=== PATIENT | male | born 1945 | race Caucasian/White ===

== ENCOUNTER → 2023-04-07 08:09 | Outpatient (REF) | payer MEDICARE, SELFPAY ==
[2023-04-07 10:27] LABS: ALT (SGPT) 17 U/L (0-50); AST (SGOT) 22 U/L (17-59); Albumin 3.8 g/dl (3.5-5.0); Alkaline Phosphatase 94 U/L (38-126); Blood Urea Nitrogen 21 mg/dl (9-20); Calcium 9.8 mg/dl (8.4-10.2); Carbon Dioxide 29 mmol/L (22-30); Chloride 100 mmol/L (98-107); Glucose 142 mg/dl (70-99); HDL Cholesterol 42 mg/dl; LDL Cholesterol, Calculated 61 mg/dl; Potassium 4.2 mmol/L (3.5-5.1); Sodium 138 mmol/L (135-145); Total Cholesterol 120 mg/dl (50-199); Total Protein 6.3 g/dl (6.3-8.2); Triglyceride 88 mg/dl (10-149); Very Low Density Lipoprotein 17 mg/dl (0-30); eGFR > 60.00
[2023-04-07 10:43] LABS: PSA, Total - Screen 0.58 ng/ml (0.0-4.0)
[2023-04-07 13:02] LABS: Glycohemoglobin (HgbA1c) 7.9 % (4.0-5.6)
[2023-04-07 13:16] LABS: Microalbumin, Random Urine 24.3 mg/dl (0.6-1.7); Microalbumin/creatinine Ratio 174.7 mg/g
== END ==
LOC: REG 08:09
PROVIDERS: ATTENDING PHYSICIAN Internal Medicine Endocrinology, Diabetes & Metabolism; FAMILY PHYSICIAN Internal Medicine; REFERRING PHYSICIAN Internal Medicine Interventional Cardiology
DX: I10 Essential (primary) hypertension (principal); E11.621 Type 2 diabetes mellitus with foot ulcer; E11.40 Type 2 diabetes mellitus with diabetic neuropathy, unspecified; Z12.5 Encounter for screening for malignant neoplasm of prostate
CPT/HCPCS: 36415; 80053; 80061; 82043; 82570; 83036; G0103

== ENCOUNTER 2023-05-03 07:45 | Emergency (ER) | payer MEDICARE, SELFPAY ==
[2023-05-03 07:47] VITALS: BP 145/78
--- NOTE | 2023-05-03 08:03 | ED.GENMED ---
History of Present Illness
<Blanca Decker, HEAVY RAIL TRAIN OPERATOR - Last Filed: 05/03/23 15:44>
General
Chief Complaint: Abdominal Pain
Source: patient
Exam Limitations: none
Time Seen by Provider: 05/03/23 08:02
Nursing documentation reviewed up to this point in time: agreed with
Travel History
Have you had any contact with someone who has COVID-19?: No
Do you have any symptoms of coronavirus? Fever > 100 degrees, chills, cough, shortness of breath, sore throat, loss of taste or smell, muscle aches, or headache?: No
History of Present Illness
History of Present Illness:
77-year-old male with history of A-fib, aspirin and Plavix, CHF, HTN, HLD, pacemaker, IDDM cardiac stent 1993, stents x 4 201, AVR presents stating he was awakened 1 a.m. with mid abdominal pain, constant, pressure, gassy, feels distended, 'like I
have an obstruction.' Pain 6/10 now. Had a normal BM yesterday. Denies fever or chills. Denies chest pain or trouble breathing. Denies any problem with urinating.
Past History
<Blanca Decker HEAVY RAIL TRAIN OPERATOR - Last Filed: 05/03/23 15:44>
Past History
ED Past Medical History: CAD, HTN, Hypercholesterolemia, IDDM and Other (Diabetic neuropathy, morbid obesity, cholelithiasis)
ED Past Surgical History: Other (Patient has a history of having a cardiac stent, open reduction of a right elbow injury, right eye surgery, and left fifth metatarsal surgery. )
Social History
Tobacco: Non-smoker
Alcohol: None
Drug: None
Personal:
Living: with family
Employment: Retired
Family History
Family History: Diabetes and CAD
Review of Systems
<Blanca Decker, HEAVY RAIL TRAIN OPERATOR - Last Filed: 05/03/23 15:44>
Review of Systems
Allergies reviewed?: Yes
All Other Systems: ROS reviewed and negative except as documented in HPI and ROS
Constitutional: Denies fever or chills
Respiratory: Denies trouble breathing
Cardiac: Denies chest pain
ABD/GI: Reports abdominal pain and nausea; Denies vomiting, diarrhea, constipated, bloody stools or black stools
: Denies dysuria, frequency, flank pain or difficulty voiding
Musculoskeletal: Reports no symptoms
Skin: Reports no symptoms
Neurological: Reports no symptoms
Phy Exam
<Blanca Decker, HEAVY RAIL TRAIN OPERATOR - Last Filed: 05/03/23 15:44>
Physical Exam
Physical Exam:
GENERAL: No acute distress. A&Ox3.
CONSTITUTIONAL: Afebrile.
EYES: clear, conjunctivae normal
Neck: Supple
ENMT: moist mucus membranes, Pharynx nl
RESPIRATORY: Regular respirations, nonlabored, lungs clear.
CARDIOVASCULAR: Regular rate and rhythm, no murmurs, no rubs.
GI: obese, distended, generally tender, hypoactive BS,
MUSCULOSKELETAL: Moves with ease. Well perfused. No edema
SKIN: Warm, dry, pink
PSYCH: Normal mood and affect. Well kept, interactive and appropriate
NEUROLOGIC: Awake, alert and oriented. No focal neurological deficits
Course
<Blanca Decker, HEAVY RAIL TRAIN OPERATOR - Last Filed: 05/03/23 15:44>
Orders/Labs/Results
Orders:
Orders
05/03/23 08:08
IV Insert/Care/Rem.- Treatment PRN
HYDROmorphone [Dilaudid] 1 mg IV NOW STA
Ondansetron Orally Disint [Zofran Odt (Orally Disintegrating)] 4 mg PO NOW STA
05/03/23 08:09
CT Abd/Pel (IV only)-DH only Urgent
Comment:
Reason For Exam: mid abdominal pain
05/03/23 08:10
0.9% Sodium Chloride 1000 ml [Nss] 1,000 ml IV BOLUS
05/03/23 08:27
Complete Blood Count/With Diff Urgent
Comprehensive Metabolic Panel Urgent
Lactate Level [Lactic Acid] Urgent
Lipase Urgent
05/03/23 10:24
Ketorolac [Toradol] 15 mg IV NOW STA
05/03/23 11:46
Urinalysis Reflex To Culture Urgent
Date Specimen was Collected: 05/03/23
Time Specimen was Collected: 08:11
Urine Microscopic Reflex Cult Urgent
Urine Culture Urgent
TRENA Source: U
Specimen Description:
Date Specimen was Collected: 05/03/23
Time Specimen was Collected: 08:11
05/03/23 13:02
Dicyclomine [Bentyl] 20 mg PO NOW STA
Abnormal Lab Results
05/03/23 05/03/23
08:27 11:46
WBC 12.4 H 10^3/uL
(4.8-10.8)
Abs Immat Gran (auto) 0.1 H 10^3/uL
(0-0.05)
Absolute Neuts (auto) 10.2 H 10^3/uL
(1.4-6.5)
Absolute Monos (auto) 0.7 H 10^3/uL
(0.1-0.6)
Immature Gran % 0.6 H %
(0-0.5)
Neutrophils % 81.7 H %
(42.2-75.2)
Lymphocytes % 11.7 L %
(20.5-51.1)
Sodium 134 L mmol/L
(135-145)
Glucose 161 H mg/dl
(70-99)
Calcium 10.7 H mg/dl
(8.4-10.2)
Urine Ketones 2+ A
(Negative)
Ur Occult Blood Reflex 1+ A
(Negative)
Urine Bacteria (Reflex) Many A
(Negative)
Urine Glucose Trace A
(Negative)
Urine Albumin (Reflex) 2+ A
(Neg - Trace)
05/03/23 08:27
05/03/23 08:27
Vital Signs
Initial and Last Documented VS:
Initial Vital Signs
Temp Pulse Resp BP Pulse Ox
97.6 F 68 18 145/78 98
05/03/23 07:47 05/03/23 07:47 05/03/23 07:47 05/03/23 07:47 05/03/23 07:47
Last Documented Vital Signs
Temp Pulse Resp BP Pulse Ox
97.6 F 65 18 163/61 95
05/03/23 07:47 05/03/23 11:00 05/03/23 11:00 05/03/23 12:00 05/03/23 13:00
Pot Lining Supervisor consulted with Physician
Pot Lining Supervisor consulted with physician?: Yes
Name of Physician Consulted: Brad
<Air Salinas, DO - Last Filed: 05/03/23 09:02>
Orders/Labs/Results
Orders:
Orders
05/03/23 08:08
IV Insert/Care/Rem.- Treatment PRN
HYDROmorphone [Dilaudid] 1 mg IV NOW STA
Ondansetron Orally Disint [Zofran Odt (Orally Disintegrating)] 4 mg PO NOW STA
05/03/23 08:09
CT Abd/Pel (IV only)-DH only Urgent
Comment:
Reason For Exam: mid abdominal pain
05/03/23 08:10
0.9% Sodium Chloride 1000 ml [Nss] 1,000 ml IV BOLUS
05/03/23 08:27
Complete Blood Count/With Diff Urgent
Comprehensive Metabolic Panel Urgent
Lactate Level [Lactic Acid] Urgent
Lipase Urgent
05/03/23 10:24
Ketorolac [Toradol] 15 mg IV NOW STA
05/03/23 11:46
Urinalysis Reflex To Culture Urgent
Date Specimen was Collected: 05/03/23
Time Specimen was Collected: 08:11
Urine Microscopic Reflex Cult Urgent
Urine Culture Urgent
TRNEA Source: U
Specimen Description:
Date Specimen was Collected: 05/03/23
Time Specimen was Collected: 08:11
05/03/23 13:02
Dicyclomine [Bentyl] 20 mg PO NOW STA
Abnormal Lab Results
05/03/23 05/03/23
08:27 11:46
WBC 12.4 H 10^3/uL
(4.8-10.8)
Abs Immat Gran (auto) 0.1 H 10^3/uL
(0-0.05)
Absolute Neuts (auto) 10.2 H 10^3/uL
(1.4-6.5)
Absolute Monos (auto) 0.7 H 10^3/uL
(0.1-0.6)
Immature Gran % 0.6 H %
(0-0.5)
Neutrophils % 81.7 H %
(42.2-75.2)
Lymphocytes % 11.7 L %
(20.5-51.1)
Sodium 134 L mmol/L
(135-145)
Glucose 161 H mg/dl
(70-99)
Calcium 10.7 H mg/dl
(8.4-10.2)
Urine Ketones 2+ A
(Negative)
Ur Occult Blood Reflex 1+ A
(Negative)
Urine Bacteria (Reflex) Many A
(Negative)
Urine Glucose Trace A
(Negative)
Urine Albumin (Reflex) 2+ A
(Neg - Trace)
05/03/23 08:27
05/03/23 08:27
Vital Signs
Initial and Last Documented VS:
Initial Vital Signs
Temp Pulse Resp BP Pulse Ox
97.6 F 68 18 145/78 98
05/03/23 07:47 05/03/23 07:47 05/03/23 07:47 05/03/23 07:47 05/03/23 07:47
Last Documented Vital Signs
Temp Pulse Resp BP Pulse Ox
97.6 F 65 18 163/61 95
05/03/23 07:47 05/03/23 11:00 05/03/23 11:00 05/03/23 12:00 05/03/23 13:00
<Blanca Decker HEAVY RAIL TRAIN OPERATOR - Last Filed: 05/03/23 15:44>
MDM/Problems Addressed
Differential Diagnosis Includes:
Bowel obstruction, ileus, mesenteric ischemia, colitis
MDM/Problems Addressed:
77-year-old male with history of A-fib, aspirin and Plavix, CHF, HTN, HLD, pacemaker, IDDM cardiac stent 1993, stents x 4 201, AVR presents stating he was awakened 1 a.m. with mid abdominal pain, constant, pressure, gassy, feels distended, 'like I
have an obstruction.' Pain 6/10 now. Had a normal BM yesterday. Denies fever or chills. Denies chest pain or trouble breathing. Denies any problem with urinating.
Afebrile, NAD
05/03/2023 0916 AM
CBC: WBC 12.4
CMP: No clinically significant abnormality
Lipase WNL
Lactic WNL
Pt states not much relief after pain med, Laying calmly in bed
05/03/2023 1024 AM
Patient back from CAT scan
Requesting more pain medication
On Plavix and ASA, one time order for Toradol 15 mg for questionable ureteral stone.
05/03/2023 1259 PM
Some relief after IV Toradol.
CT scan abdomen pelvis with IV contrast radiology report read: IMPRESSION:
1). Cholelithiasis including cholesterol calculi
2). 1.7 cm right adrenal adenoma
Nothing in report to explain patient's pain
U/A neg
There is nothing in workup today to explain his pain. In further conversation, Yesterday was [employer] [place] day and he does admit to having a lot of corn beef and cabbage. This certainly could cause gassy pains and bloating.
Instructed to take Miralax, he may continue Gas-ex, added Bentyl (rx sent to his pharmacy)
Dr. Salinas has examined the patient and agrees with assessment and plan
<Blanca Decker, HEAVY RAIL TRAIN OPERATOR - Last Filed: 05/03/23 15:44>
*Critical Care Note
Total Time (30-74mins, 75-104mins- exclusive of procedures): Not Applicable
ED Attending Note
<Blanca Decker, HEAVY RAIL TRAIN OPERATOR - Last Filed: 05/03/23 15:44>
-
Portions of this chart may have been created with voice recognition software.� Occasional wrong word or��sound alike� substitutions may have occurred due to the inherent limitations of voice recognition software.
<Ari Salinas, DO - Last Filed: 05/03/23 09:02>
ED Attending Note
Patient seen and examined by attending physician: Yes
I performed the substantive portion of visit, reviewed & personally made and approve the management plan that is documented in note by myself or LIZETH.: Yes
ED Attending Note:
I have seen and evaluated the patient with a [id number] encounter. I have spoken to the advance practicer provider and involved in the medical history, the physical exam, medical decision making.
Evaluation and management service: agree unless noted differently below.
Results interpretation: agree unless noted differently below.
Focused HPI: 77-year-old male presenting for evaluation of generalized abdominal pain. Patient states that his abdomen feels more distended
Physical exam: On my evaluation, patient has already received pain medicine. He states he is feeling better. He does have a distended abdomen with generalized tenderness throughout. No rebound
Medical Decision Making: Will obtain CT looking for evidence of obstruction versus perforation.
Discharge Plan
Departure
Patient Disposition: Home (Routine Discharge)
Date of Disposition: 05/03/23
Time of Disposition: 13:09
Patient with high blood pressure during this ER visit?: No
Condition: Fair
Discharge Problem:
Abdominal pain
Instructions: Constipation, Adult (DC), Abdominal Pain
Prescriptions:
New
dicyclomine 20 mg tablet
20 mg PO TID PRN (Reason: abdominal pain) Qty: 20 0RF
No Action
coenzyme Q10 [Co Q-10] 200 MG capsule
200 mg PO QPM
latanoprost 1 DROP drops
1 drp LEFT EYE HS
clopidogrel 75 MG tablet
75 mg PO QPM
multivitamin with folic acid [Tab-A-Lamberto] 1 TABLET tablet
1 tab PO QPM
amlodipine 10 MG tablet
10 mg PO QPM
dorzolamide (PF) 10 ML drops
1 drp LEFT EYE BID
cholecalciferol (vitamin D3) 2,000 UNITS tablet
2,000 units PO DAILY
lisinopril 40 mg Tablet
40 mg PO QPM
insulin glargine U-300 conc [Toujeo Max U-300 SoloStar] 300 unit/mL (3 mL) Insulin Pen
100 unit SC DAILY
carvedilol 6.25 MG tablet
12.5 mg PO BID
Rx Instructions:
stop taking metoprolol succinate (toprol XL), switched to carvedilol (coreg)
hydralazine 25 MG tablet
25 mg PO BID
prednisolone acetate 0.12 % Drops,Suspension
1 drp RIGHT EYE DAILY
furosemide 40 mg Tablet
40 mg PO BID AT 0800,1600 Qty: 60 0RF
aspirin 81 mg Tablet,Chewable
81 mg PO DAILY Qty: 30 0RF
metformin 500 mg Tablet Extended Release 24 Hr
500 mg PO DAILYPRN PRN (Reason: elevated sugars)
pitavastatin calcium [Livalo] 4 mg Tablet
4 mg PO QPM
acetaminophen [Tylenol] 325 mg Tablet
650 mg PO Q4HPRN PRN (Reason: mild pain)
simethicone [Gas-X] 80 mg Tablet,Chewable
80 mg PO TIDPRN PRN (Reason: gerd)
Referrals:
Celestino Tapia I., DO [Family Provider] - Follow up in 2-3 days
Activity Restrictions/Additional Instructions:
As we discussed, nothing worrisome in your workup here today.
I sent a prescription to your pharmacy for Bentyl to use as needed for abdominal pains.
Since you celebrated [place]'s day yesterday with corn beef and cabbage, you certainly may have more gas than usual that may be contributing to your pain.
Miralax, stool softeners for the next few days may help
See your doctor in 3-4 days if not much improved by then
Return here immediately for abdominal pain associated with vomiting, bloody stools, fever or feeling sicker in any way.
Interventions
Interventions:
*Risk Screen - Suicide Last Done: 05/03/23 07:47
*General Assessment Last Done: 05/03/23 07:47
*Neglect/Abuse Screening Last Done: 05/03/23 07:47
*Nursing Disposition Last Done: 05/03/23 13:38
HQ-Lycoxi-Chbtnjpxqs Assessment Last Done: 05/03/23 08:30
Discharge Date and Time
Discharge Date/Time: 05/03/23 13:38
[2023-05-03] MEDS: ZOFRAN ODT (ORALLY DISINTEGRATING) 4 MG PO (08:17)
[2023-05-03] MEDS: NSS 1000 IV (08:28)
[2023-05-03] MEDS: DILAUDID 1 MG IV (08:28)
[2023-05-03 08:58] LABS: % Basophils 0.2 % (0-2); % Eosinophils 0.3 % (0-6); % Immature Granulocytes 0.6 % (0-0.5); % Lymphocytes 11.7 % (20.5-51.1); % Monocytes 5.5 % (1.7-9.3); % Neutrophils 81.7 % (42.2-75.2); Absolute Immature Granulocytes 0.1 10^3/uL (0-0.05); Absolute Lymphocytes 1.5 10^3/uL (1.2-3.4); Absolute Monocytes 0.7 10^3/uL (0.1-0.6); Absolute Neutrophils 10.2 10^3/uL (1.4-6.5); Hematocrit 48.3 % (39.0-52.0); Hemoglobin 16.3 g/dL (13.0-18.0); Mean Corp Hgb Conc. 33.7 g/dL (33.0-37.0); Mean Corpuscular Hgb 28.7 pg (27.0-31.0); Mean Corpuscular Volume 85.2 fL (80.0-94.0); Nucleated Red Blood Cells % 0 % (-); Platelet Count 231 10^3/uL (130-400); Red Blood Cell Count 5.67 10^6/uL (4.70-6.10); Red Cell Dist. Width 13.2 % (11.5-14.5); White Blood Cell Count 12.4 10^3/uL (4.8-10.8)
[2023-05-03 09:08] LABS: Lactic Acid 0.9 mmol/L (0.7-2.0)
[2023-05-03 09:09] LABS: ALT (SGPT) 24 U/L (0-50); AST (SGOT) 30 U/L (17-59); Albumin 4.4 g/dl (3.5-5.0); Alkaline Phosphatase 98 U/L (38-126); Blood Urea Nitrogen 18 mg/dl (9-20); Calcium 10.7 mg/dl (8.4-10.2); Carbon Dioxide 27 mmol/L (22-30); Chloride 102 mmol/L (98-107); Glucose 161 mg/dl (70-99); Lipase 96 U/L (23-300); Potassium 4.1 mmol/L (3.5-5.1); Sodium 134 mmol/L (135-145); Total Bilirubin 1.1 mg/dl (0.2-1.3); Total Protein 7.3 g/dl (6.3-8.2); eGFR > 60.00
[2023-05-03 10:22] VITALS: BP 176/48
[2023-05-03] MEDS: TORADOL 15 MG IV (10:29)
[2023-05-03 11:00] VITALS: BP 159/56
[2023-05-03 12:00] VITALS: BP 163/61
[2023-05-03 12:11] LABS: Urine Albumin 2+ (Neg - Trace); Urine Bilirubin Negative (Negative); Urine Character Clear (Clear); Urine Color Yellow; Urine Glucose Trace (Negative); Urine Ketone 2+ (Negative); Urine Leukocyte Negative (Negative); Urine Nitrite Negative (Negative); Urine Occult Blood 1+ (Negative); Urine Urobilinogen Negative (Neg - 1+)
[2023-05-03 12:53] LABS: Urine Bacteria Many (Negative); Urine Squamous Cell 0-2 /LPF (Few); Urine White Cell 0-2 /HPF (0-5)
[2023-05-03 12:54] LABS: Urine Red Blood Cell 0-2 /HPF (0-2)
[2023-05-03] MEDS: BENTYL 20 MG PO (13:27)
== END 2023-05-03 13:38 | disposition home or self-care (01) ==
LOC: EMR 07:45
PROVIDERS: Registered Nurse; EMERGENCY PHYSICIAN Student in an Organized Health Care Education/Training Program; FAMILY PHYSICIAN Internal Medicine
DX: R10.84 Generalized abdominal pain (principal); R10.9 Unspecified abdominal pain; K80.20 Calculus of gallbladder without cholecystitis without obstruction; D35.01 Benign neoplasm of right adrenal gland; Z79.02 Long term (current) use of antithrombotics/antiplatelets; Z79.82 Long term (current) use of aspirin
CPT/HCPCS: 99285; 96374; 96375; 96361; 74177; 80053; 81003; 81015; 83605; 83690; 85025; 87086; Q9967

== ENCOUNTER → 2023-10-05 06:59 | Outpatient (REF) | payer MEDICARE, SELFPAY ==
[2023-10-05 07:58] LABS: ALT (SGPT) 20 U/L (0-50); AST (SGOT) 24 U/L (17-59); Albumin 4.4 g/dl (3.5-5.0); Alkaline Phosphatase 93 U/L (38-126); Blood Urea Nitrogen 15 mg/dl (9-20); Calcium 9.9 mg/dl (8.4-10.2); Carbon Dioxide 30 mmol/L (22-30); Chloride 100 mmol/L (98-107); Glucose 100 mg/dl (70-99); HDL Cholesterol 42 mg/dl; LDL Cholesterol, Calculated 48 mg/dl; Potassium 3.8 mmol/L (3.5-5.1); Sodium 139 mmol/L (135-145); Total Bilirubin 1.1 mg/dl (0.2-1.3); Total Cholesterol 126 mg/dl (50-199); Triglyceride 182 mg/dl (10-149); Very Low Density Lipoprotein 36 mg/dl (0-30); eGFR > 60.00
[2023-10-05 12:30] LABS: Glycohemoglobin (HgbA1c) 7.7 % (4.0-5.6)
== END ==
LOC: REG 06:59
PROVIDERS: ATTENDING PHYSICIAN Internal Medicine Endocrinology, Diabetes & Metabolism; FAMILY PHYSICIAN Internal Medicine; REFERRING PHYSICIAN Internal Medicine Interventional Cardiology
DX: E11.40 Type 2 diabetes mellitus with diabetic neuropathy, unspecified (principal); I10 Essential (primary) hypertension; E11.621 Type 2 diabetes mellitus with foot ulcer
CPT/HCPCS: 36415; 80053; 80061; 83036

== ENCOUNTER → 2023-10-06 12:59 | Outpatient (REF) | payer MEDICARE, SELFPAY | LOC: RCS 12:59 | PROVIDERS: ATTENDING PHYSICIAN Internal Medicine Interventional Cardiology; FAMILY PHYSICIAN Internal Medicine | DX: Z95.2 Presence of prosthetic heart valve (principal); I25.10 Atherosclerotic heart disease of native coronary artery without angina pectoris; I50.21 Acute systolic (congestive) heart failure | CPT/HCPCS: 93306; Q9950 ==

== ENCOUNTER 2024-04-01 14:02 | Inpatient (IN) | payer MEDICARE, SELFPAY ==
[2024-04-01] VITALS (33 sets, daily range): BP systolic 117–172; BP diastolic 49–106; PULSE 2; BMI 43.3
[2024-04-01] MEDS: NITROSTAT (SUBLINGUAL) 0.4 MG SL (11:58)
--- NOTE | 2024-04-01 12:02 | ED.GENMED ---
History of Present Illness
General
Chief Complaint: Breathing Problem
Time Seen by Provider: 04/01/24 11:45
History of Present Illness
History of Present Illness:
Patient is a 78-year-old male with history of CHF, diabetes, pacemaker placement present presenting to the emergency department with respiratory distress. Per medics patient was in his usual state of health. This morning woke up with sudden onset
difficulty breathing. He does feel as if he is more swollen especially in his abdomen. Upon medics arrival patient was 78% on room air. They placed him on oxygen which brought him up to 95%. However patient with belly breathing and respiratory
distress today did place him on CPAP which patient did not tolerate. Then switched him back to nasal cannula and brought him in for further evaluation. He denies any fevers or chills. No URI symptoms. No chest pain. He does take Lasix. Denies
any unilateral leg swelling or hemoptysis. He does state that he felt fine yesterday. Per chart review it appears that patient has been admitted for CHF exacerbation in the past. He does state that this does feel similar. His last echo was on
September 2023 which showed mildly reduced EF.
Past History
Past History
ED Past Medical History: CAD, HTN, Hypercholesterolemia, IDDM and Other (Diabetic neuropathy, morbid obesity, cholelithiasis)
ED Past Surgical History: Other (Patient has a history of having a cardiac stent, open reduction of a right elbow injury, right eye surgery, and left fifth metatarsal surgery. )
Social History
Tobacco: Non-smoker
Alcohol: None
Drug: None
Personal:
Living: with family
Employment: Retired
Family History
Family History: Diabetes and CAD
Phy Exam
Physical Exam
Physical Exam:
GENERAL: Severe respiratory distress
HEENT: normocephalic, extraocular movements intact, dry oral mucosa
NECK: normal inspection
RESPIRATORY: Severe respiratory distress, tachycardia, accessory muscle use, crackles in all lung lowery worse on the right
CARDIOVASCULAR: regular rate and rhythm
ABDOMEN/: soft, non-distended, non-tender to palpation, no rebound or guarding
EXTREMITIES: non-tender, bilateral lower extremity swelling
NEUROLOGIC: awake and alert, moves all extremities
SKIN: warm
Scores
Heart Failure Risk
Heart Failure Risk Score: Yes
History of Stroke or TIA: No
History of intubation for respiratory distress: No
Heart rate on ED arrival >/= 110: No
SaO2 <90% on arrival on room air: Yes
HR >/=110 during 3min walk test (or too ill to perform test): Yes
ECG has acute ischemic changes: No
Urea >/=12mmol/L (BUN 33.6mg/dL): Yes
Serum CO2>/=35mmol/L: No
Troponin I or T elevated to NE Level (0.4mg/dL): No
NT-proBNP >/=5,000ng/L (5,000pg/ml): No
HF Risk Score: 4
Admission Status: HIGH RISK 26.1% Consider SNF treatment or admission to hospital
Course
Orders/Labs/Results
Orders:
Orders
04/01/24 11:51
CR Chest Portable - 1 View Urgent
Comment:
Reason For Exam: sob
Reason Study Needs to be Portable: Patient Unstable
04/01/24 11:54
Ipratropium/Albuterol Sulfate [Duoneb] 3 ml INH R NOW STA
Nitroglycerin Sublingual [Nitrostat (Sublingual)] 0.4 mg SL NOW STA
04/01/24 11:55
CBC/With Diff [Complete Blood Count/With Diff] Urgent
CMP [Comprehensive Metabolic Panel] Urgent
NT-proBNP Urgent
Troponin I Urgent
Venous Blood Gas Urgent
%Oxygen/Room Air: 54
04/01/24 11:57
Electrocardiogram (*1) Urgent
Reason for Study: Palpitations
EKG- Treatment ONCE
04/01/24 12:33
COVID-19 Antigen Urgent
Source: Nasal Swab
Influenza A+B Rapid Molecular Urgent
TRENA Source: Nasal Swab
Specimen Description:
04/01/24 13:07
Furosemide [Lasix] 40 mg IV NOW STA
Nitroglycerin 100 mg/250 ml [Nitroglycerin Premix] 100 mg in 250 ml IV NOW
Initial dose in mcg/min, then titrate:: 5
Titrate to keep:: SBP < 160 mmHg
Titrate by mcg/min:: 5 mcg/min, may increase by 10 mcg/min if dose > 20 mcg/min
Frequency of titrations (minutes):: every 3-5 minutes
Maximum dose in mcg/min:: 200
Begin to taper infusion when:: Remained at goal for 2hrs
Taper by mcg/min:: 5 mcg/min
Frequency of taper (minutes) if patient maintains goal:: 30
Taper to off?: Yes
If infusion off & no longer maintaining goal:: Contact Provider
04/01/24 15:00
Troponin I Urgent
Abnormal Lab Results
04/01/24
11:55
WBC 12.8 H 10^3/uL
(4.8-10.8)
Abs Immat Gran (auto) 0.1 H 10^3/uL
(0-0.05)
Absolute Neuts (auto) 7.5 H 10^3/uL
(1.4-6.5)
Absolute Lymphs (auto) 4.0 H 10^3/uL
(1.2-3.4)
Absolute Monos (auto) 0.9 H 10^3/uL
(0.1-0.6)
VBG pH 7.27 L
(7.32-7.43)
VBG pCO2 65 H mmHg
(35-48)
VBG pO2 136 H mmHg
(30-50)
VBG HCO3 29.8 H mmol/L
(22-27)
Glucose 226 H mg/dl
(70-99)
Troponin I 0.084 H* ng/ml
04/01/24 11:55
04/01/24 11:55
Vital Signs
Initial and Last Documented VS:
Initial Vital Signs
Pulse Resp BP Pulse Ox
81 26 170/86 54
04/01/24 11:44 04/01/24 11:44 04/01/24 11:44 04/01/24 11:44
Last Documented Vital Signs
Pulse Resp BP Pulse Ox
60 22 150/64 100
04/01/24 12:47 04/01/24 12:47 04/01/24 12:45 04/01/24 12:47
MDM/Problems Addressed
Differential Diagnosis Includes:
Patient is a 78-year-old man with history of CHF, hypertension, hyperlipidemia, diabetes presenting to the emergency department for respiratory distress for the past day. On arrival patient's pulse ox was in the 50s on nasal cannula. He was in
severe respiratory distress. He was also hypertensive in the 170s. Likely CHF exacerbation/pulmonary edema. Could be atypical ACS though less likely. Given the 1 day of symptoms less likely to be pneumonia. Considered PE though less likely as
patient is not tachycardic or hypotensive. I did complete a bedside echo which does show significant B-lines. He did have a reduced ejection fraction. No obvious right ventricular dilation or Hernandez sign. We did place patient on BiPAP and
gave him a dose of sublingual nitroglycerin. They just rapidly improved patient's symptoms. He was saturating in the 90s. His tachypnea has improved to the high 20s. His blood pressure did decrease to the 120s. Will hold off on nitro drip for
now and continue to monitor to see if the nitro drip is needed. Will check blood work as well as portable x-ray. I did discuss CODE STATUS with patient. He is a DNR/DNI.
*Critical Care Note
Total Time (30-74mins, 75-104mins- exclusive of procedures): Not Applicable (45)
comment:
Critical care statement: A total of 45 minutes of critical care time was provided for this patient. This includes management of unstable vital signs, evaluation of the patient at bedside, reviewing the patient's pertinent medical records, ordering
and reviewing studies, arranging urgent treatment with development of a management plan, evaluating patient's response to treatment, frequent reassessment, and discussion with consultants. This time was separate from time utilized to perform the
aforementioned documented procedures.
Update Note
Update Note:
Portable x-ray per my interpretation pulmonary edema and possible right lower lobe infiltrate. However patient without any infectious signs or symptoms and he had abrupt onset of symptoms so we will hold off on antibiotics.
On reevaluation patient appears much better. His respiratory distress has drastically improved. His blood pressure is slowly increasing to the 140s. Will start nitro drip if it continues to rise. I did receive a critical call for patient's
troponin. He denies any chest pain. His EKG per my interpretation does show paced rhythm with no obvious ischemic changes. Likely type II demand. Will obtain delta troponin.
On reevaluation patient is 100% with respiratory rate in the low 20s. His blood pressure is in the 160s so will start nitro drip. Discussed with hospitalist who excepted patient to their service.
ED Attending Note
-
Portions of this chart may have been created with voice recognition software.� Occasional wrong word or��sound alike� substitutions may have occurred due to the inherent limitations of voice recognition software.
Discharge Plan
Departure
Patient Disposition: Admit
Date of Disposition: 04/01/24
Time of Disposition: 13:10
Presentation/result/management discussed w/ accepting MD/DO: Hospitalist
Discharge Problem:
CHF exacerbation
Prescriptions:
No Action
coenzyme Q10 [Co Q-10] 200 MG capsule
200 mg PO QPM
latanoprost 1 DROP drops
1 drp LEFT EYE HS
clopidogrel 75 MG tablet
75 mg PO QPM
multivitamin with folic acid [Tab-A-Lamberto] 1 TABLET tablet
1 tab PO QPM
amlodipine 10 MG tablet
10 mg PO QPM
dorzolamide (PF) 10 ML drops
1 drp LEFT EYE BID
cholecalciferol (vitamin D3) 2,000 UNITS tablet
2,000 units PO DAILY
lisinopril 40 mg Tablet
40 mg PO QPM
insulin glargine U-300 conc [Toujeo Max U-300 SoloStar] 300 unit/mL (3 mL) Insulin Pen
100 unit SC DAILY
carvedilol 6.25 MG tablet
12.5 mg PO BID
Rx Instructions:
stop taking metoprolol succinate (toprol XL), switched to carvedilol (coreg)
hydralazine 25 MG tablet
25 mg PO BID
prednisolone acetate 0.12 % Drops,Suspension
1 drp RIGHT EYE DAILY
furosemide 40 mg Tablet
40 mg PO BID AT 0800,1600 Qty: 60 0RF
aspirin 81 mg Tablet,Chewable
81 mg PO DAILY Qty: 30 0RF
metformin 500 mg Tablet Extended Release 24 Hr
500 mg PO DAILYPRN PRN (Reason: elevated sugars)
pitavastatin calcium [Livalo] 4 mg Tablet
4 mg PO QPM
acetaminophen [Tylenol] 325 mg Tablet
650 mg PO Q4HPRN PRN (Reason: mild pain)
simethicone [Gas-X] 80 mg Tablet,Chewable
80 mg PO TIDPRN PRN (Reason: gerd)
dicyclomine 20 mg tablet
20 mg PO TID PRN (Reason: abdominal pain) Qty: 20 0RF
Referrals:
Celestino Tapia I., DO [Family Provider] -
Interventions
Interventions:
*General Assessment Last Done: 04/01/24 11:48
*Neglect/Abuse Screening Last Done: 04/01/24 12:03
ED- Fall Risk Assessment Last Done: 04/01/24 12:00
*ED COVID-19 Vaccine History Last Done: 04/01/24 11:48
ED- Cardiac Assessment Last Done: 04/01/24 12:00
ED- Pulmonary Assessment Last Done: 04/01/24 12:00
Discharge Date and Time
Print Language: POLISH
[2024-04-01 12:07] LABS: Venous Blood Gas B.E. 0.8 mmol/L (-4 to +4); Venous Blood Gas HCO3 29.8 mmol/L (22-27); Venous Blood Gas O2 Sat % 99.2 %; Venous Blood Gas pCO2 65 mmHg (35-48); Venous Blood Gas pH 7.27 (7.32-7.43); Venous Blood Gas pO2 136 mmHg (30-50)
[2024-04-01 12:10] LABS: Venous Blood Gas O2 Therapy 54
[2024-04-01 12:19] LABS: ALT (SGPT) 20 U/L (0-50); AST (SGOT) 25 U/L (17-59); Albumin 4.6 g/dl (3.5-5.0); Alkaline Phosphatase 122 U/L (38-126); Blood Urea Nitrogen 19 mg/dl (9-20); Calcium 9.1 mg/dl (8.4-10.2); Carbon Dioxide 27 mmol/L (22-30); Chloride 102 mmol/L (98-107); Estimated Creatinine Clearance 18 ml/min; Glucose 226 mg/dl (70-99); Potassium 4.3 mmol/L (3.5-5.1); Sodium 139 mmol/L (135-145); Total Bilirubin 1.3 mg/dl (0.2-1.3); Total Protein 7.1 g/dl (6.3-8.2); eGFR > 60.00
[2024-04-01] MEDS: DUONEB 3 ML INH (12:28)
[2024-04-01 12:33] LABS: % Basophils 0.2 % (0-2); % Eosinophils 2.7 % (0-6); % Immature Granulocytes 0.5 % (0-0.5); % Lymphocytes 30.9 % (20.5-51.1); % Neutrophils 58.7 % (42.2-75.2); Absolute Eosinophils 0.3 10^3/uL (0-0.7); Absolute Immature Granulocytes 0.1 10^3/uL (0-0.05); Absolute Monocytes 0.9 10^3/uL (0.1-0.6); Absolute Neutrophils 7.5 10^3/uL (1.4-6.5); Hematocrit 46.3 % (39.0-52.0); Hemoglobin 15.5 g/dL (13.0-18.0); Mean Corp Hgb Conc. 33.5 g/dL (33.0-37.0); Mean Corpuscular Hgb 29.3 pg (27.0-31.0); Mean Corpuscular Volume 87.5 fL (80.0-94.0); Mean Platelet Volume 9.7 fL (7.4-10.4); Nucleated Red Blood Cells % 0 % (-); Platelet Count 244 10^3/uL (130-400); Red Blood Cell Count 5.29 10^6/uL (4.70-6.10); Red Cell Dist. Width 14.1 % (11.5-14.5); White Blood Cell Count 12.8 10^3/uL (4.8-10.8)
[2024-04-01 12:34] LABS: Troponin I 0.084 ng/ml
[2024-04-01 12:59] LABS: NT-proBNP 946 pg/ml
[2024-04-01 13:05] LABS: COVID-19 Antigen Negative (Negative)
[2024-04-01] MEDS: NITROGLYCERIN PREMIX 250 IV (13:13)
[2024-04-01] MEDS: LASIX 40 MG IV (13:13)
--- NOTE | 2024-04-01 13:58 | HPS.HSE ---
Addendum entered and electronically signed by Venkata Perez MD 04/01/24 14:07:
Correction: P Card : DCA Dr Nghia Sotelo . Not CBC card
- CXL CBC card consult
- consult DCA Card Dr Nghia Fairchild
Original Note:
Family Physician
-
Family Physician: Celestino Tapia
Chief Complaint
-
acute Resp distress
History of Present Illness
78M [facility] with HX TAVR, HX CHF CAD, HTN, Hypercholesterolemia, DMT2 , Diabetic neuropathy, morbid obesity, seen at ER ;
- USOH as of last night per EMS
- this morning woke up with sudden onset difficulty breathing and pw acute respiratory distress.
- he feel as if he is more swollen especially in his abdomen.
- Upon medics POx 78% on RA - Tx with NC O2 POX lyles up to 95%.
- However due to continuing respiratory distress, initiated CPAP which patient did not tolerate. T
- then switched him back to nasal cannula and brought him in for further evaluation.
- reports compliance with Lasix.
- Denies any unilateral leg swelling or hemoptysis.
- last echo was on September 2023 which showed mildly reduced EF.
ROS:
He denies any fevers or chills.
No URI symptoms.
No chest pain
At ER:
On arrival patient's pulse ox was in the 50s on nasal cannula.
He was in severe respiratory distress.
He was also hypertensive in the 170s.
ER Tx
IV Lasix 40
NTG gtt
Improved POx to 100% with respiratory rate in the low 20s.
Blood pressure is in the 160s so will start nitro drip
Medical History
Past Medical History
Past Medical History: Reports CAD, CHF, HTN, Hypercholesterolemia and IDDM
Past Surgical History: Reports Other (History anorectal fistula repair Left groin/scrotal abscess I&D Partial amputation left toe)
Social History
Tobacco: Non-smoker
Alcohol: None
Drug: None
Personal:
Living: With Family
Family History
Family History: Not pertinent
Allergies / Home Medications
Allergies reflects when Allergies were last updated in [facility].
Home Medications with original date entered in [facility]
Allergy/Medication List:
Allergies
Allergy/AdvReac Type Severity Reaction Status Date / Time
clindamycin [Clindamycin] Allergy Shortness Verified 08/20/22 14:49
of Breath
Penicillins Allergy Rash; Verified 08/20/22 14:49
TOLERATES
CEPHALOSPORINS
Tvpmdxe-KON-VqB Reductase Allergy Patient Verified 08/20/22 14:49
Inhibitor reports
[Gdbpyzw-Iad-Hdr Reductase pains in
Inhibitor] shoulder
with
statin use.
Home Medications
coenzyme Q10 200 mg capsule (Co Q-10) 200 mg PO QPM Supplement 02/19/13
latanoprost 0.005 % eye drops 1 drp LEFT EYE HS Eye condition 02/15/14
clopidogrel 75 mg tablet 75 mg PO QPM Blood clot prevention/tx 10/22/16
multivitamin with folic acid 400 mcg tablet (Tab-A-Lamberto) 1 tab PO QPM Supplement 10/22/16
amlodipine 10 mg tablet 10 mg PO QPM Blood pressure 11/26/20
dorzolamide (PF) 2 % (PF) eye drops 1 drp LEFT EYE BID Eye condition 11/26/20
pitavastatin calcium 2 mg tablet (Livalo) 4 mg PO QPM High cholesterol 11/26/20
cholecalciferol (vitamin D3) 50 mcg (2,000 unit) tablet 2,000 units PO DAILY Supplement 03/15/21
furosemide 40 mg tablet 40 mg PO DAILY swelling 03/15/21
carvedilol 6.25 mg tablet 12.5 mg PO BID Blood Pressure 08/19/22
hydralazine 25 mg tablet 25 mg PO BID Blood Pressure 08/19/22
insulin glargine U-300 conc 300 unit/mL (3 mL) subcutaneous pen (Toujeo Max U-300 SoloStar) 110 unit SC DAILY Diabetes 08/19/22
lisinopril 40 mg tablet 40 mg PO QPM Blood Pressure 08/19/22
prednisolone acetate 0.12 % eye drops,suspension 1 drp RIGHT EYE DAILY 08/20/22
Review of Systems
-
A 12 point ROS was completed and negative except as noted: Yes
Physical Exam
Vital Signs
Vital Signs
Pulse Resp BP Pulse Ox
61 16 155/72 99
04/01/24 13:45 04/01/24 13:45 04/01/24 13:45 04/01/24 13:45
Physical Exam
General: Well Developed, Well Nourished and No Apparent Distress
HEENT: NormoCephalic, Moist mucous membranes and Atraumatic
Respiratory: Clear
Cardiac: S1/S2 and Regular Rhythm; No Murmur or Rub
GI: Soft, Non Tender, Non Distended and Normal Bowel Sounds; No Organomegaly
Rectal: Deferred by Provider
Musculoskeletal: No Clubbing and No Cyanosis
Skin: No Rash
Neuro: Nonfocal/grossly intact
Laboratory Results
-
04/01/24 11:55
04/01/24 11:55
Laboratory Results
pH Cancelled 04/01/24 11:51
pCO2 Cancelled 04/01/24 11:51
pO2 Cancelled 04/01/24 11:51
HCO3 Cancelled 04/01/24 11:51
Total Bilirubin 1.3 mg/dl (0.2-1.3) 04/01/24 11:55
AST 25 U/L (17-59) 04/01/24 11:55
ALT 20 U/L (0-50) 04/01/24 11:55
Alkaline Phosphatase 122 U/L (38-126) 04/01/24 11:55
Troponin I 0.084 ng/ml H* 04/01/24 11:55
Data Reviewed
-
Diagnostic Radiology: Image Personally Visualized and interpreted
Medical Tests (Nuc Med, Echo, EKG etc): Report Reviewed by me
Lab Data: Labs Reviewed by me
Old Records: Reviewed
Impression/Plan
-
Data
WCC 12.8
Nl Cr , nl eGFR
BG 226
TPNI 0.084
pBNP 946
Pending PCT
NEG Covid
VBG
7.27/pCO2 65/ [id number]
CXR final report pending: my read pul edema +/_ Rt LLL infiltrate ?
10/06/23 ECHO
TAVR. Guardado Alix 29. Peak/mean gradient are 20/11mmHg. Trace aortic regurgitation.
Left ventricular ejection fraction is 45-50%
Possible distal anterior and anteroseptal hypokinesis.
Stage I diastolic dysfunction
Normal right ventricular size. Normal right ventricular systolic function.
Compared to the previous echo 08/20/22, there is no significant change.
Last hospitalist admission:
DATE OF ADMISSION: 08/20/2022 - DATE OF DISCHARGE: 08/24/2022
DISCHARGE DIAGNOSES:
1. Acute hypoxic respiratory failure.
2. Acute congestive heart failure, mildly reduced ejection fraction.
3. Hypertensive emergency.
4. Non-ST elevated myocardial infarction with demand ischemia with troponin peak at 9.2.
5. COVID-19 positive.
ASSESSMENT & PLAN
Acute hypoxic RF secondary to acute CHF exacerbation/ acute on chr HFrEF and suspected PNA at Rt LLL
Drastic response to IV diuresis and NTG gtt with improved respiratory distress and decreased oxygen requirements
- Uncontrol HTN
- Gained 6 kg over 1 yr
- check PCT
- f/u final CXR report
- 40 Ox fluid restrict
- BiPAP 11/19
- IV Lasix 40 BID - f/i Wt, IOS and daily BMP
- c/w NTG gtt
- Empiric IV CFTX and PO Doxycycline till PCT is available
- c/w Lisinopril , Hydralazine, Carvedilol and amlodipine
- Held Metformin due to acute HF
- CBC card consult
Elevated TPN DDX: NIMI vs NSTEMI
ECG AV paced rhythm
Remains chest pain-free since admission
HX HLD
HX CAD
- Trend TPNI
- c/w ASA abd Plavix
- c/w Pitavastatin
- await Card evaluation
Essential HTN
HTN urgency/emergency possibly precipitating compensated CHF
- c/w VENDING MACHINE COIN COLLECTOR g Coreg, amlodipine, hydralazine, lisinopril
- c/w NTG gtt
Obstructive sleep apnea strongly suspected.
- outpatient sleep study
Morbid obesity with BMI 43
- affect all aspects of life
IrDMT2
- held metformin
-c/w Toujeo 100U daily
- add ISS low
- Advance to 1800 kcal diet
PAD.
Partial amputation of the left toe.
DVT Px: LMWH
Code: DNR confirmed in the presence of and son at bed side
IMU
[2024-04-01] MEDS: STERILE WATER FOR INJECTION 10 ML IV (17:24)
[2024-04-01] MEDS: ROCEPHIN 1000 MG IV (17:25)
[2024-04-01] MEDS: NORVASC 10 MG PO (17:25)
[2024-04-01] MEDS: VITAMIN D3 (cholecalciferol) 50 MCG PO (17:26)
[2024-04-01] MEDS: LIPITOR 20 MG PO (17:26)
[2024-04-01] MEDS: ASPIR LOW (ENTERIC COATED) 81 MG PO (17:26)
[2024-04-01] MEDS: THERAGRAN 1 TABLET PO (17:26)
[2024-04-01] MEDS: ZESTRIL 40 MG PO (17:26)
[2024-04-01] MEDS: LOVENOX 40 MG SC (17:27)
--- NOTE | 2024-04-01 17:54 | CON.CAR ---
Consultation
Consultation Request
Date/Time Consultation Requested: 04/01/2024 at 1600
Date/Time Consultation Performed: 04/01/2024 1800
Requesting Provider: LUIS Raymond
Performing Provider: Nghia Fairchild MD
Reason for Consultation: CHF, pneumonia
Medical History
-
Chief Complaint: Shortness of breath
History of Present Illness:
78-year-old man, brought in with abrupt onset shortness of breath. Pulse ox was in the 50s on arrival. Severe respiratory distress, given IV Lasix and placed on nitroglycerin drip. Seen hours later later he was dramatically better, on nasal
cannula, and back to baseline state. He states that related to functions he has skipped doses of Lasix in the last week. Furosemide is supposed to be 40 mg twice daily. Until this morning he states that he was feeling very well. He has had no
intercurrent illnesses since his last visit in the office which was in September 2023, and at that point was felt to be stable. Most recent pacemaker interrogation showed nominal performance of pacemaker, battery longevity 10 years, atrial pacing 8%,
ventricular pacing 97%. No atrial fibrillation
Past Medical History
Past Medical History: Arrhythmias (Complete heart block with TAVR, Medtronic dual-chamber pacemaker 2020), CAD ( PCI with multiple stents to LAD, 1993, 2015, 2016, and known GAME OPERATOR RCA), CHF (History of heart failure with mildly reduced EF 45-50%
2023), HTN, Hypercholesterolemia, IDDM, Valvular Disease (#29 Guardado transcatheter aortic valve 2020) and Other (Morbid obesity, PAD, noncompliance, COVID with non-STEMI 2022)
Past Surgical History: Other (Toe amputation, rectal fistula, incision and drainage of scrotal abscess)
Social History
Tobacco: Non-Smoker
Alcohol: None
Drug: None
Personal:
Living: With Family
Employment: Retired
Family History
Family History: Reviewed & Not Pertinent
Allergies / Home Medications
Allergy/AdvReac Type Severity Reaction Status Date / Time
clindamycin [Clindamycin] Allergy Shortness Verified 05/03/23 07:46
of Breath
Penicillins Allergy Rash; Verified 05/03/23 07:46
TOLERATES
CEPHALOSPORINS
Apawhfi-TET-HuC Reductase Allergy Patient Verified 05/03/23 07:46
Inhibitor reports
[Gryhrsz-Pso-Won Reductase pains in
Inhibitor] shoulder
with
statin use.
�Medication �Instructions �Recorded �Confirmed �Type
coenzyme Q10 200 mg capsule (Co 200 mg PO QPM Supplement 02/19/13 04/01/24 History
Q-10)
latanoprost 0.005 % eye drops 1 drp LEFT EYE HS Eye condition 02/15/14 04/01/24 History
clopidogrel 75 mg tablet 75 mg PO DAILY Blood clot 10/22/16 04/01/24 History
prevention/tx
amlodipine 10 mg tablet 10 mg PO QPM Blood pressure 11/26/20 04/01/24 History
dorzolamide (PF) 2 % (PF) eye drops 1 drp LEFT EYE BID Eye condition 11/26/20 04/01/24 History
cholecalciferol (vitamin D3) 50 2,000 units PO QPM Supplement 03/15/21 04/01/24 History
mcg (2,000 unit) tablet
hydralazine 25 mg tablet 25 mg PO BID Blood Pressure 08/19/22 04/01/24 History
insulin glargine U-300 conc 300 100 unit SC DAILY Diabetes 08/19/22 04/01/24 History
unit/mL (3 mL) subcutaneous pen
(Toujeo Max U-300 SoloStar)
lisinopril 40 mg tablet 40 mg PO QPM Blood Pressure 08/19/22 04/01/24 History
furosemide 40 mg tablet 40 mg PO BID AT 0800,1600 #60 tabs 08/24/22 04/01/24 Rx
metformin 500 mg tablet,extended 500 mg PO DAILYPRN PRN elevated 11/11/22 04/01/24 History
release 24 hr sugars
pitavastatin calcium 4 mg tablet 4 mg PO QPM 05/03/23 04/01/24 History
(Livalo)
aspirin 81 mg tablet,delayed 81 mg PO QPM 04/01/24 04/01/24 History
release
carvedilol 12.5 mg tablet 12.5 mg PO BID 04/01/24 04/01/24 History
therapeutic multivitamin 1 tab PO QPM 04/01/24 04/01/24 History
Review of Systems
-
All other systems: Negative unless noted
Constitutional: No Symptoms
EENT: No Symptoms
Respiratory: Trouble Breathing
Cardiac: No Symptoms
Abdomen/GI: No Symptoms
: No Symptoms
Musculoskeletal: No Symptoms
Skin: No Symptoms
Neurological: No Symptoms
Endocrine: No Symptoms
Hematologic/Lymphatic: No Symptoms
Physical Exam
Vital Signs
Temp Pulse Resp BP Pulse Ox
36.6 C 64 15 163/68 94
04/01/24 15:24 04/01/24 17:25 04/01/24 14:45 04/01/24 17:25 04/01/24 14:45
Lab Results
04/01/24 11:55
04/01/24 11:55
Troponin I 0.084 ng/ml H* 04/01/24 11:55
Qfu-R-Wlsehzrdmba Pept 946 pg/ml 04/01/24 11:55
Physical Exam
General: No Apparent Distress and Comfortable
HEENT: Normocephalic
Respiratory: Clear
Cardiac: Regular Rhythm, Peripheral Edema (3+, Farrow wraps in place) and Other (No murmur)
GI: Non Tender (Obese)
Skin: Warm and Dry
Neuro: AO x 3
Psych: Calm
Impression / Plan
-
Impression:
Acute heart failure with mildly reduced EF
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
s/p Medtronic DC PPM 12/2020
CAD
LAD Palmaz-Sascha stent LAD 1993
in-stent restenosis of LAD stents from 1993 restented with 2.75 mm Synergy ANDRAE 01/22/16
patient refused CABG and had LAD stents x4 02/19/16
GAME OPERATOR prox RCA, patent prox and mid LAD stents by cath 11/26/20Diabetes mellitus type 2Hypertension
Hyperlipidemia
Morbid obesity
History anorectal fistula repair
Hypertension
History of COVID
Type 2 diabetes
Lexiscan sestamibi study September 2022: Moderate size, moderate to severe intensity predominantly fixed basal inferior, predominantly reversible mid to distal inferior, inferoseptal consistent with scar with residual ischemia. Inferior soft tissue
attenuation artifact present but defect persists with prone imaging, small severe distal apical anterolateral and apical reversible defect, EF 42%, inferior and inferolateral hypokinesis
Echocardiogram September 2023: EF 45 to 50%, distal anterior and anteroseptal hypokinesis, mild LVH, normal RV, 29 Guardado VANDANA 3 transcatheter aortic valve with peak and mean gradients 2011 mmHg, trace aortic regurgitation, normal, normal RV, no
mitral regurgitation, could not determine pulm artery pressure
Plan:
He presents with abrupt onset pulmonary edema with rapid resolution, possibly related to a hypertensive urgency. This may have been triggered by missed doses of furosemide in the last week or so.
He feels better on IV nitro and having received Lasix. He still somewhat hypertensive.
Continue IV Lasix.
Will add spironolactone 12.5 mg daily and and Farxiga 10 mg a day
If he has mineralocorticoid dependent hypertension and responds well to spironolactone, might consider reduction in amlodipine which is probably contributing to lower extremity edema
Importance of weight loss stressed, would consider referral to [facility] and possibly consider a GLP-1 agonist despite his age.
We will check echo on Wednesday. Detectable troponin in the setting with known GAME OPERATOR of RCA is not surprising.
Data Reviewed
-
EKG: Tracing Personally Visualized and interpreted (Sinus rhythm with ventricular pacing and PVCs)
Radiology: Image Personally Visualized and interpreted (CHF with pacemaker cardiomegaly)
Medical Tests (Nuc Med, Echo etc): Report Reviewed by me
Labs: Labs Reviewed by me (White count 12.8, hemoglobin 15.5, platelets 244, venous blood gas 7.2 7/65/136/30, potassium 4.3, BUN and creatinine are 19 and 0.8, proBNP is 946, had been 1390 in 2022, troponin is 0.084, during COVID in 2022 had been
9.3, known GAME OPERATOR of RCA)
Old Records: Reviewed
[2024-04-01 18:04] LABS: Glucose - Point of Care 185 mg/dl (70-99)
[2024-04-01 18:35] LABS: Lactic Acid 1.2 mmol/L (0.7-2.0)
[2024-04-01 18:49] LABS: Troponin I 0.379 ng/ml
[2024-04-01 18:51] LABS: Procalcitonin < 0.05 ng/ml (0.0-0.25)
[2024-04-01] MEDS: NOVOLOG FLEXPEN-LOW RESISTANCE SC (19:39)
[2024-04-01] MEDS: COREG 12.5 MG PO (20:45)
[2024-04-01] MEDS: VIBRAMYCIN 100 MG PO (20:45)
[2024-04-01] MEDS: APRESOLINE 25 MG PO (20:45)
[2024-04-01 21:19] LABS: Glucose - Point of Care 238 mg/dl (70-99)
[2024-04-01] MEDS: XALATAN OPHTHALMIC SOLUTION 1 DROP LEFT EYE (22:38)
[2024-04-01] MEDS: TRUSOPT 2% OPHTHALMIC SOLUTION 1 DROP LEFT EYE (22:38)
[2024-04-02] VITALS (39 sets, daily range): BP systolic 104–176; BP diastolic 51–150; BMI 41.7
--- NOTE | 2024-04-02 00:16 | PTCARENOTE ---
Received pt at change of shift. Nitro gtt running at 15 mcg/min. BP at goal starting at 1900. Tapered gtt to off with SBP maintain <160. RESIDENT SURGEON notified. Pt offers no complaints at this time. Resting with call morton in reach.
[2024-04-02 01:01] LABS: Troponin I 0.421 ng/ml
[2024-04-02 07:08] LABS: % Basophils 0.2 % (0-2); % Eosinophils 1.4 % (0-6); % Immature Granulocytes 0.3 % (0-0.5); % Lymphocytes 10.7 % (20.5-51.1); % Monocytes 7.9 % (1.7-9.3); % Neutrophils 79.5 % (42.2-75.2); Absolute Eosinophils 0.2 10^3/uL (0-0.7); Absolute Lymphocytes 1.3 10^3/uL (1.2-3.4); Absolute Neutrophils 9.8 10^3/uL (1.4-6.5); Hematocrit 39.6 % (39.0-52.0); Mean Corp Hgb Conc. 32.8 g/dL (33.0-37.0); Mean Corpuscular Hgb 29.4 pg (27.0-31.0); Mean Corpuscular Volume 89.6 fL (80.0-94.0); Mean Platelet Volume 9.9 fL (7.4-10.4); Nucleated Red Blood Cells % 0 % (-); Platelet Count 196 10^3/uL (130-400); Red Blood Cell Count 4.42 10^6/uL (4.70-6.10); White Blood Cell Count 12.3 10^3/uL (4.8-10.8)
[2024-04-02 07:32] LABS: Troponin I 0.373 ng/ml
[2024-04-02 07:37] LABS: ALT (SGPT) 17 U/L (0-50); AST (SGOT) 24 U/L (17-59); Albumin 3.6 g/dl (3.5-5.0); Alkaline Phosphatase 86 U/L (38-126); Blood Urea Nitrogen 17 mg/dl (9-20); Calcium 8.8 mg/dl (8.4-10.2); Carbon Dioxide 29 mmol/L (22-30); Chloride 103 mmol/L (98-107); Estimated Creatinine Clearance 104 ml/min; Glucose 125 mg/dl (70-99); HDL Cholesterol 35 mg/dl; LDL Cholesterol, Calculated 38 mg/dl; Magnesium 2.1 mg/dl (1.6-2.3); Potassium 4.1 mmol/L (3.5-5.1); Sodium 140 mmol/L (135-145); Total Bilirubin 1.5 mg/dl (0.2-1.3); Total Cholesterol 98 mg/dl (50-199); Total Protein 5.8 g/dl (6.3-8.2); Triglyceride 127 mg/dl (10-149); Very Low Density Lipoprotein 25 mg/dl (0-30); eGFR > 60.00
[2024-04-02] MEDS: NOVOLOG FLEXPEN-LOW RESISTANCE SC ×3 (09:09→16:49)
[2024-04-02] MEDS: PLAVIX 75 MG PO (09:10)
[2024-04-02] MEDS: FARXIGA 10 MG PO (09:10)
[2024-04-02] MEDS: ALDACTONE 12.5 MG PO (09:10)
[2024-04-02] MEDS: LANTUS 0.8 UNITS SC (09:10)
[2024-04-02] MEDS: VIBRAMYCIN 100 MG PO (09:10)
[2024-04-02] MEDS: LASIX 40 MG IV ×2 (09:12→15:53)
[2024-04-02] MEDS: COREG 12.5 MG PO (09:12)
[2024-04-02] MEDS: APRESOLINE 25 MG PO ×2 (09:12→21:57)
[2024-04-02] MEDS: TRUSOPT 2% OPHTHALMIC SOLUTION 1 DROP LEFT EYE ×2 (09:13→21:57)
[2024-04-02 09:16] LABS: Glucose - Point of Care 119 mg/dl (70-99)
--- NOTE | 2024-04-02 10:11 | CM ---
Met with patient a bedside; initial assessment completed
Pharmacy veriified: [facility] @ [id number]
Patient lives with in a one floor apartment [place]; no steps to enter; Bath has walk-in shower w/grab bar
PLOF: needs assistance with personal care; ambulates with rolling walker; does not drive
DME: Dexcom glucose monitor
NO recent SNF utilization
will transport home
Discharge plan to be determined; CM will monitor for needs/services
--- NOTE | 2024-04-02 10:25 | W.PN.CARDCBS ---
Today's Communication / Plan
-
Continue IV Lasix -probably transition to oral in a.m.
Unger Farxiga tomorrow
Await echo
Continue spironolactone
Can consider ischemic evaluation, though with DIETARY AID of RCA, modest increase in troponin not surprising
Impression / Plan
-
Impression:
Acute heart failure with mildly reduced EF
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
s/p Medtronic DC PPM 12/2020
CAD
LAD Palmaz-Sascha stent LAD 1993
in-stent restenosis of LAD stents from 1993 restented with 2.75 mm Synergy ANDRAE 01/22/16
patient refused CABG and had LAD stents x4 02/19/16
DIETARY AID prox RCA, patent prox and mid LAD stents by cath 11/26/20Diabetes mellitus type 2Hypertension
Hyperlipidemia
Morbid obesity
History anorectal fistula repair
Hypertension
History of COVID
Type 2 diabetes
Lexiscan sestamibi study September 2022: Moderate size, moderate to severe intensity predominantly fixed basal inferior, predominantly reversible mid to distal inferior, inferoseptal consistent with scar with residual ischemia. Inferior soft tissue
attenuation artifact present but defect persists with prone imaging, small severe distal apical anterolateral and apical reversible defect, EF 42%, inferior and inferolateral hypokinesis
Echocardiogram September 2023: EF 45 to 50%, distal anterior and anteroseptal hypokinesis, mild LVH, normal RV, 29 Guardado VANDANA 3 transcatheter aortic valve with peak and mean gradients 2011 mmHg, trace aortic regurgitation, normal, normal RV, no
mitral regurgitation, could not determine pulm artery pressure
Plan:
He seems very comfortable at present. Volume status is substantially improved.
Still with lower extremity edema, will continue IV Lasix today and likely transition to oral in a.m.
He is now on Farxiga. Will have to wait till tomorrow to find pricing and send prescription.
It may be coincidental, but with addition of spironolactone 12.5 mg daily his blood pressure is now ideal. Will decrease amlodipine to 5 mg daily. If blood pressure remains controlled we could possibly stop amlodipine, decrease hydralazine, etc.
Echo ordered for tomorrow.
His troponin is not surprising given a DIETARY AID of the right coronary artery and pulmonary edema. Will hold off on ischemic evaluation at present, could be considered as outpatient but is probably optional.
I again stressed the importance of weight loss with follow-up to Dr. Tapia. He might be a good candidate for a GLP-1 agonist.
Progress Note - Physician Relations Specialist
Subjective
Date of Service: April 02, 2024:
Medications: Subcu Lovenox, amlodipine 10 mg a day, aspirin 81 mg a day, carvedilol 12.5 mg twice daily, vitamin D3, clopidogrel 75 mg a day, Trusopt, hydralazine 25 twice daily, lisinopril 40 mg a day, Xalatan, atorvastatin 20 mg a day,
ceftriaxone, doxycycline, furosemide 40 mg IV twice daily, insulin Lantus, Farxiga 10 mg a day, spironolactone 12.5 mg daily
124/65, pulse 70, resp rate 18, afebrile, weight is 133.7 kg, if accurate down 5.1 kg,, intake and output likely incomplete, sitting in chair appears comfortable, regular rate and rhythm, JVD okay, no obvious murmurs, still with edema, has Farrow
wraps in place, abdomen obese
White count 12.3, hemoglobin 13, platelets 196, left shift, potassium is 4.1, BUN and creatinine are 17 and 0.8, troponin is 0.373, proBNP was 946, peak troponin was 0.4-1
Echo is pending
Objective
Labs:
04/02/24 06:56
04/02/24 06:56
Labs
Hgb 13.0 g/dL (13.0-18.0) 04/02/24 06:56
Hct 39.6 % (39.0-52.0) 04/02/24 06:56
Plt Count 196 10^3/uL (130-400) 04/02/24 06:56
Sodium 140 mmol/L (135-145) 04/02/24 06:56
Potassium 4.1 mmol/L (3.5-5.1) 04/02/24 06:56
BUN 17 mg/dl (9-20) 04/02/24 06:56
Creatinine 0.8 mg/dL (0.7-1.3) 04/02/24 06:56
Glucose 125 mg/dl (70-99) H 04/02/24 06:56
Troponins
04/01/24 04/01/24 04/02/24
11:55 18:05 00:15
Troponin I 0.084 H* 0.379 H* D 0.421 H*
04/02/24
06:56
Troponin I 0.373 H*
Vital Signs and I&O:
Vital Signs
Temp Pulse Resp BP Pulse Ox
37.0 C 70 18 124/65 97
04/02/24 08:37 04/02/24 09:12 04/02/24 08:01 04/02/24 09:12 04/02/24 09:52
Vital Signs
Temp Pulse Resp BP Pulse Ox
37.0 C 70 18 124/65 97
04/02/24 08:37 04/02/24 09:12 04/02/24 08:01 04/02/24 09:12 04/02/24 09:52
Intake & Output
03/31/24 04/01/24 04/02/24 04/03/24
07:59 07:59 07:59 07:59
Intake Total 240 / 240
Output Total 325 / 325
Balance -85 / -85
Physical Exam
Physical Exam
See above
--- NOTE | 2024-04-02 11:43 | W.PN.HOSP.TC ---
Today's Communication/Plan
-
see bold
Assessment / Plan
Assessment / Plan
78M [facility] EMS with HX TAVR, HX CHF CAD, HTN, Hypercholesterolemia, DMT2 , Diabetic neuropathy, morbid obesity, seen at ER
Gen: NAD, AAOx3.
Eyes: EOMI, PERRLA, no scleral icterus.
Neck: supple.
CV: RRR, +S1/S2, no m/r/g.
Resp: decreased BS and faint rales in the bases
Abd: +BS, soft, NT, ND
Skin: No rashes. compression dressings on LEs.
Neuro: CN 2-12 intact, non-focal.
Psych: Normal mood and affect.
CXR: Findings suspicious for congestive heart failure. Cannot entirely exclude mild right lower lobe pneumonia.
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
-No bacterial pneumonia has been ruled out with a negative procalcitonin, stop abx
-was on BIPAP on admission, now weaned to 4L NC O2
-has been on NTG gtt. Current SBP at the time of my exam 104, stop NTG gtt
-cards following
-cont IV lasix
-daily wts, I/Os, FR
-cont Lisinopril/Hydralazine/Aldactone/Farxiga/Coreg/Norvasc
-elevated trop due to NSTEMI type II due to hypertensive emergency
-check echo
Other problems:
HLD: cont statin
CAD: cont ASA/BB/Plavix/statin
Essential HTN: see above
MAY (likely): will need outpt sleep study
Morbid obesity due to excess calories
DM2: cont Farxiga/Lantus/SSI/accuchecks. Home Metformin on hold.
PAD, h/o partial amputation L toe
DNR/Lovenox
Total time spent on today's encounter was 50 minutes which included time spent in counseling the patient/family regarding diagnosis and treatment plan as listed above, goals of care, and symptom management. Case was discussed with nursing staff,
specialists, and care coordinators/case management. All labs and imaging personally reviewed by me. Remainder the time spent in detailed review of previous records, lab data, imaging, and other medical provider documentation.
Anticipated Discharge: 24 - 48 hours
Subjective/Interval History
-
Date of Service: April 02, 2024
No new complaints.
Objective Data
-
Labs:
Laboratory Results
04/02/24
06:56
WBC 12.3 H
Hgb 13.0
Hct 39.6
Plt Count 196
Sodium 140
Potassium 4.1
Chloride 103
Carbon Dioxide 29
BUN 17
Creatinine 0.8
Glucose 125 H
Calcium 8.8
Total Bilirubin 1.5 H
AST 24
ALT 17
Alkaline Phosphatase 86
Vital Signs:
Vital Signs
Temp Pulse Resp BP Pulse Ox
98.6 F 70 18 124/65 97
04/02/24 08:37 04/02/24 09:12 04/02/24 08:01 04/02/24 09:12 04/02/24 09:52
I&O
04/01/24 04/02/24 04/03/24
06:59 06:59 06:59
Intake Total 240 / 240
Output Total 325 / 325
Balance -85 / -85
[2024-04-02 12:02] LABS: Glucose - Point of Care 138 mg/dl (70-99)
--- NOTE | 2024-04-02 14:20 | PTCARENOTE ---
Pt's Nitro gtt discontinued by . Pt current BP is now 165/69 and made aware, no new orders at this time.
[2024-04-02 16:40] LABS: Glucose - Point of Care 121 mg/dl (70-99)
[2024-04-02] MEDS: LIPITOR 20 MG PO (18:18)
[2024-04-02] MEDS: ZESTRIL 40 MG PO (18:18)
[2024-04-02] MEDS: ASPIR LOW (ENTERIC COATED) 81 MG PO (18:18)
[2024-04-02] MEDS: VITAMIN D3 (cholecalciferol) 50 MCG PO (18:18)
[2024-04-02] MEDS: THERAGRAN 1 TABLET PO (18:18)
[2024-04-02] MEDS: NORVASC 5 MG PO (18:19)
[2024-04-02] MEDS: LOVENOX 40 MG SC (18:19)
--- NOTE | 2024-04-02 19:30 | PTCARENOTE ---
Received pt from day shift RN. Pt aaox3. V paced on monitor. 94% on 4L NC. VS and assessment as charted. Pt resting in bed with call morton in reach.
[2024-04-02 21:52] LABS: Glucose - Point of Care 61 mg/dl (70-99)
[2024-04-02] MEDS: COREG PO (21:56)
[2024-04-02] MEDS: XALATAN OPHTHALMIC SOLUTION 1 DROP LEFT EYE (22:01)
[2024-04-02 22:11] LABS: Glucose - Point of Care 79 mg/dl (70-99)
[2024-04-03] VITALS (23 sets, daily range): BP systolic 95–181; BP diastolic 40–132; PULSE 65; O2SAT 96; BMI 40.7
[2024-04-03 03:39] LABS: Glucose - Point of Care 110 mg/dl (70-99)
[2024-04-03 05:41] LABS: % Basophils 0.3 % (0-2); % Eosinophils 3.6 % (0-6); % Immature Granulocytes 0.4 % (0-0.5); % Lymphocytes 17.9 % (20.5-51.1); % Monocytes 9.4 % (1.7-9.3); % Neutrophils 68.4 % (42.2-75.2); Absolute Eosinophils 0.4 10^3/uL (0-0.7); Absolute Lymphocytes 1.8 10^3/uL (1.2-3.4); Absolute Neutrophils 6.9 10^3/uL (1.4-6.5); Hematocrit 42.5 % (39.0-52.0); Hemoglobin 13.7 g/dL (13.0-18.0); Mean Corp Hgb Conc. 32.2 g/dL (33.0-37.0); Mean Corpuscular Hgb 28.7 pg (27.0-31.0); Mean Corpuscular Volume 88.9 fL (80.0-94.0); Mean Platelet Volume 9.8 fL (7.4-10.4); Nucleated Red Blood Cells % 0 % (-); Platelet Count 203 10^3/uL (130-400); Red Blood Cell Count 4.78 10^6/uL (4.70-6.10); Red Cell Dist. Width 14.1 % (11.5-14.5); White Blood Cell Count 10.1 10^3/uL (4.8-10.8)
[2024-04-03 06:11] LABS: ALT (SGPT) 18 U/L (0-50); AST (SGOT) 23 U/L (17-59); Albumin 3.7 g/dl (3.5-5.0); Alkaline Phosphatase 87 U/L (38-126); Blood Urea Nitrogen 18 mg/dl (9-20); Calcium 9.2 mg/dl (8.4-10.2); Carbon Dioxide 32 mmol/L (22-30); Chloride 102 mmol/L (98-107); Estimated Creatinine Clearance 91 ml/min; Glucose 135 mg/dl (70-99); Sodium 140 mmol/L (135-145); Total Bilirubin 1.2 mg/dl (0.2-1.3); Total Protein 6.2 g/dl (6.3-8.2); eGFR > 60.00
--- NOTE | 2024-04-03 07:36 | W.PN.HOSP.TC ---
Today's Communication/Plan
-
Continue IV Lasix. Cardiology has reprogrammed the patient's pacemaker to 70. Nitroglycerin held. Awaiting findings from echocardiogram.
Assessment / Plan
Assessment / Plan
HPI: Patient is a 78-year-old male with a medical history of congestive heart failure, diabetes, hypertension, hypercholesterolemia, diabetic neuropathy, morbid obesity, and pacemaker status who presented to the emergency department with respiratory
distress. The patient was in his usual state of health but he woke up with sudden onset difficulty breathing. The patient felt that he was more swollen in his abdomen. Upon medic arrival the patient had an oxygen saturation of 78% on room air and
he was placed on nasal cannula oxygen which brought him up to 95% oxygen saturation. Unfortunately, the patient was belly breathing with respiratory distress so he was placed on CPAP which the patient did not tolerate. He was switched back to
nasal cannula and brought in for further evaluation. The patient denied any fevers or chills. He had no URI symptoms. No chest pain. The patient stated that he takes Lasix at home. Denied any unilateral leg swelling or hemoptysis. He stated
that he felt fine the day prior to his presentation. The patient has been seen at [facility] in the past for acute CHF exacerbation. Chest x-ray conducted in the emergency department showed findings suspicious for congestive heart
failure�could not entirely exclude mild right lower lobe pneumonia. Last echo was conducted on September 2023 which showed mildly reduced ejection fraction. CBC was unremarkable, BMP was unremarkable as well. Patient was given DuoNebs and
nitroglycerin. Troponins taken in the emergency department had a value of 0.084 and trended downwards. proBNP in the emergency department was 946. The patient was admitted to [facility] for Acute hypoxic respiratory failure due to acute on
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
Assessment/plan:
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
Not likely bacterial pneumonia as labs do not reflect infectious process
was on BIPAP on admission, now weaned to 4L NC O2
Nitroglycerin stopped
Appreciate cardiology input -they recommend continuing IV Lasix and they have reprogrammed pacemaker to 70
Continue IV lasix
Follow daily weights and I's and O's
Continue lisinopril/Hydralazine/Aldactone/Farxiga/Coreg/Norvasc
Troponins were 0.084 in the emergency department and are trending downwards
Echocardiogram ordered
-Hyperlipidemia: Monitoring
Continue statin
-Coronary artery disease: Monitoring
Continue aspirin, beta-zac, Plavix, and statin
-Essential HTN: Monitoring
Continue hypertension medications as above
-Possible obstructive sleep apnea:
Patient would benefit from an outpatient sleep study for further evaluation
-Morbid obesity due to excess calories: Stable/monitoring
-Type 2 diabetes mellitus: Monitoring
Continue Farxiga/Lantus/SSI/accuchecks.
Home Metformin on hold.
-Peripheral artery disease, h/o partial amputation L toe: Monitoring
CODE STATUS: DNR
DVT prophylaxis: Lovenox
Imaging:
-Chest x-ray conducted on 04/01/2024:
Findings suspicious for congestive heart failure. Cannot entirely exclude mild right lower lobe pneumonia.
Anticipated Discharge: > 48 hours
Subjective/Interval History
-
Met with patient at the bedside. He is seen sitting in his chair out of bed. He is polite in conversation and offers no complaints at the present time. He states that he is able to breathe normally and feels much better than he did the day prior.
Objective Data
-
Labs:
Laboratory Results
04/03/24
05:23
WBC 10.1
Hgb 13.7
Hct 42.5
Plt Count 203
Sodium 140
Potassium 4.0
Chloride 102
Carbon Dioxide 32 H
BUN 18
Creatinine 0.9
Glucose 135 H
Calcium 9.2
Total Bilirubin 1.2
AST 23
ALT 18
Alkaline Phosphatase 87
Vital Signs:
Vital Signs
Temp Pulse Resp BP Pulse Ox
97.9 F 60 22 167/63 97
04/03/24 03:00 04/03/24 06:00 04/03/24 06:00 04/03/24 05:23 04/03/24 06:00
I&O
04/02/24 04/03/24 04/04/24
06:59 06:59 06:59
Intake Total 240 / 240 1500 / 1500
Output Total 325 / 325 1735 / 1735
Balance -85 / -85 -235 / -235
Review of Systems
-
History Source: Patient
Constitutional: Reports No Symptoms
EENT: Reports No Symptoms Reported
Respiratory: Reports No Symptoms
Cardiac: Reports No Symptoms
Abdomen/GI: Reports No Symptoms
Breast: Reports No Symptoms
Genitourinary: Reports No Symptoms
Musculoskeletal: Reports No Symptoms
Skin: Reports No Symptoms
Neuro: Reports No Symptoms
Physical Exam
-
General: Well Developed, Well Nourished and No Apparent Distress
HEENT: Normocephalic and Atraumatic
Respiratory: Clear to Auscultation
Cardiac: S1/S2; Negative JVD
Breast: Deferred by me
GI: Soft, Nontender, Nondistended and Normal Bowel Sounds
Rectal: Deferred by Provider
Genito-urinary: Deferred by me
Musculoskeletal: No Clubbing, No Cyanosis and No Edema
Skin: Warm and Dry
Neuro: Awake, Alert, Oriented and AO x 3
Psych: Calm
[2024-04-03 07:40] LABS: Glucose - Point of Care 115 mg/dl (70-99)
[2024-04-03] MEDS: NOVOLOG FLEXPEN-LOW RESISTANCE SC ×3 (08:24→17:16)
[2024-04-03] MEDS: LASIX 40 MG IV ×2 (09:08→16:32)
--- NOTE | 2024-04-03 09:11 | W.PN.CARDCBS ---
Addendum entered and electronically signed by Nghia Fairchild MD 04/03/24 17:13:
Patient has a type II myocardial infarction due to demand ischemia
Original Note:
Today's Communication / Plan
-
Continue IV Lasix
Reprogram pacemaker to 70
Impression / Plan
-
Impression:
Acute heart failure with mildly reduced EF
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
s/p Medtronic DC PPM 12/2020
CAD
LAD Palmaz-Sascha stent LAD 1993
in-stent restenosis of LAD stents from 1993 restented with 2.75 mm Synergy ANDRAE 01/22/16
patient refused CABG and had LAD stents x4 02/19/16
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
Hyperlipidemia
Morbid obesity
History anorectal fistula repair
Hypertension
History of COVID
Type 2 diabetes
Lexiscan sestamibi study September 2022: Moderate size, moderate to severe intensity predominantly fixed basal inferior, predominantly reversible mid to distal inferior, inferoseptal consistent with scar with residual ischemia. Inferior soft tissue
attenuation artifact present but defect persists with prone imaging, small severe distal apical anterolateral and apical reversible defect, EF 42%, inferior and inferolateral hypokinesis
Echocardiogram September 2023: EF 45 to 50%, distal anterior and anteroseptal hypokinesis, mild LVH, normal RV, 29 Guardado VANDANA 3 transcatheter aortic valve with peak and mean gradients 2011 mmHg, trace aortic regurgitation, normal, normal RV, no
mitral regurgitation, could not determine pulm artery pressure
Plan:
He continues to improve with regards to HFpEF. Weight is down roughly 18 pounds since admission.
However, he is still volume overloaded, with edema. Renal function remains good. Will continue IV furosemide. Probably transition to oral in 24 to 48 hours. Admission furosemide had been 40 twice daily, he may do well with a higher dose at
discharge.
He is now on Farxiga and spironolactone.
Review of telemetry shows that he is predominantly at base rate of 60. He might do better regarding cardiac output at a base rate of 70. We will reprogram his pacemaker.
Await echocardiogram.
We can decide whether or not to pursue an ischemic evaluation at outpatient follow-up.
Would strongly consider GLP-1 agonist at follow-up. He can discuss with Dr. Tapia.
Blood pressure is high, we will put amlodipine back to 10 mg a day from 5 mg daily (had been reduced because of lower extremity edema)
Anticipate discharge in 24 to 48 hours.
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
Subjective
Date of Service: April 03, 2024:
Medications: Lovenox, aspirin 81 mg a day, carvedilol 12.5 mg twice daily, clopidogrel 75 mg a day, Trusopt, hydralazine 25 twice daily, lisinopril 40 mg a day, Xalatan eyedrops, atorvastatin 20 mg a day, furosemide 40 IV twice daily, insulin,
dapagliflozin 10 mg a day, spironolactone 12.5 mg a day, amlodipine 5 mg daily
167/63, pulse 60, respiratory 22, afebrile, sats 97%, weight is 130.4 kg, if accurate down 3.3 kg, admission weight was 138.8 kg, intake and output -0.2 L, no acute distress, lungs are clear, JVD hard to assess, regular rate and rhythm no obvious
murmurs, still with 2+ edema
white count 10.1, hemoglobin 13.7, bicarbonate 32, BUN and creatinine 18 and 0.9, potassium 4
Objective
Labs:
04/03/24 05:23
04/03/24 05:23
Labs
Hgb 13.7 g/dL (13.0-18.0) 04/03/24 05:23
Hct 42.5 % (39.0-52.0) 04/03/24 05:23
Plt Count 203 10^3/uL (130-400) 04/03/24 05:23
Sodium 140 mmol/L (135-145) 04/03/24 05:23
Potassium 4.0 mmol/L (3.5-5.1) 04/03/24 05:23
BUN 18 mg/dl (9-20) 04/03/24 05:23
Creatinine 0.9 mg/dL (0.7-1.3) 04/03/24 05:23
Glucose 135 mg/dl (70-99) H 04/03/24 05:23
Troponins
04/01/24 04/01/24 04/02/24
11:55 18:05 00:15
Troponin I 0.084 H* 0.379 H* D 0.421 H*
04/02/24
06:56
Troponin I 0.373 H*
Vital Signs and I&O:
Vital Signs
Temp Pulse Resp BP Pulse Ox
36.6 C 60 22 167/63 97
04/03/24 07:15 04/03/24 06:00 04/03/24 06:00 04/03/24 05:23 04/03/24 06:00
Vital Signs
Temp Pulse Resp BP Pulse Ox
36.6 C 60 22 167/63 97
04/03/24 07:15 04/03/24 06:00 04/03/24 06:00 04/03/24 05:23 04/03/24 06:00
Intake & Output
04/01/24 04/02/24 04/03/24 04/04/24
07:59 07:59 07:59 07:59
Intake Total 240 / 240 1500 / 1500
Output Total 325 / 325 1735 / 1735
Balance -85 / -85 -235 / -235
Physical Exam
Physical Exam
See above
[2024-04-03] MEDS: ALDACTONE 12.5 MG PO (09:16)
[2024-04-03] MEDS: FARXIGA 10 MG PO (09:16)
[2024-04-03] MEDS: COREG 12.5 MG PO ×2 (09:16→20:42)
[2024-04-03] MEDS: APRESOLINE 25 MG PO (09:16)
[2024-04-03] MEDS: TRUSOPT 2% OPHTHALMIC SOLUTION 1 DROP LEFT EYE ×2 (09:17→20:42)
[2024-04-03] MEDS: PLAVIX 75 MG PO (09:17)
--- NOTE | 2024-04-03 10:22 | W.PN.UPDATE ---
Update Note
Progress Note Update
I saw and evaluated the patient. I reviewed the resident�s note and agree with findings and plan as documented in the resident�s note.
Denies CP/SOB.
Gen: NAD, AAOx3.
Eyes: EOMI, PERRLA, no scleral icterus.
Neck: supple.
CV: remains RRR, +S1/S2, no m/r/g.
Resp: CTAB anteriorly
Abd: +BS, soft, NT, ND
Skin: No rashes. remains with compression dressings on LEs.
Neuro: CN 2-12 intact, non-focal.
Psych: Normal mood and affect.
CXR: Findings suspicious for congestive heart failure. Cannot entirely exclude mild right lower lobe pneumonia.
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
-No bacterial pneumonia has been ruled out with a negative procalcitonin, stop abx
-was on BIPAP on admission, now weaned to 4L NC O2
-was on NTG gtt which was stopped 04/02/24AM
-elevated trop due to NSTEMI type II due to hypertensive emergency
-cards following
-daily wts, I/Os, FR
-cont Lisinopril/Aldactone/Farxiga/Coreg/Norvasc
-increase Hydralazine to 50mg TID
-cont IV lasix
-check echo
Other problems:
HLD: cont statin
CAD: cont ASA/BB/Plavix/statin
Essential HTN: see above
MAY (likely): will need outpt sleep study
Morbid obesity due to excess calories
DM2: cont Farxiga/Lantus/SSI/accuchecks. Home Metformin on hold.
PAD, h/o partial amputation L toe
DNR/Lovenox
[2024-04-03 11:08] LABS: Glucose - Point of Care 130 mg/dl (70-99)
--- NOTE | 2024-04-03 12:12 | PN.CDI ---
CDI
- -
CDI:
Physician Documentation Request
Admit Date: 04/01/24 14:02
Dear Doctor Fatimah,
Please review the following and provide your response in the progress notes.
The purpose of this query is to ensure the accuracy of the conditions reported for your patient.
Clinical Indicators:
H+P, 04/01
#Elevated TPN DDX: NIMI vs NSTEMI
#...ECG AV paced rhythm
Cardiology consult, 04/01
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
Resident PN, 04/03
#Troponins were 0.084 in the emergency department and are trending downwards
Mian PN, 04/03
#-elevated trop due to NSTEMI type II due to hypertensive emergency
Cardiology PN, 04/03
#We can decide whether or not to pursue
#...an ischemic evaluation at outpatient follow-up.
Laboratory Tests
04/01/24 04/01/24 04/02/24
11:55 18:05 00:15
Troponin I 0.084 H* 0.379 H* D 0.421 H*
04/02/24
06:56
Troponin I 0.373 H*
Please clarify the following regarding the documented elevated troponin:
Non ischemic myocardial injury
Type II VA, (due to demand ischemic)
NSTEMI
Other (please specify)
Extent of VA
STEMI - indicate the location and vessel involved
NSTEMI - subendocardial, nontransmural
Type of VA
Type I
Type II (due to demand ischemia)
Other (Type 3, 4a, 4b, 4c, 5) please specify
Unable to determine
Use of terms such as suspected, likely, concern for, or probable (associated with a specific diagnosis that is being evaluated, monitored, or treated as if it exists) are acceptable and can be coded in the inpatient setting, when documented at the
time of discharge.
Thank you,
Nadia Ventura RN BSN CCDS
CDI Specialist
Please contact via tiger text
Please use your independent medical judgment in providing your response.
[2024-04-03] MEDS: LANTUS SC (12:42)
--- NOTE | 2024-04-03 13:03 | CM ---
Patient with Hx morbid obesity with Dx HF. O2 4L. Receiving IV Lasix. PT recommends HH.
CM Consult: Unger checks Farxiga 10mg daily, Jardiance 10mg daily
Per [facility]; the cost for either med is $30/month.
Confirmed with Dr Nghia Fairchild that patient will be continued on Farxiga.
Met with patient and ;
they are ok with cost of Farxiga - Free Month Farxiga card provided.
Offered VN for nurse for HF Education
Patient agrees and chooses [facility].
Also requested PT on referral.
Plan check referral to [facility] for acceptance.
Plan watch for home O2 needs.
Plan home with [facility].
--- NOTE | 2024-04-03 14:53 | PN.CDI ---
CDI
- -
CDI:
Physician Documentation Request
Admit Date: 04/01/24 14:02
Dear Doctor Gurinder,
Please review the following and provide your response in the progress notes.
The purpose of this query is to ensure the accuracy of the conditions reported for your patient.
Clinical Indicators:
H+P, 04/01
#Elevated TPN DDX: NIMI vs NSTEMI
#...ECG AV paced rhythm
Cardiology consult, 04/01
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
Resident PN, 04/03
#Troponins were 0.084 in the emergency department and are trending downwards
Mian PN, 04/03
#-elevated trop due to NSTEMI type II due to hypertensive emergency
Cardiology PN, 04/03
#We can decide whether or not to pursue
#...an ischemic evaluation at outpatient follow-up.
Laboratory Tests
04/01/24 04/01/24 04/02/24
11:55 18:05 00:15
Troponin I 0.084 H* 0.379 H* D 0.421 H*
04/02/24
06:56
Troponin I 0.373 H*
Please clarify the following regarding the documented elevated troponin:
Non ischemic myocardial injury
Type II ND, (due to demand ischemic)
NSTEMI
Other (please specify)
Extent of ND
STEMI - indicate the location and vessel involved
NSTEMI - subendocardial, nontransmural
Type of ND
Type I
Type II (due to demand ischemia)
Other (Type 3, 4a, 4b, 4c, 5) please specify
Unable to determine
Use of terms such as suspected, likely, concern for, or probable (associated with a specific diagnosis that is being evaluated, monitored, or treated as if it exists) are acceptable and can be coded in the inpatient setting, when documented at the
time of discharge.
Thank you,
Nadia Ventura RN BSN CCDS
CDI Specialist
Please contact via tiger text
Please use your independent medical judgment in providing your response.
--- NOTE | 2024-04-03 15:58 | CARDSERVDEF ---
Echocardiogram with Definity completed after protocol screening completed. Allergies verified.
Patent IV site: left hand
IV site flushed with 0.9% NaCl pre and post administration.
Diluted bolus method utilized to enhance visualization of ventricular mcbride.
Total volume given: _4.0___ mL
Patient tolerated all procedures well without complications.
[2024-04-03] MEDS: APRESOLINE 50 MG PO (16:32)
[2024-04-03 16:35] LABS: Glucose - Point of Care 132 mg/dl (70-99)
[2024-04-03] MEDS: NORVASC 10 MG PO (17:50)
[2024-04-03] MEDS: LOVENOX 40 MG SC (17:50)
[2024-04-03] MEDS: VITAMIN D3 (cholecalciferol) 50 MCG PO (17:50)
[2024-04-03] MEDS: THERAGRAN 1 TABLET PO (17:50)
[2024-04-03] MEDS: LIPITOR 20 MG PO (17:50)
[2024-04-03] MEDS: ZESTRIL 40 MG PO (17:51)
[2024-04-03] MEDS: ASPIR LOW (ENTERIC COATED) 81 MG PO (17:51)
[2024-04-03] MEDS: XALATAN OPHTHALMIC SOLUTION 1 DROP LEFT EYE (20:42)
[2024-04-03 21:48] LABS: Glucose - Point of Care 148 mg/dl (70-99)
[2024-04-03] MEDS: MELATONIN 5 MG PO (23:08)
[2024-04-03] MEDS: APRESOLINE PO (23:08)
[2024-04-04] VITALS (25 sets, daily range): BP systolic 96–135; BP diastolic 39–79; BMI 41.4
[2024-04-04 00:20] LABS: Glucose - Point of Care 117 mg/dl (70-99)
--- NOTE | 2024-04-04 02:30 | PTCARENOTE ---
Pts SBP in the 90s/low 100s. MAPs <65. Notified FIRER TUNNEL KILN. PM Hydralazine held.
[2024-04-04 05:09] LABS: Glucose - Point of Care 122 mg/dl (70-99)
[2024-04-04 05:19] LABS: % Basophils 0.2 % (0-2); % Eosinophils 3.4 % (0-6); % Immature Granulocytes 0.5 % (0-0.5); % Lymphocytes 15.8 % (20.5-51.1); % Monocytes 10.5 % (1.7-9.3); % Neutrophils 69.6 % (42.2-75.2); Absolute Eosinophils 0.3 10^3/uL (0-0.7); Absolute Immature Granulocytes 0.1 10^3/uL (0-0.05); Absolute Lymphocytes 1.5 10^3/uL (1.2-3.4); Absolute Neutrophils 6.7 10^3/uL (1.4-6.5); Hematocrit 40.2 % (39.0-52.0); Hemoglobin 13.2 g/dL (13.0-18.0); Mean Corp Hgb Conc. 32.8 g/dL (33.0-37.0); Mean Corpuscular Hgb 29.5 pg (27.0-31.0); Mean Corpuscular Volume 89.7 fL (80.0-94.0); Mean Platelet Volume 9.6 fL (7.4-10.4); Nucleated Red Blood Cells % 0 % (-); Platelet Count 194 10^3/uL (130-400); Red Blood Cell Count 4.48 10^6/uL (4.70-6.10); White Blood Cell Count 9.6 10^3/uL (4.8-10.8)
[2024-04-04 05:39] LABS: ALT (SGPT) 21 U/L (0-50); AST (SGOT) 24 U/L (17-59); Albumin 3.8 g/dl (3.5-5.0); Alkaline Phosphatase 85 U/L (38-126); Blood Urea Nitrogen 28 mg/dl (9-20); Calcium 8.9 mg/dl (8.4-10.2); Carbon Dioxide 32 mmol/L (22-30); Chloride 98 mmol/L (98-107); Estimated Creatinine Clearance 92 ml/min; Glucose 121 mg/dl (70-99); Sodium 138 mmol/L (135-145); Total Bilirubin 1.2 mg/dl (0.2-1.3); Total Protein 6.2 g/dl (6.3-8.2); eGFR > 60.00
--- NOTE | 2024-04-04 07:32 | W.PN.HOSP.TC ---
Today's Communication/Plan
-
Patient appears to be near his baseline again. Blood pressure normotensive with moments of systolic blood pressure dipping below 100. Likely approaching euvolemia, BUN bumped up to 28. Considering discontinuing Lasix IV and switching to oral.
Assessment / Plan
Assessment / Plan
HPI: Patient is a 78-year-old male with a medical history of congestive heart failure, diabetes, hypertension, hypercholesterolemia, diabetic neuropathy, morbid obesity, and pacemaker status who presented to the emergency department with respiratory
distress. The patient was in his usual state of health but he woke up with sudden onset difficulty breathing. The patient felt that he was more swollen in his abdomen. Upon medic arrival the patient had an oxygen saturation of 78% on room air and
he was placed on nasal cannula oxygen which brought him up to 95% oxygen saturation. Unfortunately, the patient was belly breathing with respiratory distress so he was placed on CPAP which the patient did not tolerate. He was switched back to
nasal cannula and brought in for further evaluation. The patient denied any fevers or chills. He had no URI symptoms. No chest pain. The patient stated that he takes Lasix at home. Denied any unilateral leg swelling or hemoptysis. He stated
that he felt fine the day prior to his presentation. The patient has been seen at [facility] in the past for acute CHF exacerbation. Chest x-ray conducted in the emergency department showed findings suspicious for congestive heart
failure�could not entirely exclude mild right lower lobe pneumonia. Last echo was conducted on September 2023 which showed mildly reduced ejection fraction. CBC was unremarkable, BMP was unremarkable as well. Patient was given DuoNebs and
nitroglycerin. Troponins taken in the emergency department had a value of 0.084 and trended downwards. proBNP in the emergency department was 946. The patient was admitted to [facility] for Acute hypoxic respiratory failure due to acute on
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
Assessment/plan:
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
Not likely bacterial pneumonia as labs do not reflect infectious process
was on BIPAP on admission, now weaned to 4L NC O2
Nitroglycerin stopped
Appreciate cardiology input -they recommend continuing IV Lasix and they have reprogrammed pacemaker to 70
Continue IV lasix
Follow daily weights and I's and O's
Continue lisinopril/Hydralazine/Aldactone/Farxiga/Coreg/Norvasc
Troponins were 0.084 in the emergency department and are trending downwards
Echocardiogram conducted on 04/04/2024 showed mildly dilated left ventricle, mild concentric left ventricular hypertrophy. Mildly reduced left ventricular systolic function. Left ventricular ejection fraction is 45 to 50% by visual estimate. Mild
to moderate left ventricular hypertrophy with septum measuring 1.4 cm. Diastolic function intermediate. Normal right ventricular size and function. Indexed left atrial volume is within normal range. Normal right atrium. Remainder of the
findings can be found in the imaging portion of this note.
-NSTEMI type II due to hypertensive emergency:
Troponins were 0.084 in the emergency department and are trending downwards
Echocardiogram ordered
-Hyperlipidemia: Monitoring
Continue statin
-Coronary artery disease: Monitoring
Continue aspirin, beta-zac, Plavix, and statin
-Essential HTN: Monitoring
Continue hypertension medications as above
-Possible obstructive sleep apnea:
Patient would benefit from an outpatient sleep study for further evaluation
-Morbid obesity due to excess calories: Stable/monitoring
-Type 2 diabetes mellitus: Monitoring
Continue Farxiga/Lantus/SSI/accuchecks.
Home Metformin on hold.
-Peripheral artery disease, h/o partial amputation L toe: Monitoring
CODE STATUS: DNR
DVT prophylaxis: Lovenox
Imaging:
-Chest x-ray conducted on 04/01/2024:
Findings suspicious for congestive heart failure. Cannot entirely exclude mild right lower lobe pneumonia.
-Echocardiogram conducted on 04/03/2024:
Left ventricle is mildly dilated. Mild concentric left ventricular hypertrophy. Mildly reduced left ventricular systolic function. There is mid anterior septal, distal septal, and apical hypokinesis. Left ventricular ejection fraction is 45-50%
by visual estimate. Mild to moderate LVH with septum measuring 1.4 cm. Diastolic function indeterminate.
Right Ventricle: Normal right ventricular size and function. Pacer wire noted in right ventricle.
Left Atrium: Indexed LA volume is within normal range (15-34 mL/m2).
Right Atrium
Normal right atrium.
Mitral valve opens normally. Mild mitral annular calcification. Trace mitral regurgitation is seen.
Aortic Valve: s/p transcatheter aortic valve replacement with peak/mean gradients across the aortic valve of 17/10 mmHg respectively. No aortic regurgitation is seen.
Tricuspid Valve: The tricuspid valve is structurally normal. Trace tricuspid regurgitation.
Pulmonic Valve: The pulmonic valve is structurally and functionally normal.
Pericardium\\Pleura: No pericardial effusion.
Aorta: The aortic root is of normal size.
Other Finding: The IVC is of normal size and demonstrates normal respiratory variation. Interatrial septum is intact with no evidence of shunting by color flow Doppler. No intracardiac mass or thrombus formation seen.
Anticipated Discharge: 24 - 48 hours
Subjective/Interval History
-
Met with patient at the bedside. Patient had confusion about his Lantus and diabetic medications. Patient worried that he was not receiving enough insulin and that he believed he was hyperglycemic. Sat with patient and spoke about his insulin
levels showed him his labs and reiterated that we are following his glucose levels. Patient reassured.
Objective Data
-
Labs:
Laboratory Results
04/04/24
05:07
WBC 9.6
Hgb 13.2
Hct 40.2
Plt Count 194
Sodium 138
Potassium 4.0
Chloride 98
Carbon Dioxide 32 H
BUN 28 H
Creatinine 0.9
Glucose 121 H
Calcium 8.9
Total Bilirubin 1.2
AST 24
ALT 21
Alkaline Phosphatase 85
Vital Signs:
Vital Signs
Temp Pulse Resp BP Pulse Ox
97.8 F 70 24 99/79 97
04/04/24 03:00 04/04/24 06:00 04/04/24 06:00 04/04/24 06:00 04/04/24 06:00
I&O
04/03/24 04/04/24 04/05/24
06:59 06:59 06:59
Intake Total 1500 / 1500 240 / 240
Output Total 1735 / 1735 950 / 950
Balance -235 / -235 -710 / -710
Review of Systems
-
History Source: Patient
Constitutional: Reports No Symptoms
EENT: Reports No Symptoms Reported
Respiratory: Reports No Symptoms
Cardiac: Reports No Symptoms
Abdomen/GI: Reports No Symptoms
Breast: Reports No Symptoms
Genitourinary: Reports No Symptoms
Musculoskeletal: Reports No Symptoms
Skin: Reports No Symptoms
Neuro: Reports No Symptoms
Endocrine: Reports No Symptoms
Hematologic / Lymphatic: Reports No Symptoms
Physical Exam
-
General: Well Developed, Well Nourished, No Apparent Distress and Comfortable
HEENT: Normocephalic, Atraumatic and Moist Mucous Membranes
Respiratory: Clear to Auscultation
Cardiac: Regular Rhythm and S1/S2
Breast: Deferred by me
GI: Soft, Nontender, Nondistended and Normal Bowel Sounds
Rectal: Deferred by Provider
Genito-urinary: Deferred by me
Musculoskeletal: No Clubbing, No Cyanosis and No Edema
Skin: Warm and Dry
Neuro: Awake, Alert, Oriented and AO x 3
Psych: Calm
[2024-04-04 08:43] LABS: Glucose - Point of Care 125 mg/dl (70-99)
[2024-04-04] MEDS: COREG 12.5 MG PO ×2 (09:37→22:02)
[2024-04-04] MEDS: FARXIGA 10 MG PO (09:37)
[2024-04-04] MEDS: ALDACTONE 12.5 MG PO (09:38)
[2024-04-04] MEDS: PLAVIX 75 MG PO (09:39)
[2024-04-04] MEDS: LASIX 40 MG IV ×2 (09:39→17:19)
[2024-04-04] MEDS: APRESOLINE 50 MG PO ×3 (09:39→23:02)
[2024-04-04] MEDS: TRUSOPT 2% OPHTHALMIC SOLUTION 1 DROP LEFT EYE ×2 (09:40→22:05)
[2024-04-04] MEDS: NOVOLOG FLEXPEN-LOW RESISTANCE SC (09:40)
--- NOTE | 2024-04-04 09:55 | W.PN.CARDCBS ---
Today's Communication / Plan
-
Continue IV Lasix and follow creatinine closely
Impression / Plan
-
Impression:
Acute heart failure with mildly reduced EF
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
s/p Medtronic DC PPM 12/2020
CAD
LAD Palmaz-Sascha stent LAD 1993
in-stent restenosis of LAD stents from 1993 restented with 2.75 mm Synergy ANDRAE 01/22/16
patient refused CABG and had LAD stents x4 02/19/16
DIMENSIONAL ENGINEER prox RCA, patent prox and mid LAD stents by cath 11/26/20Diabetes mellitus type 2Hypertension
Hyperlipidemia
Morbid obesity
History anorectal fistula repair
Hypertension
History of COVID
Type 2 diabetes
Lexiscan sestamibi study September 2022: Moderate size, moderate to severe intensity predominantly fixed basal inferior, predominantly reversible mid to distal inferior, inferoseptal consistent with scar with residual ischemia. Inferior soft tissue
attenuation artifact present but defect persists with prone imaging, small severe distal apical anterolateral and apical reversible defect, EF 42%, inferior and inferolateral hypokinesis
Echocardiogram September 2023: EF 45 to 50%, distal anterior and anteroseptal hypokinesis, mild LVH, normal RV, 29 Guardado VANDANA 3 transcatheter aortic valve with peak and mean gradients 2011 mmHg, trace aortic regurgitation, normal, normal RV, no
mitral regurgitation, could not determine pulm artery pressure
Plan:
#HFmrEF - Still appears volume overloaded on exam with peripheral edema and requiring supplemental O2
Continue IV furosemide and follow Cr/electrolytes
GDMT with BB, FLORES, SGLT2, MRA
Troponin elevation noted, suspect nonischemic myocardial injury troponin elevation
Consider ischemic evaluation at outpatient follow-up
Progress Note - Electrical Apprentice
Subjective
Date of Service: April 04, 2024
NAOE. Remains in IMU. Resting comfortably, OOB to chair.
Objective
Labs:
04/04/24 05:07
04/04/24 05:07
Labs
Hgb 13.2 g/dL (13.0-18.0) 04/04/24 05:07
Hct 40.2 % (39.0-52.0) 04/04/24 05:07
Plt Count 194 10^3/uL (130-400) 04/04/24 05:07
Sodium 138 mmol/L (135-145) 04/04/24 05:07
Potassium 4.0 mmol/L (3.5-5.1) 04/04/24 05:07
BUN 28 mg/dl (9-20) H 04/04/24 05:07
Creatinine 0.9 mg/dL (0.7-1.3) 04/04/24 05:07
Glucose 121 mg/dl (70-99) H 04/04/24 05:07
Troponins
04/01/24 04/01/24 04/02/24
11:55 18:05 00:15
Troponin I 0.084 H* 0.379 H* D 0.421 H*
04/02/24
06:56
Troponin I 0.373 H*
Vital Signs and I&O:
Vital Signs
Temp Pulse Resp BP Pulse Ox
97.8 F 73 24 129/45 97
04/04/24 03:00 04/04/24 09:39 04/04/24 06:00 04/04/24 09:39 04/04/24 06:00
Vital Signs
Temp Pulse Resp BP Pulse Ox
97.8 F 73 24 129/45 97
04/04/24 03:00 04/04/24 09:39 04/04/24 06:00 04/04/24 09:39 04/04/24 06:00
Intake & Output
04/02/24 04/03/24 04/04/24 04/05/24
06:59 06:59 06:59 06:59
Intake Total 240 / 240 1500 / 1500 240 / 240
Output Total 325 / 325 1735 / 1735 950 / 950
Balance -85 / -85 -235 / -235 -710 / -710
Physical Exam
Physical Exam
Gen: NAD, AA
HEENT: NC/AT, sclera anicteric
Neck: Difficult to assess JVD
CV: RRR, NL s1/s2, no M/R/G
Lungs: CTAB
Abd: S/ND
Ext: Nonpitting LE edema
Skin: Warm, dry
Neuro: Non-focal
--- NOTE | 2024-04-04 11:58 | W.PN.UPDATE ---
Update Note
Progress Note Update
I saw and evaluated the patient. I reviewed the resident�s note and agree with findings and plan as documented in the resident�s note.
Denies CP/SOB.
Gen: remains NAD, AAOx3.
Eyes: EOMI, PERRLA, no scleral icterus.
Neck: supple.
CV: continues to remain RRR, +S1/S2, no m/r/g.
Resp: CTAB
Abd: +BS, soft, NT, ND
Skin: No rashes. remains with compression dressings on LEs.
Neuro: CN 2-12 intact, non-focal.
Psych: Normal mood and affect.
CXR: Findings suspicious for congestive heart failure. Cannot entirely exclude mild right lower lobe pneumonia.
Echc: Technically difficult study - Definity used.
Left ventricle is mildly dilated. Mild concentric left ventricular hypertrophy.
Mildly reduced left ventricular systolic function. There is mid anterior
septal, distal septal, and apical hypokinesis. Left ventricular ejection
fraction is 45-50% by visual estimate. Mild to moderate LVH with septum
measuring 1.4 cm. Diastolic function indeterminate.
Mitral valve opens normally. Mild mitral annular calcification. Trace mitral
regurgitation is seen.
S/p transcatheter aortic valve replacement with peak/mean gradients across the
aortic valve of 17/10 mmHg respectively. No aortic regurgitation is seen.
Since echocardiogram September 2023 which was reviewed, there is no significant
change.
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
-No bacterial pneumonia has been ruled out with a negative procalcitonin, stop abx
-was on BIPAP on admission, now weaned to 2L NC O2
-was on NTG gtt which was stopped 04/02/24AM
-elevated trop due to NSTEMI type II due to hypertensive emergency
-cards following
-daily wts, I/Os, FR
-echo above, no significant change from prior
-cont Lisinopril/Aldactone/Farxiga/Coreg/Norvasc/Hydralazind
-cont IV lasix
Other problems:
HLD: cont statin
CAD: cont ASA/BB/Plavix/statin
Essential HTN: see above
MAY (likely): will need outpt sleep study
Morbid obesity due to excess calories
DM2: cont Farxiga/Lantus/SSI/accuchecks. Home Metformin on hold.
PAD, h/o partial amputation L toe
DNR/Lovenox
[2024-04-04 12:04] LABS: Glucose - Point of Care 155 mg/dl (70-99)
[2024-04-04] MEDS: NOVOLOG FLEXPEN-LOW RESISTANCE 2 UNITS SC (13:18)
[2024-04-04 13:20] LABS: Glucose - Point of Care 233 mg/dl (70-99)
[2024-04-04] MEDS: LANTUS SC (13:45)
[2024-04-04 16:30] LABS: Glucose - Point of Care 168 mg/dl (70-99)
[2024-04-04] MEDS: NOVOLOG FLEXPEN-LOW RESISTANCE 1 UNITS SC (17:18)
[2024-04-04] MEDS: LOVENOX 40 MG SC (17:18)
[2024-04-04] MEDS: NORVASC 10 MG PO (17:19)
[2024-04-04] MEDS: ASPIR LOW (ENTERIC COATED) 81 MG PO (17:20)
[2024-04-04] MEDS: VITAMIN D3 (cholecalciferol) 50 MCG PO (17:20)
[2024-04-04] MEDS: THERAGRAN 1 TABLET PO (17:20)
[2024-04-04] MEDS: ZESTRIL 40 MG PO (17:20)
[2024-04-04] MEDS: LIPITOR 20 MG PO (17:20)
--- NOTE | 2024-04-04 18:08 | PTCARENOTE ---
rec'd pt this AM. vital signs stable. no significant events today. evaluating lantus dosing daily due to lower blood sugars at night. Pt reports he is eating much less here than at home and that is why his sugars are not as high. possible d.c.
tomorrow.
[2024-04-04] MEDS: XALATAN OPHTHALMIC SOLUTION 1 DROP LEFT EYE (22:04)
[2024-04-04 22:41] LABS: Glucose - Point of Care 153 mg/dl (70-99)
[2024-04-04] MEDS: MELATONIN 5 MG PO (23:03)
[2024-04-05] VITALS (8 sets, daily range): BP systolic 108–154; BP diastolic 48–97
--- NOTE | 2024-04-05 04:54 | PTCARENOTE ---
Pt AAOx3, pleasant. VSS. A-V paced on tele. 2L NC SpO2 96%. Pt sleeping in the chair. Assisting to use the urinal bedside. No significant events overnight. Call morton is within reach.
[2024-04-05 06:22] LABS: % Basophils 0.3 % (0-2); % Eosinophils 3.4 % (0-6); % Immature Granulocytes 0.3 % (0-0.5); % Lymphocytes 14.9 % (20.5-51.1); % Monocytes 9.6 % (1.7-9.3); % Neutrophils 71.5 % (42.2-75.2); Absolute Eosinophils 0.3 10^3/uL (0-0.7); Absolute Lymphocytes 1.4 10^3/uL (1.2-3.4); Absolute Monocytes 0.9 10^3/uL (0.1-0.6); Absolute Neutrophils 6.5 10^3/uL (1.4-6.5); Hematocrit 40.3 % (39.0-52.0); Hemoglobin 13.3 g/dL (13.0-18.0); Mean Corpuscular Hgb 29.1 pg (27.0-31.0); Mean Corpuscular Volume 88.2 fL (80.0-94.0); Mean Platelet Volume 9.5 fL (7.4-10.4); Nucleated Red Blood Cells % 0 % (-); Platelet Count 192 10^3/uL (130-400); Red Blood Cell Count 4.57 10^6/uL (4.70-6.10); White Blood Cell Count 9.2 10^3/uL (4.8-10.8)
--- NOTE | 2024-04-05 06:35 | DOWNTIME ---
There was a [employer] Client Fluoroscope Operator Downtime on 04/05/2024 from 0100 to 04/05/2023 at 0235 . Downtime documentation of patient's care, including medication administrations, has been reconciled in the electronic record per guidelines. Refer to the
patient's paper chart under the miscellaneous tab to see printed paper medication records and downtime forms.
[2024-04-05 07:07] LABS: ALT (SGPT) 22 U/L (0-50); AST (SGOT) 23 U/L (17-59); Albumin 3.6 g/dl (3.5-5.0); Alkaline Phosphatase 89 U/L (38-126); Blood Urea Nitrogen 33 mg/dl (9-20); Calcium 9.1 mg/dl (8.4-10.2); Carbon Dioxide 32 mmol/L (22-30); Chloride 98 mmol/L (98-107); Estimated Creatinine Clearance 83 ml/min; Glucose 140 mg/dl (70-99); Sodium 136 mmol/L (135-145); Total Bilirubin 1.1 mg/dl (0.2-1.3); Total Protein 6.1 g/dl (6.3-8.2); eGFR > 60.00
[2024-04-05 07:53] LABS: Glucose - Point of Care 127 mg/dl (70-99)
[2024-04-05] MEDS: PLAVIX 75 MG PO (08:29)
[2024-04-05] MEDS: APRESOLINE 50 MG PO (08:29)
[2024-04-05] MEDS: LANTUS 0.8 UNITS SC (08:29)
[2024-04-05] MEDS: ALDACTONE 12.5 MG PO (08:30)
[2024-04-05] MEDS: NOVOLOG FLEXPEN-LOW RESISTANCE SC (08:30)
[2024-04-05] MEDS: FARXIGA 10 MG PO (08:30)
[2024-04-05] MEDS: COREG 12.5 MG PO (08:30)
[2024-04-05] MEDS: LASIX 40 MG IV (08:30)
--- NOTE | 2024-04-05 08:30 | W.PN.UPDATE ---
Addendum entered and electronically signed by Franki Pappas MD 04/05/24 14:35:
Total time spent on d/c = 31 min. This included today's physical exam, progress note, review of laboratory and diagnostic data, preparation of discharge documents and prescriptions, and discussions about the pt's hospital course and discharge plan
with the patient and other pesticide use medical coordinator involved in the patient's care.
Original Note:
Update Note
Progress Note Update
I saw and evaluated the patient. I reviewed the resident�s note and agree with findings and plan as documented in the resident�s note.
Denies CP/SOB.
Gen: Continues to remain NAD, AAOx3.
Eyes: EOMI, PERRLA, no scleral icterus.
Neck: supple.
CV: continues to remain RRR, +S1/S2, no m/r/g.
Resp: Remains CTAB
Abd: +BS, soft, NT, ND
Skin: No rashes. Continues to remain with compression dressings on LEs.
Neuro: CN 2-12 intact, non-focal.
Psych: Normal mood and affect.
CXR: Findings suspicious for congestive heart failure. Cannot entirely exclude mild right lower lobe pneumonia.
Echc: Technically difficult study - Definity used.
Left ventricle is mildly dilated. Mild concentric left ventricular hypertrophy.
Mildly reduced left ventricular systolic function. There is mid anterior
septal, distal septal, and apical hypokinesis. Left ventricular ejection
fraction is 45-50% by visual estimate. Mild to moderate LVH with septum
measuring 1.4 cm. Diastolic function indeterminate.
Mitral valve opens normally. Mild mitral annular calcification. Trace mitral
regurgitation is seen.
S/p transcatheter aortic valve replacement with peak/mean gradients across the
aortic valve of 17/10 mmHg respectively. No aortic regurgitation is seen.
Since echocardiogram September 2023 which was reviewed, there is no significant
change.
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
-No bacterial pneumonia has been ruled out with a negative procalcitonin, stop abx
-was on BIPAP on admission, now weaned to RA
-was on NTG gtt which was stopped 04/02/24
-elevated trop due to NSTEMI type II due to hypertensive emergency
-cards following
-daily wts, I/Os, FR
-echo above, no significant change from prior
-cont Lisinopril/Aldactone/Farxiga/Coreg/Norvasc/Hydralazine
-was on IV lasix, now transitioned to Lasix 40mg PO BID
Other problems:
HLD: cont statin
CAD: cont ASA/BB/Plavix/statin
Essential HTN: see above
MAY (likely): will need outpt sleep study
Morbid obesity due to excess calories
DM2: cont Farxiga/Lantus/SSI/accuchecks. Home Metformin on hold.
PAD, h/o partial amputation L toe
DNR/Lovenox
Medically cleared for discharge. Case management aware.
[2024-04-05] MEDS: TRUSOPT 2% OPHTHALMIC SOLUTION 1 DROP LEFT EYE (08:31)
--- NOTE | 2024-04-05 09:52 | W.PN.CARDCBS ---
Today's Communication / Plan
-
Transition to PO lasix
Stable cardiac status, we will sign off
Outpatient follow up to be arranged
Check BMP in 1-2 weeks
Impression / Plan
-
Impression:
Acute heart failure with mildly reduced EF
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
s/p Medtronic DC PPM 12/2020
CAD
LAD Palmaz-Sascha stent LAD 1993
in-stent restenosis of LAD stents from 1993 restented with 2.75 mm Synergy ANDREA 01/22/16
patient refused CABG and had LAD stents x4 02/19/16
BAGGAGE SCREENER prox RCA, patent prox and mid LAD stents by cath 11/26/20Diabetes mellitus type 2Hypertension
Hyperlipidemia
Morbid obesity
History anorectal fistula repair
Hypertension
History of COVID
Type 2 diabetes
Lexiscan sestamibi study September 2022: Moderate size, moderate to severe intensity predominantly fixed basal inferior, predominantly reversible mid to distal inferior, inferoseptal consistent with scar with residual ischemia. Inferior soft tissue
attenuation artifact present but defect persists with prone imaging, small severe distal apical anterolateral and apical reversible defect, EF 42%, inferior and inferolateral hypokinesis
Echocardiogram September 2023: EF 45 to 50%, distal anterior and anteroseptal hypokinesis, mild LVH, normal RV, 29 Guardado VANDANA 3 transcatheter aortic valve with peak and mean gradients 2011 mmHg, trace aortic regurgitation, normal, normal RV, no
mitral regurgitation, could not determine pulm artery pressure
Plan:
#HFmrEF - More compensated today
Weaned to room air
Still with LE edema, but this is chronic
Transition to PO lasix today, reportedly had missed doses prior to admissions, would resume 40mg lasix PO BID
New to spironolactone, would increase to 25mg daily given elevated BPs
Continue Coreg and FLORES which he was on prior to admission
Increase hydralazine to 75mg BID
#Troponin elevation
Suspect nonischemic myocardial injury troponin elevation in the setting of CHF
Consider ischemic evaluation at outpatient follow-up
Stable cardiac status, we will sign off
Outpatient follow up to be arranged
Check BMP in 1-2 weeks
Recommended cardiac meds on discharge:
Lasix 40mg BID
Spironolactone 25mg daily
Coreg 12.5mg BID
Lisinopril 40mg daily
Hydralazine 75mg BID
Farxiga 10mg daily
Amlodipine 10mg daily
ASA 81mg daily
Plavix 75mg daily
Livalo 4mg daily
Progress Note - Sports Physical Therapist
Subjective
Date of Service: April 05, 2024
NAOE. Tells me breathing is comfortable on RA. Feels his LE edema is at baseline.
Objective
Labs:
04/05/24 06:06
04/05/24 06:06
Labs
Hgb 13.3 g/dL (13.0-18.0) 04/05/24 06:06
Hct 40.3 % (39.0-52.0) 04/05/24 06:06
Plt Count 192 10^3/uL (130-400) 04/05/24 06:06
Sodium 136 mmol/L (135-145) 04/05/24 06:06
Potassium 4.0 mmol/L (3.5-5.1) 04/05/24 06:06
BUN 33 mg/dl (9-20) H 04/05/24 06:06
Creatinine 1.0 mg/dL (0.7-1.3) 04/05/24 06:06
Glucose 140 mg/dl (70-99) H 04/05/24 06:06
Vital Signs and I&O:
Vital Signs
Temp Pulse Resp BP Pulse Ox
98.1 F 70 20 153/86 96
04/05/24 07:19 04/05/24 07:00 04/05/24 07:00 04/05/24 07:00 04/05/24 07:00
Vital Signs
Temp Pulse Resp BP Pulse Ox
98.1 F 70 20 153/86 96
04/05/24 07:19 04/05/24 07:00 04/05/24 07:00 04/05/24 07:00 04/05/24 07:00
Intake & Output
04/03/24 04/04/24 04/05/24 04/06/24
06:59 06:59 06:59 06:59
Intake Total 1500 / 1500 240 / 240 1320 / 1320
Output Total 1735 / 1735 950 / 950 1600 / 1600 175 / 175
Balance -235 / -235 -710 / -710 -280 / -280 -175 / -175
Physical Exam
Physical Exam
Gen: NAD, AAOx3
HEENT: NC/AT, sclera anicteric
Neck: Difficult to assess JVD
CV: RRR, NL s1/s2, distant heart sounds
Lungs: CTAB
Abd: Obese
Ext: 2+ Nonpitting LE edema
Skin: Warm, dry
Neuro: Non-focal
--- NOTE | 2024-04-05 10:58 | W.PN.HOSP.TC ---
Today's Communication/Plan
-
The patient appears to be back at his baseline and is medically stable. Will move forward with discharge planning.
Assessment / Plan
Assessment / Plan
HPI: Patient is a 78-year-old male with a medical history of congestive heart failure, diabetes, hypertension, hypercholesterolemia, diabetic neuropathy, morbid obesity, and pacemaker status who presented to the emergency department with respiratory
distress. The patient was in his usual state of health but he woke up with sudden onset difficulty breathing. The patient felt that he was more swollen in his abdomen. Upon medic arrival the patient had an oxygen saturation of 78% on room air and
he was placed on nasal cannula oxygen which brought him up to 95% oxygen saturation. Unfortunately, the patient was belly breathing with respiratory distress so he was placed on CPAP which the patient did not tolerate. He was switched back to
nasal cannula and brought in for further evaluation. The patient denied any fevers or chills. He had no URI symptoms. No chest pain. The patient stated that he takes Lasix at home. Denied any unilateral leg swelling or hemoptysis. He stated
that he felt fine the day prior to his presentation. The patient has been seen at [facility] in the past for acute CHF exacerbation. Chest x-ray conducted in the emergency department showed findings suspicious for congestive heart
failure�could not entirely exclude mild right lower lobe pneumonia. Last echo was conducted on September 2023 which showed mildly reduced ejection fraction. CBC was unremarkable, BMP was unremarkable as well. Patient was given DuoNebs and
nitroglycerin. Troponins taken in the emergency department had a value of 0.084 and trended downwards. proBNP in the emergency department was 946. The patient was admitted to [facility] for Acute hypoxic respiratory failure due to acute on
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
Assessment/plan:
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
Not likely bacterial pneumonia as labs do not reflect infectious process
was on BIPAP on admission, now weaned to 4L NC O2
Nitroglycerin stopped
Appreciate cardiology input -have reprogrammed pacemaker to 70
IV Lasix has now been transitioned to Lasix 40 mg p.o. twice daily
Follow daily weights and I's and O's
Continue lisinopril/Hydralazine/Aldactone/Farxiga/Coreg/Norvasc
Troponins were 0.084 in the emergency department and are trending downwards
Echocardiogram conducted on 04/04/2024 showed mildly dilated left ventricle, mild concentric left ventricular hypertrophy. Mildly reduced left ventricular systolic function. Left ventricular ejection fraction is 45 to 50% by visual estimate. Mild
to moderate left ventricular hypertrophy with septum measuring 1.4 cm. Diastolic function intermediate. Normal right ventricular size and function. Indexed left atrial volume is within normal range. Normal right atrium. Remainder of the
findings can be found in the imaging portion of this note.
-NSTEMI type II due to hypertensive emergency:
Troponins were 0.084 in the emergency department and are trending downwards
Echocardiogram ordered
-Hyperlipidemia: Monitoring
Continue statin
-Coronary artery disease: Monitoring
Continue aspirin, beta-zac, Plavix, and statin
-Essential HTN: Monitoring
Continue hypertension medications as above
-Possible obstructive sleep apnea:
Patient would benefit from an outpatient sleep study for further evaluation
-Morbid obesity due to excess calories: Stable/monitoring
-Type 2 diabetes mellitus: Monitoring
Continue Farxiga/Lantus/SSI/accuchecks.
Home Metformin on hold.
-Peripheral artery disease, h/o partial amputation L toe: Monitoring
CODE STATUS: DNR
DVT prophylaxis: Lovenox
Imaging:
-Chest x-ray conducted on 04/01/2024:
Findings suspicious for congestive heart failure. Cannot entirely exclude mild right lower lobe pneumonia.
-Echocardiogram conducted on 04/03/2024:
Left ventricle is mildly dilated. Mild concentric left ventricular hypertrophy. Mildly reduced left ventricular systolic function. There is mid anterior septal, distal septal, and apical hypokinesis. Left ventricular ejection fraction is 45-50%
by visual estimate. Mild to moderate LVH with septum measuring 1.4 cm. Diastolic function indeterminate.
Right Ventricle: Normal right ventricular size and function. Pacer wire noted in right ventricle.
Left Atrium: Indexed LA volume is within normal range (15-34 mL/m2).
Right Atrium
Normal right atrium.
Mitral valve opens normally. Mild mitral annular calcification. Trace mitral regurgitation is seen.
Aortic Valve: s/p transcatheter aortic valve replacement with peak/mean gradients across the aortic valve of 17/10 mmHg respectively. No aortic regurgitation is seen.
Tricuspid Valve: The tricuspid valve is structurally normal. Trace tricuspid regurgitation.
Pulmonic Valve: The pulmonic valve is structurally and functionally normal.
Pericardium\\Pleura: No pericardial effusion.
Aorta: The aortic root is of normal size.
Other Finding: The IVC is of normal size and demonstrates normal respiratory variation. Interatrial septum is intact with no evidence of shunting by color flow Doppler. No intracardiac mass or thrombus formation seen.
Anticipated Discharge: Within 24 hours
Subjective/Interval History
-
Patient at the bedside. Patient seen out of bed sitting in chair. Overall, he is doing well and believes that he is back at his baseline. He is a little bit apprehensive about adjustments made to his hydralazine medication. He states that 'it is
an overreaction' and that it may not be necessary for him. I reiterated to him that he should keep an open mind and that if his blood pressure is running high to utilize the medication as it would benefit him.
Objective Data
-
Labs:
Laboratory Results
04/05/24
06:06
WBC 9.2
Hgb 13.3
Hct 40.3
Plt Count 192
Sodium 136
Potassium 4.0
Chloride 98
Carbon Dioxide 32 H
BUN 33 H
Creatinine 1.0
Glucose 140 H
Calcium 9.1
Total Bilirubin 1.1
AST 23
ALT 22
Alkaline Phosphatase 89
Vital Signs:
Vital Signs
Temp Pulse Resp BP Pulse Ox
98.1 F 70 20 153/86 96
04/05/24 07:19 04/05/24 07:00 04/05/24 07:00 04/05/24 07:00 04/05/24 07:00
I&O
04/04/24 04/05/24 04/06/24
06:59 06:59 06:59
Intake Total 240 / 240 1320 / 1320
Output Total 950 / 950 1600 / 1600 375 / 375
Balance -710 / -710 -280 / -280 -375 / -375
Review of Systems
-
History Source: Patient
Constitutional: Reports No Symptoms
EENT: Reports No Symptoms Reported
Respiratory: Reports No Symptoms
Cardiac: Reports No Symptoms
Abdomen/GI: Reports No Symptoms
Breast: Reports No Symptoms
Genitourinary: Reports No Symptoms
Musculoskeletal: Reports No Symptoms
Skin: Reports No Symptoms
Neuro: Reports No Symptoms
Endocrine: Reports No Symptoms
Hematologic / Lymphatic: Reports No Symptoms
Physical Exam
-
General: Well Developed, Well Nourished, No Apparent Distress and Comfortable
HEENT: Normocephalic, Atraumatic and Moist Mucous Membranes
Respiratory: Clear to Auscultation
Cardiac: S1/S2; Negative Rub or JVD
Breast: Deferred by me
GI: Soft, Nontender, Nondistended and Normal Bowel Sounds
Rectal: Deferred by Provider
Genito-urinary: Deferred by me
Musculoskeletal: No Clubbing, No Cyanosis and No Edema
Skin: Warm and Dry
Neuro: Awake, Alert, Oriented and AO x 3
Psych: Calm
--- NOTE | 2024-04-05 11:10 | CM ---
Patient with Hx morbid obesity with Dx HF. Room air.
Met with patient who was preparing for d/c. The patient says he feels ready to go home today. IMM completed. His will provide transport home.
Plan home today with VN.
--- NOTE | 2024-04-05 11:12 | VNURNOTE ---
Home Health Liaison spoke with patient's spouse to discuss [facility] nurse/therapy, visits, schedule and homebound status. She is familiar with [facility] services and is agreeable. She understands that visits at home will be 2-3 x per week to assess and
teach medical management. Spouse is aware that [facility] will contact them for start of care in 1-2 days after discharge from .
[facility] referral accepted in [facility] Port.
--- NOTE | 2024-04-05 16:38 | W.DCSUMMARY ---
Discharge Summary
Discharge Data
Date of Admission: 04/01/24
Date of Discharge: 04/05/24
-
Pending Results: No
Hospital Course
Discharging Physician : Franki Pappas MD
Disposition : Home with home care
Primary care physician : Celestino Godoy
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
Chronic Discharge diagnosis :
Coronary artery disease
Congestive heart failure
Hypertension
Hypercholesterolemia
Morbid obesity
History of anorectal fistula repair
Insulin-dependent diabetes mellitus
LAD Palmaz-Sascha stent LAD 1993
in-stent restenosis of LAD stents from 1993 restented with 2.75 mm Synergy ANDRAE 01/22/16
patient refused CABG and had LAD stents x4 02/19/16
QU[employer]Y [employer] DIMENSION STONE prox RCA, patent prox and mid LAD stents by cath 11/26/20
Hospital Course : Patient is a 78-year-old male with a medical history of congestive heart failure, diabetes, hypertension, hypercholesterolemia, diabetic neuropathy, morbid obesity, and pacemaker status who presented to the emergency department
with respiratory distress. The patient was in his usual state of health but he woke up with sudden onset difficulty breathing. The patient felt that he was more swollen in his abdomen. Upon medic arrival the patient had an oxygen saturation of
78% on room air and he was placed on nasal cannula oxygen which brought him up to 95% oxygen saturation. Unfortunately, the patient was belly breathing with respiratory distress so he was placed on CPAP which the patient did not tolerate. He was
switched back to nasal cannula and brought in for further evaluation. The patient denied any fevers or chills. He had no URI symptoms. No chest pain. The patient stated that he takes Lasix at home. Denied any unilateral leg swelling or
hemoptysis. He stated that he felt fine the day prior to his presentation. The patient has been seen at [facility] in the past for acute CHF exacerbation. Chest x-ray conducted in the emergency department showed findings suspicious for
congestive heart failure�could not entirely exclude mild right lower lobe pneumonia. Last echo was conducted on September 2023 which showed mildly reduced ejection fraction. CBC was unremarkable, BMP was unremarkable as well. Patient was given
DuoNebs and nitroglycerin. Troponins taken in the emergency department had a value of 0.084 and trended downwards. proBNP in the emergency department was 946. He was started on Lasix 40 mg IV given nitroglycerin. The patient was admitted to
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
Cardiology was consulted and they recommended continuing Lasix with a plan to transition to oral Lasix when possible. Nitroglycerin was stopped and echocardiogram was ordered. Echocardiogram conducted on 04/03/2024 showed a mildly dilated left
ventricle and mild concentric left ventricular hypertrophy there was mildly reduced left ventricular systolic function. There was mid anterior septal, distal septal and apical hypokinesis. Left ventricular fraction was 45-50% by visual estimate.
Cardiology reprogrammed the patient's pacemaker to 70. Following cardiology assessment it was determined that the patient had a type II myocardial infarction due to demand ischemia. Hydralazine was increased as the patient was continued to be
diuresed. Farxiga was added to the patient's treatment regimen. After adequate diuresis and the patient returning to a more normotensive blood pressure the patient was cleared by cardiology to be continued to be followed in the outpatient setting.
Cardiology recommended that the patient be discharged on Lasix 40 mg twice daily, spironolactone 25 mg daily, Coreg 12.5 mg twice daily, lisinopril 40 mg daily, hydralazine 75 mg twice daily, Farxiga 10 mg daily, amlodipine 10 mg daily, aspirin 81
mg daily, Plavix 75 mg daily, and Livalo 4 mg daily. The patient believes that he is ready to go home and would like to be discharged.
The patient has reached maximal benefit from this hospital admission and is appropriate for discharge at the present time. The patient is medically stable and there are no barriers that would impede the patient from being safely discharged at the
present time. The patient should follow-up with his primary care provider 1 week following his discharge. The patient should follow-up with his outpatient collections professional and there has been an appointment set for April 12, 2024. The patient
should obtain a basic metabolic panel within 1 to 2 weeks following his discharge and have those lab findings checked by his primary care provider and his collections professional.
Important imaging findings :
-Chest x-ray conducted on 04/01/2024:
The heart is top normal in size. There is mild bronchial wall thickening with overall generalized interstitial prominence. Blunting of the lateral left costophrenic angle. Subtle airspace opacity in the right lung base. Most likely congestive heart
failure with interstitial edema, trace left pleural effusion, and possible mild alveolar edema in the right lower lobe. Cannot entirely exclude right lower lobe pneumonia.
There is a left-sided dual-lead cardiac pacemaker. Evidence of aortic valve replacement.
Procedure findings : N/A
Discharge Plan
-
Patient Disposition: Home with Home Care
Discharge Diagnosis/Procedures: Acute Hypoxic Respiratory Failure
Diet: Low Cholesterol, 2 Gram Sodium and Restrict fluids to 48 oz
Activity: As tolerated
Driving Restrictions: As prior to admission
Bathing Restrictions: None
Blood Work: BMP in 1-2 weeks
Other Services: VN
Specialty Instructions: Weigh Daily- Call MD for wt gain/loss 3 lbs overnight/5 lbs in 1 week
Instructions: *DCA Heart Failure Instructions
Referrals:
Celestino Tapia I., DO [Family Provider] - in less than 1 week
Karlie Lamb PA-C [Specified Professional Personl] - 04/12/24 8:20 am (You have a cardiology follow up appointment at the [place] office with Dr. Sotelo's physician physician assistant, Karlie. Please call with questions. )
Prescriptions:
New
spironolactone 25 mg Tablet
25 mg PO DAILY 30 Days Qty: 30 0RF
dapagliflozin propanediol [Farxiga] 10 mg tablet
10 mg PO DAILY 30 Days Qty: 30 0RF
hydralazine 25 mg Tablet
75 mg PO BID 30 Days Qty: 180 0RF
Continued
coenzyme Q10 [Co Q-10] 200 MG capsule
200 mg PO QPM
latanoprost 1 DROP drops
1 drp LEFT EYE HS
clopidogrel 75 MG tablet
75 mg PO DAILY
amlodipine 10 MG tablet
10 mg PO QPM
dorzolamide (PF) 10 ML drops
1 drp LEFT EYE BID
cholecalciferol (vitamin D3) 2,000 UNITS tablet
2,000 units PO QPM
lisinopril 40 mg Tablet
40 mg PO QPM
insulin glargine U-300 conc [Toujeo Max U-300 SoloStar] 300 unit/mL (3 mL) Insulin Pen
100 unit SC DAILY
furosemide 40 mg Tablet
40 mg PO BID AT 0800,1600 Qty: 60 0RF
metformin 500 mg Tablet Extended Release 24 Hr
500 mg PO DAILYPRN PRN (Reason: elevated sugars)
pitavastatin calcium [Livalo] 4 mg Tablet
4 mg PO QPM
carvedilol 12.5 mg Tablet
12.5 mg PO BID
therapeutic multivitamin Tablet
1 tab PO QPM
aspirin 81 mg Tablet,Delayed Release (Dr/Ec)
81 mg PO QPM
Discontinued
hydralazine 25 MG tablet
25 mg PO BID
Discharge Orders:
Discharge Patient (As Directed); Ordered 04/05/24
Ordered By: Kenneth Sheridan
Discharge Date and Time
Discharge Date/Time: 04/05/24 13:59
Print Language: MOHAWK
== END 2024-04-05 13:59 | disposition home health service (06) | DRG 280 ==
LOC: IMU 14:02
PROVIDERS: Clinical Nurse Specialist Family Health; ADMITTING PHYSICIAN Internal Medicine; ATTENDING PHYSICIAN Internal Medicine; CONSULT PHYSICIAN Internal Medicine Cardiovascular Disease; EMERGENCY PHYSICIAN Student in an Organized Health Care Education/Training Program; FAMILY PHYSICIAN Internal Medicine
PROC: 5A09357 Assistance with Respiratory Ventilation, Less than 24 Consecutive Hours, Continuous Positive Airway Pressure (ICD-10-PCS; 2024-04-01)
DX: I11.0 Hypertensive heart disease with heart failure (principal); I50.23 Acute on chronic systolic (congestive) heart failure; I21.A1 Myocardial infarction type 2; J96.01 Acute respiratory failure with hypoxia; I16.1 Hypertensive emergency; Z68.41 Body mass index [BMI] 40.0-44.9, adult; I44.2 Atrioventricular block, complete; I25.10 Atherosclerotic heart disease of native coronary artery without angina pectoris; E78.00 Pure hypercholesterolemia, unspecified; E66.01 Morbid (severe) obesity due to excess calories; Z79.4 Long term (current) use of insulin; E11.40 Type 2 diabetes mellitus with diabetic neuropathy, unspecified; I25.2 Old myocardial infarction; Z11.52 Encounter for screening for COVID-19; G47.33 Obstructive sleep apnea (adult) (pediatric); Z66 Do not resuscitate; E11.51 Type 2 diabetes mellitus with diabetic peripheral angiopathy without gangrene; I34.81 Nonrheumatic mitral (valve) annulus calcification; Z95.0 Presence of cardiac pacemaker; I25.82 Chronic total occlusion of coronary artery; Z79.02 Long term (current) use of antithrombotics/antiplatelets; Z79.82 Long term (current) use of aspirin; Z79.84 Long term (current) use of oral hypoglycemic drugs; Z79.899 Other long term (current) drug therapy; Z86.16 Personal history of COVID-19; Z88.0 Allergy status to penicillin; Z88.1 Allergy status to other antibiotic agents; Z95.2 Presence of prosthetic heart valve
CPT/HCPCS: 71045; 80053; 80061; 82805; 82962; 83036; 83605; 83735; 83880; 84145; 84484; 85025; 87502; 87811; 93005; 93306; 94640; 94660; 96365; 96375; 97163; 99291; Q9957

== ENCOUNTER → 2024-04-12 09:38 | Outpatient (REF) | payer MEDICARE, SELFPAY ==
[2024-04-12 11:18] LABS: Blood Urea Nitrogen 24 mg/dl (9-20); Calcium 9.7 mg/dl (8.4-10.2); Carbon Dioxide 29 mmol/L (22-30); Chloride 101 mmol/L (98-107); Glucose 126 mg/dl (70-99); Potassium 4.5 mmol/L (3.5-5.1); Sodium 138 mmol/L (135-145); eGFR > 60.00
== END ==
LOC: REG 09:38
PROVIDERS: ATTENDING PHYSICIAN Physician Assistant Medical; FAMILY PHYSICIAN Internal Medicine
DX: I50.20 Unspecified systolic (congestive) heart failure (principal)
CPT/HCPCS: 36415; 80048

== ENCOUNTER 2024-06-03 14:28 | Observation (INO) | payer MEDICARE, SELFPAY ==
[2024-06-03] VITALS (9 sets, daily range): BP systolic 110–135; BP diastolic 45–82; BMI 40.0
[2024-06-03 12:10] LABS: Glucose - Point of Care 96 mg/dl (70-99)
--- NOTE | 2024-06-03 12:11 | ED.GENMED ---
History of Present Illness
General
Chief Complaint: Blood Sugar Problem
Time Seen by Provider: 06/03/24 12:11
History of Present Illness
History of Present Illness:
TIME OF INITIAL ENCOUNTER: 12:15 PM
HPI: The patient came in by ambulance. He has a history of IDDM. He was found unresponsive after his try to give him breakfast. His noted that he did not eat much at breakfast. He was found to have a blood sugar in the 40s. An IO line
was started by EMS and he was given glucagon. They also started him on D10. Upon arrival here his blood sugar was 96. He is somewhat of a poor historian. states that he had a similar episode about 2 years ago and was treated by EMS and did
not require hospitalization. He reportedly was hypoxic upon arrival here in nurse placed him on oxygen by nasal cannula. He denies any shortness of breath.
EXAM:
GENERAL: The patient is chronically ill in appearance, the patient's rectal temperature is 94.9 �F, elevated BMI
HEENT: Moist oral mucosa
CARDIOVASCULAR: No murmurs, normal heart rate, regular rhythm, No chest wall tenderness
PULMONARY: No respiratory distress, some faint rales, mildly hypoxic
ABDOMEN: Soft with no peritoneal signs, no tenderness, elevated BMI
NEUROLOGIC: Excellent strength all extremities, no coordination deficits
PSYCHIATRIC: Appropriate mental status, normal insight and judgement
EXTREMITIES: Nontender, no edema, moves all extremities equally
SKIN: No rash, no lesions
NUMBER AND COMPLEXITY OF PROBLEMS ADDRESSED AT THE ENCOUNTER
� Chronic conditions affecting care: IDDM, diabetic neuropathy, A-fib, CHF
� Acute Exacerbation and/or Progression of Chronic Illness: This is an acute problem
� Differential Diagnosis includes: Hypoglycemia, sepsis, pneumonia, CHF
AMOUNT AND/OR COMPLEXITY OF DATA TO BE REVIEWED AND ANALYZED
� I performed an independent evaluation of and my interpretation is:
EKG:
CT:
X-rays: Chest x-ray overall appears improved compared to 04/01/2024
Laboratory Studies: Initial blood sugar 96, white count 14.6, hemoglobin normal
Other:
� Review of other/old records: The patient was admitted here 2 months ago with a CHF exacerbation
� Clinical information was obtained by an independent historian: EMS upon arrival; I spoke to at 12:45 PM
� Prescriptions/Medications Considered but not given:
� Further testing considered but not performed:
RISK OF COMPLICATIONS AND/OR MORBIDITY OR MORTALITY OF PATIENT MANAGEMENT
� Social determinants of health affecting care: Lives at home
� Discussion with other providers:
� Escalation of care including admission/observation vs risk of discharge considered: Blood sugar upon arrival was 96. However he was also hypotensive, hypoxic, and hypothermic. He was briefly on oxygen and then we were able to
take him off of oxygen. His blood pressure has improved now normotensive after some IV fluids were given.
ANY OTHER UPDATES:
Past History
Past History
ED Past Medical History: CAD, HTN, Hypercholesterolemia, IDDM and Other (Diabetic neuropathy, morbid obesity, cholelithiasis)
ED Past Surgical History: Other (Patient has a history of having a cardiac stent, open reduction of a right elbow injury, right eye surgery, and left fifth metatarsal surgery. )
Social History
Tobacco: Non-smoker
Alcohol: None
Drug: None
Personal:
Living: with family
Employment: Retired
Family History
Family History: Diabetes and CAD
Phy Exam
Physical Exam
Physical Exam:
See HPI
Course
Orders/Labs/Results
Orders:
Orders
06/03/24 12:21
Straight cath- Treatment ONCE
0.9% Sodium Chloride 500 ml [Nss] 500 ml IV BOLUS
06/03/24 12:22
CR Chest Portable - 1 View Urgent
Comment:
Reason For Exam: hypoxia h/o chf; hypothermic
Reason Study Needs to be Portable: Patient Unstable
06/03/24 12:30
Complete Blood Count/With Diff Urgent
Comprehensive Metabolic Panel Urgent
Lactic Acid Q4H
Comment: CANCEL 2nd LACTIC ACID IF 1st LACTIC ACID IS LESS THAN 2
TSH Reflex To Free T4 Urgent
Comment: ADD ON
Blood Culture Q30M
TRENA Source: Blood/Venous
Specimen Description:
06/03/24 12:34
Urinalysis Reflex To Culture Urgent
Date Specimen was Collected: 06/03/24
Time Specimen was Collected: 12:30
Blood Culture Q30M
TRENA Source: Blood/Venous
Specimen Description:
06/03/24 13:21
Bedside Glucose- Treatment ONCE
06/03/24 13:51
Add On- LAB Urgent
Tests Added?: TSH w/Reflex
06/03/24 14:04
Admit/Transfer Patient As Directed
Co-Sign Provider:
Level of Care: Observation services
Assign to:: Medical/Surgical
Physician / Group: [place]
Diagnosis: Hypoglycemia
06/03/24 14:05
PRN Pain Medication Management As Directed
May give lesser potent ordered pain med per pt: Yes
preference::
Protocol:: Medication orders for pain may be administered in a
manner that supports deferring to patient preference
when the pt is:
- Requesting an ordered lesser potent pain medication.
Least to most potent pain medications are defined
as: acetaminophen < NSAID < tramadol < opioids
(morphine, oxycodone, hydromorphone).
- Requesting a lesser dose of the same medication IF
ORDERED.
- Requesting a less intrusive route of administration
if both routes are prescribed by the provider (PO <
IV).
06/03/24 14:07
Code Status As Directed
Resuscitation Status: Do not resuscitate
Reached after discussion with pt or family/Healthcare POA: Yes
06/03/24 14:08
DNR Bracelet Application ONCE
06/03/24 Dinner
2000 calorie (17 carb) Diabetic
At Your Request: Full Participation
Diabetic Diet: Sodium, 2 Gram
06/03/24 15:12
Acetaminophen [Tylenol] 650 mg PO Q4HPRN PRN
Dextrose 50%-Water [Dextrose 50% Syringe] 12.5 grams IV [id number] PRN
Glucagon [GlucaGen] 1 mg IM PRN PRN
06/03/24 15:12
Activity As Directed
Activity Level: Out of Bed-Early Mobility
With Assistance
Bedside Glucose Monitoring As Directed
Frequency: AC&HS
Additional Instructions:: Change to q6h if pt on TPN, tube feeding or not eating
Vital Signs As Directed
Frequency: Per unit guidelines
Weight As Directed
Frequency: Daily
Ot Eval And Treat Routine
Pt Eval And Treat Routine
Activity Level: Out of Bed-Early Mobility
DX Deep Vein Thrombosis Video Routine
06/03/24 16:00
Furosemide [Lasix] 40 mg PO BID AT 0800,1600
06/03/24 16:30
Insulin Aspart Corrective Mod [Novolog Flexpen-Moderate Resistance] See Protocol SC AC
06/03/24 18:00
Amlodipine [Norvasc] 10 mg PO QPM
Aspirin Low Dose EC [Aspir Low (Enteric Coated)] 81 mg PO QPM
Atorvastatin [Lipitor] 20 mg PO QPM
Enoxaparin Sodium [Lovenox] 40 mg SC QPM
Lisinopril [Zestril] 40 mg PO QPM
06/03/24 20:00
Carvedilol [Coreg] 12.5 mg PO BID
HydrALAZINE [Apresoline] 75 mg PO BID
06/03/24 22:00
Latanoprost [Xalatan Ophthalmic Solution] 1 drop LEFT EYE HS
06/04/24 05:13
Basic Metabolic Panel IN AM
Complete Blood Count/No Diff IN AM
06/04/24 08:00
Clopidogrel Bisulfate [Plavix] 75 mg PO DAILY
Dapagliflozin [Farxiga] 10 mg PO DAILY
Spironolactone [Aldactone] 25 mg PO DAILY
Abnormal Lab Results
06/03/24 06/03/24
12:30 12:34
WBC 14.6 H 10^3/uL
(4.8-10.8)
Abs Immat Gran (auto) 0.1 H 10^3/uL
(0-0.05)
Absolute Neuts (auto) 11.9 H 10^3/uL
(1.4-6.5)
Absolute Monos (auto) 0.9 H 10^3/uL
(0.1-0.6)
Immature Gran % 0.8 H %
(0-0.5)
Neutrophils % 81.6 H %
(42.2-75.2)
Lymphocytes % 10.0 L %
(20.5-51.1)
BUN 33 H mg/dl
(9-20)
Urine Glucose 4+ A
(Negative)
06/03/24 12:30
06/03/24 12:30
Vital Signs
Initial and Last Documented VS:
Initial Vital Signs
Temp Pulse Resp BP Pulse Ox
34.9 C L 82 16 110/47 94
06/03/24 12:10 06/03/24 12:10 06/03/24 12:10 06/03/24 12:10 06/03/24 12:10
Last Documented Vital Signs
Temp Pulse Resp BP Pulse Ox
36.7 C 70 16 100/60 98
06/04/24 11:11 06/04/24 11:11 06/04/24 11:11 06/04/24 11:11 06/04/24 11:11
*Critical Care Note
Total Time (30-74mins, 75-104mins- exclusive of procedures): Not Applicable
ED Attending Note
-
Portions of this chart may have been created with voice recognition software.� Occasional wrong word or��sound alike� substitutions may have occurred due to the inherent limitations of voice recognition software.
Discharge Plan
Departure
Patient Disposition: Admit
Date of Disposition: 06/03/24
Time of Disposition: 13:33
Presentation/result/management discussed w/ accepting MD/DO: Hospitalist
Discharge Problem:
Hypoglycemia
Interventions
Interventions:
*Risk Screen - Suicide Last Done: 06/03/24 12:21
*General Assessment Last Done: 06/03/24 12:21
*Neglect/Abuse Screening Last Done: 06/03/24 12:22
*ED- Fall Risk Assessment Last Done: 06/03/24 12:21
*ED COVID-19 Vaccine History Last Done: 06/03/24 12:21
*Nursing Disposition Last Done: 06/03/24 14:48
ED- Neurological Assessment Last Done: 06/03/24 12:21
Discharge Date and Time
Discharge Date/Time: 06/03/24 15:02
[2024-06-03] MEDS: NSS 500 IV (12:34)
[2024-06-03 12:40] LABS: % Basophils 0.1 % (0-2); % Eosinophils 1.3 % (0-6); % Immature Granulocytes 0.8 % (0-0.5); % Monocytes 6.2 % (1.7-9.3); % Neutrophils 81.6 % (42.2-75.2); Absolute Eosinophils 0.2 10^3/uL (0-0.7); Absolute Immature Granulocytes 0.1 10^3/uL (0-0.05); Absolute Lymphocytes 1.5 10^3/uL (1.2-3.4); Absolute Monocytes 0.9 10^3/uL (0.1-0.6); Absolute Neutrophils 11.9 10^3/uL (1.4-6.5); Hematocrit 44.6 % (39.0-52.0); Mean Corp Hgb Conc. 33.6 g/dL (33.0-37.0); Mean Corpuscular Hgb 29.4 pg (27.0-31.0); Mean Corpuscular Volume 87.3 fL (80.0-94.0); Mean Platelet Volume 9.8 fL (7.4-10.4); Nucleated Red Blood Cells % 0 % (-); Platelet Count 185 10^3/uL (130-400); Red Blood Cell Count 5.11 10^6/uL (4.70-6.10); Red Cell Dist. Width 13.2 % (11.5-14.5); White Blood Cell Count 14.6 10^3/uL (4.8-10.8)
[2024-06-03 12:58] LABS: Urine Albumin Negative (Neg - Trace); Urine Bilirubin Negative (Negative); Urine Character Clear (Clear); Urine Color Yellow; Urine Glucose 4+ (Negative); Urine Ketone Negative (Negative); Urine Leukocyte Negative (Negative); Urine Nitrite Negative (Negative); Urine Occult Blood Negative (Negative); Urine Specific Gravity 1.015 (<1.030); Urine Urobilinogen Negative (Neg - 1+)
[2024-06-03 13:01] LABS: Lactic Acid 1.3 mmol/L (0.7-2.0)
[2024-06-03 13:02] LABS: ALT (SGPT) 23 U/L (0-50); AST (SGOT) 22 U/L (17-59); Albumin 3.8 g/dl (3.5-5.0); Alkaline Phosphatase 83 U/L (38-126); Blood Urea Nitrogen 33 mg/dl (9-20); Calcium 9.5 mg/dl (8.4-10.2); Carbon Dioxide 28 mmol/L (22-30); Chloride 104 mmol/L (98-107); Glucose 83 mg/dl (70-99); Potassium 3.8 mmol/L (3.5-5.1); Sodium 141 mmol/L (135-145); Total Bilirubin 0.8 mg/dl (0.2-1.3); Total Protein 6.3 g/dl (6.3-8.2); eGFR 55.88
[2024-06-03 13:30] LABS: Glucose - Point of Care 80 mg/dl (70-99)
--- NOTE | 2024-06-03 14:03 | HPS.HSE ---
Family Physician
-
Family Physician: Celestino Tapia
Chief Complaint
-
Hypoglycemia
History of Present Illness
Patient is a 78 y/o male past medical history of CAD s/p Stent, CHF, HTN, and DM who presents with hypoglycemia. Additional history is obtained from patient's at the bedside. Patient has a usual morning eating some coffee and toast prior to
taking his mediations. notes he did not really eat his normal breakfast. found him unresponsive and noted his continuous glucose monitor indicated blood glucose in the 40s. EMS was called who administered D10. Upon arrival to ED blood
glucose was 96. Review of records indicate patient was started on Farxiga during his admission two months ago for heart failure. Patient denies any complaints at the present time.
Medical History
Past Medical History
Past Medical History: Reports Other
Additional Past Medical History:
Coronary Artery Disease s/p Multiple Stents
Peripheral Artery Disease s/p Partial Left Toe Amputation
Chronic HFmrEF
Aortic Stenosis s/p TAVR
Essential Hypertension
Hyperlipidemia
Diabetes Mellitus, Type II
Diabetic Neuropathy
Morbid Obesity due to Excess Calories
Past Surgical History: Reports Other
Additional Past Surgical History:
Cardiac Stents
TAVR
Permanent Pacemaker
Right Elbow ORIF
Left Fifth Metatarsal Surgery
Anal Fistula Repair
Social History
Tobacco: Non-smoker
Alcohol: None
Drug: None
Personal:
Living: With Family
Family History
Family History: Not pertinent
Allergies / Home Medications
Allergies reflects when Allergies were last updated in [email or web address].
Home Medications with original date entered in [email or web address]
Allergy/Medication List:
Allergies
Allergy/AdvReac Type Severity Reaction Status Date / Time
clindamycin [Clindamycin] Allergy Shortness Verified 05/03/23 07:46
of Breath
Penicillins Allergy Rash; Verified 05/03/23 07:46
TOLERATES
CEPHALOSPORINS
Kypuujb-[id number] Reductase Allergy Patient Verified 05/03/23 07:46
Inhibitor reports
[Nbvailb-Dog-Wxe Reductase pains in
Inhibitor] shoulder
with
statin use.
Home Medications
coenzyme Q10 200 mg capsule (Co Q-10) 200 mg PO QPM Supplement 02/19/13
latanoprost 0.005 % eye drops 1 drp LEFT EYE HS Eye condition 02/15/14
clopidogrel 75 mg tablet 75 mg PO DAILY Blood clot prevention/tx 10/22/16
amlodipine 10 mg tablet 10 mg PO QPM Blood pressure 11/26/20
dorzolamide (PF) 2 % (PF) eye drops 1 drp LEFT EYE BID Eye condition 11/26/20
cholecalciferol (vitamin D3) 50 mcg (2,000 unit) tablet 2,000 units PO QPM Supplement 03/15/21
insulin glargine U-300 conc 300 unit/mL (3 mL) subcutaneous pen (Toujeo Max U-300 SoloStar) 100 unit SC DAILY Diabetes 08/19/22
lisinopril 40 mg tablet 40 mg PO QPM Blood Pressure 08/19/22
furosemide 40 mg tablet 40 mg PO BID AT 0800,1600 #60 tabs 08/24/22
metformin 500 mg tablet,extended release 24 hr 500 mg PO DAILYPRN PRN elevated sugars 11/11/22
pitavastatin calcium 4 mg tablet (Livalo) 4 mg PO QPM 05/03/23
aspirin 81 mg tablet,delayed release 81 mg PO QPM 04/01/24
carvedilol 12.5 mg tablet 12.5 mg PO BID 04/01/24
therapeutic multivitamin 1 tab PO QPM 04/01/24
dapagliflozin propanediol 10 mg tablet (Farxiga) 10 mg PO DAILY 30 days #30 tabs 04/05/24
hydralazine 25 mg tablet 75 mg (3 x 25 mg) PO BID Blood pressure 30 days #180 tabs 04/05/24
spironolactone 25 mg tablet 25 mg PO DAILY 30 days #30 tabs 04/05/24
Review of Systems
-
A 12 point ROS was completed and negative except as noted: Yes
Constitutional: Denies Fever or Chills
Respiratory: Denies Cough or Trouble Breathing
Cardiac: Denies Chest Pain or Palpitations
Abdomen/GI: Denies Abdominal Pain, Nausea, Vomiting or Diarrhea
Physical Exam
Vital Signs
Vital Signs
Temp Pulse Resp BP Pulse Ox
94.9 F L 70 16 117/57 93
06/03/24 12:10 06/03/24 13:00 06/03/24 13:04 06/03/24 13:00 06/03/24 13:00
Physical Exam
General: Comfortable and Conversant
HEENT: NormoCephalic, Anicteric and Atraumatic
Respiratory: Clear and Non Labored Respirations
Cardiac: S1/S2 and Regular Rhythm
GI: Soft and Non Tender
Rectal: Deferred by Provider
Musculoskeletal: No Clubbing, No Cyanosis and No Edema
Skin: Warm and Dry
Neuro: Awake, Alert, Oriented and Nonfocal/grossly intact
Psych: Calm
Laboratory Results
-
06/03/24 12:30
06/03/24 12:30
Laboratory Results
Lactic Acid 1.3 mmol/L (0.7-2.0) 06/03/24 12:30
Total Bilirubin 0.8 mg/dl (0.2-1.3) 06/03/24 12:30
AST 22 U/L (17-59) 06/03/24 12:30
ALT 23 U/L (0-50) 06/03/24 12:30
Alkaline Phosphatase 83 U/L (38-126) 06/03/24 12:30
Data Reviewed
-
Lab Data: Labs Reviewed by me
Impression/Plan
-
Hypoglycemia
-Blood glucose improved following D10
-Monitor blood glucose closely
-Hold Toujeo for now as patient took his dose this morning
-Continue Farxiga
-Patient likely requires decreased Toujeo dose following addition of Farxiga a few months ago
Coronary Artery Disease s/p Multiple Stents
Peripheral Artery Disease s/p Partial Left Toe Amputation
-Continue aspirin and clopidogrel
Chronic HFmrEF
-Continue furosemide and spironolactone
-Monitor Daily Weights
Essential Hypertension
-Continue amlodipine, carvedilol, hydralazine and lisinopril with hold parameters
Hyperlipidemia
Patient maintained on pitavastatin as outpatient
Diabetes Mellitus, Type II
-HgbA1c 7.0 in Mar 2024
Morbid Obesity due to Excess Calories
-Affects all aspects of care
Hx Aortic Stenosis s/p TAVR
DVT proph: Lovenox
Code Status: DNR
--- NOTE | 2024-06-03 14:32 | W.PN.UPDATE ---
Update Note
Progress Note Update
This is an addendum to the H&P written by Ailyn Lopez on 06/03/2024. Patient seen and examined independently with PA.
78-year-old male past medical history of CAD, in-stent restenosis, PAD status post partial amputation of left toe,, CHF, hypertension, hypercholesteremia, obesity, anorectal fistula repair, diabetes, possible obstructive sleep apnea, presenting with
unresponsive this morning. EMS found him with blood sugar in the 40s.
As per EMS he was hypoxemic to 80s per triage note. Unclear if he was hypotensive but not hypotensive here. Hypothermic with temperature of 94.9.
He was given glucagon and D10. Blood sugar 96 and then 80 here.
Currently asymptomatic. Continue to monitor blood sugars. Hold Toujeo 100 units for now, can likely restart at 80% of the usual dose tomorrow in the morning. Continue Farxiga and insulin sliding scale.
[2024-06-03 15:22] LABS: TSH Reflex To Free T4 2.38 uIU/ml (0.47-4.68)
--- NOTE | 2024-06-03 16:13 | PTCARENOTE ---
Patient arrived from ED with rectal temp of 93.4. Hospitalist notified. Real barfield placed. Call morton within reach. at bedside.
[2024-06-03 16:53] LABS: Glucose - Point of Care 76 mg/dl (70-99)
[2024-06-03] MEDS: ZESTRIL 40 MG PO (17:55)
[2024-06-03] MEDS: LOVENOX 40 MG SC (17:55)
[2024-06-03] MEDS: LASIX 40 MG PO (17:55)
[2024-06-03] MEDS: ASPIR LOW (ENTERIC COATED) 81 MG PO (17:55)
[2024-06-03] MEDS: LIPITOR 20 MG PO (17:55)
[2024-06-03] MEDS: NORVASC 10 MG PO (17:56)
[2024-06-03] MEDS: COREG 12.5 MG PO (19:28)
[2024-06-03] MEDS: APRESOLINE 75 MG PO (19:28)
[2024-06-03] MEDS: XALATAN OPHTHALMIC SOLUTION 1 DROP LEFT EYE (20:50)
--- NOTE | 2024-06-03 21:00 | PTCARENOTE ---
Pt stating no void since 1 pm despite lasix administration. Abdomen round distended, pt stating abdominal pressure and need to void. Unable. BP high 164/71 HR 71. Bladder scanned for 395. House CAR COOPER order to straight cath. 400 mls clear yellow
urine. Pt stating relief.
[2024-06-03 21:26] LABS: Glucose - Point of Care 160 mg/dl (70-99)
[2024-06-03] MEDS: TRUSOPT 2% OPHTHALMIC SOLUTION 1 DROP LEFT EYE (21:32)
[2024-06-04 03:18] LABS: Glucose - Point of Care 87 mg/dl (70-99)
[2024-06-04 04:25] LABS: Glucose - Point of Care 83 mg/dl (70-99)
[2024-06-04 05:50] LABS: Hematocrit 41.9 % (39.0-52.0); Hemoglobin 14.1 g/dL (13.0-18.0); Mean Corp Hgb Conc. 33.7 g/dL (33.0-37.0); Mean Corpuscular Hgb 29.4 pg (27.0-31.0); Mean Corpuscular Volume 87.5 fL (80.0-94.0); Mean Platelet Volume 9.9 fL (7.4-10.4); Platelet Count 168 10^3/uL (130-400); Red Blood Cell Count 4.79 10^6/uL (4.70-6.10); Red Cell Dist. Width 13.4 % (11.5-14.5); White Blood Cell Count 10.8 10^3/uL (4.8-10.8)
[2024-06-04 06:00] VITALS: BMI 39.8
[2024-06-04 06:10] LABS: Blood Urea Nitrogen 35 mg/dl (9-20); Carbon Dioxide 25 mmol/L (22-30); Chloride 103 mmol/L (98-107); Estimated Creatinine Clearance 67 ml/min; Glucose 116 mg/dl (70-99); Potassium 4.1 mmol/L (3.5-5.1); Sodium 137 mmol/L (135-145); eGFR > 60.00
[2024-06-04 07:15] VITALS: BP 137/55
[2024-06-04 07:51] LABS: Glucose - Point of Care 108 mg/dl (70-99)
[2024-06-04] MEDS: FARXIGA 10 MG PO (07:54)
[2024-06-04] MEDS: COREG 12.5 MG PO (07:57)
[2024-06-04] MEDS: ALDACTONE 25 MG PO (07:57)
[2024-06-04] MEDS: TRUSOPT 2% OPHTHALMIC SOLUTION 1 DROP LEFT EYE (07:58)
[2024-06-04] MEDS: PLAVIX 75 MG PO (07:58)
[2024-06-04] MEDS: LASIX 40 MG PO (07:58)
[2024-06-04] MEDS: APRESOLINE 75 MG PO (08:21)
--- NOTE | 2024-06-04 08:54 | W.PN.HOSP.TC ---
Today's Communication/Plan
-
Discharge
Assessment / Plan
Assessment / Plan
Gen-AAOx3, NAD, morbid obesity
HEENT-NC, AT, anicteric, clear oral mm
Neck-supple
CV-reg, no M, +S1/S2
Lungs-clear B/L
Abd-soft, NT, ND
Ext-no edema
Musculoskeletal-no cyanosis, clubbing
Skin-warm and dry
Neuro-grossly non-focal
Psych-calm, cooperative
Hypoglycemia -resolved. Likely due to excessive insulin administration, he is on 100 units of Toujeo every morning. Not on short acting insulin. States appetite has been fine. No changes in weight.
DM2 with hypoglycemia -last hemoglobin A1c 7% in March. Followed by endocrinology, Dr. Green. Patient states that it was recommended he use short acting insulin along with basal insulin but he declined and has been using basal insulin alone.
Recommend starting NovoLog with every meal, 10 units. He was on NovoLog previously at 15 units AC. He is agreeable to resume NovoLog.
Will decrease dose of Toujeo to 60 units every morning starting tomorrow. Recommend following up closely with endocrinology this week.
CAD -stable.
PAD
Chronic heart failure midrange EF
Aortic stenosis/TAVR
Essential hypertension
Hyperlipidemia
Diabetic peripheral neuropathy
Morbid obesity due to excess calories
DNR
Dispo -medically stable for discharge today. Follow-up with PCP and endocrinology.
Anticipated Discharge: Today
Subjective/Interval History
-
Date of Service: June 04, 2024
Patient seen and examined. No complaints.
Objective Data
-
Labs:
Laboratory Results
06/04/24
05:13
WBC 10.8
Hgb 14.1
Hct 41.9
Plt Count 168
Sodium 137
Potassium 4.1
Chloride 103
Carbon Dioxide 25
BUN 35 H
Creatinine 1.2
Glucose 116 H
Calcium 9.0
Vital Signs:
Vital Signs
Temp Pulse Resp BP Pulse Ox
98.1 F 71 16 137/55 97
06/04/24 07:15 06/04/24 07:15 06/04/24 07:15 06/04/24 07:15 06/04/24 07:15
I&O
06/03/24 06/04/24 06/05/24
06:59 06:59 06:59
Intake Total 240 / 240
Output Total 400 / 400
Balance -160 / -160
Review of Systems
-
History Source: Patient
All other systems: Reviewed and negative
--- NOTE | 2024-06-04 09:03 | W.DS.TRANS ---
DC Summary - [employer]
-
Discharge Instructions:
Sleep Apnea Risk High
Discharge Diagnosis/Procedures Hypoglycemia
Diet Diabetic, Carb Controlled
Activity As tolerated
Driving Restrictions As prior to admission
Bathing Restrictions None
Instructions:
Stand-Alone Forms:
Changes to Home Medications: Yes
Discharge Medications:
DC Medications w/original date entered in [email or web address]
coenzyme Q10 200 mg capsule (Co Q-10) 200 mg PO QPM Supplement 02/19/13
latanoprost 0.005 % eye drops 1 drp LEFT EYE HS Eye condition 02/15/14
clopidogrel 75 mg tablet 75 mg PO DAILY Blood clot prevention/tx 10/22/16
amlodipine 10 mg tablet 10 mg PO QPM Blood pressure 11/26/20
dorzolamide (PF) 2 % (PF) eye drops 1 drp LEFT EYE BID Eye condition 11/26/20
cholecalciferol (vitamin D3) 50 mcg (2,000 unit) tablet 2,000 units PO QPM Supplement 03/15/21
lisinopril 40 mg tablet 40 mg PO QPM Blood Pressure 08/19/22
furosemide 40 mg tablet 40 mg PO BID AT 0800,1600 #60 tabs 08/24/22
pitavastatin calcium 4 mg tablet (Livalo) 4 mg PO QPM High Cholesterol 05/03/23
aspirin 81 mg tablet,delayed release 81 mg PO QPM Blood Clot Prevention/Tx 04/01/24
carvedilol 12.5 mg tablet 12.5 mg PO BID Blood Pressure 04/01/24
therapeutic multivitamin 1 tab PO QPM Supplement 04/01/24
dapagliflozin propanediol 10 mg tablet (Farxiga) 10 mg PO DAILY 30 days #30 tabs 04/05/24
hydralazine 25 mg tablet 75 mg (3 x 25 mg) PO BID Blood pressure 30 days #180 tabs 04/05/24
spironolactone 25 mg tablet 25 mg PO DAILY 30 days #30 tabs 04/05/24
insulin aspart U-100 100 unit/mL (3 mL) subcutaneous pen (Novolog FlexPen U-100 Insulin aspart) 10 unit (0.1 mL) SC AC #15 mL 06/04/24
insulin glargine U-300 conc 300 unit/mL (3 mL) subcutaneous pen (Toujeo Max U-300 SoloStar) 60 unit (0.2 mL) SC DAILY Diabetes #0 mL 06/04/24
insulin syringe-needle U-100 1 mL 29 gauge x 1/2' (Insulin Syringe) #100 ea 06/04/24
metformin 500 mg tablet,extended release 24 hr 500 mg PO DAILY #0 tabs 06/04/24
Home Medication Changes
Decrease dose of Toujeo to 60 units daily.
Pending Results: No
--- NOTE | 2024-06-04 10:31 | CM ---
CM following re: discharge planning.
Reviewed pt's chart,met with pt.
Pt is a 78 year old male, admitted with OBS status and primary dx of Hypoglycemia.
Pt reports he lives with spouse in an independent apartment at [facility], has 4 supportive children. Pt reports he has been living there for 6 years and love it. Pt described himself as independent in all areas [employer]. No DME, VN or SNF history.
Discharge order noted. Pt is aware and he stated his spouse will transport home.
PCP: Celestino Cortes
Pharmacy: [facility]
D/C plan: home no needs. Spouse to transport.
[2024-06-04 11:11] VITALS: BP 100/60
--- NOTE | 2024-06-04 11:24 | PTCARENOTE ---
Discharge order acknowledged. Basal bolus insulin administration reviewed with patient. Patient used teach back to display understanding. IV site removed. Staff escort by wheelchair to 's car at [facility].
== END 2024-06-04 11:23 | disposition home or self-care (01) ==
LOC: 4 EAST ACU 14:28
PROVIDERS: Physician Assistant Medical; ADMITTING PHYSICIAN Hospitalist; ATTENDING PHYSICIAN Hospitalist; EMERGENCY PHYSICIAN Emergency Medicine; FAMILY PHYSICIAN Internal Medicine
DX: E11.649 Type 2 diabetes mellitus with hypoglycemia without coma (principal); R09.02 Hypoxemia; E11.42 Type 2 diabetes mellitus with diabetic polyneuropathy; I48.91 Unspecified atrial fibrillation; I11.0 Hypertensive heart disease with heart failure; I50.22 Chronic systolic (congestive) heart failure; E11.51 Type 2 diabetes mellitus with diabetic peripheral angiopathy without gangrene; E78.00 Pure hypercholesterolemia, unspecified; R68.0 Hypothermia, not associated with low environmental temperature; E66.01 Morbid (severe) obesity due to excess calories; I25.10 Atherosclerotic heart disease of native coronary artery without angina pectoris; Z83.3 Family history of diabetes mellitus; Z82.49 Family history of ischemic heart disease and other diseases of the circulatory system; Z95.5 Presence of coronary angioplasty implant and graft; Z68.39 Body mass index [BMI] 39.0-39.9, adult; Z66 Do not resuscitate; Z95.2 Presence of prosthetic heart valve; Z95.0 Presence of cardiac pacemaker; Z88.8 Allergy status to other drugs, medicaments and biological substances; Z88.0 Allergy status to penicillin; Z88.1 Allergy status to other antibiotic agents; Z79.02 Long term (current) use of antithrombotics/antiplatelets; Z79.4 Long term (current) use of insulin; Z79.82 Long term (current) use of aspirin; Z79.84 Long term (current) use of oral hypoglycemic drugs
CPT/HCPCS: 71045; 80048; 80053; 81003; 82962; 83605; 84443; 85025; 85027; 87040; 96360; 99284; G0378

== ENCOUNTER → 2024-12-05 13:11 | Outpatient (REF) | payer MEDICARE, SELFPAY | LOC: RAD 13:11 | PROVIDERS: ATTENDING PHYSICIAN Podiatrist Foot Surgery; FAMILY PHYSICIAN Internal Medicine | DX: E11.51 Type 2 diabetes mellitus with diabetic peripheral angiopathy without gangrene (principal) | CPT/HCPCS: 93922; 93925 ==

== ENCOUNTER → 2024-12-25 08:16 | Outpatient (REF) | payer MEDICARE, SELFPAY | LOC: RAD 08:16 | PROVIDERS: ATTENDING PHYSICIAN Podiatrist Foot Surgery; FAMILY PHYSICIAN Internal Medicine | DX: M86.171 Other acute osteomyelitis, right ankle and foot (principal) | CPT/HCPCS: 78315; A9503 ==

== ENCOUNTER → 2024-12-29 06:35 | Outpatient (REF) | payer MEDICARE, SELFPAY | LOC: RAD 06:35 | PROVIDERS: ATTENDING PHYSICIAN Podiatrist Foot Surgery; FAMILY PHYSICIAN Internal Medicine | DX: M86.171 Other acute osteomyelitis, right ankle and foot (principal) | CPT/HCPCS: 78803; A9569 ==

== ENCOUNTER 2025-01-02 22:05 | Inpatient (IN) | payer MEDICARE, SELFPAY ==
[2025-01-02] VITALS (9 sets, daily range): BP systolic 124–183; BP diastolic 57–77; BMI 42.0; BMI 40.8
--- NOTE | 2025-01-02 19:49 | ED.GENMED ---
History of Present Illness
<Felecia Donovan NP - Last Filed: 01/03/25 14:06>
General
Chief Complaint: Vascular Symptoms
Source: patient and spouse
Exam Limitations: none
Time Seen by Provider: 01/02/25 19:31
Nursing documentation reviewed up to this point in time: agreed with
History of Present Illness
History of Present Illness:
Patient sent to the emergency department by podiatry for admission. 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 He is scheduled for a bone biopsy by Dr. Stokes in the a.m. He is also scheduled for an angiogram with
possible angioplasty and stent placement by Dr. Garcia tomorrow. He denies fever or chills. He denies any discharge from his foot ulceration. To ED accompanied by spouse
Past History
<Felecia Donovan NP - Last Filed: 01/03/25 14:06>
Past History
ED Past Medical History: Arrthythmia (Atrial fibrillation), CAD, CHF, HTN, Hypercholesterolemia, IDDM and Other (Diabetic neuropathy, morbid obesity, cholelithiasis)
ED Past Surgical History: Cardiac (Pacemaker) and Other (Patient has a history of having a cardiac stent, open reduction of a right elbow injury, right eye surgery, and left fifth metatarsal surgery. )
Social History
Tobacco: Non-smoker
Alcohol: None
Drug: None
Personal:
Living: with family
Employment: Retired
Family History
Family History: Diabetes and CAD
Review of Systems
<Felecia Donovan NP - Last Filed: 01/03/25 14:06>
Review of Systems
Allergies reviewed?: Yes
All Other Systems: ROS reviewed and negative except as documented in HPI and ROS
Constitutional: Reports no symptoms
EENT: Reports no symptoms
Respiratory: Reports no symptoms
Cardiac: Reports no symptoms
ABD/GI: Reports no symptoms
: Reports no symptoms
Musculoskeletal: Reports no symptoms
Skin: Reports other (Ulceration to right plantar foot. Surrounding erythema.)
Neurological: Reports no symptoms
Psychiatric: Reports no symptoms
Phy Exam
<Felecia Donovan NP - Last Filed: 01/03/25 14:06>
General Physical Exam
General Presentation: well appearing and no apparent distress
General age: appears stated age
General Skin: warm and dry
General Habitus: normal
General Mental: alert
Cardiovascular Exam
Cardiovascular Exam: regular rate/rhythm
Musculoskeletal Exam
Musculoskeletal Exam: full ROM
Skin Exam
Skin Exam: normal color, warm/dry, no rash and other (Ulceration to plantar surface of right foot. Minimal serous drainage noted on old dressing. Mild surrounding erythema. No pain to site (diabetic neuropathy))
Psychiatric Exam
Psychiatric Exam: normal mood/affect
Course
<Felecia Donovan NP - Last Filed: 01/03/25 14:06>
Orders/Labs/Results
Orders:
Orders
01/02/25 19:44
Foot, Right 3 View [CR Foot - Right Min 3 Views] Urgent
Comment:
Reason For Exam: plantar ulceration
01/02/25 19:57
Electrocardiogram (*1) Urgent
Reason for Study: PreOp
EKG- Treatment ONCE
01/02/25 19:59
Basic Metabolic Panel Urgent
Complete Blood Count/With Diff Urgent
Glycohemoglobin (HgbA1c) Urgent
PTT Urgent
Prothrombin Time Urgent
Wound Culture [Wound/Abscess/Other Culture] Urgent
TRENA Source: Foot
Specimen Description: Right
Date Specimen was Collected: 01/02/25
Time Specimen was Collected: 19:50
Comment: R foot ulcer
01/02/25 20:54
PODIATRY CONSULT Urgent
Consulting Provider: Velasquez Stokes
Was physician already notified: Yes
Vascular Surgery Consult Urgent
Consulting Provider: Owen Garcia
Was physician already notified: Yes
01/02/25 21:45
Admit/Transfer Patient As Directed
Co-Sign Provider:
Level of Care: Inpatient admission
Assign to:: Medical/Surgical
Physician / Group: arlene
Diagnosis: diabetic foot ulcer
Reason for Hospitalization: DM foot ulcer
Expected length of stay greater than two midnights?: Yes
ELOS- Estimated Length of Stay in days: 3
I certify the patient meets the requirements for IP care: Yes
01/02/25 21:46
PRN Pain Medication Management As Directed
May give lesser potent ordered pain med per pt: Yes
preference::
Protocol:: Medication orders for pain may be administered in a
manner that supports deferring to patient preference
when the pt is:
- Requesting an ordered lesser potent pain medication.
Least to most potent pain medications are defined
as: acetaminophen < NSAID < tramadol < opioids
(morphine, oxycodone, hydromorphone).
- Requesting a lesser dose of the same medication IF
ORDERED.
- Requesting a less intrusive route of administration
if both routes are prescribed by the provider (PO <
IV).
01/02/25 21:49
Code Status As Directed
Resuscitation Status: Do not resuscitate
Reached after discussion with pt or family/Healthcare POA: Yes
01/02/25 21:50
DNR Bracelet Application ONCE
01/02/25 21:55
Potassium Stat
01/02/25 22:37
Acetaminophen [Tylenol] 650 mg PO Q4HPRN PRN
Amlodipine [Norvasc] 10 mg PO HS
Aspirin Low Dose EC [Aspir Low (Enteric Coated)] 81 mg PO HS
Bisacodyl [Dulcolax] 10 mg RECTAL [id number] PRN
Cholecalciferol (Vitamin D3) [VITAMIN D3 (cholecalciferol)] 50 mcg PO HS
Dextrose 50%-Water [Dextrose 50% Syringe] 12.5 grams IV [id number] PRN
Docusate W/Senna [Senokot-S] 1 tablet PO BIDPRN PRN
Glucagon [GlucaGen] 1 mg IM PRN PRN
Latanoprost [Xalatan Ophthalmic Solution] See Dose Instructions LEFT EYE HS
Polyethylene Glycol Powder [Miralax] 17 grams PO DAILYPRN PRN
coenzyme Q10 [Co Q-10] 200 mg PO HS
01/02/25 22:37
Activity As Directed
Activity Level: As Tolerated
Bedside Glucose Monitoring As Directed
Frequency: AC&HS
Additional Instructions:: Change to q6h if pt on TPN, tube feeding or not eating
Intake/ Output As Directed
Frequency: Per unit guidelines
Pneumatic Compression Sleeves As Directed
Type: Knee high
Vital Signs As Directed
Frequency: Per unit guidelines
Weight As Directed
Frequency: Daily
DX Deep Vein Thrombosis Video Routine
01/02/25 23:00
Atorvastatin [Lipitor] 20 mg PO HS
01/03/25 07:30
Insulin Aspart Corrective Mod [Novolog Flexpen-Moderate Resistance] See Protocol SC AC
01/03/25 08:00
Carvedilol [Coreg] 12.5 mg PO BID
Clopidogrel Bisulfate [Plavix] 75 mg PO DAILY
Dorzolamide HCl [Trusopt 2% Ophthalmic Solution] See Dose Instructions LEFT EYE BID
Furosemide [Lasix] 40 mg PO BID AT 0800,1600
HydrALAZINE [Apresoline] 75 mg PO BID
01/04/25 06:00
Basic Metabolic Panel IN AM
Complete Blood Count/No Diff IN AM
01/05/25 06:00
Basic Metabolic Panel IN AM
Complete Blood Count/No Diff IN AM
01/06/25 06:00
Basic Metabolic Panel IN AM
Complete Blood Count/No Diff IN AM
01/07/25 06:00
Complete Blood Count/No Diff IN AM
Abnormal Lab Results
01/02/25
19:59
WBC 11.6 H 10^3/uL
(4.8-10.8)
Abs Immat Gran (auto) 0.1 H 10^3/uL
(0-0.05)
Absolute Neuts (auto) 8.1 H 10^3/uL
(1.4-6.5)
Absolute Monos (auto) 1.0 H 10^3/uL
(0.1-0.6)
Immature Gran % 0.7 H %
(0-0.5)
Lymphocytes % 18.1 L %
(20.5-51.1)
APTT 22.6 L Sec
(23.4-35.0)
BUN 38 H mg/dl
(9-20)
Creatinine 1.5 H mg/dL
(0.7-1.3)
Glucose 177 H mg/dl
(70-99)
Hemoglobin A1c 8.2 H %
(4.0-5.9)
01/02/25 19:59
01/02/25 21:55
Vital Signs
Initial and Last Documented VS:
Initial Vital Signs
Temp Pulse Resp BP Pulse Ox
98.5 F 71 16 124/66 95
01/02/25 14:09 01/02/25 14:09 01/02/25 14:09 01/02/25 14:09 01/02/25 14:09
Last Documented Vital Signs
Temp Pulse Resp BP Pulse Ox
97.5 F 58 17 132/58 95
01/03/25 11:19 01/03/25 11:51 01/03/25 11:19 01/03/25 11:51 01/03/25 11:19
<Samara Acosta MD - Last Filed: 01/02/25 20:09>
Orders/Labs/Results
Orders:
Orders
01/02/25 19:44
Foot, Right 3 View [CR Foot - Right Min 3 Views] Urgent
Comment:
Reason For Exam: plantar ulceration
01/02/25 19:57
Electrocardiogram (*1) Urgent
Reason for Study: PreOp
EKG- Treatment ONCE
01/02/25 19:59
Basic Metabolic Panel Urgent
Complete Blood Count/With Diff Urgent
Glycohemoglobin (HgbA1c) Urgent
PTT Urgent
Prothrombin Time Urgent
Wound Culture [Wound/Abscess/Other Culture] Urgent
TRENA Source: Foot
Specimen Description: Right
Date Specimen was Collected: 01/02/25
Time Specimen was Collected: 19:50
Comment: R foot ulcer
01/02/25 20:54
PODIATRY CONSULT Urgent
Consulting Provider: Velasquez Stokes
Was physician already notified: Yes
Vascular Surgery Consult Urgent
Consulting Provider: Owen Garcia
Was physician already notified: Yes
01/02/25 21:45
Admit/Transfer Patient As Directed
Co-Sign Provider:
Level of Care: Inpatient admission
Assign to:: Medical/Surgical
Physician / Group: arlene
Diagnosis: diabetic foot ulcer
Reason for Hospitalization: DM foot ulcer
Expected length of stay greater than two midnights?: Yes
ELOS- Estimated Length of Stay in days: 3
I certify the patient meets the requirements for IP care: Yes
01/02/25 21:46
PRN Pain Medication Management As Directed
May give lesser potent ordered pain med per pt: Yes
preference::
Protocol:: Medication orders for pain may be administered in a
manner that supports deferring to patient preference
when the pt is:
- Requesting an ordered lesser potent pain medication.
Least to most potent pain medications are defined
as: acetaminophen < NSAID < tramadol < opioids
(morphine, oxycodone, hydromorphone).
- Requesting a lesser dose of the same medication IF
ORDERED.
- Requesting a less intrusive route of administration
if both routes are prescribed by the provider (PO <
IV).
01/02/25 21:49
Code Status As Directed
Resuscitation Status: Do not resuscitate
Reached after discussion with pt or family/Healthcare POA: Yes
01/02/25 21:50
DNR Bracelet Application ONCE
01/02/25 21:55
Potassium Stat
01/02/25 22:37
Acetaminophen [Tylenol] 650 mg PO Q4HPRN PRN
Amlodipine [Norvasc] 10 mg PO HS
Aspirin Low Dose EC [Aspir Low (Enteric Coated)] 81 mg PO HS
Bisacodyl [Dulcolax] 10 mg RECTAL [id number] PRN
Cholecalciferol (Vitamin D3) [VITAMIN D3 (cholecalciferol)] 50 mcg PO HS
Dextrose 50%-Water [Dextrose 50% Syringe] 12.5 grams IV [id number] PRN
Docusate W/Senna [Senokot-S] 1 tablet PO BIDPRN PRN
Glucagon [GlucaGen] 1 mg IM PRN PRN
Latanoprost [Xalatan Ophthalmic Solution] See Dose Instructions LEFT EYE HS
Polyethylene Glycol Powder [Miralax] 17 grams PO DAILYPRN PRN
coenzyme Q10 [Co Q-10] 200 mg PO HS
01/02/25 22:37
Activity As Directed
Activity Level: As Tolerated
Bedside Glucose Monitoring As Directed
Frequency: AC&HS
Additional Instructions:: Change to q6h if pt on TPN, tube feeding or not eating
Intake/ Output As Directed
Frequency: Per unit guidelines
Pneumatic Compression Sleeves As Directed
Type: Knee high
Vital Signs As Directed
Frequency: Per unit guidelines
Weight As Directed
Frequency: Daily
DX Deep Vein Thrombosis Video Routine
01/02/25 23:00
Atorvastatin [Lipitor] 20 mg PO HS
01/03/25 07:30
Insulin Aspart Corrective Mod [Novolog Flexpen-Moderate Resistance] See Protocol SC AC
01/03/25 08:00
Carvedilol [Coreg] 12.5 mg PO BID
Clopidogrel Bisulfate [Plavix] 75 mg PO DAILY
Dorzolamide HCl [Trusopt 2% Ophthalmic Solution] See Dose Instructions LEFT EYE BID
Furosemide [Lasix] 40 mg PO BID AT 0800,1600
HydrALAZINE [Apresoline] 75 mg PO BID
01/04/25 06:00
Basic Metabolic Panel IN AM
Complete Blood Count/No Diff IN AM
01/05/25 06:00
Basic Metabolic Panel IN AM
Complete Blood Count/No Diff IN AM
01/06/25 06:00
Basic Metabolic Panel IN AM
Complete Blood Count/No Diff IN AM
01/07/25 06:00
Complete Blood Count/No Diff IN AM
Abnormal Lab Results
01/02/25
19:59
WBC 11.6 H 10^3/uL
(4.8-10.8)
Abs Immat Gran (auto) 0.1 H 10^3/uL
(0-0.05)
Absolute Neuts (auto) 8.1 H 10^3/uL
(1.4-6.5)
Absolute Monos (auto) 1.0 H 10^3/uL
(0.1-0.6)
Immature Gran % 0.7 H %
(0-0.5)
Lymphocytes % 18.1 L %
(20.5-51.1)
APTT 22.6 L Sec
(23.4-35.0)
BUN 38 H mg/dl
(9-20)
Creatinine 1.5 H mg/dL
(0.7-1.3)
Glucose 177 H mg/dl
(70-99)
Hemoglobin A1c 8.2 H %
(4.0-5.9)
01/02/25 19:59
01/02/25 21:55
Vital Signs
Initial and Last Documented VS:
Initial Vital Signs
Temp Pulse Resp BP Pulse Ox
98.5 F 71 16 124/66 95
01/02/25 14:09 01/02/25 14:09 01/02/25 14:09 01/02/25 14:09 01/02/25 14:09
Last Documented Vital Signs
Temp Pulse Resp BP Pulse Ox
97.5 F 58 17 132/58 95
01/03/25 11:19 01/03/25 11:51 01/03/25 11:19 01/03/25 11:51 01/03/25 11:19
<Felecia Donovan NP - Last Filed: 01/03/25 14:06>
*Pulse Oximetry
SaO2: 97
Oxygen Mode of Delivery: Room air
Patient hypoxic: no
*Critical Care Note
Total Time (30-74mins, 75-104mins- exclusive of procedures): Not Applicable
<Felecia Donovan NP - Last Filed: 01/03/25 14:06>
Update Note
Update Note:
Patient sent to the emergency department by podiatry for admission. He has a diabetic ulceration on the plantar surface of his right foot. He is scheduled for an angiogram in the a.m. with Dr. Garcia, possible angioplasty and stenting. He is also
scheduled for bone biopsy with podiatry. Dietary asked that no antibiotics to be given until after the bone biopsy has been obtained. He will remain n.p.o. after midnight for his scheduled procedures.
ED Attending Note
<Felecia Dnoovan NP - Last Filed: 01/03/25 14:06>
-
Portions of this chart may have been created with voice recognition software.� Occasional wrong word or��sound alike� substitutions may have occurred due to the inherent limitations of voice recognition software.
<Samara Acosta MD - Last Filed: 01/02/25 20:09>
ED Attending Note
Patient seen and examined by attending physician: Yes
ED Attending Note:
Patient appears nontoxic, alert, conversational, breathing comfortably.
Discharge Plan
Departure
Patient Disposition: Admit
Date of Disposition: 01/02/25
Time of Disposition: 20:25
Presentation/result/management discussed w/ accepting MD/DO: Hospitalist
Condition: Fair
Covid-19: Not Applicable
Discharge Problem:
Diabetic foot ulcer, Peripheral arterial disease
Interventions
Interventions:
*Risk Screen - Suicide Last Done: 01/02/25 14:11
*General Assessment Last Done: 01/02/25 19:48
*Neglect/Abuse Screening Last Done: 01/02/25 14:11
*ED- Fall Risk Assessment Last Done: 01/02/25 19:48
*ED COVID-19 Vaccine History Last Done: 01/02/25 19:48
*ED Influenza Vaccine History Last Done: 01/02/25 19:48
*Nursing Disposition Last Done: 01/02/25 22:15
ED- Cardiac Assessment Last Done: 01/02/25 20:31
ED- Pulmonary Assessment Last Done: 01/02/25 20:31
ED-Peripheral Vascular Assessment Last Done: 01/02/25 20:31
ED-Skin Assessment Last Done: 01/02/25 20:31
Discharge Date and Time
Discharge Date/Time: 01/02/25 22:29
[2025-01-02 20:30] LABS: Hematocrit 43.7 % (39.0-52.0); Hemoglobin 14.6 g/dL (13.0-18.0); Mean Corp Hgb Conc. 33.4 g/dL (33.0-37.0); Mean Corpuscular Volume 90.3 fL (80.0-94.0); Nucleated Red Blood Cells % 0 % (-); Platelet Count 221 10^3/uL (130-400); Red Cell Dist. Width 13.1 % (11.5-14.5)
[2025-01-02 20:40] LABS: INR 1.01; PT 13.6 Sec (11.4-14.6)
[2025-01-02 20:41] LABS: APTT 22.6 Sec (23.4-35.0)
[2025-01-02 21:03] LABS: Blood Urea Nitrogen 38 mg/dl (9-20); Calcium 9.7 mg/dl (8.4-10.2); Carbon Dioxide 28 mmol/L (22-30); Chloride 101 mmol/L (98-107); Estimated Creatinine Clearance 54 ml/min; Glucose 177 mg/dl (70-99); Sodium 137 mmol/L (135-145); eGFR 46.77
--- NOTE | 2025-01-02 21:03 | HPS.HSE ---
Addendum entered and electronically signed by James Glover DO 01/02/25 22:26:
Patient seen and examined independently. Agree with findings and plan as set forth by LUIS Doe.
Patient is an 79y M with PMH significant for ASCVD, A-Fib, CHF and DM-II who presents to ED at the direction of Vascular Surgery for admission. Patient has had poorly healing wound on the plantar aspect of the R foot for the past 3 months now.
He is scheduled to undergo angiography in the AM followed by bone biopsy and was advised to present to the ED this evening for admission. Patient currently has no complaints. No fevers / chills. No N/V/D. No significant pain in the R foot.
Ass:
ASCVD (CAD, PAD, Carotid Disease)
Non-Healing R Foot Wound
VANESSA
ASCVD
Chronic HFmrEF
Aortic Stenosis s/p TAVR
DM-II with Neuropathy
Morbid Obesity due to excess calories
Plan:
Admit for further evaluation and treatment / scheduled procedures in the AM.
NPO after midnight.
Hold Farxiga as directed.
Hold lisinopril acutely given mild VANESSA.
Decrease basal insulin dose significantly while NPO - adjust insulin dosing as needed.
Continue other medications.
Vascular Surgery / Podiatry consulted.
Original Note:
Family Physician
-
Family Physician: Celestino Tapia
Chief Complaint
-
right foot wound
History of Present Illness
79 year old with PMH fot atrial fib, CAD, CHF, HTN< HLD, IDDM, neuropathy, cholelithiasis presented to us with chronic ulceration to the plantar aspect of his right foot. He is scheduled for a bone biopsy by Dr. Stokes in the a.m. He is also
scheduled for an angiogram with possible angioplasty and stent placement by Dr. Garcia tomorrow. patient was asked by Dr. Garcia to present to ER. He denies fever or chills. He denies any discharge from his foot ulceration. denied LEONARD, dizzy or syncope.
denied abdominal pain,n,v,d. denied dysuria or hematuria.
obtain wound culture in ER. admitting for further management.
Medical History
Past Medical History
Past Medical History: Reports Other
Additional Past Medical History:
CAD, PVD, carotid disease, aortic stenosis, HTN, typel 2 DM, HLD, CHF< NSTEMI
Past Surgical History: Reports Other
Additional Past Surgical History:
right elbow surgery, cardiac stent, anal fistulasurgical repair, partial amputation of left toe, TAVR, angioplasty artery of LE,
Social History
Tobacco: Non-smoker
Alcohol: None
Drug: None
Personal:
Living: With Family
Family History
Family History: Not pertinent
Allergies / Home Medications
Allergies reflects when Allergies were last updated in [facility].
Home Medications with original date entered in [facility]
Allergy/Medication List:
Allergies
Allergy/AdvReac Type Severity Reaction Status Date / Time
clindamycin (Clindamycin) Allergy Shortness Verified 01/01/25 13:05
of Breath
Penicillins Allergy Rash; Verified 01/01/25 13:05
TOLERATES
CEPHALOSPORINS
Pjxsyrb-MBF-KaP Reductase Allergy Patient Verified 01/01/25 13:05
Inhibitor (Sdiisqr-Ivl-Gil reports
Reductase Inhibitor) pains in
shoulder
with
statin use.
Home Medications
coenzyme Q10 200 mg capsule (Co Q-10) 200 mg PO HS Supplement 02/19/13
clopidogrel 75 mg tablet 75 mg PO DAILY Blood clot prevention/tx 10/22/16
amlodipine 10 mg tablet 10 mg PO HS Blood pressure 11/26/20
cholecalciferol (vitamin D3) 50 mcg (2,000 unit) tablet 2,000 units PO HS Supplement 03/15/21
lisinopril 40 mg tablet 40 mg PO HS Blood Pressure 08/19/22
furosemide 40 mg tablet 40 mg PO BID AT 0800,1600 #60 tabs 08/24/22
aspirin 81 mg tablet,delayed release 81 mg PO HS Blood Clot Prevention/Tx 04/01/24
carvedilol 12.5 mg tablet 12.5 mg PO BID Blood Pressure 04/01/24
hydralazine 25 mg tablet 75 mg (3 x 25 mg) PO BID Blood pressure 30 days #180 tabs 04/05/24
spironolactone 25 mg tablet 25 mg PO DAILY 30 days #30 tabs 04/05/24
dapagliflozin propanediol 10 mg tablet (Farxiga) 10 mg PO HS 01/01/25
dorzolamide 2 % eye drops 1 drp LEFT EYE BID 01/01/25
insulin glargine U-300 conc 300 unit/mL (3 mL) subcutaneous pen (Toujeo Max U-300 SoloStar) 110 unit SC DAILY 01/01/25
insulin lispro 100 unit/mL subcutaneous pen (Humalog KwikPen (U-100) Insulin) 10 - 20 sliding scale dose SC AC 01/01/25
latanoprost 0.005 % eye drops 1 drp LEFT EYE HS 01/01/25
multivitamin 1 tab PO DAILY 01/01/25
pitavastatin calcium 4 mg tablet (Livalo) 4 mg PO HS 01/01/25
Review of Systems
-
Constitutional: Reports No Symptoms
EENT: Reports No Symptoms
Respiratory: Reports No Symptoms
Cardiac: Reports No Symptoms
Abdomen/GI: Reports No Symptoms
: Reports No Symptoms
Musculoskeletal: Reports No Symptoms
Skin: Reports Other (right plantar wound)
Neurological: Reports No Symptoms
Endocrine: Reports No Symptoms
Hematologic/Lymphatic: Reports No Symptoms
Psych: Reports No Symptoms
Physical Exam
Vital Signs
Vital Signs
Temp Pulse Resp BP Pulse Ox
97.9 F 70 15 183/74 97
01/02/25 20:00 11/18/25 20:00 01/02/25 20:00 01/02/25 20:00 01/02/25 19:54
Physical Exam
General: Well Developed, Well Nourished and No Apparent Distress
HEENT: NormoCephalic, Moist mucous membranes and Atraumatic
Respiratory: Clear
Cardiac: S1/S2 and Regular Rhythm; No Murmur or Rub
GI: Soft, Non Tender, Non Distended and Normal Bowel Sounds; No Organomegaly
Rectal: Deferred by Provider
Musculoskeletal: No Clubbing, No Cyanosis and No Edema
Skin: Rash and Other (right plantar wound)
Neuro: AO x 3 and Nonfocal/grossly intact
Psych: Calm
Laboratory Results
-
01/02/25 19:59
01/02/25 19:59
Laboratory Results
PT 13.6 Sec (11.4-14.6) 01/02/25 19:59
INR 1.01 01/02/25 19:59
APTT 22.6 Sec (23.4-35.0) L 01/02/25 19:59
Total Bilirubin Cancelled 01/02/25 19:59
AST Cancelled 01/02/25 19:59
ALT Cancelled 01/02/25 19:59
Alkaline Phosphatase Cancelled 01/02/25 19:59
Data Reviewed
-
Lab Data: Labs Reviewed by me
Impression/Plan
-
#Diabetic foot ulcer
#hxt of PAD
-plan for right LE angiogram possible angioplasty with stent
-wbc 11.6
-foot x ray pending
-will keep patient NPO after MN
-wound culture sent from ER
-vascular and podiatry following patient
#acute kidney injury
-cr 1.5
-hold nephrotoxic medication.
#CAD -stable.
-asa,Plavix continued
#Chronic heart failure
-no acute exacerbation
-strict I&O, daily weight
-Farxiga held
-Lasix continued
spironolactone held
Aortic stenosis/TAVR
#Essential hypertension
-Norvasc,coreg continued with hold parameter
-hydralazine continued
-hold lisinopril due to VANESSA
#HLD
-statin continued
#type 2 DM
-sliding scale
-Toujeo continued
-CHO diet
#Diabetic peripheral neuropathy
#Morbid obesity due to excess calories
#DVT prophylaxis
-scd
#CODE status
-DNR
[2025-01-02 22:15] LABS: Potassium 4.3 mmol/L (3.5-5.1)
[2025-01-02 22:41] LABS: Glucose - Point of Care 189 mg/dl (70-99)
[2025-01-02] MEDS: VITAMIN D3 (cholecalciferol) 50 MCG PO (23:15)
[2025-01-02] MEDS: NORVASC 10 MG PO (23:15)
[2025-01-02] MEDS: XALATAN OPHTHALMIC SOLUTION 1 DROP LEFT EYE (23:16)
[2025-01-02] MEDS: ASPIR LOW (ENTERIC COATED) 81 MG PO (23:16)
[2025-01-02] MEDS: LIPITOR 20 MG PO (23:16)
[2025-01-03] VITALS (8 sets, daily range): BP systolic 107–160; BP diastolic 49–90
--- NOTE | 2025-01-03 00:53 | TRANSFER ---
Pt transferred to 3W from ED via stretcher. Pt able to stand and pivot to hospital bed. Pt AAOx3, oriented to hospital room, call morton within reach.
--- NOTE | 2025-01-03 04:08 | DOWNTIME ---
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 Downtime documentation of patient's care, including medication administrations, has been reconciled in the electronic record per guidelines. Refer to the
patient's paper chart under the miscellaneous tab to see printed paper medication records and downtime forms.
[2025-01-03 05:59] LABS: Glucose - Point of Care 113 mg/dl (70-99)
--- NOTE | 2025-01-03 06:48 | W.SUR.PREOP ---
Pre-Operative Surgical Note
-
I have examined this patient prior to the performance of the scheduled procedure.
The patient's condition is unchanged from the time of the current History and
Physical and the patient is able to undergo the scheduled procedure.
[2025-01-03] MEDS: NOVOLOG FLEXPEN-MODERATE RESISTANCE SC ×3 (07:19→21:22)
--- NOTE | 2025-01-03 07:35 | PTCARENOTE ---
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 He was placed on the monitors. BP 115/50, he is 1005 on RA. He is 100% paced. Consent is on the patients chart. He was seen by anesthesia provider and prepped for the procedure. Blood sugar is 119. Patient moved
to procedure room at 0740
[2025-01-03 07:50] LABS: Glucose - Point of Care 119 mg/dl (70-99)
--- NOTE | 2025-01-03 08:52 | W.PN.UPDATE ---
Update Note
Progress Note Update
pt well known to practice
Will plan for bone bx right foot tomorrow. Will set pt lateral today for full consult and obtain consent.
pt will need iv abx upon dc. no abx until my surgical procedure performed
--- NOTE | 2025-01-03 09:29 | W.SUR.POST ---
Surgical Immediate Post Op
Note
Pre Op Diagnosis: PAD, non healing wound
Post Op Diagnosis: PAD, non healing wound
Procedure Performed: Right lower extremity angiogram, aortogram, ROTARY FURNACE TENDER to PT long segment, stent (esprit) to TP trunk to proximal PT
Primary Surgeon: Owen Garcia MD
Secondary Surgeons: N/A
Anesthesia: MAC
Estimated Blood Loss: 2 ml
Fluids: See anesthesia flowchart
Drains/Shunts: N/A
Specimens/Cultures: N/A
Doppler/Duplex/Angio (Y/N): Y
Complications: None
Operative Findings: Successful endovascular intervention, post operatively excellent doppler PT signal
[2025-01-03 09:46] LABS: Glycohemoglobin (HgbA1c) 8.2 % (4.0-5.9)
[2025-01-03 09:49] LABS: Glucose - Point of Care 124 mg/dl (70-99)
--- NOTE | 2025-01-03 10:19 | OR.RPT ---
Operative Report
Operative Report
PROCEDURE DATE: 01/03/2025
Preoperative diagnosis: Chronic limb threatening ischemia right lower extremity with osteomyelitis right foot.
Postoperative diagnosis: Same
Procedure:
1. Duplex assisted left common femoral artery cannulation.
2. Aortogram and pelvic angiogram.
3. Right lower extremity arteriogram with selective catheterization of distal right posterior tibial artery.
4. Balloon angioplasty of long segment posterior tibial artery diffuse stenoses.
5. Placement of stent scaffold ([place] Espirit) 3 mm x 28 mm right posterior tibial artery.
6. Left femoral angiogram and [place] Perclose percutaneous suture closure.
7. Supervision and interpretation.
Surgeon: Jose
Data Migration Consultant: None
Complications: None
Anesthesia: Local, sedation
Fluoroscopy:
24.2 min
185 mGy
46.02 gy.cm2
Indications for procedure:
As above osteomyelitis with Charcot foot wound. Risk/benefits/alternatives of angiography fully discussed. Patient understood and wished to proceed.
Description of procedure:
Patient was identified, brought to the operating room. Placed on the table in the supine position. After the adequate administration of anesthesia, the patient was prepped and draped in the standard surgical fashion. A standard preoperative
timeout was undertaken and everybody was in agreement with the plan.
The left common femoral artery was accessed with a micropuncture kit under direct duplex ultrasound guidance. Note this was somewhat challenging due to the patient's obese habitus. A 5 Panamanian sheath was then advanced over a 0.035 inch wire, and a
campos's hook catheter was advanced into the abdominal aorta. Aortogram and pelvic angiogram was obtained. Findings as follows:
Infrarenal abdominal aorta and bilateral common and external iliac arteries were widely patent though moderate eccentric calcified plaque was noted.
Using a floppy angled hydrophilic wire, the right common femoral artery was cannulated and the catheter was advanced. Right lower extremity arteriogram was obtained. Findings as follows:
Common femoral artery: Patent with no significant stenosis.
Profunda femoris artery: Patent proximally, but occluded in its mid segment. On delayed imaging there could be seen reconstituted flow reconstituting the more distal artery but it appeared diseased. Rather robust collaterals emanating from the
distal common femoral artery around this occlusion.
Superficial femoral artery: Patent with diffuse luminal irregularities throughout but no significant stenosis.
Popliteal artery: Patent with diffuse luminal irregularities, but no definitive stenosis.
Anterior tibial artery: Chronically occluded.
Tibial peroneal trunk: Patent with luminal irregularities, possible moderate stenosis in the proximal segment, difficult to tell and two-dimensional angiography if there is a significant stenosis.
Peroneal artery: Chronically occluded. Distal filling of the peroneal artery was seen minimally on delayed imaging.
Posterior tibial artery: Patent, dominant runoff vessel to the foot. In its proximal 1/2-2/3 of its course, there was diffuse luminal irregularities with areas of alternating moderate to high-grade stenoses. Beyond here at the ankle and onto the
foot the posterior tibial artery was nicely patent and gave rise to plantars which filled the digital arteries.
At this point I selectively cannulated the superficial femoral artery and then exchanged over a Storq wire for a 5 Panamanian 70 cm up and over sheath. The patient was given 9000's of intravenous heparin. Under roadmap assisted guidance I struggle,
but was able to cannulate the TP trunk and then the posterior tibial artery. Due to the areas of stenoses and tortuosity of the vessel my 0.035 inch floppy angled hydrophilic wire had trouble getting all the way down. However I was able to get to
about the mid segment and then advanced my catheter. I then exchanged for a 0.014 inch steerable David wire. Using this I was able to gain distal wire access. However I now exchanged for a CXI 2.6 Panamanian catheter. I advanced this distally into
the posterior tibial artery and performed angiography confirming I was in the true lumen. I now exchanged for more stable JIG BORER 0.014 inch wire.
Of note, my wire initially and trying to get from the TP trunk into the posterior tibial artery was troublesome. I then noted a focal area of wire perforation. There was what appeared to be a local extravasation. Appeared contained. Relatively
low flow.
Now I performed balloon angioplasty of the entire posterior tibial artery/tibioperoneal trunk segment. I used a 3 mm angioplasty balloon with overlapping inflations, and prolonged inflations. In addition prolonged inflation was undertaken in the
vicinity of the small pseudoaneurysm or extravasation area. Completion angiogram now demonstrated excellent result with resolution of the stenoses. In the TP trunk there was still some potential stenosis (again two-dimensional angiography was
somewhat limited in discerning whether there was a moderate plaque stenosis or not). In addition I could still see extravasation. I therefore then elected to place a stent scaffold across that area. I therefore then used an [place] Espirit 3 mm x
28 mm stent scaffold. I ballooned this using the standard slow inflation technique with prolonged inflation at 14 jose. Completion angiography demonstrated excellent result with certainly no residual stenosis at this point. Still little of
contrast extravasation could be seen, but appeared slower. On magnified imaging, I could see that the stent did cross that area and therefore should have slowed it. I therefore then used a 3 mm angioplasty balloon with prolonged inflation.
Completion angiogram now demonstrated excellent flow through the entire segment. Still slight bit of extravasation but minimal/contained pseudoaneurysm. I felt that likely this would thrombosed with reversal of anticoagulation. I noted that the
calf was very soft to palpation as well. At this point I was satisfied. I confirmed good flow into the runoff. I now exchanged back for a 0.035 inch wire and withdrew my sheath to the left external iliac artery. Left femoral angiogram
demonstrated good puncture in the left common femoral artery. Therefore I then used an [place] Perclose percutaneous suture to close the common femoral artery. Manual pressure was also gently applied. Patient was given protamine to reverse
heparin. Hemostasis was fully achieved. The patient tolerated procedure well. Upon completion had an excellent dopplerable right posterior tibial artery signal. (Possibly palpable but moderate edema). And as noted the calf and compartments/deep
compartments all remained soft to palpation.
[2025-01-03] MEDS: APRESOLINE 75 MG PO ×2 (11:51→20:21)
[2025-01-03] MEDS: COREG 12.5 MG PO ×2 (11:52→20:21)
[2025-01-03] MEDS: PLAVIX 75 MG PO (11:52)
[2025-01-03] MEDS: LASIX 40 MG PO (11:52)
[2025-01-03] MEDS: LANTUS 0.16 UNITS SC (11:52)
[2025-01-03 11:56] LABS: Glucose - Point of Care 141 mg/dl (70-99)
[2025-01-03] MEDS: TRUSOPT 2% OPHTHALMIC SOLUTION 1 DROP LEFT EYE ×2 (11:57→20:22)
--- NOTE | 2025-01-03 11:59 | W.PN.HOSP.TC ---
Addendum entered and electronically signed by Manuel Garcia MD 01/04/25 11:47:
Regarding VANESSA in light of contrast and diuretics and multifactorial etiology will request nephrology eval. Creatinine 1.6 today.
Hyponatremia-monitor trend.
Original Note:
Today's Communication/Plan
-
Angiogram today. Plan bone biopsy tomorrow.
Assessment / Plan
Assessment / Plan
Physical exam:
General: Acutely ill
HEENT: Normocephalic, Atraumatic and Moist Mucous Membranes
Respiratory: Clear to Auscultation; Negative Wheezes, Rales or Rhonchi
Cardiac: Regular Rhythm and S1/S2
GI: Soft, Nontender and Nondistended
Musculoskeletal: No Clubbing, No Cyanosis and No Edema
Skin: Right foot plantar ulcer
Neuro: Awake, Alert and Oriented, no neurological deficit
Psych: Calm
Vascular procedure today:
1. Duplex assisted left common femoral artery cannulation.
2. Aortogram and pelvic angiogram.
3. Right lower extremity arteriogram with selective catheterization of distal right posterior tibial artery.
4. Balloon angioplasty of long segment posterior tibial artery diffuse stenoses.
5. Placement of stent scaffold (Fontana Espirit) 3 mm x 28 mm right posterior tibial artery.
6. Left femoral angiogram and Fontana Perclose percutaneous suture closure.
7. Supervision and interpretation.
A/P:
Right foot osteomyelitis + right foot ulcer due to critical limb ischemia and diabetes mellitus:
Hold on antibiotics by podiatry recommendations
Plan for bone biopsy tomorrow
Status post vascular procedure today
Will get PT and ID after procedure
Discussed with at bedside today
VANESSA:
Continue IV fluid
Renal function pending
Avoid nephrotoxic
Hold diuretics for now
Repeat renal function in a.m.
Diabetes mellitus type 2:
Continue insulin sliding scale
Hemoglobin A1c 8.2
Diabetic diet
Chronic HFmrEF:
Hold diuretics for now
Continue GDMT but hold medications that can affect renal function
CAD/PVD:
Continue antiplatelets and statin
TAVR:
Serial echo as outpatient
Hypertension:
Continue home antihypertensives
Hyperlipidemia:
Continue home statin
DVT prophylaxis:
SCDs
CODE STATUS:
DNR
Total time spent on today's encounter was 52 minutes which included time spent in counseling the patient/family regarding diagnosis and treatment plan as listed above, goals of care, and symptom management. Case was discussed with nursing staff,
specialists, and care coordinators/case management. All labs and imaging personally reviewed by me. Remainder the time spent in detailed review of previous records, lab data, imaging, and other medical provider documentation.
Anticipated Discharge: 24 - 48 hours
Subjective/Interval History
-
Date of Service: January 03, 2025
Patient has some back discomfort from position. Mild leg discomfort. Denies chest pain or shortness of breath nausea or vomiting. Afebrile
Objective Data
-
Vital Signs:
Vital Signs
Temp Pulse Resp BP Pulse Ox
97.5 F 71 17 132/58 95
01/03/25 11:19 01/03/25 11:19 01/03/25 11:19 01/03/25 11:19 01/03/25 11:19
[2025-01-03] MEDS: NSS 1000 IV (12:18)
--- NOTE | 2025-01-03 16:25 | CM ---
Spoke with patient and Siri in room postop after vascular surgery. Pt is alert awake oriented who lives with in 1 story home with no steps to enter.He is assisted in all ADLs by . He uses a walker.
NO VN /SNF hx
[facility]acy [facility]
PCP DR Tapia
PLAN Will need postop PT OT evals for dc planning.
[2025-01-03 17:00] LABS: Glucose - Point of Care 206 mg/dl (70-99)
[2025-01-03] MEDS: NOVOLOG FLEXPEN-MODERATE RESISTANCE 3 UNITS SC (17:43)
[2025-01-03] MEDS: XALATAN OPHTHALMIC SOLUTION 1 DROP LEFT EYE (21:01)
[2025-01-03] MEDS: LIPITOR 20 MG PO (21:01)
[2025-01-03] MEDS: VITAMIN D3 (cholecalciferol) 50 MCG PO (21:01)
[2025-01-03] MEDS: NORVASC 10 MG PO (21:01)
[2025-01-03] MEDS: ASPIR LOW (ENTERIC COATED) 81 MG PO (21:01)
[2025-01-03 21:03] LABS: Glucose - Point of Care 264 mg/dl (70-99)
[2025-01-03] MEDS: NOVOLOG FLEXPEN 6 UNITS SC (21:26)
[2025-01-03 22:40] LABS: Glucose - Point of Care 207 mg/dl (70-99)
[2025-01-04] VITALS (11 sets, daily range): BP systolic 105–166; BP diastolic 46–118; BMI 41.4
[2025-01-04] LABS: Glucose - Point of Care 171 mg/dl (70-99)
[2025-01-04] MEDS: NOVOLOG FLEXPEN-MODERATE RESISTANCE 1 UNITS SC ×3 (00:02→12:20)
[2025-01-04 05:56] LABS: Glucose - Point of Care 154 mg/dl (70-99)
[2025-01-04 06:30] LABS: Blood Urea Nitrogen 40 mg/dl (9-20); Calcium 9.0 mg/dl (8.4-10.2); Carbon Dioxide 23 mmol/L (22-30); Chloride 104 mmol/L (98-107); Estimated Creatinine Clearance 50 ml/min; Glucose 151 mg/dl (70-99); Potassium 5.0 mmol/L (3.5-5.1); Sodium 133 mmol/L (135-145); eGFR 43.29
[2025-01-04 07:14] LABS: Hematocrit 40.1 % (39.0-52.0); Hemoglobin 13.6 g/dL (13.0-18.0); Mean Corp Hgb Conc. 33.9 g/dL (33.0-37.0); Mean Corpuscular Volume 88.1 fL (80.0-94.0); Platelet Count 160 10^3/uL (130-400); Red Cell Dist. Width 13.2 % (11.5-14.5)
[2025-01-04] MEDS: COREG 12.5 MG PO ×2 (08:13→20:46)
[2025-01-04] MEDS: APRESOLINE 75 MG PO ×2 (08:13→20:46)
[2025-01-04] MEDS: PLAVIX 75 MG PO (08:13)
[2025-01-04] MEDS: LANTUS 0.16 UNITS SC (08:13)
[2025-01-04] MEDS: TRUSOPT 2% OPHTHALMIC SOLUTION 1 DROP LEFT EYE ×2 (08:15→20:45)
--- NOTE | 2025-01-04 08:45 | W.PN.UPDATE ---
Update Note
Progress Note Update
Seen and evaluated. Patient without complaints. Abdomen soft. Left groin puncture site flat. No hematoma. Right calf is soft. No hematoma. No tenderness. Right foot warm. Plan/ POD#1 status post right posterior tibial artery angioplasty and
stent. Podiatry procedure today. Hopefully adequate perfusion for wound healing. No further vascular workup at this time.
--- NOTE | 2025-01-04 09:09 | W.PN.HOSP.TC ---
Today's Communication/Plan
-
Bone biopsy. ID consult.
Assessment / Plan
Assessment / Plan
Physical exam:
General: Acutely ill
HEENT: Normocephalic, Atraumatic and Moist Mucous Membranes
Respiratory: Clear to Auscultation; Negative Wheezes, Rales or Rhonchi
Cardiac: Regular Rhythm and S1/S2
GI: Soft, Nontender and Nondistended
Musculoskeletal: No Clubbing, No Cyanosis and No Edema
Skin: Right foot plantar ulcer
Neuro: Awake, Alert and Oriented, no neurological deficit
Psych: Calm
Vascular procedure today:
1. Duplex assisted left common femoral artery cannulation.
2. Aortogram and pelvic angiogram.
3. Right lower extremity arteriogram with selective catheterization of distal right posterior tibial artery.
4. Balloon angioplasty of long segment posterior tibial artery diffuse stenoses.
5. Placement of stent scaffold (Fontana Espirit) 3 mm x 28 mm right posterior tibial artery.
6. Left femoral angiogram and Fontana Perclose percutaneous suture closure.
7. Supervision and interpretation.
A/P:
Right foot osteomyelitis + right foot ulcer due to critical limb ischemia and diabetes mellitus:
Hold on antibiotics by podiatry recommendations
Plan for bone biopsy today
Status post vascular procedure yesterday
ID consult-discussed with id via tiger text today
Discussed with at bedside yesterday
VANESSA:
Continue IV fluid
Renal function Cr 1.6
Avoid nephrotoxic
Hold diuretics for now
Repeat renal function in a.m.
Diabetes mellitus type 2:
Continue insulin sliding scale
Hemoglobin A1c 8.2
Diabetic diet
Chronic HFmrEF:
Hold diuretics for now
Continue GDMT but hold medications that can affect renal function
CAD/PVD:
Continue antiplatelets and statin
TAVR:
Serial echo as outpatient
Hypertension:
Continue home antihypertensives
Hyperlipidemia:
Continue home statin
DVT prophylaxis:
SCDs
CODE STATUS:
DNR
Total time spent on today's encounter was 52 minutes which included time spent in counseling the patient/family regarding diagnosis and treatment plan as listed above, goals of care, and symptom management. Case was discussed with nursing staff,
specialists, and care coordinators/case management. All labs and imaging personally reviewed by me. Remainder the time spent in detailed review of previous records, lab data, imaging, and other medical provider documentation.
Anticipated Discharge: 24 - 48 hours
Subjective/Interval History
-
Date of Service: January 04, 2025
Denies any chest pain or shortness of breath. Afebrile
Objective Data
-
Labs:
Laboratory Results
01/04/25
05:51
WBC 10.8
Hgb 13.6
Hct 40.1
Plt Count 160 D
Sodium 133 L
Potassium 5.0
Chloride 104
Carbon Dioxide 23
BUN 40 H
Creatinine 1.6 H
Glucose 151 H
Calcium 9.0
Vital Signs:
Vital Signs
Temp Pulse Resp BP Pulse Ox
97.9 F 71 16 125/48 95
01/04/25 07:00 01/04/25 07:00 01/04/25 07:00 01/04/25 07:00 01/04/25 07:00
I&O
01/03/25 01/04/25 01/05/25
06:59 06:59 06:59
Intake Total 600 / 600
Balance 600 / 600
--- NOTE | 2025-01-04 10:56 | W.PN.UPDATE ---
Update Note
Progress Note Update
pt seen last night, full consult dictated
consent signed
ID consulted
will need 6 weeks iv abx upon dc pending c&s
sx today
--- NOTE | 2025-01-04 11:42 | CON.ID ---
Consultation
-
Date/Time Consultation Requested: 01/05/24 1055
Date/Time Consultation Performed: 01/04/2025 1143
Requesting Provider: Dr. Garcia
Performing Provider: Dr. Corea
Reason for Consultation: Right foot osteomyelitis
Chief Complaint / Past History
History of Present Illness
Bhaskar Lomas is an 79-year-old man with a significant past medical history of DM and Charcot foot being evaluated at the request of Dr. Garcia in regards to osteomyelitis of the right foot. History is obtained from chart review, along with patient
interview.
Patient reports that approximately 3 months ago he developed a ulceration on the plantar aspect of his right foot, likely secondary to his Charcot deformity. He was followed closely by Podiatry, and workup suggested osteomyelitis in the foot. He
has been brought into the hospital for bone biopsy, and to be set up for likely long-term antibiotics in the treatment of osteomyelitis.
He notes drainage from the ulceration, but no significant pain. There has been no tracking erythema up the leg. He has not been on any antibiotics recently.
Past History
Additional Past Medical History:
ASCVD (CAD, PAD, Carotid Disease)
Non-Healing R Foot Wound
VANESSA
ASCVD
Chronic HFmrEF
Aortic Stenosis s/p TAVR
DM-II with Neuropathy
Morbid Obesity due to excess calories
Additional Past Surgical History:
Right elbow surgery
PCI with stenting
Anal fistula surgical repair
Partial toe amputation
TAVR
Arterial angioplasty lower extremity
Allergy History:
clindamycin (Clindamycin) Allergy (Verified 01/01/25 13:05)
Shortness of Breath
Penicillins Allergy (Verified 01/01/25 13:05)
Rash; TOLERATES CEPHALOSPORINS
Rndwmiv-YYW-OwO Reductase Inhibitor (Kyaacmf-Aoe-Jps Reductase Inhibitor) Allergy (Verified 01/01/25 13:05)
Patient reports pains in shoulder with statin use.
Medications Reviewed: Yes
Current Antibiotics:
none
Social History
Tobacco: Non-Smoker
Alcohol: None
Drug: None
Personal:
Living: With Family
Employment: Retired
Family History
Family History: Not Pertinent
Review of Systems
Vital Signs
Temp Pulse Resp BP Pulse Ox
97.9 F 71 16 125/48 95
01/04/25 07:00 01/04/25 07:00 01/04/25 07:00 01/04/25 07:00 01/04/25 07:00
Physical Exam
Physical Exam
Constitutional: No Acute Distress, Comfortable, Chronically Ill, Non-toxic and Obese
Eyes: Pupils Equal, Pupils Round, No Conjunctival Hemorrhage and Sclera Anicteric
Oral: No Thrush and No Ulcers
Cardiovascular: Regular Rate and S1/S2; Negative S3/S4
Pulmonary: Clear; Negative Wheezes, Rales or Rhonchi
Gastrointestinal: Soft, Non Tender, Non Distended and Normal Bowel Sounds
Genito-Urinary: Negative Wilson
Extremities: Edema (3+ B/L LE's. ) and Venous Insufficiency (B/L LE's)
Wound: Other (right plantar wound; ~1cm. Probe ~1cm, track at 2 o'clock to 2cm.)
Neurological: Awake and Alert
Psychological: Calm
Lab / Diagnostic Study Results
01/04/25 05:51
01/04/25 05:51
Abs Immat Gran (auto) 0.1 10^3/uL (0-0.05) H 01/02/25 19:59
Absolute Neuts (auto) 8.1 10^3/uL (1.4-6.5) H 01/02/25 19:59
Absolute Lymphs (auto) 2.1 10^3/uL (1.2-3.4) 01/02/25 19:59
Absolute Monos (auto) 1.0 10^3/uL (0.1-0.6) H 01/02/25 19:59
Absolute Basos (auto) 0.0 10^3/uL (0-0.2) 01/02/25:59
Immature Gran % 0.7 % (0-0.5) H 01/02/25 19:59
Neutrophils % 69.8 % (42.2-75.2) 01/02/25:
Lymphocytes % 18.1 % (20.5-51.1) L 01/02/25:59
Monocytes % 8.2 % (1.7-9.3) 01/02/25:
Eosinophils % 2.9 % (0-6) 01/02/25:
Basophils % 0.3 % (0-2) 01/02/25:59
PT 13.6 Sec (11.4-14.6) 01/02/25:59
INR 1.01 01/02/25:59
Microbiology Results
Micro:
01/02/25 19:59 Wound Culture - Preliminary
Foot - Right Pseudomonas aeruginosa
Gram Stain - Preliminary
Imaging:
12/29/2024 Labeled WBC scan : Accumulation of radiolabeled white blood cells within the right medial midfoot, similar distribution compared to prior 3 phase bone scan. Findings may be seen in the setting of osteomyelitis, consider MRI right foot
for more precise anatomic localization.
01/02/2025 Right foot x-ray: No evidence of acute osseous injury. No evidence of bone destruction. Soft tissue swelling of the forefoot. Soft tissue ulceration of the plantar midfoot versus overlying dressing as described above. Moderate dorsal
midfoot osteoarthritis.
Assessment / Plan
Suspected right foot osteomyelitis
Charcot arthropathy of right foot
Non-Healing R Foot Wound
Renal insufficiency
ASCVD (CAD, PAD, Carotid Disease)
VANESSA
ASCVD
Chronic HFmrEF
Aortic Stenosis s/p TAVR
DM-II with Neuropathy
Morbid Obesity due to excess calories
Recommendations:
Pt for deep bx and culture later today.
Will await culture and path to guide further therapy.
Pt counseled that he may require 6 weeks of IV abx.
Check baseline ESR / CRP
Further recommendations as additional data is returned.
[2025-01-04 11:57] LABS: Glucose - Point of Care 156 mg/dl (70-99)
--- NOTE | 2025-01-04 13:02 | W.CON.NEPH ---
Consultation
-
Date/Time Consultation Requested: 01/04/25 1114
Date/Time Consultation Performed: 01/04/25 1245
Requesting Provider: Manuel Mcelroy
Performing Provider: Susana Zamudio
Reason for Consultation: VANESSA
Medical History
-
Chief Complaint: right foot wound
History of Present Illness:
79 year old with PMH fot atrial fib, CAD, CHF maintains on lasix, farxiga, aldactone, HTN on coreg, amlodipine, hydralazine and ACEI, HLD, IDDM, neuropathy, cholelithiasis presented to us with chronic ulceration to the plantar aspect of his right
foot for 3m on 01/02. He saw podiatry out pt and noted to have OM and was asked to come to the hospital for further interventions. 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
His cr noted at 1.5 on admit and today at 1.6. With baseline 1.1 in July 2024. GIven contrast exposure nephrology asked to see him for VANESSA. He reports no cp or sob, No dysuria. No NSAIDs use. No abd pain. Has chr LE edema. He denies fever or
chills.
He is also deemed of requiring fdc IV abx.
Past Medical History
CAD, PVD, carotid disease, aortic stenosis, HTN, typel 2 DM, HLD, CHF, NSTEMI
Past Surgical History: Other (right elbow surgery, cardiac stent, anal fistulasurgical repair, partial amputation of left toe, TAVR, angioplasty artery of LE, )
Social History
Tobacco: Non-Smoker
Alcohol: None
Drug: None
Personal:
Living: With Family
Family History
Family History: Not Pertinent
Allergies / Home Medications
Allergy/AdvReac Type Severity Reaction Status Date / Time
clindamycin (Clindamycin) Allergy Shortness Verified 01/01/25 13:05
of Breath
Penicillins Allergy Rash; Verified 01/01/25 13:05
TOLERATES
CEPHALOSPORINS
Yteagdh-VUJ-GwM Reductase Allergy Patient Verified 01/01/25 13:05
Inhibitor (Yhopepb-Vwi-Ihu reports
Reductase Inhibitor) pains in
shoulder
with
statin use.
�Medication �Instructions �Recorded �Confirmed �Type
coenzyme Q10 200 mg capsule (Co 200 mg PO HS Supplement 02/19/13 01/02/25 History
Q-10)
clopidogrel 75 mg tablet 75 mg PO DAILY Blood clot 10/22/16 01/02/25 History
prevention/tx
amlodipine 10 mg tablet 10 mg PO HS Blood pressure 11/26/20 01/02/25 History
cholecalciferol (vitamin D3) 50 2,000 units PO HS Supplement 03/15/21 01/02/25 History
mcg (2,000 unit) tablet
lisinopril 40 mg tablet 40 mg PO HS Blood Pressure 08/19/22 01/02/25 History
furosemide 40 mg tablet 40 mg PO BID AT 0800,1600 #60 tabs 08/24/22 01/02/25 Rx
aspirin 81 mg tablet,delayed 81 mg PO HS Blood Clot 04/01/24 01/02/25 History
release Prevention/Tx
carvedilol 12.5 mg tablet 12.5 mg PO BID Blood Pressure 04/01/24 01/02/25 History
hydralazine 25 mg tablet 75 mg (3 x 25 mg) PO BID Blood 04/05/24 01/02/25 Rx
pressure 30 days #180 tabs
spironolactone 25 mg tablet 25 mg PO DAILY 30 days #30 tabs 04/05/24 01/02/25 Rx
dapagliflozin propanediol 10 mg 10 mg PO HS 01/01/25 01/02/25 History
tablet (Farxiga)
dorzolamide 2 % eye drops 1 drp LEFT EYE BID 01/01/25 01/02/25 History
insulin glargine U-300 conc 300 75 unit SC DAILY 01/01/25 01/02/25 History
unit/mL (3 mL) subcutaneous pen
(Toujeo Max U-300 SoloStar)
insulin lispro 100 unit/mL 10 - 20 sliding scale dose SC AC 01/01/25 01/02/25 History
subcutaneous pen (Humalog KwikPen
(U-100) Insulin)
latanoprost 0.005 % eye drops 1 drp LEFT EYE HS 01/01/25 01/02/25 History
multivitamin 1 tab PO DAILY 01/01/25 01/01/25 History
pitavastatin calcium 4 mg tablet 4 mg PO HS 01/01/25 01/02/25 History
(Livalo)
Review of Systems
-
All other systems: Negative unless noted
Physical Exam
Vital Signs
Vital Signs
Temp Pulse Resp BP Pulse Ox
97.9 F 71 16 125/48 95
01/04/25 07:00 01/04/25 07:00 01/04/25 07:00 01/04/25 07:00 01/04/25 07:00
Lab Results
WBC 10.8 10^3/uL (4.8-10.8) 01/04/25 05:51
RBC 4.55 10^6/uL (4.70-6.10) L 01/04/25 05:51
Hgb 13.6 g/dL (13.0-18.0) 01/04/25 05:51
Hct 40.1 % (39.0-52.0) 01/04/25 05:51
Plt Count 160 10^3/uL (130-400) D 01/04/25 05:51
Sodium 133 mmol/L (135-145) L 01/04/25 05:51
Potassium 5.0 mmol/L (3.5-5.1) 01/04/25 05:51
Chloride 104 mmol/L (98-107) 01/04/25 05:51
Carbon Dioxide 23 mmol/L (22-30) 01/04/25 05:51
BUN 40 mg/dl (9-20) H 01/04/25 05:51
Creatinine 1.6 mg/dL (0.7-1.3) H 01/04/25 05:51
eGFR 43.29 01/04/25 05:51
Glucose 151 mg/dl (70-99) H 01/04/25 05:51
Calcium 9.0 mg/dl (8.4-10.2) 01/04/25 05:51
Albumin Cancelled 01/02/25 19:59
Physical Exam
General: Awake, Alert, Oriented, AOx3, No Distress and Nontoxic
HEENT: EOMI, Anicteric, Conjunctivae Clear and Facial Symmetry
Respiratory: Clear, Normal Excursion and Nonlabored Respirations
Cardiac: S1/S2 and Regular Rate/Rhythm
Breast: Deferred by me
Abdomen: Soft, Nontender and Nondistended
Rectal: Deferred by Provider
Musculoskeletal: Edema (2+)
Skin: No Rash and Other (chr skin changes bilat legs)
Neuro: Nonfocal/Grossly Intact
Psych: Mood/afflect pleasant, Insight/judgement good and Appropriate
Data Reviewed
-
Labs: Labs Reviewed by me and Discussed with Patient
Assessment/Plan
-
IMP:
Right foot osteomyelitis + right foot ulcer due to critical limb ischemia Status post vascular procedure 01/03
VANESSA
mild hyponatremia
Diabetes mellitus type 2
Chronic HFmrEF
CAD/PVD
TAVR
Hypertension
Hyperlipidemia
Morbid obesity
plan:
A/w OM of right foot
s/p angiogram with IVF on 01/03, need 6wk of abx per podiatry-ID follows
VANESSA-baseline cr 1.1 in july 2024([facility])
check urine studies, bladder scan and renal US
now that he has contrast exposure on 01/03, [facility] labs closely
cont to hold lasix, aldactone and ACEI
Bp stable , cont same meds
mild hyponatremia-monitor
he seem to have chr LE edema with PVD changes of skin
avoid nephrotoxins
d/w pt
--- NOTE | 2025-01-04 15:33 | CM ---
Spoke with pt and in room .
Offered VN he declined.
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
PLAN Home no needs Watch for IV abx needs
--- NOTE | 2025-01-04 17:20 | W.PN.UPDATE ---
Update Note
Progress Note Update
pt seen in RR
cft intact
dressing cdi
no pain
afvss
a/p s/p I&D right foot/debridement bone midfoot/bone bx right foot/excisional debridement ulcer right foot subQ--stable
wound closed, wound clean
bone sent to path and C&S
will need nwb right foot until closed, need ib abx, possible vac
will d.w pt about snf
[2025-01-04 17:23] LABS: Glucose - Point of Care 125 mg/dl (70-99)
[2025-01-04] MEDS: NOVOLOG FLEXPEN-MODERATE RESISTANCE SC ×2 (18:19→18:35)
[2025-01-04 18:29] LABS: Glucose - Point of Care 122 mg/dl (70-99)
--- NOTE | 2025-01-04 18:40 | PTCARENOTE ---
Pt arrived to [facility] s/p bone biopsy. Right foot dressing with adaptic, 4x4 and eze c/d/i. Left groin dressing with gauze and tegaderm c/d/i with blister. Pt oriented to room and call morton. Bed locked and in lowest position. Care ongoing.
[2025-01-04] MEDS: VITAMIN D3 (cholecalciferol) 50 MCG PO (21:05)
[2025-01-04] MEDS: ASPIR LOW (ENTERIC COATED) 81 MG PO (21:05)
[2025-01-04] MEDS: NORVASC 10 MG PO (21:06)
[2025-01-04] MEDS: XALATAN OPHTHALMIC SOLUTION 1 DROP LEFT EYE (21:06)
[2025-01-04] MEDS: LIPITOR 20 MG PO (21:06)
[2025-01-04 21:17] LABS: Urine Character Slightly Cloudy (Clear)
[2025-01-04 21:28] LABS: Urine Red Blood Cell 0-2 /HPF (0-2); Urine Urothelial Cell 0-2 /LPF (FEW)
[2025-01-04 22:15] LABS: Glucose - Point of Care 225 mg/dl (70-99)
[2025-01-05 03:13] VITALS: BP 142/72
[2025-01-05 05:13] VITALS: BMI 41.8
[2025-01-05 06:25] LABS: Hematocrit 37.0 % (39.0-52.0); Hemoglobin 12.5 g/dL (13.0-18.0); Mean Corp Hgb Conc. 33.8 g/dL (33.0-37.0); Mean Corpuscular Volume 90.9 fL (80.0-94.0); Platelet Count 189 10^3/uL (130-400); Red Cell Dist. Width 13.0 % (11.5-14.5)
[2025-01-05 06:50] LABS: C-Reactive Protein 24.70 mg/L (0.0-10.00)
[2025-01-05 06:52] LABS: Blood Urea Nitrogen 44 mg/dl (9-20); Calcium 8.4 mg/dl (8.4-10.2); Carbon Dioxide 24 mmol/L (22-30); Chloride 103 mmol/L (98-107); Estimated Creatinine Clearance 50 ml/min; Glucose 234 mg/dl (70-99); Potassium 4.8 mmol/L (3.5-5.1); Sodium 133 mmol/L (135-145); eGFR 43.29
[2025-01-05 07:19] LABS: Glucose - Point of Care 226 mg/dl (70-99)
[2025-01-05 07:35] VITALS: BP 144/63
[2025-01-05] MEDS: LANTUS 0.16 UNITS SC (08:25)
[2025-01-05] MEDS: NOVOLOG FLEXPEN-MODERATE RESISTANCE 3 UNITS SC ×2 (08:25→16:58)
[2025-01-05] MEDS: APRESOLINE 75 MG PO ×2 (08:27→20:23)
[2025-01-05] MEDS: PLAVIX 75 MG PO (08:29)
[2025-01-05] MEDS: COREG 12.5 MG PO ×2 (08:30→20:22)
[2025-01-05] MEDS: TRUSOPT 2% OPHTHALMIC SOLUTION 1 DROP LEFT EYE ×2 (08:30→20:17)
[2025-01-05] MEDS: HEPARIN 5000 UNITS SC ×2 (08:34→16:57)
--- NOTE | 2025-01-05 08:50 | W.PN.HOSP.TC ---
Today's Communication/Plan
-
Assess for antibiotics. Monitor renal function.
Assessment / Plan
Assessment / Plan
Physical exam:
General: No acute distress
HEENT: Normocephalic, Atraumatic and Moist Mucous Membranes
Respiratory: Clear to Auscultation; Negative Wheezes, Rales or Rhonchi
Cardiac: Regular Rhythm and S1/S2
GI: Soft, Nontender and Nondistended
Musculoskeletal: No Clubbing, No Cyanosis. Bilateral lower extremity edema
Skin: Postop changes on right foot.
Neuro: Awake, Alert and Oriented, no neurological deficit
Psych: Calm
A/P:
Right foot osteomyelitis + right foot ulcer due to critical limb ischemia and diabetes mellitus:
Status post bone biopsy on 01/04
Status post vascular intervention by vascular surgery
ID consult appreciated--> defer antibiotics to ID
Discussed with at bedside prior
VANESSA:
Nephrology consult appreciated
Renal function Cr 1.6
Avoid nephrotoxic
Hold diuretics for now until cleared by nephrology
Repeat renal function in a.m.
Diabetes mellitus type 2:
Continue insulin sliding scale
Hemoglobin A1c 8.2
Diabetic diet
Chronic HFmrEF:
Hold diuretics for now until nephrology clears him
Continue GDMT but hold medications that can affect renal function
CAD/PVD:
Continue antiplatelets and statin
TAVR:
Serial echo as outpatient
Hypertension:
Continue home antihypertensives
Hyperlipidemia:
Continue home statin
DVT prophylaxis:
Heparin SQ
CODE STATUS:
DNR
Total time spent on today's encounter was 36 minutes which included time spent in counseling the patient/family regarding diagnosis and treatment plan as listed above, goals of care, and symptom management. Case was discussed with nursing staff,
specialists, and care coordinators/case management. All labs and imaging personally reviewed by me. Remainder the time spent in detailed review of previous records, lab data, imaging, and other medical provider documentation.
Anticipated Discharge: > 48 hours
Subjective/Interval History
-
Date of Service: January 05, 2025
Patient with mild foot discomfort. No chest pain or shortness of breath. Afebrile
Objective Data
-
Labs:
Laboratory Results
01/05/25
05:35
WBC 13.9 H
Hgb 12.5 L
Hct 37.0 L
Plt Count 189
Sodium 133 L
Potassium 4.8
Chloride 103
Carbon Dioxide 24
BUN 44 H
Creatinine 1.6 H
Glucose 234 H
Calcium 8.4
Vital Signs:
Vital Signs
Temp Pulse Resp BP Pulse Ox
98.5 F 84 16 144/63 94
01/05/25 07:35 01/05/25 07:35 01/05/25 07:35 01/05/25 07:35 01/05/25 07:35
I&O
01/04/25 01/05/25 01/06/25
06:59 06:59 06:59
Intake Total 600 / 600 960 / 960
Output Total 750 / 750
Balance 600 / 600 210 / 210
--- NOTE | 2025-01-05 11:35 | W.PN.UPDATE ---
Update Note
Progress Note Update
pt seen for mfu sx
no pain
dressing cdi
derm sutures intact, wound clean'
no edema or erythema
no soi
path and c&s pending
a/p s/p bone bx/excisiomal debridement ulcer--stable
no soi
wnb right foot
Pt consulted
rec iv abx after dc, rec getting line placed
pt refuses rehab
will follow
--- NOTE | 2025-01-05 12:06 | CM ---
Patient off floor for ultrasound
spoke with Siri
PT/OT to eval
ID consulted, per note may require 6wks IV abx
would prefer patient to go to SNF
PLAN: SNF vs. Home, IV antibiotics when stable, Await PT/OT evals
--- NOTE | 2025-01-05 12:21 | W.PN.NEPH.PH ---
Today's Communication / Plan
-
Follow BMP
Holding diuretics
Assessment/Plan
-
IMP:
Right foot osteomyelitis + right foot ulcer due to critical limb ischemia Status post vascular procedure 01/03
VANESSA
mild hyponatremia
Diabetes mellitus type 2
Chronic HFmrEF
CAD/PVD
TAVR
Hypertension
Hyperlipidemia
Morbid obesity
plan:
A/w OM of right foot
s/p angiogram with IVF on 01/03, need 6wk of abx per podiatry-ID follows
VANESSA-baseline cr 1.1 in july 2024([facility])
Creatinine unchanged at 1.6 but remains nonoliguric with urine output of 750 cc
checked urine studies, bladder scan and renal US
now that he has contrast exposure on 01/03, following labs closely
continue to hold lasix, aldactone and ACEI
Bp stable , cont same meds
mild hyponatremia-monitor , some component of hyperglycemia affecting sodium
he seem to have chr LE edema with PVD changes of skin
avoid nephrotoxins
d/w pt
-
-
Date of Service: January 05, 2025
CC / HPI / ROS
-
Chief Complaint:
Acute kidney injury
History of Present Illness:
Creatinine stable at 1.6
Hemodynamically stable
Review of Systems:
No chest pain or shortness of breath
Noted edema
Nonoliguric
Labs
-
Labs:
WBC 13.9 10^3/uL (4.8-10.8) H 01/05/25 05:35
RBC 4.07 10^6/uL (4.70-6.10) L 01/05/25 05:35
Hgb 12.5 g/dL (13.0-18.0) L 01/05/25 05:35
Hct 37.0 % (39.0-52.0) L 01/05/25 05:35
Plt Count 189 10^3/uL (130-400) 01/05/25 05:35
Sodium 133 mmol/L (135-145) L 01/05/25 05:35
Potassium 4.8 mmol/L (3.5-5.1) 01/05/25 05:35
Chloride 103 mmol/L (98-107) 01/05/25 05:35
Carbon Dioxide 24 mmol/L (22-30) 01/05/25 05:35
BUN 44 mg/dl (9-20) H 01/05/25 05:35
Creatinine 1.6 mg/dL (0.7-1.3) H 01/05/25 05:35
eGFR 43.29 01/05/25 05:35
Glucose 234 mg/dl (70-99) H 01/05/25 05:35
Calcium 8.4 mg/dl (8.4-10.2) 01/05/25 05:35
Albumin Cancelled 01/02/25 19:59
Physical Exam
-
Vital Signs:
Vital Signs
Temp Pulse Resp BP Pulse Ox
98.5 F 84 16 144/63 94
01/05/25 07:35 01/05/25 07:35 01/05/25 07:35 01/05/25 07:35 01/05/25 07:35
Cardiovascular:: Regular rate and rhythm
Respiratory:: Bilateral: CTA
Lung Excursion:: Normal
Abdomen:: Nontender and Soft
Bowel Sounds:: None
Extremity Edema:: +2: Bilateral:
Wilson Catheter: No
[2025-01-05 12:36] LABS: Glucose - Point of Care 136 mg/dl (70-99)
[2025-01-05] MEDS: NOVOLOG FLEXPEN-MODERATE RESISTANCE SC (12:42)
--- NOTE | 2025-01-05 13:08 | W.PN.ID1 ---
Date of Service
Date of Service: January 05, 2025
Today's Communication
Start cefepime 2 gm Iv q12hrs
Assessment / Plan
Suspected right foot osteomyelitis
Charcot arthropathy of right foot
Non-Healing R Foot Wound
Renal insufficiency
ASCVD (CAD, PAD, Carotid Disease)
VANESSA
ASCVD
Chronic HFmrEF
Aortic Stenosis s/p TAVR
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
Morbid Obesity due to excess calories
Allergy to penicillin - rash
Recommendations:
Pt s/p deep bx and culture later 01/04
01/04 wound culture: few presumptive Pseudomonas
01/04 tissue culture (cunieform): in progress
01/04 pathology in progress
01/02 superficial culture Pseudomonas, Enterococcus, CONS
Start cefepime 2 gm Iv q12hrs
Will await tissue culture and path to guide further therapy.
Pt counseled that he may require 6 weeks of IV abx.
ESR 41, CRP 25
would tighten outpatient blood glucose control
Further recommendations as additional data is returned.
Chief Complaint
-: Other (osteomyelitis, diabetic foot infection)
Subjective / Review of Systems
afebrile
bp stable
underwent excision debridement of the right foot and bone biopsy yesterday - wound closed
Vital Signs / Physical Exam
Vital Signs
Vital Signs
Temp Pulse Resp BP Pulse Ox
98.5 F 84 16 144/63 94
01/05/25 07:35 01/05/25 07:35 01/05/25 07:35 01/05/25 07:35 01/05/25 07:35
Physical Exam
Constitutional: No Acute Distress
Cardiovascular: Regular Rate and S1/S2; Negative Murmur or Rub
Pulmonary: Clear and Symmetric; Negative Wheezes or Rales
Gastrointestinal: Soft, Non Tender, Non Distended and Normal Bowel Sounds
Extremities: Other (dressing clean, dry, intact)
Skin: Warm and Dry; Negative Rash or Jaundice
Objective Data
Lab Data
Lab Results
01/05/25 05:35
01/05/25 05:35
ESR 41 mm/hour (0-20) H 01/05/25 05:35
PT 13.6 Sec (11.4-14.6) 01/02/25 19:59
INR 1.01 01/02/25 19:59
APTT 22.6 Sec (23.4-35.0) L 01/02/25 19:59
Estimated Creat Clear 50 ml/min 01/05/25 05:35
Total Bilirubin Cancelled 01/02/25 19:59
AST Cancelled 01/02/25 19:59
ALT Cancelled 01/02/25 19:59
Alkaline Phosphatase Cancelled 01/02/25 19:59
C-Reactive Protein 24.70 mg/L (0.0-10.00) H 01/05/25 05:35
Most recent labs reviewed.
Micro Results:
01/04/25 Unknown Anaerobic Culture - Preliminary
Foot - Right Culture pending. Anaerobic cultures are examined after 3
days incubation. Additional information to follow.
01/04/25 Unknown Wound Culture - Preliminary
Foot - Right Pseudomonas aeruginosa
Gram Stain - Preliminary
01/05/25 10:53 Tissue Culture - Pending
Foot - Right Gram Stain - Pending
01/02/25 19:59 Wound Culture - Preliminary
Foot - Right Pseudomonas aeruginosa
Enterococcus species
Gram Stain - Preliminary
Imaging:
12/29/2024 Labeled WBC scan : Accumulation of radiolabeled white blood cells within the right medial midfoot, similar distribution compared to prior 3 phase bone scan. Findings may be seen in the setting of osteomyelitis, consider MRI right foot
for more precise anatomic localization.
01/02/2025 Right foot x-ray: No evidence of acute osseous injury. No evidence of bone destruction. Soft tissue swelling of the forefoot. Soft tissue ulceration of the plantar midfoot versus overlying dressing as described above. Moderate dorsal
midfoot osteoarthritis.
[2025-01-05] MEDS: MAXIPIME 2000 MG IV (14:34)
[2025-01-05] MEDS: STERILE WATER FOR INJECTION 10 ML IV (14:35)
[2025-01-05 15:15] VITALS: BP 159/56
[2025-01-05 16:53] LABS: Glucose - Point of Care 231 mg/dl (70-99)
[2025-01-05 21:49] LABS: Glucose - Point of Care 246 mg/dl (70-99)
[2025-01-05] MEDS: ASPIR LOW (ENTERIC COATED) 81 MG PO (22:34)
[2025-01-05] MEDS: XALATAN OPHTHALMIC SOLUTION 1 DROP LEFT EYE (22:34)
[2025-01-05] MEDS: LIPITOR 20 MG PO (22:34)
[2025-01-05] MEDS: VITAMIN D3 (cholecalciferol) 50 MCG PO (22:34)
[2025-01-05] MEDS: NORVASC 10 MG PO (22:35)
[2025-01-05 23:00] VITALS: BP 125/56
[2025-01-06] MEDS: HEPARIN 5000 UNITS SC ×4 (00:11→23:27)
[2025-01-06 01:55] VITALS: BP 126/45
[2025-01-06] MEDS: STERILE WATER FOR INJECTION 10 ML IV ×2 (02:22→13:41)
[2025-01-06] MEDS: MAXIPIME 2000 MG IV ×2 (02:23→13:41)
--- NOTE | 2025-01-06 02:55 | W.PN.UPDATE ---
Update Note
Progress Note Update
RN reported patient saying he thinks he needs his Lasix as hasn't received it in few days. Addressed why it was on hold.
Lungs with mild rales in left base, faint expiratory wheezes. states shortness of breath at his baseline or chest discomfort but he thinks he feels like he needs it as he missed. stable VS
offered to do chest Xray. Refused it.
Agreed for inhaler at present.
[2025-01-06] MEDS: DUONEB 3 ML INH (03:03)
[2025-01-06 07:00] VITALS: BP 89/32
[2025-01-06 07:13] LABS: Hematocrit 37.3 % (39.0-52.0); Hemoglobin 12.6 g/dL (13.0-18.0); Mean Corp Hgb Conc. 33.8 g/dL (33.0-37.0); Mean Corpuscular Volume 89.9 fL (80.0-94.0); Nucleated Red Blood Cells % 0 % (-); Platelet Count 167 10^3/uL (130-400); Red Cell Dist. Width 12.9 % (11.5-14.5)
[2025-01-06 08:00] LABS: Blood Urea Nitrogen 39 mg/dl (9-20); Calcium 8.4 mg/dl (8.4-10.2); Carbon Dioxide 23 mmol/L (22-30); Chloride 103 mmol/L (98-107); Estimated Creatinine Clearance 62 ml/min; Glucose 195 mg/dl (70-99); Potassium 4.5 mmol/L (3.5-5.1); Sodium 130 mmol/L (135-145); eGFR 55.53
[2025-01-06] MEDS: PLAVIX 75 MG PO (08:25)
[2025-01-06] MEDS: LANTUS 0.16 UNITS SC (08:25)
[2025-01-06] MEDS: COREG 12.5 MG PO ×2 (08:26→20:06)
[2025-01-06] MEDS: NOVOLOG FLEXPEN-MODERATE RESISTANCE 1 UNITS SC (08:26)
[2025-01-06] MEDS: APRESOLINE 75 MG PO ×2 (08:27→20:06)
[2025-01-06] MEDS: TRUSOPT 2% OPHTHALMIC SOLUTION 1 DROP LEFT EYE ×2 (08:28→20:03)
[2025-01-06] MEDS: LASIX 40 MG IV (08:49)
--- NOTE | 2025-01-06 09:41 | W.PN.ID1 ---
Date of Service
Date of Service: January 06, 2025
Today's Communication
Continue cefepime
Assessment / Plan
Suspected right foot osteomyelitis
Charcot arthropathy of right foot
Non-Healing R Foot Wound
VANESSA - improved
ASCVD (CAD, PAD, Carotid Disease)
Chronic HFmrEF
Aortic Stenosis s/p TAVR
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
Morbid Obesity due to excess calories
Allergy to penicillin - rash
Recommendations:
Pt s/p deep bx and culture later 01/04
01/04 wound culture: few presumptive Pseudomonas
01/04 tissue culture (cunieform): in progress
01/04 pathology in progress
01/02 superficial culture Pseudomonas, Enterococcus, Pseudomonas
Continue cefepime 2 gm Iv q12hrs.
Will await tissue culture and path to guide further therapy.
Pt counseled that he may require 6 weeks of IV abx.
ESR 41, CRP 25
would tighten outpatient blood glucose control
Further recommendations as additional data is returned.
Chief Complaint
-: Other (osteomyelitis, diabetic foot infection)
Subjective / Review of Systems
Tolerating abx.
Vital Signs / Physical Exam
Vital Signs
Vital Signs
Temp Pulse Resp BP Pulse Ox
99.3 F 75 20 138/55 95
01/06/25 07:00 01/06/25 08:49 01/06/25 07:00 01/06/25 08:49 01/06/25 07:00
Physical Exam
Constitutional: No Acute Distress, Comfortable and Obese
Cardiovascular: Regular Rate and S1/S2
Gastrointestinal: Soft, Non Tender and Non Distended
Extremities: Edema (BLE)
Wound: Other (Right foot dressing intact)
Neurological: AO x 3
Objective Data
Lab Data
Lab Results
01/06/25 06:48
01/06/25 06:48
ESR 41 mm/hour (0-20) H 01/05/25 05:35
PT 13.6 Sec (11.4-14.6) 01/02/25 19:59
INR 1.01 01/02/25 19:59
APTT 22.6 Sec (23.4-35.0) L 01/02/25 19:59
Estimated Creat Clear 62 ml/min 01/06/25 06:48
Total Bilirubin Cancelled 01/02/25 19:59
AST Cancelled 01/02/25 19:59
ALT Cancelled 01/02/25 19:59
Alkaline Phosphatase Cancelled 01/02/25 19:59
C-Reactive Protein 24.70 mg/L (0.0-10.00) H 01/05/25 05:35
Most recent labs reviewed.
Micro Results:
01/02/25 19:59 Wound Culture - Preliminary
Foot - Right Pseudomonas aeruginosa
Enterococcus species
Gram Stain - Preliminary
01/05/25 10:53 Tissue Culture - Pending
Foot - Right Gram Stain - Preliminary
01/04/25 Unknown Anaerobic Culture - Preliminary
Foot - Right Culture pending. Anaerobic cultures are examined after 3
days incubation. Additional information to follow.
01/04/25 Unknown Wound Culture - Preliminary
Foot - Right Pseudomonas aeruginosa
Gram Stain - Preliminary
Imaging:
12/29/2024 Labeled WBC scan : Accumulation of radiolabeled white blood cells within the right medial midfoot, similar distribution compared to prior 3 phase bone scan. Findings may be seen in the setting of osteomyelitis, consider MRI right foot
for more precise anatomic localization.
01/02/2025 Right foot x-ray: No evidence of acute osseous injury. No evidence of bone destruction. Soft tissue swelling of the forefoot. Soft tissue ulceration of the plantar midfoot versus overlying dressing as described above. Moderate dorsal
midfoot osteoarthritis.
--- NOTE | 2025-01-06 11:24 | W.PN.HOSP.TC ---
Today's Communication/Plan
-
IV Lasix. Increase insulin. Continue IV antibiotics.
Assessment / Plan
Assessment / Plan
Physical exam:
General: Acutely ill. Mild distress.
HEENT: Normocephalic, Atraumatic and Moist Mucous Membranes
Respiratory: Coarse crackles at both bases; Negative Wheezes or Rhonchi
Cardiac: Regular Rhythm and S1/S2
GI: Soft, Nontender and Nondistended
Musculoskeletal: No Clubbing, No Cyanosis. Bilateral lower extremity edema mildly increased.
Skin: Postop changes on right foot.
Neuro: Awake, Alert and Oriented, no neurological deficit
Psych: Calm
A/P:
Right foot osteomyelitis + right foot ulcer due to critical limb ischemia and diabetes mellitus:
Status post bone biopsy on 01/04--> awaiting final path to guide further therapy.
Started on IV cefepime by ID
wound cultures growing Pseudomonas aeruginosa
Status post vascular intervention by vascular surgery
Discussed with at bedside prior
WBC 11, down from 14
Acute respiratory insufficiency due to heart failure and atelectasis:
IV diuresis
Incentive spirometry
Bronchodilators as needed
Oxygen as needed
Increase activity as tolerated
Acute on chronic HFmrEF:
Give IV Lasix 40 mg x 1 this morning. Resume oral diuretics afterwards.
Will reevaluate over the next 24 hours to restart GDMT depending on renal function--> continue beta-blockers. Continue to hold FLORES inhibitor, MRA, and SGLT2 inhibitor.
VANESSA:
Improving
Creatinine today down to 1.3
Kidney ultrasound unremarkable
Nephrology consult appreciated
Diabetes mellitus type 2:
Increase long-acting insulin from 16 to 20 units glargine daily.
Add 5 units of aspart insulin before each meal
Continue insulin sliding scale
Hemoglobin A1c 8.2
Diabetic diet
CAD/PVD:
Continue antiplatelets and statin
TAVR:
Serial echo as outpatient
Hypertension:
Continue home antihypertensives
Hyperlipidemia:
Continue home statin
DVT prophylaxis:
Heparin SQ
CODE STATUS:
DNR
Total time spent on today's encounter was 52 minutes which included time spent in counseling the patient/family regarding diagnosis and treatment plan as listed above, goals of care, and symptom management. Case was discussed with nursing staff,
specialists, and care coordinators/case management. All labs and imaging personally reviewed by me. Remainder the time spent in detailed review of previous records, lab data, imaging, and other medical provider documentation.
Anticipated Discharge: > 48 hours
Subjective/Interval History
-
Date of Service: January 06, 2025
Patient feels more short of breath today. No chest pain. Foot discomfort. Afebrile
Objective Data
-
Labs:
Laboratory Results
01/06/25
06:48
WBC 11.0 H
Hgb 12.6 L
Hct 37.3 L
Plt Count 167
Sodium 130 L
Potassium 4.5
Chloride 103
Carbon Dioxide 23
BUN 39 H
Creatinine 1.3
Glucose 195 H
Calcium 8.4
Vital Signs:
Vital Signs
Temp Pulse Resp BP Pulse Ox
99.3 F 75 20 138/55 95
01/06/25 07:00 01/06/25 08:49 01/06/25 07:00 01/06/25 08:49 01/06/25 07:00
I&O
01/05/25 01/06/25 01/07/25
06:59 06:59 06:59
Intake Total 960 / 960 1620 / 1620
Output Total 750 / 750 1040 / 1040
Balance 210 / 210 580 / 580
[2025-01-06 11:25] LABS: Glucose - Point of Care 292 mg/dl (70-99)
[2025-01-06] MEDS: NOVOLOG FLEXPEN-MODERATE RESISTANCE 5 UNITS SC ×2 (12:02→17:16)
--- NOTE | 2025-01-06 12:05 | W.PN.POD ---
Today's Communication
Today's Communication
s/p bone biopsy/ulcer debridement right--+ pseudomonas from bone
need 6 weeks iv abx
wound close sterilely at bedside
explained needs to stay off foot
will order wound care and sign off
call with any issues
stable for dc
\\
Subjective
Chief Complaint
pt seen for fu sx
pt NEEDS to be NWB on right foot
Pt ;popped 4 sutures and blood through bandage
If wb, WILL not heal and canlead to BKA
Subjective
vasc intact
derm ulcer clean, no cellulitis
mild erythema
no pus
no odor
popped 4 sutures, apporx 2cm open
Objective
Temp Pulse Resp BP Pulse Ox
99.3 F 75 20 138/55 95
01/06/25 07:00 01/06/25 08:49 01/06/25 07:00 01/06/25 08:49 01/06/25 07:00
01/06/25 06:48
01/06/25 06:48
Vital Signs and Lab results were reviewed.
[2025-01-06] MEDS: TYLENOL 650 MG PO (13:48)
--- NOTE | 2025-01-06 14:48 | W.PN.NEPH.PH ---
Today's Communication / Plan
-
follow bmp
back on lasix
Assessment/Plan
-
IMP:
Right foot osteomyelitis + right foot ulcer due to critical limb ischemia Status post vascular procedure 01/03
VANESSA
mild hyponatremia
Diabetes mellitus type 2
Chronic HFmrEF
CAD/PVD
TAVR
Hypertension
Hyperlipidemia
Morbid obesity
plan:
A/w OM of right foot
s/p angiogram with IVF on 01/03, need 6wk of abx per podiatry-ID follows
VANESSA-baseline cr 1.1 in july 2024([facility]),improved 1.3
back on oral lasix, had IV lasix last pm for mild CHF
Creatinine improved to 1.3 but remains nonoliguric with urine output of 840cc
checked urine studies, bladder scan and renal US
now that he has contrast exposure on 01/03, following labs closely
continue to hold lasix, aldactone and ACEI
Bp stable , cont same meds
mild hyponatremia-monitor , some component of hyperglycemia affecting sodium
he seem to have chr LE edema with PVD changes of skin
avoid nephrotoxins
d/w pt
-
-
Date of Service: January 06, 2025
CC / HPI / ROS
-
Chief Complaint:
Acute kidney injury
History of Present Illness:
Creatinine stable at 1.3
Hemodynamically stable
Review of Systems:
No chest pain or shortness of breath
Noted edema
Nonoliguric
Labs
-
Labs:
WBC 11.0 10^3/uL (4.8-10.8) H 01/06/25 06:48
RBC 4.15 10^6/uL (4.70-6.10) L 01/06/25 06:48
Hgb 12.6 g/dL (13.0-18.0) L 01/06/25 06:48
Hct 37.3 % (39.0-52.0) L 01/06/25 06:48
Plt Count 167 10^3/uL (130-400) 01/06/25 06:48
Sodium 130 mmol/L (135-145) L 01/06/25 06:48
Potassium 4.5 mmol/L (3.5-5.1) 01/06/25 06:48
Chloride 103 mmol/L (98-107) 01/06/25 06:48
Carbon Dioxide 23 mmol/L (22-30) 01/06/25 06:48
BUN 39 mg/dl (9-20) H 01/06/25 06:48
Creatinine 1.3 mg/dL (0.7-1.3) 01/06/25 06:48
eGFR 55.53 01/06/25 06:48
Glucose 195 mg/dl (70-99) H 01/06/25 06:48
Calcium 8.4 mg/dl (8.4-10.2) 01/06/25 06:48
Mmr-V-Rxnnyrsuror Pept Cancelled 01/06/25 08:34
Albumin Cancelled 01/02/25 19:59
Physical Exam
-
Vital Signs:
Vital Signs
Temp Pulse Resp BP Pulse Ox
99.3 F 75 20 138/55 95
01/06/25 07:00 01/06/25 08:49 01/06/25 07:00 01/06/25 08:49 01/06/25 07:00
Cardiovascular:: Regular rate and rhythm
Respiratory:: Bilateral: CTA
Lung Excursion:: Normal
Abdomen:: Nontender and Soft
Bowel Sounds:: None
Extremity Edema:: +2: Bilateral:
Wilson Catheter: No
[2025-01-06 15:00] VITALS: BP 100/45
[2025-01-06] MEDS: ROXICODONE 5 MG PO ×2 (16:01→20:05)
[2025-01-06] MEDS: LASIX 40 MG PO (17:07)
[2025-01-06 17:13] LABS: Glucose - Point of Care 281 mg/dl (70-99)
[2025-01-06] MEDS: NOVOLOG FLEXPEN 5 UNITS SC (17:17)
[2025-01-06 21:33] LABS: Glucose - Point of Care 259 mg/dl (70-99)
[2025-01-06] MEDS: NORVASC 10 MG PO (21:50)
[2025-01-06] MEDS: ASPIR LOW (ENTERIC COATED) 81 MG PO (21:50)
[2025-01-06] MEDS: XALATAN OPHTHALMIC SOLUTION 1 DROP LEFT EYE (21:51)
[2025-01-06] MEDS: VITAMIN D3 (cholecalciferol) 50 MCG PO (21:51)
[2025-01-06] MEDS: LIPITOR 20 MG PO (21:51)
[2025-01-06 23:04] VITALS: BP 128/55
[2025-01-07] MEDS: MAXIPIME 2000 MG IV ×2 (02:08→13:43)
[2025-01-07] MEDS: STERILE WATER FOR INJECTION 10 ML IV ×2 (02:08→13:41)
[2025-01-07] MEDS: TYLENOL 650 MG PO ×5 (03:44→22:08)
[2025-01-07] MEDS: SENOKOT-S 1 TABLET PO (03:45)
[2025-01-07 06:15] LABS: Hematocrit 38.4 % (39.0-52.0); Hemoglobin 12.7 g/dL (13.0-18.0); Mean Corp Hgb Conc. 33.1 g/dL (33.0-37.0); Mean Corpuscular Volume 88.7 fL (80.0-94.0); Nucleated Red Blood Cells % 0 % (-); Platelet Count 191 10^3/uL (130-400); Red Cell Dist. Width 13.1 % (11.5-14.5)
[2025-01-07 06:34] LABS: Blood Urea Nitrogen 51 mg/dl (9-20); Calcium 8.9 mg/dl (8.4-10.2); Carbon Dioxide 25 mmol/L (22-30); Chloride 101 mmol/L (98-107); Estimated Creatinine Clearance 50 ml/min; Glucose 256 mg/dl (70-99); Magnesium 2.5 mg/dl (1.6-2.3); Potassium 5.1 mmol/L (3.5-5.1); Sodium 129 mmol/L (135-145); eGFR 43.29
--- NOTE | 2025-01-07 06:44 | PTCARENOTE ---
Patient is unsteady when standing and not compliant with NWB status of R leg at the moment, will try again later to get patient safely on standing scale.
[2025-01-07 07:10] VITALS: BP 115/57
[2025-01-07 08:00] LABS: Glucose - Point of Care 282 mg/dl (70-99)
[2025-01-07] MEDS: TRUSOPT 2% OPHTHALMIC SOLUTION 1 DROP LEFT EYE ×2 (08:42→19:51)
[2025-01-07] MEDS: LANTUS 0.2 UNITS SC (08:43)
[2025-01-07] MEDS: NOVOLOG FLEXPEN-MODERATE RESISTANCE 5 UNITS SC ×2 (08:43→12:01)
[2025-01-07] MEDS: NOVOLOG FLEXPEN 5 UNITS SC ×2 (08:43→12:01)
[2025-01-07] MEDS: PLAVIX 75 MG PO (08:44)
[2025-01-07] MEDS: APRESOLINE 75 MG PO ×2 (08:44→19:50)
[2025-01-07] MEDS: ROXICODONE 5 MG PO ×4 (08:44→20:44)
[2025-01-07] MEDS: LASIX 40 MG PO ×2 (08:45→16:29)
[2025-01-07] MEDS: HEPARIN 5000 UNITS SC ×2 (08:45→16:29)
[2025-01-07] MEDS: COREG 12.5 MG PO ×2 (08:45→19:50)
--- NOTE | 2025-01-07 09:30 | W.PN.NEPH.PH ---
Today's Communication / Plan
-
Maintain oral Lasix
Holding RAAS antagonist
BMP in a.m.
Assessment/Plan
-
IMP:
Right foot osteomyelitis + right foot ulcer due to critical limb ischemia Status post vascular procedure 01/03
VANESSA
mild hyponatremia
Diabetes mellitus type 2
Chronic HFmrEF
CAD/PVD
TAVR
Hypertension
Hyperlipidemia
Morbid obesity
plan:
A/w OM of right foot
s/p angiogram with IVF on 01/03, need 6wk of abx per podiatry-ID follows
VANESSA-baseline cr 1.1 in july 2024([facility]),improved 1.3 now up to 1.6 after IV lasix given on 01/06 for CHF
Maintain oral Lasix 40 mg twice daily
Follow BMP
Renal ultrasound was normal
Aldactone and FLORES inhibitor remain held in setting of acute kidney injury
Bp stable , cont same meds
mild hyponatremia-monitor , some component of hyperglycemia affecting sodium
Patient has chronic LE edema with PVD changes of skin
avoid nephrotoxins
d/w pt
-
-
Date of Service: January 07, 2025
CC / HPI / ROS
-
Chief Complaint:
Acute kidney injury
History of Present Illness:
Creatinine up to 1 point
Hemodynamically stable
Review of Systems:
No chest pain or shortness of breath
Noted edema
Nonoliguric
Labs
-
Labs:
WBC 12.2 10^3/uL (4.8-10.8) H 01/07/25 05:34
RBC 4.33 10^6/uL (4.70-6.10) L 01/07/25 05:34
Hgb 12.7 g/dL (13.0-18.0) L 01/07/25 05:34
Hct 38.4 % (39.0-52.0) L 01/07/25 05:34
Plt Count 191 10^3/uL (130-400) 01/07/25 05:34
Sodium 129 mmol/L (135-145) L 01/07/25 05:34
Potassium 5.1 mmol/L (3.5-5.1) 01/07/25 05:34
Chloride 101 mmol/L (98-107) 01/07/25 05:34
Carbon Dioxide 25 mmol/L (22-30) 01/07/25 05:34
BUN 51 mg/dl (9-20) H 01/07/25 05:34
Creatinine 1.6 mg/dL (0.7-1.3) H 01/07/25 05:34
eGFR 43.29 01/07/25 05:34
Glucose 256 mg/dl (70-99) H 01/07/25 05:34
Calcium 8.9 mg/dl (8.4-10.2) 01/07/25 05:34
Hjs-Y-Tzcjuoqtgyx Pept Cancelled 01/06/25 08:34
Albumin Cancelled 01/02/25 19:59
Physical Exam
-
Vital Signs:
Vital Signs
Temp Pulse Resp BP Pulse Ox
97.8 F 71 18 115/57 98
01/07/25 07:10 01/07/25 07:10 01/07/25 07:10 01/07/25 07:10 01/07/25 07:10
Cardiovascular:: Regular rate and rhythm
Respiratory:: Bilateral: CTA
Lung Excursion:: Normal
Abdomen:: Nontender and Soft
Bowel Sounds:: None
Extremity Edema:: +2: Bilateral:
Wilson Catheter: No
[2025-01-07 11:39] LABS: Glucose - Point of Care 266 mg/dl (70-99)
--- NOTE | 2025-01-07 11:57 | W.PN.HOSP.TC ---
Today's Communication/Plan
-
IV antibiotics. Adjust insulin. Oral diuretics.
Assessment / Plan
Assessment / Plan
Physical exam:
General: Acutely ill. Nontoxic appearance. No acute distress.
HEENT: Normocephalic, Atraumatic and Moist Mucous Membranes
Respiratory: Clear to auscultation bilaterally; Negative Wheezes or Rhonchi
Cardiac: Regular Rhythm and S1/S2
GI: Soft, Nontender and Nondistended
Musculoskeletal: No Clubbing, No Cyanosis. Bilateral lower extremity edema mildly diminished.
Skin: Postop changes on right foot.
Neuro: Awake, Alert and Oriented, no neurological deficit
Psych: Calm
A/P:
Right foot osteomyelitis + right foot ulcer due to critical limb ischemia and diabetes mellitus:
Status post bone biopsy on 01/04--> so far growing Pseudomonas aeruginosa and Enterococcus and awaiting final path to guide further therapy.
Continue on IV cefepime
ID consult appreciated
Status post vascular intervention by vascular surgery
Discussed with at bedside today 01/07
WBC 12.2 today
Acute respiratory insufficiency due to heart failure and atelectasis:
Continue diuresis
Incentive spirometry
Bronchodilators as needed
Oxygen as needed
Increase activity as tolerated
Acute on chronic HFmrEF:
Continue oral Lasix 40 mg twice a day
Continue to hold rest of GDMT until renal function normalizes or improves--> continue beta-blockers. Continue to hold FLORES inhibitor, MRA, and SGLT2 inhibitor.
Hyponatremia:
Sodium 129 today
Continue oral diuretic and diabetic regimen
Monitor sodium in a.m.
VANESSA:
Creatinine today down to 1.3 yesterday but up to 1.6 again today.
Nephrology okay for diuretics and recommend to continue holding RAAS
Kidney ultrasound unremarkable
Nephrology consult appreciated
Diabetes mellitus type 2:
Adjust diabetic regimen closer to his home regimen and needs better control--> glargine 40 units daily and aspart 10 units before each meal. He had glargine 20 units this morning-->Will do NPH 10 units today for extra long-acting to avoid stacking
insulin. At home he uses 60 units of long-acting and 10 to 15 units of short acting before each meal but before we get to that we want to make sure that he does not become hypoglycemic either.
Continue insulin sliding scale
Hemoglobin A1c 8.2
Diabetic diet
CAD/PVD:
Continue antiplatelets and statin
TAVR:
Serial echo as outpatient
Hypertension:
Continue home antihypertensives
Hyperlipidemia:
Continue home statin
DVT prophylaxis:
Heparin SQ
CODE STATUS:
DNR
Total time spent on today's encounter was 38 minutes which included time spent in counseling the patient/family regarding diagnosis and treatment plan as listed above, goals of care, and symptom management. Case was discussed with nursing staff,
specialists, and care coordinators/case management. All labs and imaging personally reviewed by me. Remainder the time spent in detailed review of previous records, lab data, imaging, and other medical provider documentation.
Anticipated Discharge: 24 - 48 hours
Subjective/Interval History
-
Date of Service: January 07, 2025
Objective Data
-
Labs:
Laboratory Results
01/07/25
05:34
WBC 12.2 H
Hgb 12.7 L
Hct 38.4 L
Plt Count 191
Sodium 129 L
Potassium 5.1
Chloride 101
Carbon Dioxide 25
BUN 51 H
Creatinine 1.6 H
Glucose 256 H
Calcium 8.9
Vital Signs:
Vital Signs
Temp Pulse Resp BP Pulse Ox
97.8 F 71 18 115/57 98
01/07/25 07:10 01/07/25 07:10 01/07/25 07:10 01/07/25 07:10 01/07/25 07:10
I&O
01/06/25 01/07/25 01/08/25
06:59 06:59 06:59
Intake Total 1620 / 1620 100 / 100
Output Total 1040 / 1040 1175 / 1175
Balance 580 / 580 -1075 / -1075
[2025-01-07 15:00] VITALS: BP 100/49
[2025-01-07 17:24] LABS: Glucose - Point of Care 226 mg/dl (70-99)
[2025-01-07] MEDS: NOVOLIN N vial 0.1 UNITS SC (17:41)
[2025-01-07] MEDS: NOVOLOG FLEXPEN-MODERATE RESISTANCE 3 UNITS SC (17:42)
[2025-01-07] MEDS: NOVOLOG FLEXPEN 10 UNITS SC (17:42)
--- NOTE | 2025-01-07 18:23 | W.PN.ID1 ---
Date of Service
Date of Service: January 07, 2025
Today's Communication
Continue cefepime 2 gm Iv q12hrs for Pseudomonas
Add Vancomycin for enterococcal coverage.
Assessment / Plan
Suspected right foot osteomyelitis
Charcot arthropathy of right foot
Non-Healing R Foot Wound
VANESSA - improved
ASCVD (CAD, PAD, Carotid Disease)
Chronic HFmrEF
Aortic Stenosis s/p TAVR
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
Morbid Obesity due to excess calories
Allergy to penicillin - rash
Recommendations:
Pt s/p deep bx and culture later 01/04
01/04 wound culture: Pseudomonas
01/04 tissue culture (cunieform): Pseudomonas, Enterococcus
01/04 pathology in progress
01/02 superficial culture Pseudomonas, Enterococcus,
Continue cefepime 2 gm Iv q12hrs for Pseudomonas
Add Vancomycin for enterococcal coverage.
Will await tissue culture and path to guide further therapy.
Pt counseled that he may require 6 weeks of IV abx.
ESR 41, CRP 25
would tighten outpatient blood glucose control
Further recommendations as additional data is returned.
Chief Complaint
-: Other (osteomyelitis, diabetic foot infection)
Subjective / Review of Systems
No complaints.
Vital Signs / Physical Exam
Vital Signs
Vital Signs
Temp Pulse Resp BP Pulse Ox
97.6 F 73 18 100/49 97
01/07/25 15:00 01/07/25 15:00 01/07/25 15:00 01/07/25 15:00 01/07/25 15:00
Physical Exam
Constitutional: No Acute Distress, Comfortable and Obese
Cardiovascular: Regular Rate and S1/S2
Gastrointestinal: Soft, Non Tender and Non Distended
Extremities: Edema (BLE)
Wound: Other (Right foot dressing intact)
Neurological: AO x 3
Objective Data
Lab Data
Lab Results
01/07/25 05:34
01/07/25 05:34
ESR 41 mm/hour (0-20) H 01/05/25 05:35
PT 13.6 Sec (11.4-14.6) 01/02/25 19:59
INR 1.01 01/02/25 19:59
APTT 22.6 Sec (23.4-35.0) L 01/02/25 19:59
Estimated Creat Clear 50 ml/min 01/07/25 05:34
Total Bilirubin Cancelled 01/02/25 19:59
AST Cancelled 01/02/25 19:59
ALT Cancelled 01/02/25 19:59
Alkaline Phosphatase Cancelled 01/02/25 19:59
C-Reactive Protein 24.70 mg/L (0.0-10.00) H 01/05/25 05:35
Most recent labs reviewed.
Micro Results:
01/04/25 Unknown Anaerobic Culture - Preliminary
Foot - Right Culture pending. Anaerobic cultures are examined after 3
days incubation. Additional information to follow.
01/05/25 10:53 Tissue Culture - Preliminary
Foot - Right Pseudomonas aeruginosa
Enterococcus species
Gram Stain - Preliminary
01/04/25 Unknown Wound Culture - Preliminary
Foot - Right Pseudomonas aeruginosa
Gram Stain - Preliminary
01/02/25 19:59 Wound Culture - Final
Foot - Right Pseudomonas aeruginosa
Enterococcus faecalis
Gram Stain - Final
Imaging:
12/29/2024 Labeled WBC scan : Accumulation of radiolabeled white blood cells within the right medial midfoot, similar distribution compared to prior 3 phase bone scan. Findings may be seen in the setting of osteomyelitis, consider MRI right foot
for more precise anatomic localization.
01/02/2025 Right foot x-ray: No evidence of acute osseous injury. No evidence of bone destruction. Soft tissue swelling of the forefoot. Soft tissue ulceration of the plantar midfoot versus overlying dressing as described above. Moderate dorsal
midfoot osteoarthritis.
[2025-01-07] MEDS: VANCOCIN 540 MG IV (19:48)
--- NOTE | 2025-01-07 20:04 | PHA.VAN.IN ---
Assessment
- Assessment
Renal Function: SCR Appears Elevated from baseline (SCr 1.6 , baseline 0.9-1.2)
Maximum Temperature: 99.3
Minimum Temperature: 97.6
Concomitant Antimicrobials: cefepime
Plan
- Plan
Initial / Loading Dose: vanc 2000mg (15 mg/kg); 01/07 19:48
Maintenance Regimen: dose by level
Monitoring: vanc random 01/08
Pharmacokinetics Vancomycin I
- -
Patient Age: 79
Patient Sex: Male
Vancomycin Day #: 1
Indication: Bone And Joint
Requesting Provider: Dr Schaffer
Pertinent Antimicrobial Allergies:
Penicillins Allergy (Verified 01/01/25 13:05)Rash; TOLERATES CEPHALOSPORINS- HAS RECEIVED CEPHALEXIN AND CEFTAZIDIME SINCE ALLERGY ADDED
clindamycin (Clindamycin) Allergy (Verified 01/01/25 13:05) Shortness of Breath
Height / Weight:
Height 5 ft 10 in
Actual Weight 132.177 kg
Pertinent Past Medical History: suspected right foot osteomyelitis, ASCVD,
- Vital Signs / Lab Results
Temp Pulse Resp BP Pulse Ox
97.6 F 77 18 143/61 97
01/07/25 15:00 01/07/25 19:50 01/07/25 15:00 01/07/25 19:50 01/07/25 15:00
Lab Results - Hematology
01/05/25 01/06/25 01/07/25
05:35 06:48 05:34
WBC 13.9 H 11.0 H 12.2 H
Lab Results - Chemistry
01/05/25 01/06/25 01/07/25
05:35 06:48 05:34
BUN 44 H 39 H 51 H
Creatinine 1.6 H 1.3 1.6 H
Estimated Creat Clear 50 62 50
Lab Results - Urine
01/04/25
21:02
Urine Nitrite Negative
Ur Leukocyte Esterase 2+ A
Urine WBC 11-15 A
Ur Squamous Epith Cells 6-10
Urine Bacteria Moderate A
Microbiology Results
01/04/25 Unknown Anaerobic Culture - Preliminary
Foot - Right Culture pending. Anaerobic cultures are examined after 3
days incubation. Additional information to follow.
01/05/25 10:53 Tissue Culture - Preliminary
Foot - Right Pseudomonas aeruginosa
Enterococcus species
Gram Stain - Preliminary
01/04/25 Unknown Wound Culture - Preliminary
Foot - Right Pseudomonas aeruginosa
Gram Stain - Preliminary
01/02/25 19:59 Wound Culture - Final
Foot - Right Pseudomonas aeruginosa
Enterococcus faecalis
Gram Stain - Final
[2025-01-07 21:36] LABS: Glucose - Point of Care 287 mg/dl (70-99)
[2025-01-07] MEDS: ASPIR LOW (ENTERIC COATED) 81 MG PO (22:09)
[2025-01-07] MEDS: VITAMIN D3 (cholecalciferol) 50 MCG PO (22:09)
[2025-01-07] MEDS: XALATAN OPHTHALMIC SOLUTION 1 DROP LEFT EYE (22:09)
[2025-01-07] MEDS: NORVASC 10 MG PO (22:10)
[2025-01-07] MEDS: LIPITOR 20 MG PO (22:10)
[2025-01-07 23:00] VITALS: BP 93/48
[2025-01-08] MEDS: HEPARIN 5000 UNITS SC ×3 (00:04→16:18)
[2025-01-08] MEDS: MAXIPIME 2000 MG IV ×2 (01:31→13:17)
[2025-01-08] MEDS: STERILE WATER FOR INJECTION 10 ML IV ×2 (01:31→13:17)
[2025-01-08 03:15] VITALS: BP 109/58
[2025-01-08] MEDS: ROXICODONE 5 MG PO ×4 (03:45→17:59)
[2025-01-08 06:00] VITALS: BMI 42.1
[2025-01-08 07:00] VITALS: BP 102/56
[2025-01-08 07:02] LABS: Hematocrit 36.9 % (39.0-52.0); Hemoglobin 12.3 g/dL (13.0-18.0); Mean Corp Hgb Conc. 33.3 g/dL (33.0-37.0); Mean Corpuscular Volume 88.9 fL (80.0-94.0); Platelet Count 225 10^3/uL (130-400); Red Cell Dist. Width 13.1 % (11.5-14.5)
[2025-01-08 07:30] LABS: Blood Urea Nitrogen 55 mg/dl (9-20); Calcium 9.2 mg/dl (8.4-10.2); Carbon Dioxide 24 mmol/L (22-30); Chloride 100 mmol/L (98-107); Estimated Creatinine Clearance 54 ml/min; Glucose 310 mg/dl (70-99); Potassium 5.1 mmol/L (3.5-5.1); Sodium 129 mmol/L (135-145); eGFR 46.77
[2025-01-08] MEDS: TRUSOPT 2% OPHTHALMIC SOLUTION 1 DROP LEFT EYE ×2 (07:37→20:56)
[2025-01-08] MEDS: COREG 12.5 MG PO ×2 (07:38→20:39)
[2025-01-08] MEDS: LASIX 40 MG PO ×2 (07:38→16:17)
[2025-01-08] MEDS: PLAVIX 75 MG PO (07:38)
[2025-01-08 07:39] LABS: Glucose - Point of Care 296 mg/dl (70-99)
[2025-01-08] MEDS: APRESOLINE 75 MG PO (07:39)
[2025-01-08] MEDS: LANTUS 0.4 UNITS SC (07:41)
[2025-01-08] MEDS: NOVOLOG FLEXPEN-MODERATE RESISTANCE 5 UNITS SC ×2 (07:42→12:19)
[2025-01-08] MEDS: NOVOLOG FLEXPEN 10 UNITS SC ×3 (07:46→17:45)
[2025-01-08] MEDS: SENOKOT-S 1 TABLET PO (07:48)
--- NOTE | 2025-01-08 09:14 | PHA.VAN.FU ---
Vancomycin Assessment / Plan
- Assessment
Renal Function: Stable
WBC's are: Trending Down
In the past 24 hrs, patient has been: Afebrile
Concomitant Antimicrobials: cefepime
- Assessment - Therapeutic Drug Monitoring
Random Level: 15.5 - drawn ~10.5H after 2g loading dose
- Dosing Plan
Dosing by Level: Re-dose today (Vanc 1000mg)
- Monitoring Plan
Random Level: 01/09 0600
- Follow Up
Pharmacy will continue to follow.
Vancomycin Follow UP
- -
Patient Age: 79
Patient Sex: Male
Vancomycin Day #: 2
Indication: Bone And Joint
Requesting Provider: Dr Schaffer
Pertinent Antimicrobial Allergies:
clindamycin - SOB
penicillins - rash; tolerates cephalosporins
Height / Weight:
Height 5 ft 10 in
Actual Weight 133.22 kg
Pertinent Past Medical History: BMI ~42, DM II
- Vital Signs / Lab Results
Temp Pulse Resp BP Pulse Ox
97.8 F 75 17 102/56 95
01/08/25 07:00 01/08/25 07:39 01/08/25 07:00 01/08/25 07:39 01/08/25 07:00
Lab Results - Hematology
01/06/25 01/07/25 01/08/25
06:48 05:34 06:42
WBC 11.0 H 12.2 H 10.6
Lab Results - Chemistry
01/06/25 01/07/25 01/08/25
06:48 05:34 06:42
BUN 39 H 51 H 55 H
Creatinine 1.3 1.6 H 1.5 H
Estimated Creat Clear 62 50 54
Microbiology Results
01/04/25 Unknown Anaerobic Culture - Preliminary
Foot - Right Culture pending. Anaerobic cultures are examined after 3
days incubation. Additional information to follow.
01/05/25 10:53 Tissue Culture - Preliminary
Foot - Right Pseudomonas aeruginosa
Enterococcus species
Gram Stain - Preliminary
01/04/25 Unknown Wound Culture - Preliminary
Foot - Right Pseudomonas aeruginosa
Gram Stain - Preliminary
01/02/25 19:59 Wound Culture - Final
Foot - Right Pseudomonas aeruginosa
Enterococcus faecalis
Gram Stain - Final
Therapeutic Drug Monitoring
Random Vancomycin 15.5 ug/ml 01/08/25 06:42
[2025-01-08] MEDS: VANCOCIN 200 IV (10:14)
[2025-01-08] MEDS: TYLENOL 650 MG PO ×3 (10:14→20:39)
--- NOTE | 2025-01-08 10:36 | W.PN.ID1 ---
Date of Service
Date of Service: January 08, 2025
Today's Communication
Continue cefepime 2 gm Iv q12hrs for Pseudomonas
continue Vancomycin for enterococcal coverage.
PICC ordered
RN reports patient unstable and not compliant with NWB status of the right leg - PT reassessing today
would like to see renal function stabilize prior to finalizing vancomycin dosing regimen
Assessment / Plan
Suspected right foot osteomyelitis
Charcot arthropathy of right foot
Non-Healing R Foot Wound
VANESSA - improved, baseline cr 1.1
ASCVD (CAD, PAD, Carotid Disease)
Chronic HFmrEF
Aortic Stenosis s/p TAVR
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
Morbid Obesity due to excess calories
Allergy to penicillin - rash
Recommendations:
Pt s/p deep bx and culture later 01/04
01/04 wound culture: Pseudomonas
01/04 tissue culture (cunieform): Pseudomonas, Enterococcus
01/04 pathology in progress
01/02 superficial culture Pseudomonas, Enterococcus,
Continue cefepime 2 gm Iv q12hrs for Pseudomonas
continue Vancomycin for enterococcal coverage.
PICC placement
Pt counseled that he may require 6 weeks of IV abx.
ESR 41, CRP 25
would tighten outpatient blood glucose control
would like to see renal function stabilize prior to finalizing vancomycin dosing regimen
Chief Complaint
-: Other (osteomyelitis, diabetic foot infection)
Subjective / Review of Systems
afebrile
bp stable
RN reports patient unstable and not compliant with NWB status of the right leg - PT reassessing today
Vital Signs / Physical Exam
Vital Signs
Vital Signs
Temp Pulse Resp BP Pulse Ox
97.8 F 75 17 102/56 95
01/08/25 07:00 01/08/25 07:39 01/08/25 07:00 01/08/25 07:39 01/08/25 07:00
Physical Exam
Constitutional: No Acute Distress
Cardiovascular: Regular Rate and S1/S2; Negative Murmur or Rub
Pulmonary: Clear and Symmetric; Negative Wheezes or Rales
Gastrointestinal: Soft, Non Tender, Non Distended and Normal Bowel Sounds
Skin: Warm and Dry; Negative Rash or Jaundice
Wound: Other (dressing clean dry intact)
Objective Data
Lab Data
Lab Results
01/08/25 06:42
01/08/25 06:42
ESR 41 mm/hour (0-20) H 01/05/25 05:35
PT 13.6 Sec (11.4-14.6) 01/02/25 19:59
INR 1.01 01/02/25 19:59
APTT 22.6 Sec (23.4-35.0) L 01/02/25 19:59
Estimated Creat Clear 54 ml/min 01/08/25 06:42
Total Bilirubin Cancelled 01/02/25 19:59
AST Cancelled 01/02/25 19:59
ALT Cancelled 01/02/25 19:59
Alkaline Phosphatase Cancelled 01/02/25 19:59
C-Reactive Protein 24.70 mg/L (0.0-10.00) H 01/05/25 05:35
Most recent labs reviewed.
vancomycin level 7AM 15.5
Micro Results:
01/05/25 10:53 Tissue Culture - Final
Foot - Right Pseudomonas aeruginosa
Enterococcus faecalis
Gram Stain - Final
01/04/25 Unknown Anaerobic Culture - Preliminary
Foot - Right Culture pending. Anaerobic cultures are examined after 3
days incubation. Additional information to follow.
01/04/25 Unknown Wound Culture - Preliminary
Foot - Right Pseudomonas aeruginosa
Gram Stain - Preliminary
01/02/25 19:59 Wound Culture - Final
Foot - Right Pseudomonas aeruginosa
Enterococcus faecalis
Gram Stain - Final
Imaging:
12/29/2024 Labeled WBC scan : Accumulation of radiolabeled white blood cells within the right medial midfoot, similar distribution compared to prior 3 phase bone scan. Findings may be seen in the setting of osteomyelitis, consider MRI right foot
for more precise anatomic localization.
01/02/2025 Right foot x-ray: No evidence of acute osseous injury. No evidence of bone destruction. Soft tissue swelling of the forefoot. Soft tissue ulceration of the plantar midfoot versus overlying dressing as described above. Moderate dorsal
midfoot osteoarthritis.
[2025-01-08 11:42] LABS: Glucose - Point of Care 292 mg/dl (70-99)
--- NOTE | 2025-01-08 12:07 | W.PN.HOSP.TC ---
Today's Communication/Plan
-
see A/P
Assessment / Plan
Assessment / Plan
A/P:
# Right foot osteomyelitis
# right foot ulcer due to critical limb ischemia and diabetes mellitus
Status post bone biopsy on 01/04, culture growing Pseudomonas aeruginosa and Enterococcus
awaiting final path to guide further therapy.
Continue cefepime for Pseudomonas
Continue Vancomycin for enterococcal coverage.
ID input appreciated
Status post vascular intervention by vascular surgery
# Acute respiratory insufficiency due to heart failure and atelectasis
Continue diuresis, currently on PO Lasix 40 mg BID
Incentive spirometry
Bronchodilators as needed
Oxygen as needed
Increase activity as tolerated
# Acute on chronic HFmrEF
Continue oral Lasix 40 mg BID
Continue to hold rest of GDMT until renal function normalizes or improves
continue beta-blockers.
Continue to hold FLORES inhibitor, Aldactone, and SGLT2 inhibitor.
# Hyponatremia
Sodium 129 today
Continue oral diuretic and diabetic regimen
Monitor sodium in a.m.
# VANESSA
Creatinine 1.6 -> 1.5 today
Nephrology on board, okay to cont diuretics and recommend to continue holding RAAS
Kidney ultrasound unremarkable
# IDDM
Adjust diabetic regimen closer to his home regimen and needs better control
Cont glargine 40 units daily and aspart 10 units before each meal. At home he uses 60 units of long-acting and 10 to 15 units of short acting before each meal
Continue insulin sliding scale
Hemoglobin A1c 8.2
Diabetic diet
# CAD/PVD
Continue antiplatelets and statin
# TAVR
Serial echo as outpatient
# Hypertension
Continue home antihypertensives
# Hyperlipidemia
Continue home statin
DVT prophylaxis: Heparin SQ
CODE STATUS: DNR
DW RN
Anticipated Discharge: > 48 hours
Subjective/Interval History
-
Date of Service: January 08, 2025
Objective Data
-
Labs:
Laboratory Results
01/08/25
06:42
WBC 10.6
Hgb 12.3 L
Hct 36.9 L
Plt Count 225
Sodium 129 L
Potassium 5.1
Chloride 100
Carbon Dioxide 24
BUN 55 H
Creatinine 1.5 H
Glucose 310 H
Calcium 9.2
Vital Signs:
Vital Signs
Temp Pulse Resp BP Pulse Ox
36.6 C 75 17 102/56 95
01/08/25 07:00 01/08/25 07:39 01/08/25 07:00 01/08/25 07:39 01/08/25 07:00
I&O
01/07/25 01/08/25 01/09/25
06:59 06:59 06:59
Intake Total 100 / 100 194 / 194
Output Total 1175 / 1175 780 / 780
Balance -1075 / -1075 1160 / 1160
Review of Systems
-
History Source: Patient
All other systems: Reviewed and negative
Physical Exam
-
General: Well Developed, Well Nourished, No Apparent Distress, Comfortable, Conversant and Morbidly Obese
HEENT: Normocephalic, Atraumatic and Moist Mucous Membranes
Respiratory: Clear to Auscultation and Non Labored Respirations; Negative Accessory Resp Muscle Use
Cardiac: Regular Rhythm and S1/S2
GI: Soft, Nontender, Nondistended and Normal Bowel Sounds
Rectal: Deferred by Provider
Genito-urinary: Deferred by me
Musculoskeletal: No Clubbing, No Cyanosis and No Edema
Skin: Warm, Dry and Other (R foot in wound dressing)
Neuro: Awake, Alert, Oriented and AO x 3
Psych: Calm and Intact Judgement/Insight
Data Reviewed
-
Labs: Labs Reviewed by me
--- NOTE | 2025-01-08 12:33 | W.PN.NEPH.PH ---
Today's Communication / Plan
-
reduce hydralazine
Assessment/Plan
-
IMP:
Right foot osteomyelitis + right foot ulcer due to critical limb ischemia Status post vascular procedure 01/03
VANESSA
mild hyponatremia
Diabetes mellitus type 2
Chronic HFmrEF
CAD/PVD
TAVR
Hypertension
Hyperlipidemia
Morbid obesity
Plan:
follow BMP
reduce hydralazine
off ACEI/aldactone for now
-
-
Date of Service: January 08, 2025
CC / HPI / ROS
-
Chief Complaint:
Acute kidney injury
History of Present Illness:
VANESSA/Cr stable 1.5
Na stable low 129
BP low
Review of Systems:
No chest pain or shortness of breath
Noted edema
Nonoliguric
Labs
-
Labs:
WBC 10.6 10^3/uL (4.8-10.8) 01/08/25 06:42
RBC 4.15 10^6/uL (4.70-6.10) L 01/08/25 06:42
Hgb 12.3 g/dL (13.0-18.0) L 01/08/25 06:42
Hct 36.9 % (39.0-52.0) L 01/08/25 06:42
Plt Count 225 10^3/uL (130-400) 01/08/25 06:42
Sodium 129 mmol/L (135-145) L 01/08/25 06:42
Potassium 5.1 mmol/L (3.5-5.1) 01/08/25 06:42
Chloride 100 mmol/L (98-107) 01/08/25 06:42
Carbon Dioxide 24 mmol/L (22-30) 01/08/25 06:42
BUN 55 mg/dl (9-20) H 01/08/25 06:42
Creatinine 1.5 mg/dL (0.7-1.3) H 01/08/25 06:42
eGFR 46.77 01/08/25 06:42
Glucose 310 mg/dl (70-99) H 01/08/25 06:42
Calcium 9.2 mg/dl (8.4-10.2) 01/08/25 06:42
Omm-O-Ikqjtctaogv Pept Cancelled 01/06/25 08:34
Albumin Cancelled 01/02/25 19:59
Physical Exam
-
Vital Signs:
Vital Signs
Temp Pulse Resp BP Pulse Ox
97.8 F 75 17 102/56 95
01/08/25 07:00 01/08/25 07:39 01/08/25 07:00 01/08/25 07:39 01/08/25 07:00
Cardiovascular:: Regular rate and rhythm
Respiratory:: Bilateral: CTA
Lung Excursion:: Normal
Abdomen:: Nontender and Soft
Bowel Sounds:: Normal
Extremity Edema:: +1: Bilateral:
--- NOTE | 2025-01-08 13:57 | CM ---
POD #4 Excisional debridement ulceration of the plantar aspect of the right foot; Debridement of bone, mid foot medial cuneiform with bone biopsy right foot. Osteomyelitis. IV/cefepime and IV/Vancomycin. Discharge POC: Therapy rec for SNF.
Medicare [employer] list explained and provided to patient. He will have choose at least 4 preferences. Will need IV/AB after discharge. NWLuanne R foot.
[2025-01-08 15:00] VITALS: BP 126/50
[2025-01-08 16:31] LABS: Glucose - Point of Care 165 mg/dl (70-99)
[2025-01-08] MEDS: NOVOLOG FLEXPEN-MODERATE RESISTANCE 1 UNITS SC (17:44)
[2025-01-08 20:56] LABS: Glucose - Point of Care 136 mg/dl (70-99)
[2025-01-08] MEDS: APRESOLINE 50 MG PO (20:56)
[2025-01-08] MEDS: NORVASC 10 MG PO (22:22)
[2025-01-08] MEDS: VITAMIN D3 (cholecalciferol) 50 MCG PO (22:22)
[2025-01-08] MEDS: LIPITOR 20 MG PO (22:22)
[2025-01-08] MEDS: XALATAN OPHTHALMIC SOLUTION 1 DROP LEFT EYE (22:23)
[2025-01-08] MEDS: ASPIR LOW (ENTERIC COATED) 81 MG PO (22:23)
[2025-01-08 23:09] VITALS: BP 116/70
[2025-01-09] MEDS: HEPARIN 5000 UNITS SC ×4 (00:17→23:48)
[2025-01-09] MEDS: STERILE WATER FOR INJECTION 10 ML IV ×2 (02:09→14:19)
[2025-01-09] MEDS: MAXIPIME 2000 MG IV ×2 (02:09→14:19)
[2025-01-09] MEDS: ROXICODONE 5 MG PO ×3 (05:42→14:23)
[2025-01-09 06:00] VITALS: BMI 42.3
[2025-01-09 06:16] LABS: Hematocrit 37.4 % (39.0-52.0); Hemoglobin 12.6 g/dL (13.0-18.0); Mean Corp Hgb Conc. 33.7 g/dL (33.0-37.0); Mean Corpuscular Volume 89.9 fL (80.0-94.0); Platelet Count 242 10^3/uL (130-400); Red Cell Dist. Width 13.1 % (11.5-14.5)
[2025-01-09 06:36] LABS: Blood Urea Nitrogen 54 mg/dl (9-20); Calcium 9.4 mg/dl (8.4-10.2); Carbon Dioxide 24 mmol/L (22-30); Chloride 101 mmol/L (98-107); Estimated Creatinine Clearance 54 ml/min; Glucose 165 mg/dl (70-99); Magnesium 2.5 mg/dl (1.6-2.3); Potassium 5.1 mmol/L (3.5-5.1); Sodium 131 mmol/L (135-145); eGFR 46.77
[2025-01-09 07:15] VITALS: BP 139/60
[2025-01-09 07:40] LABS: Glucose - Point of Care 177 mg/dl (70-99)
[2025-01-09] MEDS: LASIX 40 MG PO ×2 (07:50→16:38)
[2025-01-09] MEDS: NOVOLOG FLEXPEN 10 UNITS SC ×3 (07:50→16:47)
[2025-01-09] MEDS: NOVOLOG FLEXPEN-MODERATE RESISTANCE 1 UNITS SC ×2 (07:50→16:47)
[2025-01-09] MEDS: APRESOLINE 50 MG PO ×2 (07:51→19:48)
[2025-01-09] MEDS: COREG 12.5 MG PO ×2 (07:51→19:49)
[2025-01-09] MEDS: PLAVIX 75 MG PO (07:51)
[2025-01-09] MEDS: TRUSOPT 2% OPHTHALMIC SOLUTION 1 DROP LEFT EYE ×2 (07:53→19:49)
[2025-01-09] MEDS: BACTROBAN 2% OINTMENT 1 APPLIC TOPICAL (07:53)
[2025-01-09] MEDS: LANTUS 0.3 UNITS SC ×2 (07:56→20:29)
--- NOTE | 2025-01-09 08:52 | PHA.VAN.FU ---
Vancomycin Assessment / Plan
- Assessment
Renal Function: Stable
WBC's are: Trending Up
In the past 24 hrs, patient has been: Afebrile
Concomitant Antimicrobials: cefepime
- Assessment - Therapeutic Drug Monitoring
Random Level: 16.4 - drawn ~19.5H after previous dose of 1g
- Dosing Plan
Dosing by Level: Re-dose today (Vanc 1000mg)
Dosing Comments: follow for accumulation - unclear if Q24 vs Q48
- Monitoring Plan
Random Level: 01/10 06
- Follow Up
Pharmacy will continue to follow.
Vancomycin Follow UP
- -
Patient Age: 79
Patient Sex: Male
Vancomycin Day #: 3
Indication: [facility]
Requesting Provider: Dr Schaffer
Pertinent Antimicrobial Allergies:
clindamycin - SOB
penicillins - rash; tolerates cephalosporins
Height / Weight:
Height 5 ft 10 in
Actual Weight 133.583 kg
Pertinent Past Medical History: BMI ~42, DM II
- Vital Signs / Lab Results
Temp Pulse Resp BP Pulse Ox
97.8 F 94 16 139/60 96
01/09/25 07:15 01/09/25 07:51 01/09/25 07:15 01/09/25 07:51 01/09/25 07:15
Lab Results - Hematology
01/07/25 01/08/25 01/09/25
05:34 06:42 05:58
WBC 12.2 H 10.6 11.5 H
Lab Results - Chemistry
01/07/25 01/08/25 01/09/25
05:34 06:42 05:58
BUN 51 H 55 H 54 H
Creatinine 1.6 H 1.5 H 1.5 H
Estimated Creat Clear 50 54 54
Microbiology Results
01/04/25 Unknown Anaerobic Culture - Preliminary
Foot - Right Culture pending. Anaerobic cultures are examined after 3
days incubation. Additional information to follow.
01/05/25 10:53 Tissue Culture - Final
Foot - Right Pseudomonas aeruginosa
Enterococcus faecalis
Gram Stain - Final
Therapeutic Drug Monitoring
Random Vancomycin 16.4 ug/ml 01/09/25 05:58
[2025-01-09] MEDS: VANCOCIN 200 IV (10:06)
--- NOTE | 2025-01-09 10:53 | W.PN.HOSP.TC ---
Today's Communication/Plan
-
see A/P
Assessment / Plan
Assessment / Plan
A/P:
# Right foot osteomyelitis
# right foot ulcer due to critical limb ischemia and diabetes mellitus
Status post vascular intervention by vascular surgery
Status post bone biopsy on 01/04, culture growing Pseudomonas aeruginosa and Enterococcus
Follow final path report
Continue cefepime for Pseudomonas
Continue Vancomycin for enterococcal coverage.
Pt would need solar maintenance technician Abx 6 weeks for osteomyelitis. Picc placement
ID would like to see renal function stabilize prior to finalizing vancomycin dosing regimen
# Acute respiratory insufficiency due to heart failure and atelectasis
on RA
Continue diuresis, currently on PO Lasix 40 mg BID
Incentive spirometry
Bronchodilators as needed
Oxygen as needed
Increase activity as tolerated
# Acute on chronic HFmrEF
Continue oral Lasix 40 mg BID
Continue to hold rest of GDMT until renal function normalizes or improves
continue beta-blockers.
Continue to hold FLORES inhibitor, Aldactone, and SGLT2 inhibitor.
# Hyponatremia
Sodium 131 today
Continue oral diuretic and diabetic regimen
Monitor sodium
# VANESSA
Creatinine 1.6 -> 1.5 today
Nephrology on board, okay to cont diuretics and recommend to continue holding RAAS
Kidney ultrasound unremarkable
# IDDM
Adjust diabetic regimen closer to his home regimen and needs better control
Cont glargine, adjust to 30 units BID. Cont aspart 10 units before each meal. At home he uses 60 units of long-acting and 10 to 15 units of short acting before each meal
Continue insulin sliding scale
Hemoglobin A1c 8.2
Diabetic diet
# CAD/PVD
Continue antiplatelets and statin
# TAVR
Serial echo as outpatient
# Hypertension
Continue home antihypertensives
# Hyperlipidemia
Continue home statin
DVT prophylaxis: Heparin SQ
CODE STATUS: DNR
Dispo: SNF to cont IV Abx
DW RN
DW Utility Operator Yarn
Anticipated Discharge: 24 - 48 hours
Subjective/Interval History
-
Date of Service: January 09, 2025
Objective Data
-
Labs:
Laboratory Results
01/09/25
05:58
WBC 11.5 H
Hgb 12.6 L
Hct 37.4 L
Plt Count 242
Sodium 131 L
Potassium 5.1
Chloride 101
Carbon Dioxide 24
BUN 54 H
Creatinine 1.5 H
Glucose 165 H
Calcium 9.4
Vital Signs:
Vital Signs
Temp Pulse Resp BP Pulse Ox
36.6 C 94 16 139/60 96
01/09/25 07:15 01/09/25 07:51 01/09/25 07:15 01/09/25 07:51 01/09/25 07:15
I&O
01/08/25 01/09/25 01/10/25
06:59 06:59 06:59
Intake Total 1940 / 1940 1500 / 1500
Output Total 780 / 780 300 / 300
Balance 1160 / 1160 1200 / 1200
Review of Systems
-
History Source: Patient
All other systems: Reviewed and negative
Physical Exam
-
General: Well Developed, Well Nourished, No Apparent Distress, Comfortable, Conversant and Morbidly Obese
HEENT: Normocephalic, Atraumatic and Moist Mucous Membranes
Respiratory: Clear to Auscultation and Non Labored Respirations; Negative Accessory Resp Muscle Use
Cardiac: Regular Rhythm and S1/S2
GI: Soft, Nontender, Nondistended and Normal Bowel Sounds
Rectal: Deferred by Provider
Genito-urinary: Deferred by me
Musculoskeletal: No Clubbing, No Cyanosis and No Edema
Skin: Warm, Dry and Other (R foot in wound dressing)
Neuro: Awake, Alert, Oriented and AO x 3
Psych: Calm and Intact Judgement/Insight
Data Reviewed
-
Labs: Labs Reviewed by me
[2025-01-09] MEDS: MILK OF MAGNESIA 30 ML PO (11:26)
--- NOTE | 2025-01-09 11:44 | W.PN.NEPH.PH ---
Today's Communication / Plan
-
follow BMP
Assessment/Plan
-
IMP:
Right foot osteomyelitis + right foot ulcer due to critical limb ischemia Status post vascular procedure 01/03
VANESSA
mild hyponatremia
Diabetes mellitus type 2
Chronic HFmrEF
CAD/PVD
TAVR
Hypertension
Hyperlipidemia
Morbid obesity
Plan:
follow BMP
on less hydralazine
off ACEI/aldactone for now
-
-
Date of Service: January 09, 2025
CC / HPI / ROS
-
Chief Complaint:
Acute kidney injury
History of Present Illness:
VANESSA/Cr stable 1.5
Na stable low 131
BP up now
Review of Systems:
No chest pain or shortness of breath
Noted edema
Nonoliguric
Labs
-
Labs:
WBC 11.5 10^3/uL (4.8-10.8) H 01/09/25 05:58
RBC 4.16 10^6/uL (4.70-6.10) L 01/09/25 05:58
Hgb 12.6 g/dL (13.0-18.0) L 01/09/25 05:58
Hct 37.4 % (39.0-52.0) L 01/09/25 05:58
Plt Count 242 10^3/uL (130-400) 01/09/25 05:58
Sodium 131 mmol/L (135-145) L 01/09/25 05:58
Potassium 5.1 mmol/L (3.5-5.1) 01/09/25 05:58
Chloride 101 mmol/L (98-107) 01/09/25 05:58
Carbon Dioxide 24 mmol/L (22-30) 01/09/25 05:58
BUN 54 mg/dl (9-20) H 01/09/25 05:58
Creatinine 1.5 mg/dL (0.7-1.3) H 01/09/25 05:58
eGFR 46.77 01/09/25 05:58
Glucose 165 mg/dl (70-99) H 01/09/25 05:58
Calcium 9.4 mg/dl (8.4-10.2) 01/09/25 05:58
Ves-U-Lnhwnvlyipd Pept Cancelled 01/06/25 08:34
Albumin Cancelled 01/02/25 19:59
Physical Exam
-
Vital Signs:
Vital Signs
Temp Pulse Resp BP Pulse Ox
97.8 F 94 16 139/60 96
01/09/25 07:15 01/09/25 07:51 01/09/25 07:15 01/09/25 07:51 01/09/25 07:15
Cardiovascular:: Regular rate and rhythm
Respiratory:: Bilateral: Coarse
Lung Excursion:: Normal
Abdomen:: Nontender and Soft
Bowel Sounds:: Normal
Extremity Edema:: +1: Bilateral:
[2025-01-09 11:51] LABS: Glucose - Point of Care 372 mg/dl (70-99)
[2025-01-09] MEDS: TYLENOL 650 MG PO ×3 (12:18→22:12)
[2025-01-09 12:55] LABS: Glucose - Point of Care 371 mg/dl (70-99)
[2025-01-09] MEDS: NOVOLOG FLEXPEN-MODERATE RESISTANCE 9 UNITS SC (12:56)
[2025-01-09] MEDS: MIRALAX 17 GRAMS PO (13:01)
--- NOTE | 2025-01-09 15:22 | W.PN.ID1 ---
Date of Service
Date of Service: January 09, 2025
Today's Communication
Continue antibiotics.
Assessment / Plan
Suspected right foot osteomyelitis
Charcot arthropathy of right foot
Non-Healing R Foot Wound
VANESSA - improved, baseline cr 1.1
ASCVD (CAD, PAD, Carotid Disease)
Chronic HFmrEF
Aortic Stenosis s/p TAVR
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
Morbid Obesity due to excess calories
Allergy to penicillin - rash
Recommendations:
Pt s/p deep bx and culture 01/05
01/04 wound culture: Pseudomonas
01/04 tissue culture (cunieform): Pseudomonas, Enterococcus
01/04 pathology in progress
01/02 superficial culture Pseudomonas, Enterococcus,
Continue cefepime 2 gm Iv q12hrs for Pseudomonas
continue Vancomycin for enterococcal coverage.
PICC placement
Pt counseled that he may require 6 weeks of IV abx.
ESR 41, CRP 25
Tight glucose control.
Continue to trend creatinine, CrCl and Vanco levels.
Chief Complaint
-: Other (osteomyelitis, diabetic foot infection)
Subjective / Review of Systems
Review of Systems: No Fever and No Chills
Vital Signs / Physical Exam
Vital Signs
Vital Signs
Temp Pulse Resp BP Pulse Ox
97.8 F 94 16 139/60 96
01/09/25 07:15 01/09/25 07:51 01/09/25 07:15 01/09/25 07:51 01/09/25 07:15
Physical Exam
Constitutional: No Acute Distress and Comfortable
Eyes: Sclera Anicteric
Pulmonary: Non Labored
Gastrointestinal: Non Distended
Skin: Warm and Dry; Negative Rash or Jaundice
Wound: Other (dressing clean dry intact)
Neurological: Awake and Alert
Psychological: Calm
Objective Data
Lab Data
Lab Results
01/09/25 05:58
01/09/25 05:58
ESR 41 mm/hour (0-20) H 01/05/25 05:35
PT 13.6 Sec (11.4-14.6) 01/02/25 19:59
INR 1.01 01/02/25 19:59
APTT 22.6 Sec (23.4-35.0) L 01/02/25 19:59
Estimated Creat Clear 54 ml/min 01/09/25 05:58
Total Bilirubin Cancelled 01/02/25 19:59
AST Cancelled 01/02/25 19:59
ALT Cancelled 01/02/25 19:59
Alkaline Phosphatase Cancelled 01/02/25 19:59
C-Reactive Protein 24.70 mg/L (0.0-10.00) H 01/05/25 05:35
Most recent labs reviewed.
Micro Results:
01/04/25 Unknown Wound Culture - Final
Foot - Right Pseudomonas aeruginosa
Gram Stain - Final
01/04/25 Unknown Anaerobic Culture - Final
Foot - Right NO ANAEROBES ISOLATED
01/05/25 10:53 Tissue Culture - Final
Foot - Right Pseudomonas aeruginosa
Enterococcus faecalis
Gram Stain - Final
01/02/25 19:59 Wound Culture - Final
Foot - Right Pseudomonas aeruginosa
Enterococcus faecalis
Gram Stain - Final
Tissue Culture (right foot) Final 01/05/2025
Few Pseudomonas aeruginosa
Rare Enterococcus faecalis
Organism 1 Pseudomonas aeruginosa
Organism 2 Enterococcus faecalis
P.AERU ENTFCL
M.I.C. RX M.I.C. RX
--------- --- --------- ---
Ampicillin <=2 S
Aztreonam <=4 S
Cefepime <=2 S
Ceftazidime <=1 S
Ciprofloxacin <=0.25 S
Gentamicin Synergy Screen <=500 S
Meropenem <=1 S
Piperacillin/Tazobactam <=8 S
Tobramycin <=2 S
Vancomycin 2 S
Imaging:
12/29/2024 Labeled WBC scan : Accumulation of radiolabeled white blood cells within the right medial midfoot, similar distribution compared to prior 3 phase bone scan. Findings may be seen in the setting of osteomyelitis, consider MRI right foot
for more precise anatomic localization.
01/02/2025 Right foot x-ray: No evidence of acute osseous injury. No evidence of bone destruction. Soft tissue swelling of the forefoot. Soft tissue ulceration of the plantar midfoot versus overlying dressing as described above. Moderate dorsal
midfoot osteoarthritis.
--- NOTE | 2025-01-09 16:01 | CM ---
F/U: KARLOS Salgado spoke to / patient about their SNF choices. Chose: [facility], [facility], and [facility]- no particular order. Referrals sent and will reach out to see if these facility accept this insurance via liaison today, because
may call the back for more options. PLAN: SNF when ready.
[2025-01-09 16:23] VITALS: BP 141/48
[2025-01-09 16:47] LABS: Glucose - Point of Care 160 mg/dl (70-99)
[2025-01-09] MEDS: DULCOLAX 10 MG RECTAL (17:35)
[2025-01-09] MEDS: SENOKOT-S 1 TABLET PO (19:50)
[2025-01-09 20:29] LABS: Glucose - Point of Care 123 mg/dl (70-99)
[2025-01-09] MEDS: ASPIR LOW (ENTERIC COATED) 81 MG PO (22:12)
[2025-01-09] MEDS: LIPITOR 20 MG PO (22:14)
[2025-01-09] MEDS: NORVASC 10 MG PO (22:14)
[2025-01-09] MEDS: XALATAN OPHTHALMIC SOLUTION 1 DROP LEFT EYE (22:14)
[2025-01-09] MEDS: VITAMIN D3 (cholecalciferol) 50 MCG PO (22:14)
[2025-01-09 23:28] VITALS: BP 137/58
[2025-01-10] MEDS: STERILE WATER FOR INJECTION 10 ML IV ×2 (02:01→14:50)
[2025-01-10] MEDS: MAXIPIME 2000 MG IV ×2 (02:01→14:50)
[2025-01-10 06:00] VITALS: BMI 42.1
[2025-01-10] MEDS: TYLENOL 650 MG PO ×4 (06:21→20:47)
[2025-01-10 06:23] LABS: Hematocrit 32.8 % (39.0-52.0); Hemoglobin 11.3 g/dL (13.0-18.0); Mean Corp Hgb Conc. 34.5 g/dL (33.0-37.0); Mean Corpuscular Volume 88.9 fL (80.0-94.0); Platelet Count 218 10^3/uL (130-400); Red Cell Dist. Width 13.2 % (11.5-14.5)
[2025-01-10 07:03] LABS: Blood Urea Nitrogen 45 mg/dl (9-20); Calcium 9.0 mg/dl (8.4-10.2); Carbon Dioxide 24 mmol/L (22-30); Chloride 104 mmol/L (98-107); Estimated Creatinine Clearance 74 ml/min; Glucose 154 mg/dl (70-99); Potassium 4.7 mmol/L (3.5-5.1); Sodium 132 mmol/L (135-145); eGFR > 60.00
[2025-01-10 07:10] VITALS: BP 162/61
[2025-01-10 07:49] VITALS: BP 162/61
[2025-01-10 08:06] LABS: Glucose - Point of Care 163 mg/dl (70-99)
[2025-01-10] MEDS: NOVOLOG FLEXPEN-MODERATE RESISTANCE 1 UNITS SC ×2 (09:04→12:14)
[2025-01-10] MEDS: APRESOLINE 50 MG PO ×2 (09:04→20:48)
[2025-01-10] MEDS: NOVOLOG FLEXPEN 10 UNITS SC ×3 (09:04→17:52)
[2025-01-10] MEDS: PLAVIX 75 MG PO (09:05)
[2025-01-10] MEDS: LASIX 40 MG PO ×2 (09:05→16:07)
[2025-01-10] MEDS: COREG 12.5 MG PO ×2 (09:05→20:48)
[2025-01-10] MEDS: HEPARIN 5000 UNITS SC ×3 (09:05→23:41)
[2025-01-10] MEDS: LANTUS 0.3 UNITS SC ×2 (09:08→20:43)
[2025-01-10] MEDS: TRUSOPT 2% OPHTHALMIC SOLUTION 1 DROP LEFT EYE ×2 (09:10→20:47)
[2025-01-10] MEDS: BACTROBAN 2% OINTMENT 1 APPLIC TOPICAL (09:10)
--- NOTE | 2025-01-10 10:54 | W.PN.HOSP.TC ---
Addendum entered and electronically signed by Lucero Arthur MD 01/10/25 10:58:
correction to below:
Vancomycin changed to Daptomycin for enterococcal coverage.
VANESSA has resolved
Creatinine 1.6 -> 1.1 today
Original Note:
Today's Communication/Plan
-
see A/P
Assessment / Plan
Assessment / Plan
A/P:
# Right foot osteomyelitis
# right foot ulcer due to critical limb ischemia and diabetes mellitus
Status post vascular intervention by vascular surgery
Status post bone biopsy on 01/04, culture growing Pseudomonas aeruginosa and Enterococcus
Follow final path report
Continue cefepime for Pseudomonas
Continue Vancomycin for enterococcal coverage.
Pt would need keno terminal operator Abx 6 weeks for osteomyelitis. Picc placed
ID to help provide Abx script for outpt
# Acute respiratory insufficiency due to heart failure and atelectasis
on RA
Continue diuresis, currently on PO Lasix 40 mg BID
Incentive spirometry
Bronchodilators as needed
Oxygen as needed
Increase activity as tolerated
# Acute on chronic HFmrEF
Continue oral Lasix 40 mg BID
Continue to hold rest of GDMT until renal function normalizes or improves
continue beta-blockers.
Continue to hold FLORES inhibitor, Aldactone, and SGLT2 inhibitor.
# Hyponatremia
Sodium 131 today
Continue oral diuretic and diabetic regimen
Monitor sodium
# VANESSA
Creatinine 1.6 -> 1.5 today
Nephrology on board, okay to cont diuretics and recommend to continue holding RAAS
Kidney ultrasound unremarkable
# IDDM
Adjust diabetic regimen closer to his home regimen and needs better control
Cont glargine, adjust to 30 units BID. Cont aspart 10 units before each meal. At home he uses 60 units of long-acting and 10 to 15 units of short acting before each meal
Continue insulin sliding scale
Hemoglobin A1c 8.2
Diabetic diet
# CAD/PVD
Continue antiplatelets and statin
# TAVR
Serial echo as outpatient
# Hypertension
Continue home antihypertensives
# Hyperlipidemia
Continue home statin
DVT prophylaxis: Heparin SQ
CODE STATUS: DNR
Dispo: SNF to cont IV Abx
DW CM
Anticipated Discharge: Within 24 hours
Subjective/Interval History
-
Date of Service: January 10, 2025
Objective Data
-
Labs:
Laboratory Results
01/10/25
06:01
WBC 11.4 H
Hgb 11.3 L
Hct 32.8 L
Plt Count 218
Sodium 132 L
Potassium 4.7
Chloride 104
Carbon Dioxide 24
BUN 45 H
Creatinine 1.1
Glucose 154 H
Calcium 9.0
Vital Signs:
Vital Signs
Temp Pulse Resp BP Pulse Ox
36.7 C 71 14 162/61 94
01/10/25 07:10 01/10/25 07:10 01/10/25 07:10 01/10/25 07:10 01/10/25 07:10
I&O
01/09/25 01/10/25 01/11/25
06:59 06:59 06:59
Intake Total 1500 / 1500 1568 / 1568 480 / 480
Output Total 300 / 300 425 / 425
Balance 1200 / 1200 1143 / 1143 480 / 480
Review of Systems
-
History Source: Patient
All other systems: Reviewed and negative
Physical Exam
-
General: Well Developed, Well Nourished, No Apparent Distress, Comfortable, Conversant and Morbidly Obese
HEENT: Normocephalic, Atraumatic and Moist Mucous Membranes
Respiratory: Clear to Auscultation and Non Labored Respirations; Negative Accessory Resp Muscle Use
Cardiac: Regular Rhythm and S1/S2
GI: Soft, Nontender, Nondistended and Normal Bowel Sounds
Rectal: Deferred by Provider
Genito-urinary: Deferred by me
Musculoskeletal: No Clubbing, No Cyanosis and No Edema
Skin: Warm, Dry and Other (R foot in wound dressing)
Neuro: Awake, Alert, Oriented and AO x 3
Psych: Calm and Intact Judgement/Insight
Data Reviewed
-
Labs: Labs Reviewed by me
--- NOTE | 2025-01-10 11:05 | W.PN.ID1 ---
Date of Service
Date of Service: January 10, 2025
Today's Communication
Continue antibiotics. See below�
Assessment / Plan
Suspected right foot osteomyelitis
Charcot arthropathy of right foot
Non-Healing (R) Foot Wound
VANESSA - improved; back to baseline cr 1.1
ASCVD (CAD, PAD, Carotid Disease)
Chronic HFmrEF
Aortic Stenosis s/p TAVR
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
Morbid Obesity due to excess calories
Allergy to penicillin - rash
Recommendations:
Pt s/p deep bx and culture 01/05
01/04 wound culture: Pseudomonas
01/04 bone culture (cunieform): Pseudomonas, Enterococcus
01/04 pathology without osteomyelitis
01/02 superficial culture Pseudomonas, Enterococcus,
Continue cefepime 2 gm Iv q12hrs for Pseudomonas
Change vancomycin to Daptomycin 1 gm IV q.24 hours.
PICC placed.
ABX prescription placed on paper chart.
ESR 41, CRP 25
Will follow weekly labs including BMP, CBC with differential, ESR, CRP and serum CK.
Tight glucose control for optimal leukocyte function.
����������������������������������������������������������
Chief Complaint
-: Other (osteomyelitis, diabetic foot infection)
Subjective / Review of Systems
Review of Systems: No Fever and No Chills
Vital Signs / Physical Exam
Vital Signs
Vital Signs
Temp Pulse Resp BP Pulse Ox
98.0 F 71 14 162/61 94
01/10/25 07:10 01/10/25 07:10 01/10/25 07:10 01/10/25 07:10 01/10/25 07:10
Physical Exam
Constitutional: No Acute Distress and Comfortable
Eyes: Sclera Anicteric
Cardiovascular: S1/S2; Negative S3/S4
Pulmonary: Clear and Non Labored
Gastrointestinal: Non Distended
Extremities: Edema
Skin: Warm and Dry; Negative Rash or Jaundice
Wound: Other (Right foot wound with dressing in place. Dressing clean dry intact.)
Neurological: Awake and Alert
Psychological: Calm
Objective Data
Lab Data
Lab Results
01/10/25 06:01
01/10/25 06:01
ESR 41 mm/hour (0-20) H 01/05/25 05:35
PT 13.6 Sec (11.4-14.6) 01/02/25 19:59
INR 1.01 01/02/25 19:59
APTT 22.6 Sec (23.4-35.0) L 01/02/25 19:59
Estimated Creat Clear 74 ml/min 01/10/25 06:01
Total Bilirubin Cancelled 01/02/25 19:59
AST Cancelled 01/02/25 19:59
ALT Cancelled 01/02/25 19:59
Alkaline Phosphatase Cancelled 01/02/25 19:59
C-Reactive Protein 24.70 mg/L (0.0-10.00) H 01/05/25 05:35
Most recent labs reviewed.
Micro Results:
01/05/25 10:53 Tissue Culture - Final
Foot - Right Pseudomonas aeruginosa
Enterococcus faecalis
Gram Stain - Final
01/04/25 Unknown Wound Culture - Final
Foot - Right Pseudomonas aeruginosa
Gram Stain - Final
01/04/25 Unknown Anaerobic Culture - Final
Foot - Right NO ANAEROBES ISOLATED
01/02/25 19:59 Wound Culture - Final
Foot - Right Pseudomonas aeruginosa
Enterococcus faecalis
Gram Stain - Final
Tissue Culture (right foot) Final 01/05/2025
Few Pseudomonas aeruginosa
Rare Enterococcus faecalis
Organism 1 Pseudomonas aeruginosa
Organism 2 Enterococcus faecalis
P.AERU ENTFCL
M.I.C. RX M.I.C. RX
--------- --- --------- ---
Ampicillin <=2 S
Aztreonam <=4 S
Cefepime <=2 S
Ceftazidime <=1 S
Ciprofloxacin <=0.25 S
Gentamicin Synergy Screen <=500 S
Meropenem <=1 S
Piperacillin/Tazobactam <=8 S
Tobramycin <=2 S
Vancomycin 2 S
Imaging:
12/29/2024 Labeled WBC scan : Accumulation of radiolabeled white blood cells within the right medial midfoot, similar distribution compared to prior 3 phase bone scan. Findings may be seen in the setting of osteomyelitis, consider MRI right foot
for more precise anatomic localization.
01/02/2025 Right foot x-ray: No evidence of acute osseous injury. No evidence of bone destruction. Soft tissue swelling of the forefoot. Soft tissue ulceration of the plantar midfoot versus overlying dressing as described above. Moderate dorsal
midfoot osteoarthritis.
Pathology:
01/04/2025 Bone, cuneiform, right foot: fragments of bone with mild reactive changes. Osteomyelitis not identified in specimen.
--- NOTE | 2025-01-10 11:43 | W.PN.NEPH.PH ---
Today's Communication / Plan
-
VANESSA resolved
We will sign off
Assessment/Plan
-
IMP:
Right foot osteomyelitis + right foot ulcer due to critical limb ischemia Status post vascular procedure 01/03
VANESSA
mild hyponatremia
Diabetes mellitus type 2
Chronic HFmrEF
CAD/PVD
TAVR
Hypertension
Hyperlipidemia
Morbid obesity
Plan:
Creatinine now at baseline 1.1
BP stable
off ACEI/aldactone for now
Can add back FLORES inhibitor tomorrow if blood pressure remains elevated
We will sign off
-
-
Date of Service: January 10, 2025
CC / HPI / ROS
-
Chief Complaint:
Acute kidney injury
History of Present Illness:
VANESSA/Cr stable 1.1
Na stable low 132 on Lasix
BP up now
Review of Systems:
No chest pain or shortness of breath
Noted edema
Nonoliguric
Labs
-
Labs:
WBC 11.4 10^3/uL (4.8-10.8) H 01/10/25 06:01
RBC 3.69 10^6/uL (4.70-6.10) L 01/10/25 06:01
Hgb 11.3 g/dL (13.0-18.0) L 01/10/25 06:01
Hct 32.8 % (39.0-52.0) L 01/10/25 06:01
Plt Count 218 10^3/uL (130-400) 01/10/25 06:01
Sodium 132 mmol/L (135-145) L 01/10/25 06:01
Potassium 4.7 mmol/L (3.5-5.1) 01/10/25 06:01
Chloride 104 mmol/L (98-107) 01/10/25 06:01
Carbon Dioxide 24 mmol/L (22-30) 01/10/25 06:01
BUN 45 mg/dl (9-20) H 01/10/25 06:01
Creatinine 1.1 mg/dL (0.7-1.3) 01/10/25 06:01
eGFR > 60.00 01/10/25 06:01
Glucose 154 mg/dl (70-99) H 01/10/25 06:01
Calcium 9.0 mg/dl (8.4-10.2) 01/10/25 06:01
Rwm-P-Jkhaawstifr Pept Cancelled 01/06/25 08:34
Albumin Cancelled 01/02/25 19:59
Physical Exam
-
Vital Signs:
Vital Signs
Temp Pulse Resp BP Pulse Ox
98.0 F 71 14 162/61 94
01/10/25 07:10 01/10/25 07:10 01/10/25 07:10 01/10/25 07:10 01/10/25 07:10
Cardiovascular:: Regular rate and rhythm
Respiratory:: Bilateral: Coarse
Lung Excursion:: Normal
Abdomen:: Nontender and Soft
Bowel Sounds:: Normal
Extremity Edema:: +1: Bilateral:
[2025-01-10 12:14] LABS: Glucose - Point of Care 198 mg/dl (70-99)
[2025-01-10] MEDS: CUBICIN 20 MG IV (12:15)
--- NOTE | 2025-01-10 13:46 | CM ---
CM following re: discharge planning.
Reviewed pt's chart, met with pt and spoke to pt's spouse over the phone to update on discharge plan progress.
According to pt most likely will be ready for discharge tomorrow. Both pt and his spouse are aware, expressed their agreement.
IMM reviewed, placed on chart, pt has a copy.
Both pt and his spouse are aware that [facility] and [facility] offered a bed and they preferred [facility].
CM spoke to [facility] liaison and she confirmed that pt will be accepted for admission tomorrow or when medically stable.
CM initiated an auth from [place] and [facility] for SNF level of care at [facility], pending auth: [id number]
Requested pt's clinical with updated PT/OT notes faxed to [facility] [phone]
Awaiting for an auth.
[facility] to arrange ambulance transport BLS. PMNC completed and left on the chart.
[facility] nursing report: [phone]
Discharge instructions fax: [phone]
D/C plan: [facility] tomorrow. Awaiting for an auth.
[2025-01-10 15:00] VITALS: BP 139/58
[2025-01-10 15:35] VITALS: BP 139/58
--- NOTE | 2025-01-10 16:44 | PTCARENOTE ---
Patient with LLE compression device on. Compression device from ankle to knee. Device removed and FLORES wrap applied from toes to knee, LLE elevated. Patient instructed to keep foot elevated. Patient verbalized understanding.
[2025-01-10 16:54] LABS: Glucose - Point of Care 208 mg/dl (70-99)
[2025-01-10] MEDS: NOVOLOG FLEXPEN-MODERATE RESISTANCE 3 UNITS SC (17:52)
[2025-01-10 20:47] LABS: Glucose - Point of Care 173 mg/dl (70-99)
[2025-01-10] MEDS: ASPIR LOW (ENTERIC COATED) 81 MG PO (22:28)
[2025-01-10] MEDS: XALATAN OPHTHALMIC SOLUTION 1 DROP LEFT EYE (22:29)
[2025-01-10] MEDS: VITAMIN D3 (cholecalciferol) 50 MCG PO (22:29)
[2025-01-10] MEDS: NORVASC 10 MG PO (22:29)
[2025-01-10 23:07] VITALS: BP 135/57
[2025-01-11] MEDS: MAXIPIME 2000 MG IV ×2 (02:10→13:20)
[2025-01-11] MEDS: FLUSH (NSS) 1 FLUSH IV (02:10)
[2025-01-11] MEDS: STERILE WATER FOR INJECTION 10 ML IV ×2 (02:10→13:20)
[2025-01-11] MEDS: TYLENOL 650 MG PO ×5 (02:20→22:29)
[2025-01-11 05:53] LABS: Hematocrit 35.7 % (39.0-52.0); Hemoglobin 12.0 g/dL (13.0-18.0); Mean Corp Hgb Conc. 33.6 g/dL (33.0-37.0); Mean Corpuscular Volume 90.8 fL (80.0-94.0); Platelet Count 242 10^3/uL (130-400); Red Cell Dist. Width 13.2 % (11.5-14.5)
[2025-01-11 06:00] VITALS: BMI 41.9
[2025-01-11 06:16] LABS: Blood Urea Nitrogen 47 mg/dl (9-20); Calcium 9.5 mg/dl (8.4-10.2); Carbon Dioxide 25 mmol/L (22-30); Chloride 105 mmol/L (98-107); Estimated Creatinine Clearance 58 ml/min; Glucose 133 mg/dl (70-99); Potassium 4.7 mmol/L (3.5-5.1); Sodium 134 mmol/L (135-145); eGFR 50.81
[2025-01-11 07:00] VITALS: BP 143/57
[2025-01-11 07:30] LABS: Glucose - Point of Care 134 mg/dl (70-99)
[2025-01-11] MEDS: NOVOLOG FLEXPEN-MODERATE RESISTANCE SC (08:54)
[2025-01-11] MEDS: LANTUS 0.3 UNITS SC ×2 (09:07→20:35)
[2025-01-11] MEDS: PLAVIX 75 MG PO (09:08)
[2025-01-11] MEDS: LASIX 40 MG PO ×2 (09:08→17:32)
[2025-01-11] MEDS: APRESOLINE 50 MG PO ×2 (09:08→20:34)
[2025-01-11] MEDS: NOVOLOG FLEXPEN 10 UNITS SC ×3 (09:09→17:22)
[2025-01-11] MEDS: TRUSOPT 2% OPHTHALMIC SOLUTION 1 DROP LEFT EYE ×2 (09:09→20:35)
[2025-01-11] MEDS: COREG 12.5 MG PO ×2 (09:10→20:35)
[2025-01-11] MEDS: BACTROBAN 2% OINTMENT 1 APPLIC TOPICAL (09:10)
[2025-01-11] MEDS: HEPARIN 5000 UNITS SC ×2 (09:11→17:21)
--- NOTE | 2025-01-11 12:07 | W.PN.HOSP.TC ---
Today's Communication/Plan
-
see A/P
Dispo planning to SNF
Assessment / Plan
Assessment / Plan
A/P:
# Right foot osteomyelitis
# right foot ulcer due to critical limb ischemia and diabetes mellitus
Status post vascular intervention by vascular surgery
Status post bone biopsy on 01/04, culture growing Pseudomonas aeruginosa and Enterococcus
Follow final path report
Continue cefepime for Pseudomonas
Vancomycin -> Daptomycin 1 gm IV q.24 hours for enterococcal coverage.
Pt would need termite treater Abx 6 weeks for osteomyelitis. Picc placed
ID recc weekly labs including BMP, CBC with differential, ESR, CRP and serum CK.
# Acute respiratory insufficiency due to heart failure and atelectasis
on RA
Continue diuresis, currently on PO Lasix 40 mg BID
Incentive spirometry
Bronchodilators as needed
Oxygen as needed
Increase activity as tolerated
# Acute on chronic HFmrEF
Continue oral Lasix 40 mg BID
Continue to hold rest of GDMT until renal function normalizes or improves
continue beta-blockers.
Continue to hold FLORES inhibitor, Aldactone, and SGLT2 inhibitor.
# Hyponatremia
Sodium 134 today
Continue oral diuretic and diabetic regimen
Monitor sodium
# VANESSA
Creatinine 1.6 -> 1.4 today
Nephrology on board, okay to cont diuretics and recommend to continue holding RAAS
Kidney ultrasound unremarkable
# IDDM
Adjust diabetic regimen closer to his home regimen and needs better control
Cont glargine, adjusted to 30 units BID. Cont aspart 10 units before each meal. At home he uses 60 units of long-acting and 10 to 15 units of short acting before each meal
Continue insulin sliding scale
Hemoglobin A1c 8.2
Diabetic diet
# CAD/PVD
Continue antiplatelets and statin
# TAVR
Serial echo as outpatient
# Hypertension
Continue home antihypertensives
# Hyperlipidemia
Continue home statin
DVT prophylaxis: Heparin SQ
CODE STATUS: DNR
Dispo: SNF to cont IV Abx
DW CM
Anticipated Discharge: Within 24 hours
Subjective/Interval History
-
Date of Service: January 11, 2025
Objective Data
-
Labs:
Laboratory Results
01/11/25
05:15
WBC 8.8
Hgb 12.0 L
Hct 35.7 L
Plt Count 242
Sodium 134 L
Potassium 4.7
Chloride 105
Carbon Dioxide 25
BUN 47 H
Creatinine 1.4 H
Glucose 133 H
Calcium 9.5
Vital Signs:
Vital Signs
Temp Pulse Resp BP Pulse Ox
36.4 C 73 16 143/57 98
01/11/25 07:00 01/11/25 07:00 01/11/25 07:00 01/11/25 07:00 01/11/25 07:00
I&O
01/10/25 01/11/25 01/12/25
06:59 06:59 06:59
Intake Total 1568 / 1568 480 / 480
Output Total 425 / 425 750 / 750
Balance 1143 / 1143 -270 / -270
Review of Systems
-
History Source: Patient
All other systems: Reviewed and negative
Physical Exam
-
General: Well Developed, Well Nourished, No Apparent Distress, Comfortable, Conversant and Morbidly Obese
HEENT: Normocephalic, Atraumatic and Moist Mucous Membranes
Respiratory: Clear to Auscultation and Non Labored Respirations; Negative Accessory Resp Muscle Use
Cardiac: Regular Rhythm and S1/S2
GI: Soft, Nontender, Nondistended and Normal Bowel Sounds
Rectal: Deferred by Provider
Genito-urinary: Deferred by me
Musculoskeletal: No Clubbing, No Cyanosis and No Edema
Skin: Warm, Dry and Other (R foot in wound dressing)
Neuro: Awake, Alert, Oriented and AO x 3
Psych: Calm and Intact Judgement/Insight
Data Reviewed
-
Labs: Labs Reviewed by me
[2025-01-11 12:13] LABS: Glucose - Point of Care 158 mg/dl (70-99)
[2025-01-11] MEDS: NOVOLOG FLEXPEN-MODERATE RESISTANCE 1 UNITS SC (13:19)
[2025-01-11] MEDS: CUBICIN 20 MG IV (13:22)
[2025-01-11 15:05] VITALS: BP 141/52
[2025-01-11 16:35] LABS: Glucose - Point of Care 211 mg/dl (70-99)
[2025-01-11] MEDS: NOVOLOG FLEXPEN-MODERATE RESISTANCE 3 UNITS SC (17:21)
[2025-01-11 20:35] LABS: Glucose - Point of Care 191 mg/dl (70-99)
[2025-01-11 22:07] LABS: Glucose - Point of Care 152 mg/dl (70-99)
[2025-01-11] MEDS: XALATAN OPHTHALMIC SOLUTION 1 DROP LEFT EYE (22:29)
[2025-01-11] MEDS: ASPIR LOW (ENTERIC COATED) 81 MG PO (22:29)
[2025-01-11] MEDS: VITAMIN D3 (cholecalciferol) 50 MCG PO (22:29)
[2025-01-11] MEDS: NORVASC 10 MG PO (22:29)
[2025-01-11 23:05] VITALS: BP 143/58
[2025-01-12] MEDS: FLUSH (NSS) 2 FLUSH IV (02:10)
[2025-01-12] MEDS: MAXIPIME 2000 MG IV (02:10)
[2025-01-12] MEDS: STERILE WATER FOR INJECTION 10 ML IV (02:10)
[2025-01-12] MEDS: TYLENOL 650 MG PO ×3 (02:15→10:46)
[2025-01-12 05:41] LABS: Hematocrit 36.6 % (39.0-52.0); Hemoglobin 12.0 g/dL (13.0-18.0); Mean Corp Hgb Conc. 32.8 g/dL (33.0-37.0); Mean Corpuscular Volume 90.6 fL (80.0-94.0); Platelet Count 256 10^3/uL (130-400); Red Cell Dist. Width 13.3 % (11.5-14.5)
[2025-01-12 05:55] LABS: Blood Urea Nitrogen 48 mg/dl (9-20); Calcium 9.8 mg/dl (8.4-10.2); Carbon Dioxide 24 mmol/L (22-30); Chloride 107 mmol/L (98-107); Estimated Creatinine Clearance 58 ml/min; Glucose 122 mg/dl (70-99); Potassium 4.6 mmol/L (3.5-5.1); Sodium 136 mmol/L (135-145); eGFR 50.81
[2025-01-12 07:12] LABS: Glucose - Point of Care 127 mg/dl (70-99)
[2025-01-12] MEDS: NOVOLOG FLEXPEN-MODERATE RESISTANCE SC (07:13)
[2025-01-12 07:25] VITALS: BP 125/49
[2025-01-12] MEDS: APRESOLINE 50 MG PO (08:33)
[2025-01-12] MEDS: LASIX 40 MG PO (08:33)
[2025-01-12] MEDS: COREG 12.5 MG PO (08:33)
[2025-01-12] MEDS: PLAVIX 75 MG PO (08:33)
[2025-01-12] MEDS: NOVOLOG FLEXPEN SC (08:33)
[2025-01-12] MEDS: HEPARIN 5000 UNITS SC ×2 (08:33)
[2025-01-12] MEDS: LANTUS 0.3 UNITS SC (08:34)
[2025-01-12] MEDS: TRUSOPT 2% OPHTHALMIC SOLUTION 1 DROP LEFT EYE (08:34)
--- NOTE | 2025-01-12 10:05 | W.PN.HOSP.TC ---
Today's Communication/Plan
-
dispo to SNF today
Assessment / Plan
Assessment / Plan
A/P:
# Right foot osteomyelitis
# right foot ulcer due to critical limb ischemia and diabetes mellitus
Status post vascular intervention by vascular surgery
Status post bone biopsy on 01/04, culture growing Pseudomonas aeruginosa and Enterococcus
Follow final path report
Continue cefepime for Pseudomonas
Vancomycin -> Daptomycin 1 gm IV q.24 hours for enterococcal coverage.
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 Picc placed
ID recc weekly labs including BMP, CBC with differential, ESR, CRP and serum CK.
# Acute respiratory insufficiency due to heart failure and atelectasis
on RA
Continue diuresis, currently on PO Lasix 40 mg BID
Incentive spirometry
Bronchodilators as needed
Oxygen as needed
Increase activity as tolerated
# Acute on chronic HFmrEF
Continue oral Lasix 40 mg BID
Continue to hold rest of GDMT until renal function normalizes or improves
continue beta-blockers.
Continue to hold FLORES inhibitor, Aldactone, and SGLT2 inhibitor due to elevated SCr. This can be readdressed outpt with card after completion of IV Antibiotics- pt informed.
# Hyponatremia, resolved
Sodium 136 today
Continue oral diuretic and diabetic regimen
Monitor sodium
# VANESSA
Creatinine 1.6 -> 1.4 today
Nephrology on board, okay to cont diuretics and recommend to continue holding RAAS
Kidney ultrasound unremarkable
# IDDM
Adjust diabetic regimen closer to his home regimen and needs better control
Cont glargine, adjusted to 30 units BID. Cont aspart 10 units before each meal. At home he uses 60 units of long-acting and 10 to 15 units of short acting before each meal
Continue insulin sliding scale
Hemoglobin A1c 8.2
Diabetic diet
# CAD/PVD
Continue antiplatelets and statin
# TAVR
Serial echo as outpatient
# Hypertension
Continue home antihypertensives
# Hyperlipidemia
Continue home statin
DVT prophylaxis: Heparin SQ
CODE STATUS: DNR
Dispo: SNF to cont IV Abx
DW CM
Anticipated Discharge: Today
Subjective/Interval History
-
Date of Service: January 12, 2025
Objective Data
-
Labs:
Laboratory Results
01/12/25
05:21
WBC 10.4
Hgb 12.0 L
Hct 36.6 L
Plt Count 256
Sodium 136
Potassium 4.6
Chloride 107
Carbon Dioxide 24
BUN 48 H
Creatinine 1.4 H
Glucose 122 H
Calcium 9.8
Vital Signs:
Vital Signs
Temp Pulse Resp BP Pulse Ox
36.5 C 73 16 125/49 98
01/12/25 07:25 01/12/25 07:25 01/12/25 07:25 01/12/25 07:25 01/12/25 07:25
I&O
01/11/25 01/12/25 01/13/25
06:59 06:59 06:59
Intake Total 480 / 480 1945 / 1945 240 / 240
Output Total 750 / 750 350 / 350
Balance -270 / -270 1595 / 1595 240 / 240
Review of Systems
-
History Source: Patient
All other systems: Reviewed and negative
Physical Exam
-
General: Well Developed, Well Nourished, No Apparent Distress, Comfortable, Conversant and Morbidly Obese
HEENT: Normocephalic, Atraumatic and Moist Mucous Membranes
Respiratory: Clear to Auscultation and Non Labored Respirations; Negative Accessory Resp Muscle Use
Cardiac: Regular Rhythm and S1/S2
GI: Soft, Nontender, Nondistended and Normal Bowel Sounds
Rectal: Deferred by Provider
Genito-urinary: Deferred by me
Musculoskeletal: No Clubbing, No Cyanosis and No Edema
Skin: Warm, Dry and Other (R foot in wound dressing)
Neuro: Awake, Alert, Oriented and AO x 3
Psych: Calm and Intact Judgement/Insight
Data Reviewed
-
Labs: Labs Reviewed by me
--- NOTE | 2025-01-12 10:48 | CM ---
CM following re: discharge planning.
Reviewed pt's chart, met with pt and spoke to pt's spouse over the phone to update on discharge plan progress.
Discharge order noted. Both pt and his spouse are aware, expressed their agreement.
IMM reviewed, placed on chart, pt has a copy.
Per [facility] support professional Yeimy pt is approved for SNF level of care at [facility] for 6 initial days from 01/11/25 till 01/16/25 with LCD and NRD 01/16/25. reviewed' Giulia Hope. .
CM spoke to [facility] liaison, auth information provided and she confirmed that pt will be accepted for admission today
[facility] to arrange ambulance transport BLS. PMNC completed and left on the chart.
[facility] nursing report: [phone]
Discharge instructions fax: [phone]
D/C plan: [facility].
[2025-01-12 11:57] LABS: Glucose - Point of Care 266 mg/dl (70-99)
--- NOTE | 2025-01-12 12:54 | W.PN.ID1 ---
Date of Service
Date of Service: January 12, 2025
Today's Communication
Continue abx.
Assessment / Plan
Suspected right foot osteomyelitis
Charcot arthropathy of right foot
Non-Healing, chronic (R) Foot Wound
VANESSA - improved; back to baseline cr 1.1
ASCVD (CAD, PAD, Carotid Disease)
Chronic HFmrEF
Aortic Stenosis s/p TAVR
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
Morbid Obesity due to excess calories
Allergy to penicillin - rash
Recommendations:
Pt s/p deep bx and culture 01/05
01/04 wound culture: Pseudomonas
01/04 bone culture (cunieform): Pseudomonas, Enterococcus
01/04 pathology without osteomyelitis
01/02 superficial culture Pseudomonas, Enterococcus,
Continue cefepime 2 gm Iv q12hrs for Pseudomonas
Continue daptomycin 1 gm IV q.24 hours.
PICC placed.
ABX prescription placed on paper chart.
ESR 41, CRP 25
Will follow weekly labs including BMP, CBC with differential, ESR, CRP and serum CK.
Tight glucose control for optimal leukocyte function.
Patient for potential dispo to SNF today.
����������������������������������������������������������
Chief Complaint
-: Other (osteomyelitis, diabetic foot infection)
Subjective / Review of Systems
Review of Systems: No Fever and No Chills
Vital Signs / Physical Exam
Vital Signs
Vital Signs
Temp Pulse Resp BP Pulse Ox
97.7 F 73 16 125/49 98
01/12/25 07:25 01/12/25 07:25 01/12/25 07:25 01/12/25 07:25 01/12/25 07:25
Physical Exam
Constitutional: No Acute Distress and Comfortable
Eyes: Sclera Anicteric
Cardiovascular: S1/S2; Negative S3/S4
Pulmonary: Clear and Non Labored
Gastrointestinal: Non Distended
Extremities: Edema
Skin: Warm and Dry; Negative Rash or Jaundice
Wound: Other (Right foot wound with dressing in place. Dressing clean dry intact.)
Neurological: Awake and Alert
Psychological: Calm
Objective Data
Lab Data
Lab Results
01/12/25 05:21
01/12/25 05:21
ESR 41 mm/hour (0-20) H 01/05/25 05:35
PT 13.6 Sec (11.4-14.6) 01/02/25 19:59
INR 1.01 01/02/25 19:59
APTT 22.6 Sec (23.4-35.0) L 01/02/25 19:59
Estimated Creat Clear 58 ml/min 01/12/25 05:21
Total Bilirubin Cancelled 01/02/25 19:59
AST Cancelled 01/02/25 19:59
ALT Cancelled 01/02/25 19:59
Alkaline Phosphatase Cancelled 01/02/25 19:59
C-Reactive Protein 24.70 mg/L (0.0-10.00) H 01/05/25 05:35
Most recent labs reviewed.
Micro Results:
01/05/25 10:53 Tissue Culture - Final
Foot - Right Pseudomonas aeruginosa
Enterococcus faecalis
Gram Stain - Final
01/04/25 Unknown Wound Culture - Final
Foot - Right Pseudomonas aeruginosa
Gram Stain - Final
01/04/25 Unknown Anaerobic Culture - Final
Foot - Right NO ANAEROBES ISOLATED
01/02/25 19:59 Wound Culture - Final
Foot - Right Pseudomonas aeruginosa
Enterococcus faecalis
Gram Stain - Final
Tissue Culture (right foot) Final 01/05/2025
Few Pseudomonas aeruginosa
Rare Enterococcus faecalis
Organism 1 Pseudomonas aeruginosa
Organism 2 Enterococcus faecalis
P.AERU ENTFCL
M.I.C. RX M.I.C. RX
--------- --- --------- ---
Ampicillin <=2 S
Aztreonam <=4 S
Cefepime <=2 S
Ceftazidime <=1 S
Ciprofloxacin <=0.25 S
Gentamicin Synergy Screen <=500 S
Meropenem <=1 S
Piperacillin/Tazobactam <=8 S
Tobramycin <=2 S
Vancomycin 2 S
Imaging:
12/29/2024 Labeled WBC scan : Accumulation of radiolabeled white blood cells within the right medial midfoot, similar distribution compared to prior 3 phase bone scan. Findings may be seen in the setting of osteomyelitis, consider MRI right foot
for more precise anatomic localization.
01/02/2025 Right foot x-ray: No evidence of acute osseous injury. No evidence of bone destruction. Soft tissue swelling of the forefoot. Soft tissue ulceration of the plantar midfoot versus overlying dressing as described above. Moderate dorsal
midfoot osteoarthritis.
Pathology:
01/04/2025 Bone, cuneiform, right foot: fragments of bone with mild reactive changes. Osteomyelitis not identified in specimen.
[2025-01-12] MEDS: NOVOLOG FLEXPEN 10 UNITS SC (12:59)
[2025-01-12] MEDS: NOVOLOG FLEXPEN-MODERATE RESISTANCE 5 UNITS SC (13:00)
[2025-01-12] MEDS: CUBICIN 20 MG IV (13:05)
[2025-01-12 13:18] VITALS: BP 165/68
--- NOTE | 2025-01-12 13:23 | W.DCSUMMARY ---
Discharge Summary
Discharge Data
Date of Admission: 01/02/25
Date of Discharge: 01/12/25
Total time spent discharging patient (in min): 40
-
Pending Results: No
Hospital Course
Principal Diagnosis:
Right foot ulcer due to critical limb ischemia and diabetes mellitus
Right foot osteomyelitis
Acute respiratory insufficiency due to heart failure and atelectasis
Acute on chronic HFmrEF
VANESSA
Chronic Diagnoses:�
IDDM. Adjusted glargine to 30 units BID. Continue aspart 10 units before each meal.
CAD/PVD. Continue antiplatelets and statin
TAVR
Hypertension
Hyperlipidemia
Consultations:�
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
Infectious disease
Procedures:�
Right leg critical limb ischemia status post right posterior tibial artery angioplasty and stent
Bone biopsy of right foot, grew Pseudomonas aeruginosa and Enterococcus
Clinical course:�
This is a 79-year-old male, with past medical history as stated above, who presented with right foot pain.
Problem 1:
Right foot pain due to ulcer (2/2 critical limb ischemia and diabetes mellitus) and right foot osteomyelitis.
He underwent right posterior tibial artery angioplasty and stent for the critical limb ischemia, followed by bone biopsy on 01/04.
The deep tissue culture grew Pseudomonas aeruginosa and Enterococcus.
He received IV antibiotics cefepime for Pseudomonas coverage, and vancomycin for Enterococcus coverage.
Vancomycin was subsequently changed to daptomycin per ID recommendation.
He was discharged to SNF to continue long-term antibiotics for 6 weeks for osteomyelitis via PICC line.
He can check weekly labs including BMP, CBC with differential, ESR, CRP and serum CK while on IV antibiotics.
Problem 2:
Acute respiratory insufficiency due to acute on chronic HFmrEF and atelectasis.
He was kept on oral Lasix 40 mg twice daily.
He has not needed O2 support.
He was continued with Coreg 12.5 mg twice daily, however his prior to admission lisinopril, Aldactone, Farxiga were held due to elevated serum creatinine.
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
Problem 3:
VANESSA.
His Creatinine improved from 1.6 to 1.4 on the day of discharge.
He was continue with oral Lasix, and as stated above, his prior to admission lisinopril, Aldactone, and Farxiga were held.
As for the rest of his medical problems, they were stable during his hospital stay.
Discharge Plan
-
Patient Disposition: Penitentiary/SNF
Discharge Diagnosis/Procedures: Right foot osteomyelitis;
Right foot ulcer due to critical limb ischemia (status post right posterior tibial artery angioplasty and stent) and diabetes mellitus;
bone biopsy from 01/04 grew Pseudomonas aeruginosa and Enterococcus
Condition: Fair
Diet: As tolerated and Diabetic, Carb Controlled
Activity: As tolerated
Driving Restrictions: Not until seen by your Dr
Blood Work: Check weekly labs including BMP, CBC with differential, ESR, CRP and serum CK while on IV antibiotics
Others Tests: Ultrasound appt: 02/02 @ 10am
Stand Alone Forms: Vascular Surg Discharge Instr
Referrals:
Celestino Tapia DO [Family Provider, Internal Medicine] - in less than 1 week
Raven Fontanez PA-C [Specified Professional Personl, Vascular Surgery] - 02/06/25 2:00 pm
Referral Note: Vascular surgery office follow up
Additional Discharge Medication Instructions: Your insulin Glargine has been changed to 30 units twice daily.
Take aspart insulin 10 units before each meal.
Continue cefepime for Pseudomonas and Daptomycin for enterococcal coverage.
IV antibiotics for 6 weeks total.
Continue to hold lisinopril, Aldactone, and Farxiga due to elevated creatinine. Follow up with boom operator to determine when to resume.
Hydralazine dose adjusted from 75 mg twice daily to 50 mg twice daily.
Prescriptions:
New
hydralazine 50 mg Tablet
50 mg PO BID Qty: 60 0RF
DAPTOmycin [Cubicin] 1000 MG
Syringe [Syringe-Pump] 0 ML
As Directed mls/hr IV Q24H
Ordered By: Lucero Arthur MD
Last Taken: 01/12/25 13:05 20 mls
cefepime 2 gram Recon Soln
2,000 mg IV Q12H Qty: 10 0RF
insulin aspart U-100 100 unit/mL (3 mL) Insulin Pen
10 unit SC AC Qty: 15 0RF
Continued
coenzyme Q10 [Co Q-10] 200 MG capsule
200 mg PO HS
clopidogrel 75 MG tablet
75 mg PO DAILY
amlodipine 10 MG tablet
10 mg PO HS
cholecalciferol (vitamin D3) 2,000 UNITS tablet
2,000 units PO HS
furosemide 40 mg Tablet
40 mg PO BID AT 0800,1600 Qty: 60 0RF
carvedilol 12.5 mg Tablet
12.5 mg PO BID
aspirin 81 mg Tablet,Delayed Release (Dr/Ec)
81 mg PO HS
multivitamin Tablet
1 tab PO DAILY
latanoprost 0.005 % Drops
1 drp LEFT EYE HS
dorzolamide 2 % Drops
1 drp LEFT EYE BID
insulin lispro [Humalog KwikPen Insulin] 100 unit/mL Insulin Pen
1 sliding scale dose SC AC
Rx Instructions:
Patient endorses normally taking 10 units AC, but will take 15 units AC if he is eating a high-carb meal
pitavastatin calcium [Livalo] 4 mg Tablet
4 mg PO HS
Changed
insulin glargine U-300 conc [Toujeo Max U-300 SoloStar] 300 unit/mL (3 mL) Insulin Pen
30 unit SC BID Qty: 0 0RF
Held
lisinopril 40 mg Tablet
40 mg PO HS
Hold Instructions: Resume on 02/23/25. until further directed by your boom operator
spironolactone 25 mg Tablet
25 mg PO DAILY 30 Days Qty: 30 0RF
Hold Instructions: Resume on 02/23/25. until further directed by your boom operator
dapagliflozin propanediol [Farxiga] 10 mg Tablet
10 mg PO HS
Hold Instructions: Resume on 02/23/25. until further directed by your boom operator
Discontinued
hydralazine 25 mg Tablet
75 mg PO BID 30 Days Qty: 180 0RF
Discharge Orders:
Discharge Patient (As Directed); Ordered 01/12/25
Ordered By: Lucero Arthur
Discharge Date and Time
Print Language: BURUNDIAN
[2025-01-12] MEDS: BACTROBAN 2% OINTMENT TOPICAL (14:11)
== END 2025-01-12 13:20 | DRG 622 ==
LOC: 2 SOUTH 22:05
PROVIDERS: Hospitalist; Internal Medicine Infectious Disease; Nurse Practitioner; Registered Nurse; Specialist; Surgery Vascular Surgery; ADMITTING PHYSICIAN Hospitalist; ATTENDING PHYSICIAN Internal Medicine; CONSULT PHYSICIAN Internal Medicine; CONSULT PHYSICIAN Internal Medicine Infectious Disease; CONSULT PHYSICIAN Podiatrist Foot Surgery; EMERGENCY PHYSICIAN Emergency Medicine; FAMILY PHYSICIAN Internal Medicine
PROC: B4101ZZ Fluoroscopy of Abdominal Aorta using Low Osmolar Contrast (ICD-10-PCS; 2025-01-03)
PROC: X27R3TA Dilation of Right Posterior Tibial Artery with Intraluminal Device, Everolimus-eluting Resorbable Scaffold(s), Percutaneous Approach, New Technology Group 10 (ICD-10-PCS; 2025-01-03)
PROC: B41C1ZZ Fluoroscopy of Pelvic Arteries using Low Osmolar Contrast (ICD-10-PCS; 2025-01-03)
PROC: B41F1ZZ Fluoroscopy of Right Lower Extremity Arteries using Low Osmolar Contrast (ICD-10-PCS; 2025-01-03)
PROC: B41G1ZZ Fluoroscopy of Left Lower Extremity Arteries using Low Osmolar Contrast (ICD-10-PCS; 2025-01-03)
PROC: 0QBL0ZX Excision of Right Tarsal, Open Approach, Diagnostic (ICD-10-PCS; 2025-01-04)
PROC: 0JBQ0ZZ Excision of Right Foot Subcutaneous Tissue and Fascia, Open Approach (ICD-10-PCS; 2025-01-04)
DX: E11.621 Type 2 diabetes mellitus with foot ulcer (principal); I50.23 Acute on chronic systolic (congestive) heart failure; J98.11 Atelectasis; M86.9 Osteomyelitis, unspecified; Z68.41 Body mass index [BMI] 40.0-44.9, adult; E87.1 Hypo-osmolality and hyponatremia; E11.69 Type 2 diabetes mellitus with other specified complication; L97.519 Non-pressure chronic ulcer of other part of right foot with unspecified severity; I70.221 Atherosclerosis of native arteries of extremities with rest pain, right leg; I11.0 Hypertensive heart disease with heart failure; N17.9 Acute kidney failure, unspecified; E11.42 Type 2 diabetes mellitus with diabetic polyneuropathy; I25.10 Atherosclerotic heart disease of native coronary artery without angina pectoris; Z79.899 Other long term (current) drug therapy; Z95.2 Presence of prosthetic heart valve; E66.01 Morbid (severe) obesity due to excess calories; Z88.0 Allergy status to penicillin; Z79.4 Long term (current) use of insulin; Z79.82 Long term (current) use of aspirin; Z88.1 Allergy status to other antibiotic agents; Z95.0 Presence of cardiac pacemaker; Z95.5 Presence of coronary angioplasty implant and graft; E11.51 Type 2 diabetes mellitus with diabetic peripheral angiopathy without gangrene; E11.610 Type 2 diabetes mellitus with diabetic neuropathic arthropathy; E78.00 Pure hypercholesterolemia, unspecified; I35.0 Nonrheumatic aortic (valve) stenosis; I48.91 Unspecified atrial fibrillation; Z66 Do not resuscitate; Z79.02 Long term (current) use of antithrombotics/antiplatelets
CPT/HCPCS: 71045; 73630; 76775; 80048; 80202; 81003; 81015; 82570; 82962; 83036; 83735; 84132; 84156; 84300; 85025; 85027; 85610; 85652; 85730; 86140; 87070; 87071; 87075; 87077; 87147; 87176; 87186; 87205; 88304; 88311; 93005; 94640; 97163; 97167; 97530; 97535; 99285; J0878

== ENCOUNTER 2025-01-17 10:25 | Inpatient (IN) | payer MEDICARE, SELFPAY ==
[2025-01-17] VITALS (12 sets, daily range): BP systolic 120–158; BP diastolic 46–65; BMI 42.6; BMI 39.4
[2025-01-17 04:17] LABS: Hematocrit 37.0 % (39.0-52.0); Hemoglobin 12.1 g/dL (13.0-18.0); Mean Corp Hgb Conc. 32.7 g/dL (33.0-37.0); Mean Corpuscular Volume 90.0 fL (80.0-94.0); Nucleated Red Blood Cells % 0 % (-); Platelet Count 230 10^3/uL (130-400); Red Cell Dist. Width 13.4 % (11.5-14.5)
[2025-01-17 04:21] LABS: INR 1.10; PT 14.3 Sec (11.4-14.6)
[2025-01-17 04:22] LABS: APTT 28.6 Sec (23.4-35.0)
[2025-01-17 04:28] LABS: ALT (SGPT) 46 U/L (0-50); AST (SGOT) 38 U/L (17-59); Albumin 3.4 g/dl (3.5-5.0); Alkaline Phosphatase 81 U/L (38-126); Blood Urea Nitrogen 22 mg/dl (9-20); Calcium 9.1 mg/dl (8.4-10.2); Carbon Dioxide 30 mmol/L (22-30); Chloride 104 mmol/L (98-107); Estimated Creatinine Clearance 68 ml/min; Glucose 145 mg/dl (70-99); Magnesium 2.0 mg/dl (1.6-2.3); Potassium 4.3 mmol/L (3.5-5.1); Sodium 138 mmol/L (135-145); Total Protein 6.1 g/dl (6.3-8.2); eGFR > 60.00
[2025-01-17 04:46] LABS: Troponin I 0.076 ng/ml
[2025-01-17 04:59] LABS: TSH 2.31 uIU/ml (0.47-4.68)
--- NOTE | 2025-01-17 07:27 | ED.GENMED ---
History of Present Illness
<Jorge Narayanan, DO - Last Filed: 01/19/25 03:20>
General
Chief Complaint: Breathing Problem
Source: patient, family and ambulance crew
Exam Limitations: none
Time Seen by Provider: 01/17/25 01:58
Nursing documentation reviewed up to this point in time: agreed with
History of Present Illness
History of Present Illness:
Note:
CHIEF COMPLAINT(S)
Shortness of breath, chills, postnasal drip, gurgling sensation, and diarrhea.
HISTORY OF PRESENT ILLNESS
The patient is an 79-year-old male with a history of recent hospitalization, presenting today with symptoms of shortness of breath, chills, postnasal drip, and a gurgling sensation in the throat. These symptoms began acutely and have progressively
worsened. The patient reports that his oxygen levels improve when supplemented, but he continues to experience significant respiratory distress, describing it as 'gasping for breath.' Additionally, the patient notes chills and slurred speech at
times, although he was not intubated previously. The patient has a post-surgical history involving left leg surgery with interventions extending to the right leg, due to which he now has significant groin pain.
During this hospitalization, the patient was evaluated by infectious disease specialists who identified two strains of infections. These infections were initially treated with an intravenous compound, which precipitated the onset of significant
symptoms, including severe diarrhea that started three days ago. The patient reports that the infectious disease specialists have since altered his antibiotic regimen. The patient has been experiencing increased fluid retention and swelling, which
may indicate exacerbation of underlying congestive heart failure, though he was originally admitted for a vascular procedure, not heart failure.
The patient was previously discharged to a rehabilitation facility and is currently on anticoagulation therapy for thrombosis prophylaxis. His cardiac enzymes are mildly elevated, though significantly less than previous episodes in March.
PHYSICAL EXAM
General: Alert and oriented, no acute distress noted at the time of examination.
Skin: Warm and dry to touch.
Head: Normocephalic, atraumatic.
Neck: Supple with trachea midline.
Eye, Ears, Nose, and Throat: Oral mucosa moist. Postnasal drip observed.
Cardiovascular: Normal peripheral perfusion, no edema noted during the examination.
Respiratory: Breath sounds reveal a gurgling sensation with respiratory distress. Respirations are non-labored with supplemental oxygen.
Gastrointestinal: Abdomen nondistended. Diarrheal episodes confirmed with last occurring three days ago.
Back: Normal range of motion, alignment appears normal.
Musculoskeletal: Normal range of motion, with pain noted in the groin near surgical sites.
Neurological: Alert and oriented to person, place, time, and situation. Mild occasional slurred speech noted. No focal neurological deficit observed.
Psychiatric: Cooperative, appropriate mood and affect.
PROBLEM LIST
Acute Problems:
- Acute shortness of breath
- Postnasal drip and gurgling sensation
- Chills
- Diarrhea following recent intravenous medication adjustments
Chronic Problems:
- Vascular disease involving lower extremities
- History of surgery at leg with groin pain
- Infections with multiple strains treated intravenously
PLAN
- Admit the patient for further evaluation and management of respiratory distress and infections.
- Continue monitoring cardiac enzyme levels given the mild elevation.
- Assess and manage fluid overload likely contributing to symptoms.
- Optimize the current antibiotic and fluid management regimen based on recent infectious disease specialist recommendations.
- Consult with cardiology and infectious disease teams for collaborative care.
DIFFERENTIAL DIAGNOSIS
The Differential Diagnosis includes, in no particular order and is not limited to:
- Congestive heart failure exacerbation
- Pulmonary infection or pneumonia
- Fluid overload or volume status mismanagement
- Postnasal drip leading to throat irritation
- Slurred speech related to cardiac or infectious etiology
- Recurrent or acute deep vein thrombosis
- Electrolyte imbalance secondary to diarrhea
- Adverse drug reaction
- Sepsis secondary to multiple infections
- Gastroenteritis from infectious or medication-related causes
Past History
<Jorge Narayanan DO - Last Filed: 01/19/25 03:20>
Past History
ED Past Medical History: Arrthythmia (Atrial fibrillation), CAD, CHF, HTN, Hypercholesterolemia, IDDM and Other (Diabetic neuropathy, morbid obesity, cholelithiasis)
ED Past Surgical History: Cardiac (Pacemaker) and Other (Patient has a history of having a cardiac stent, open reduction of a right elbow injury, right eye surgery, and left fifth metatarsal surgery. )
Social History
Tobacco: Non-smoker
Alcohol: None
Drug: None
Personal:
Living: with family
Employment: Retired
Family History
Family History: Diabetes and CAD
Phy Exam
<Jorge Narayanan DO - Last Filed: 01/19/25 03:20>
Physical Exam
Physical Exam:
.
Scores
<Jorge Narayanan, DO - Last Filed: 01/19/25 03:20>
Heart Failure Risk
HF Risk Score: 4
Admission Status: HIGH RISK 26.1% Consider SNF treatment or admission to hospital
<Felipa Solano, DO - Last Filed: 01/17/25 13:57>
Heart Failure Risk
Heart Failure Risk Score: Yes
History of Stroke or TIA: No
History of intubation for respiratory distress: No
Heart rate on ED arrival >/= 110: No
SaO2 <90% on arrival on room air: No
HR >/=110 during 3min walk test (or too ill to perform test): Yes
ECG has acute ischemic changes: No
Urea >/=12mmol/L (BUN 33.6mg/dL): No
Serum CO2>/=35mmol/L: No
Troponin I or T elevated to CO Level (0.4mg/dL): Yes
NT-proBNP >/=5,000ng/L (5,000pg/ml): No
HF Risk Score: 4
Admission Status: HIGH RISK 26.1% Consider SNF treatment or admission to hospital
Course
<Jorge Narayanan, DO - Last Filed: 01/19/25 03:20>
Orders/Labs/Results
Orders:
Orders
01/17/25 01:35
Cr Chest Portable [CR Chest Portable - 1 View] Urgent
Comment:
Reason For Exam: check PICC placement
Reason Study Needs to be Portable: Unable to Transport
01/17/25 03:57
Complete Blood Count/With Diff Urgent
Comprehensive Metabolic Panel Urgent
Magnesium Urgent
NT-proBNP Urgent
PTT Urgent
Prothrombin Time Urgent
TSH Urgent
Troponin I Urgent
01/17/25 05:41
CT Chest PE Study Urgent
Comment:
Reason For Exam: SOB
01/17/25 Breakfast
Sodium, 4 Gram (AMALIA)
At Your Request: Full Participation
01/17/25 08:42
Furosemide [Lasix] 40 mg IV NOW STA
01/17/25 10:05
Admit/Transfer Patient As Directed
Co-Sign Provider:
Level of Care: Inpatient admission
Assign to:: Medical/Surgical
Physician / Group: Hospitalist
Diagnosis: Shortness of breath
Reason for Hospitalization: Shortness of breath
Expected length of stay greater than two midnights?: Yes
ELOS- Estimated Length of Stay in days: 3
I certify the patient meets the requirements for IP care: Yes
01/17/25 10:06
PRN Pain Medication Management As Directed
May give lesser potent ordered pain med per pt: Yes
preference::
Protocol:: Medication orders for pain may be administered in a
manner that supports deferring to patient preference
when the pt is:
- Requesting an ordered lesser potent pain medication.
Least to most potent pain medications are defined
as: acetaminophen < NSAID < tramadol < opioids
(morphine, oxycodone, hydromorphone).
- Requesting a lesser dose of the same medication IF
ORDERED.
- Requesting a less intrusive route of administration
if both routes are prescribed by the provider (PO <
IV).
01/17/25 10:08
Code Status As Directed
Resuscitation Status: Do not resuscitate
Reached after discussion with pt or family/Healthcare POA: Yes
DNR Bracelet Application ONCE
01/17/25 11:24
Acetaminophen [Tylenol] 650 mg PO Q4HPRN PRN mild pain
Bisacodyl [Dulcolax] 10 mg RECTAL [id number] PRN
Docusate W/Senna [Senokot-S] 1 tablet PO BIDPRN PRN
Melatonin 3 mg PO HSPRN PRN sleep
Polyethylene Glycol Powder [Miralax] 17 grams PO DAILYPRN PRN
01/17/25 11:24
Add On- LAB Routine
Tests Added?: pro BNP
CARDIOLOGY CONSULT Routine
Consulting Provider: Vincent Brunner
Was physician already notified: Yes
INFECTIOUS DISEASE CONSULT Routine
Consulting Provider: Nina Babcock
Was physician already notified: Yes
Activity As Directed
Activity Level: Bedrest
Intake/ Output As Directed
Frequency: Per unit guidelines
Vital Signs As Directed
Frequency: Per unit guidelines
Weight As Directed
Frequency: Daily
O2 Therapy [RESP] Routine
Titrate/Wean O2 to maintain O2 sat greater than (%): 95
DX Deep Vein Thrombosis Video Routine
01/17/25 11:30
Insulin Aspart Pen [Novolog Flexpen] 10 units SC AC
01/17/25 14:30
Magnesium Routine
Troponin I Q6H
01/17/25 18:00
Enoxaparin Sodium [Lovenox] 40 mg SC QPM
01/17/25 19:52
Troponin I Q6H
01/17/25 20:00
Carvedilol [Coreg] 12.5 mg PO BID
Dorzolamide HCl [Trusopt 2% Ophthalmic Solution] 1 drop LEFT EYE BID
HydrALAZINE [Apresoline] 50 mg PO BID
insulin glargine U-300 conc [Toujeo Max U-300 SoloStar] 30 unit SC BID
01/17/25 22:00
Atorvastatin [Lipitor] 20 mg PO HS
Latanoprost [Xalatan Ophthalmic Solution] 1 drop LEFT EYE HS
coenzyme Q10 [Co Q-10] 200 mg PO HS
01/17/25 23:24
Troponin I Q6H
01/18/25 01:39
Complete Blood Count/With Diff IN AM
01/18/25 01:40
Basic Metabolic Panel IN AM
01/18/25 08:00
Amlodipine [Norvasc] 10 mg PO DAILY
Aspirin Low Dose EC [Aspir Low (Enteric Coated)] 81 mg PO DAILY
Cholecalciferol (Vitamin D3) [VITAMIN D3 (cholecalciferol)] 50 mcg PO DAILY
Clopidogrel Bisulfate [Plavix] 75 mg PO DAILY
Multivitamin [Theragran] 1 tablet PO DAILY
Abnormal Lab Results
01/17/25
03:57
RBC 4.11 L 10^6/uL
(4.70-6.10)
Hgb 12.1 L g/dL
(13.0-18.0)
Hct 37.0 L %
(39.0-52.0)
MCHC 32.7 L g/dL
(33.0-37.0)
Abs Immat Gran (auto) 0.1 H 10^3/uL
(0-0.05)
Absolute Neuts (auto) 6.6 H 10^3/uL
(1.4-6.5)
Absolute Monos (auto) 1.0 H 10^3/uL
(0.1-0.6)
Immature Gran % 1.2 H %
(0-0.5)
Lymphocytes % 19.0 L %
(20.5-51.1)
Monocytes % 9.5 H %
(1.7-9.3)
BUN 22 H mg/dl
(9-20)
Glucose 145 H mg/dl
(70-99)
Troponin I 0.076 H* ng/ml
Total Protein 6.1 L g/dl
(6.3-8.2)
Albumin 3.4 L g/dl
(3.5-5.0)
01/17/25 03:57
01/17/25 03:57
Vital Signs
Initial and Last Documented VS:
Initial Vital Signs
Temp Pulse Resp BP Pulse Ox
97.8 F 71 14 120/46 94
01/17/25 01:24 01/17/25 01:24 01/17/25 01:24 01/17/25 01:24 01/17/25 01:24
Last Documented Vital Signs
Temp Pulse Resp BP Pulse Ox
97.4 F 72 16 162/59 97
01/18/25 23:00 01/18/25 23:00 01/18/25 23:00 01/18/25 23:00 01/18/25 23:00
<Felipa Solano, DO - Last Filed: 01/17/25 13:57>
Orders/Labs/Results
Orders:
Orders
01/17/25 01:35
Cr Chest Portable [CR Chest Portable - 1 View] Urgent
Comment:
Reason For Exam: check PICC placement
Reason Study Needs to be Portable: Unable to Transport
01/17/25 03:57
Complete Blood Count/With Diff Urgent
Comprehensive Metabolic Panel Urgent
Magnesium Urgent
NT-proBNP Urgent
PTT Urgent
Prothrombin Time Urgent
TSH Urgent
Troponin I Urgent
01/17/25 05:41
CT Chest PE Study Urgent
Comment:
Reason For Exam: SOB
01/17/25 Breakfast
Sodium, 4 Gram (AMALIA)
At Your Request: Full Participation
01/17/25 08:42
Furosemide [Lasix] 40 mg IV NOW STA
01/17/25 10:05
Admit/Transfer Patient As Directed
Co-Sign Provider:
Level of Care: Inpatient admission
Assign to:: Medical/Surgical
Physician / Group: Hospitalist
Diagnosis: Shortness of breath
Reason for Hospitalization: Shortness of breath
Expected length of stay greater than two midnights?: Yes
ELOS- Estimated Length of Stay in days: 3
I certify the patient meets the requirements for IP care: Yes
01/17/25 10:06
PRN Pain Medication Management As Directed
May give lesser potent ordered pain med per pt: Yes
preference::
Protocol:: Medication orders for pain may be administered in a
manner that supports deferring to patient preference
when the pt is:
- Requesting an ordered lesser potent pain medication.
Least to most potent pain medications are defined
as: acetaminophen < NSAID < tramadol < opioids
(morphine, oxycodone, hydromorphone).
- Requesting a lesser dose of the same medication IF
ORDERED.
- Requesting a less intrusive route of administration
if both routes are prescribed by the provider (PO <
IV).
01/17/25 10:08
Code Status As Directed
Resuscitation Status: Do not resuscitate
Reached after discussion with pt or family/Healthcare POA: Yes
DNR Bracelet Application ONCE
01/17/25 11:24
Acetaminophen [Tylenol] 650 mg PO Q4HPRN PRN mild pain
Bisacodyl [Dulcolax] 10 mg RECTAL [id number] PRN
Docusate W/Senna [Senokot-S] 1 tablet PO BIDPRN PRN
Melatonin 3 mg PO HSPRN PRN sleep
Polyethylene Glycol Powder [Miralax] 17 grams PO DAILYPRN PRN
01/17/25 11:24
Add On- LAB Routine
Tests Added?: pro BNP
CARDIOLOGY CONSULT Routine
Consulting Provider: Vincent Brunner
Was physician already notified: Yes
INFECTIOUS DISEASE CONSULT Routine
Consulting Provider: Nina Babcock
Was physician already notified: Yes
Activity As Directed
Activity Level: Bedrest
Intake/ Output As Directed
Frequency: Per unit guidelines
Vital Signs As Directed
Frequency: Per unit guidelines
Weight As Directed
Frequency: Daily
O2 Therapy [RESP] Routine
Titrate/Wean O2 to maintain O2 sat greater than (%): 95
DX Deep Vein Thrombosis Video Routine
01/17/25 11:30
Insulin Aspart Pen [Novolog Flexpen] 10 units SC AC
01/17/25 14:30
Magnesium Routine
Troponin I Q6H
01/17/25 18:00
Enoxaparin Sodium [Lovenox] 40 mg SC QPM
01/17/25 19:52
Troponin I Q6H
01/17/25 20:00
Carvedilol [Coreg] 12.5 mg PO BID
Dorzolamide HCl [Trusopt 2% Ophthalmic Solution] 1 drop LEFT EYE BID
HydrALAZINE [Apresoline] 50 mg PO BID
insulin glargine U-300 conc [Toujeo Max U-300 SoloStar] 30 unit SC BID
01/17/25 22:00
Atorvastatin [Lipitor] 20 mg PO HS
Latanoprost [Xalatan Ophthalmic Solution] 1 drop LEFT EYE HS
coenzyme Q10 [Co Q-10] 200 mg PO HS
01/17/25 23:24
Troponin I Q6H
01/18/25 01:39
Complete Blood Count/With Diff IN AM
01/18/25 01:40
Basic Metabolic Panel IN AM
01/18/25 08:00
Amlodipine [Norvasc] 10 mg PO DAILY
Aspirin Low Dose EC [Aspir Low (Enteric Coated)] 81 mg PO DAILY
Cholecalciferol (Vitamin D3) [VITAMIN D3 (cholecalciferol)] 50 mcg PO DAILY
Clopidogrel Bisulfate [Plavix] 75 mg PO DAILY
Multivitamin [Theragran] 1 tablet PO DAILY
Abnormal Lab Results
01/17/25
03:57
RBC 4.11 L 10^6/uL
(4.70-6.10)
Hgb 12.1 L g/dL
(13.0-18.0)
Hct 37.0 L %
(39.0-52.0)
MCHC 32.7 L g/dL
(33.0-37.0)
Abs Immat Gran (auto) 0.1 H 10^3/uL
(0-0.05)
Absolute Neuts (auto) 6.6 H 10^3/uL
(1.4-6.5)
Absolute Monos (auto) 1.0 H 10^3/uL
(0.1-0.6)
Immature Gran % 1.2 H %
(0-0.5)
Lymphocytes % 19.0 L %
(20.5-51.1)
Monocytes % 9.5 H %
(1.7-9.3)
BUN 22 H mg/dl
(9-20)
Glucose 145 H mg/dl
(70-99)
Troponin I 0.076 H* ng/ml
Total Protein 6.1 L g/dl
(6.3-8.2)
Albumin 3.4 L g/dl
(3.5-5.0)
01/17/25 03:57
01/17/25 03:57
Vital Signs
Initial and Last Documented VS:
Initial Vital Signs
Temp Pulse Resp BP Pulse Ox
97.8 F 71 14 120/46 94
01/17/25 01:24 01/17/25 01:24 01/17/25 01:24 01/17/25 01:24 01/17/25 01:24
Last Documented Vital Signs
Temp Pulse Resp BP Pulse Ox
97.4 F 72 16 162/59 97
01/18/25 23:00 01/18/25 23:00 01/18/25 23:00 01/18/25 23:00 01/18/25 23:00
<Jorge Narayanan DO - Last Filed: 01/19/25 03:20>
*Pulse Oximetry
SaO2: 97
Oxygen Mode of Delivery: Room air
Patient hypoxic: no
*Critical Care Note
Total Time (30-74mins, 75-104mins- exclusive of procedures): Not Applicable
<Felipa Solano DO - Last Filed: 01/17/25 13:57>
Update Note
Update Note:
Attending Sign Out Note (Felipa Solano DO)
07:40 -assuming care of patient, 79-year-old male with known history of peripheral vascular disease on Plavix presenting for dyspnea. Recent admission from 01/02 to 01/12. Patient reports since discharge he has been increasingly dyspneic. On
review of EMR, recent right posterior tibial angioplasty due to critical limb ischemia, as well as diabetic foot ulcer which grew Pseudomonas and Enterococcus, on long-term antibiotics for 6 weeks. During admission, also noted to have respiratory
efficiencies suspected from chronic heart failure. Patient maintained on Lasix. Vital stable in the ER without significant respiratory distress. Concern for CHF versus possible PE. Patient had labs obtained prior to my assessment, slightly
increased BNP and chest x-ray with possible vascular congestion. Pending CT of the chest.
08:35 -CT PE without significant acute findings. Reassessment, patient notes that he still feeling very dyspneic. He is requiring nasal cannula which he notes is not typical for him. And evaluation of right foot wound, plantar aspect, no erythema
or active drainage. Notes that he was having a reaction to his prior antibiotics so is not currently on anything. Given patient's acute dyspnea, suspect continued acute on chronic CHF. Will plan for admission. Patient feels that he cannot go
back to his facility given his present state of breathing
ED Attending Note
<Jorge Narayanan DO - Last Filed: 01/19/25 03:20>
-
Portions of this chart may have been created with voice recognition software.� Occasional wrong word or��sound alike� substitutions may have occurred due to the inherent limitations of voice recognition software.
Discharge Plan
Departure
Patient Disposition: Admit
Date of Disposition: 01/17/25
Time of Disposition: 08:42
Presentation/result/management discussed w/ accepting MD/DO: Hospitalist
Condition: Fair
Discharge Problem:
CHF exacerbation
Interventions
Interventions:
*Risk Screen - Suicide Last Done: 01/17/25 12:02
*General Assessment Last Done: 01/17/25 01:24
*Neglect/Abuse Screening Last Done: 01/17/25 01:24
*ED COVID-19 Vaccine History Last Done: 01/17/25 12:02
*ED Influenza Vaccine History Last Done: 01/17/25 01:24
[facility] Fall Risk Assessment Tool Last Done: 01/17/25 01:30
*Nursing Disposition Last Done: 01/17/25 11:31
ED- Cardiac Assessment Last Done: 01/17/25 01:30
ED- Pulmonary Assessment Last Done: 01/17/25 01:31
Discharge Date and Time
Discharge Date/Time: 01/17/25 11:31
[2025-01-17] MEDS: LASIX 40 MG IV ×2 (09:12→16:20)
--- NOTE | 2025-01-17 10:17 | HPS.HSE ---
Addendum entered and electronically signed by Albert Gillis MD 01/17/25 12:01:
Acute on chronic heart failure with moderately reduced EF
Start IV Lasix twice daily
Daily weights
I's and O's
Continue beta-zac
Cardiology consult
compliance monitor
Repeat 2D echocardiogram
Elevated troponin likely type II demand ischemia in the setting of heart failure
Trend troponins to peak
Repeat EKG with uptrending troponin
Consider heparin drip if significantly increases
Acute hypoxemic respiratory failure secondary to heart failure exacerbation with a respiratory rate of 25 and the lowest SpO2 documented at 91%
Wean oxygen as tolerated
Expect to improve
IV diuretic
Right foot osteomyelitis
Pseudomonas and Enterococcus bacteremia
Previously on cefepime daptomycin however this was causing him to have some itchiness therefore was held at facility
ID consult with appreciate antibiotic recommendations
History of PAD/CAD
Aspirin Plavix statin
Type 2 diabetes
Continue long and short acting insulin sliding scale
Accu-Cheks
Goal blood glucose 140-180
Carb controlled diet
Chronic venous stasis
Oziel wrap
I personally reviewed and evaluated this patient with the resident. I agree with above unless if otherwise stated below.
I personally reviewed labs and imaging child welfare consultant notes case management note
Original Note:
Family Physician
-
Family Physician: LUIS Mina
Chief Complaint
-
Trouble breathing
History of Present Illness
79-year-old male with history of right foot osteomyelitis secondary to critical limb ischemia, insulin-dependent diabetes mellitus, CAD, CHF, hypertension, hyperlipidemia presents from [facility] with shortness of breath. Patient is
nonambulatory. Patient was discharged on 01/12 on home IV antibiotics (cefepime plus daptomycin ) through PICC line for right foot osteomyelitis. He notes that he completed 2 weeks of IV antibiotic and stopped the medication 2 days ago. Patient
reports that 2 days ago he started to feel short of breath, chills at rehab. The physician at the rehab suspected that this could be an allergic reaction to IV antibiotics and stopped the medication. Patient continued to feel short of breath for
the next 2 days until today he was brought to the ED. he denies chest pain, palpitations, fevers, weakness, headache. Denies any increase lower extremity pain. He admits lower extremity swelling which has been chronic.
Medical History
Past Medical History
Past Medical History: Reports Other (right foot osteomyelitis secondary to critical limb ischemia, insulin-dependent diabetes mellitus, CAD, CHF, hypertension, hyperlipidemia)
Past Surgical History: Reports Other (right elbow surgery, cardiac stent, anal fistulasurgical repair, partial amputation of left toe, TAVR, angioplasty artery of LE, )
Social History
Tobacco: Non-smoker
Alcohol: None
Drug: None
Personal:
Living: Other (rehab)
Employment: Retired
Family History
Family History: Not pertinent
Allergies / Home Medications
Allergies reflects when Allergies were last updated in [facility].
Home Medications with original date entered in [facility]
Allergy/Medication List:
Allergies
Allergy/AdvReac Type Severity Reaction Status Date / Time
clindamycin (Clindamycin) Allergy Shortness Verified 01/17/25 01:25
of Breath
Penicillins Allergy Rash; Verified 01/17/25 01:25
TOLERATES
CEPHALOSPORINS
Nqvfgxf-GAT-GjZ Reductase Allergy Patient Verified 01/17/25 01:25
Inhibitor (Hyiunhh-Njd-Mrt reports
Reductase Inhibitor) pains in
shoulder
with
statin use.
Home Medications
coenzyme Q10 200 mg capsule (Co Q-10) 200 mg PO HS Supplement 02/19/13
clopidogrel 75 mg tablet 75 mg PO DAILY Blood clot prevention/tx 10/22/16
amlodipine 10 mg tablet 10 mg PO DAILY Blood pressure 11/26/20
cholecalciferol (vitamin D3) 50 mcg (2,000 unit) tablet 2,000 units PO DAILY Supplement 03/15/21
aspirin 81 mg tablet,delayed release 81 mg PO DAILY Blood Clot Prevention/Tx 04/01/24
carvedilol 12.5 mg tablet 12.5 mg PO BID Blood Pressure 04/01/24
dorzolamide 2 % eye drops 1 drp LEFT EYE BID 01/01/25
insulin lispro 100 unit/mL subcutaneous pen (Humalog KwikPen (U-100) Insulin) 10 unit SC AC 01/01/25
latanoprost 0.005 % eye drops 1 drp LEFT EYE HS 01/01/25
pitavastatin calcium 4 mg tablet (Livalo) 4 mg PO HS 01/01/25
hydralazine 50 mg tablet 50 mg PO BID #60 tabs 01/12/25
insulin glargine U-300 conc 300 unit/mL (3 mL) subcutaneous pen (Toujeo Max U-300 SoloStar) 30 unit (0.1 mL) SC BID #0 mL 01/12/25
acetaminophen 325 mg tablet (Tylenol) 650 mg PO Q4HPRN PRN mild pain 01/17/25
furosemide 40 mg tablet 40 mg PO BID 01/17/25
melatonin 3 mg tablet 3 mg PO HSPRN PRN sleep 01/17/25
therapeutic multivitamin 1 tab PO DAILY 01/17/25
Review of Systems
-
History Source: Patient
A 12 point ROS was completed and negative except as noted: Yes
Respiratory: Reports Trouble Breathing
Physical Exam
Vital Signs
Vital Signs
Temp Pulse Resp BP Pulse Ox
97.8 F 70 18 136/46 95
01/17/25 01:24 01/17/25 08:30 01/17/25 08:30 01/17/25 07:00 01/17/25 08:30
Physical Exam
General: Conversant and Other (Short of breath while speaking in full sentence)
HEENT: NormoCephalic and Anicteric
Respiratory: Clear
Cardiac: S1/S2, Regular Rhythm and Other (Pacemaker)
GI: Soft, Non Tender and Non Distended
Musculoskeletal: Edema, Left Lower Extremity, Edema, Right Lower Extremity and Other (Strong pedal pulse)
Skin: Other (Purplish discoloration 1/3 bilateral LE )
Laboratory Results
-
01/17/25 03:57
01/17/25 03:57
Laboratory Results
PT 14.3 Sec (11.4-14.6) 01/17/25 03:57
INR 1.10 01/17/25 03:57
APTT 28.6 Sec (23.4-35.0) 01/17/25 03:57
Total Bilirubin 0.7 mg/dl (0.2-1.3) 01/17/25 03:57
AST 38 U/L (17-59) 01/17/25 03:57
ALT 46 U/L (0-50) 01/17/25 03:57
Alkaline Phosphatase 81 U/L (38-126) 01/17/25 03:57
Troponin I 0.076 ng/ml H* 01/17/25 03:57
Impression/Plan
-
IMPRESSION:
Acute on chronic HfmrEF
Acute hypoxic respiratory insufficiency
Right foot osteomyelitis
History of PAD
History of CAD
Chronic venous stasis
History of type 2 diabetes mellitus
PLAN:
Acute on chronic HFmrEF
Admit patient to Med/surg
s/p IV lasix 40 in ED
Start IV Lasix twice daily
Elevated troponin 0.076, EKG is unremarkable with no acute changes
Trend troponin Q6. Check BNP.
Continue carvedilol
Consult cardiology
Monitor weight
Monitor I/O
Acute hypoxic respiratory insufficiency
Suspect due to HF
On 2 L of oxygen
Wean as able
Right foot osteomyelitis
Recent discharge on 01/12 on IV antibiotics(cefepime plus daptomycin)
In cardiac rehab IV antibiotic was stopped thinking that this was an allergic reaction.
However I do not think this was an allergic reaction but possible heart failure causing SOB
Pt denies angioedema, rash, itching.
Would resume IV cefepime and IV daptomycin
Consult infectious disease
History of PAD/CAD
Continue aspirin and Plavix
Continue pitavastatin
History of type 2 diabetes mellitus
Continue home dose basal and bolus insulin
Sliding scale
Chronic venous stasis
2+ dorsalis pedis, no open wounds
Oziel wraps
DNR
Lovenox
4 g sodium diet
--- NOTE | 2025-01-17 11:20 | EDCM ---
Reviewed chart and met with pt and bedside in ED. Pt was admitted from [facility] where he has been for STR since dc from on 01/09/25.
Lives with his in [address], no CLAIRE. Needs assistance with ADLs and personal care. 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 They had [employer] in past but not recently. Ambulates with RW. No other DME in home, currently on 2 L NC in ED.
Pt would like to return to SNF when stable for discharge to complete STR.
Confirms RX coverage.
No hx VN
PCP: Bri Cochran at [facility], home PCP is Celestino Tapia
Pharmacy: [facility]
Anticipate return to [facility] for STR, CM will continue to follow for all discharge planning needs.
[2025-01-17 11:54] LABS: Glucose - Point of Care 228 mg/dl (70-99)
[2025-01-17] MEDS: NOVOLOG FLEXPEN 10 UNITS SC ×2 (12:18→17:23)
[2025-01-17] MEDS: NOVOLOG FLEXPEN-LOW RESISTANCE 2 UNITS SC (12:19)
[2025-01-17 15:20] LABS: Magnesium 1.9 mg/dl (1.6-2.3)
[2025-01-17 15:30] LABS: Troponin I 0.066 ng/ml
--- NOTE | 2025-01-17 16:18 | CON.ID ---
Consultation
-
Date/Time Consultation Requested: 01/17/2025 1124
Date/Time Consultation Performed: 01/17/2025 1600
Requesting Provider: Dr. Ding
Performing Provider: Dr. Corea
Reason for Consultation: Right foot osteomyelitis
Chief Complaint / Past History
History of Present Illness
Bhaskar Lomas is an 79-year-old man with a significant past medical history of DM and Charcot foot being evaluated at the request of Dr. Ding in regards to osteomyelitis of the right foot. History is obtained from chart review, along with
patient interview. Additional history was obtained from review of hospital records contained in the EMR system.
The patient is known to the Infectious Diseases service, having been seen in late December 2024 for a right foot ulcer. During that hospitalization the patient was found to have osteomyelitis of the right foot, with cultures revealing the presence
of Pseudomonas and Enterococcus. The patient was discharged to a nursing home facility on 01/12, to continue with cefepime and daptomycin for 6-week course. Over the past several days, the patient reports some increasing shortness of breath.
He also admits to difficulty swallowing intermittently, chills, slurred words, thick tongue and shortness of breath. He notes no history of rash, he denies any fevers. He notes that he has not been on antibiotics for the past 2 days. He was
brought back to the emergency room for further evaluation of his shortness of breath. At this time, he denies any acute symptomatology.
Past History
Additional Past Medical History:
ASCVD (CAD, PAD, Carotid Disease)
Non-Healing R Foot Wound
VANESSA
ASCVD
Chronic HFmrEF
Aortic Stenosis s/p TAVR
DM-II with Neuropathy
Morbid Obesity due to excess calories
Additional Past Surgical History:
Right elbow surgery
PCI with stenting
Anal fistula surgical repair
Partial toe amputation
TAVR
Arterial angioplasty lower extremity
Allergy History:
clindamycin (Clindamycin) Allergy (Verified 01/17/25 01:25)
Shortness of Breath
Penicillins Allergy (Verified 01/17/25 01:25)
Rash; TOLERATES CEPHALOSPORINS
Zlvsrzz-JXS-MsB Reductase Inhibitor (Ujmyynn-Pnl-Qcd Reductase Inhibitor) Allergy (Verified 01/17/25 01:25)
Patient reports pains in shoulder with statin use.
Medications Reviewed: Yes
Current Antibiotics:
none
Social History
Tobacco: Non-Smoker
Alcohol: None
Drug: None
Personal:
Living: With Family
Employment: Retired
Family History
Family History: Not Pertinent
Review of Systems
Vital Signs
Temp Pulse Resp BP Pulse Ox
97.9 F 71 19 158/60 97
01/17/25 15:09 01/17/25 15:09 01/17/25 15:09 01/17/25 15:09 01/17/25 15:09
Physical Exam
Physical Exam
Constitutional: No Acute Distress, Comfortable, Chronically Ill, Non-toxic and Obese
Eyes: Pupils Equal, Pupils Round, No Conjunctival Hemorrhage and Sclera Anicteric
Oral: No Thrush and No Ulcers
Cardiovascular: Regular Rate and S1/S2; Negative S3/S4
Pulmonary: Clear; Negative Wheezes, Rales or Rhonchi
Gastrointestinal: Soft, Non Tender, Non Distended and Normal Bowel Sounds
Genito-Urinary: Negative Wilson
Extremities: Edema (3+ B/L LE's. ) and Venous Insufficiency (B/L LE's)
Wound: Other (right plantar wound; ~1cm. Probe ~1cm, track at 2 o'clock to 2cm.)
Neurological: Awake and Alert
Psychological: Calm
Lab / Diagnostic Study Results
01/17/25 03:57
01/17/25 03:57
Abs Immat Gran (auto) 0.1 10^3/uL (0-0.05) H 01/17/25 03:57
Absolute Neuts (auto) 6.6 10^3/uL (1.4-6.5) H 01/17/25 03:57
Absolute Lymphs (auto) 1.9 10^3/uL (1.2-3.4) 01/17/25 03:57
Absolute Monos (auto) 1.0 10^3/uL (0.1-0.6) H 01/17/25 03:57
Absolute Basos (auto) 0.0 10^3/uL (0-0.2) 01/17/25 03:57
Immature Gran % 1.2 % (0-0.5) H 01/17/25 03:57
Neutrophils % 65.3 % (42.2-75.2) 01/17/25 03:57
Lymphocytes % 19.0 % (20.5-51.1) L 01/17/25 03:57
Monocytes % 9.5 % (1.7-9.3) H 01/17/25 03:57
Eosinophils % 4.7 % (0-6) 01/17/25 03:57
Basophils % 0.3 % (0-2) 01/17/25 03:57
PT 14.3 Sec (11.4-14.6) 01/17/25 03:57
INR 1.10 01/17/25 03:57
Microbiology Results
Micro:
01/17/25 14:50 MRSA Screen - Pending
Nose
Imaging:
12/29/2024 Labeled WBC scan : Accumulation of radiolabeled white blood cells within the right medial midfoot, similar distribution compared to prior 3 phase bone scan. Findings may be seen in the setting of osteomyelitis, consider MRI right foot
for more precise anatomic localization.
01/02/2025 Right foot x-ray: No evidence of acute osseous injury. No evidence of bone destruction. Soft tissue swelling of the forefoot. Soft tissue ulceration of the plantar midfoot versus overlying dressing as described above. Moderate dorsal
midfoot osteoarthritis.
Assessment / Plan
Presumptive right foot osteomyelitis
Charcot arthropathy of right foot
Non-Healing, chronic (R) Foot Wound
Reported SOB, slurred words, 'thick tougue'
- Not clear if secondary to antibiotics or not.
ASCVD (CAD, PAD, Carotid Disease)
Chronic HFmrEF
Aortic Stenosis s/p TAVR
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
Morbid Obesity due to excess calories
Allergy to penicillin - rash
Recommendations:
Pt s/p deep bx and culture 01/05
01/04 wound culture: Pseudomonas
01/04 bone culture (cunieform): Pseudomonas, Enterococcus
01/04 pathology without osteomyelitis
01/02 superficial culture Pseudomonas, Enterococcus,
Restart cefepime and daptomycin.
Follow for reaction
Monitor white count and temperature curve.
Check ESR and CRP in AM
Care Review
Plan reviewed with: Physician (Resident)
--- NOTE | 2025-01-17 16:37 | CON.CAR ---
Addendum entered and electronically signed by Vincent Brunner MD 01/17/25 17:06:
I saw and examined the patient.
The BEAD MAKER or PA's note was reviewed and I agree with the note.
Comment: General: Well developed, well nourished in NAD.
Neck: Supple, no JVD, HJR, carotids +2 B/L, no bruits bilaterally.
Heart: Non displaced PMI, RRR, no murmurs, No S3, S4, no rubs.
Lungs: Scattered rhonchi
Extremities: Chronic venous stasis changes
Neuro: Grossly nonfocal, awake, alert and oriented x3.
Michael has a history of CAD with chronic total occlusion of RCA and prior LAD stent, aortic stenosis status post TAVR are complicated by intermittent complete heart block requiring pacer placement, diabetes, morbid obesity, diastolic CHF, PVD, carotid
disease, hypercholesterolemia. He has had treatment for right foot osteomyelitis in the past. He presented with worsening short of breath and cardiology is consulted for CHF.
Echocardiogram is unchanged. Will treat with IV Lasix and assess response.
Original Note:
Consultation
Consultation Request
Date/Time Consultation Performed: 01/17/25
Requesting Provider: Dr. Sin Gillis
Performing Provider: Lizett Lowery PA-C for Dr. Brunner
Reason for Consultation: CHF
Medical History
-
Chief Complaint: SOB
History of Present Illness:
Patient is an 79-year-old male with past medical history of coronary artery disease with known chronic total occlusion of RCA and prior LAD stents, severe aortic stenosis status post 29 mm VANDANA TAVR complicated by intermittent complete heart block
requiring Medtronic pacemaker placement, diabetes, morbid obesity, heart failure with mildly reduced ejection fraction, PVD, carotid artery disease, hypercholesterolemia who has been treated for right foot osteomyelitis due to Pseudomonas and
Enterococcus bacteremia with IV antibiotics for the last several weeks however states the ulcer has been an issue for the last 4 months. Patient reports he was on 1 regimen of antibiotics for 1 week, then this was changed to a different regimen for
an additional week by ID, then stopped the antibiotics altogether. He is being followed by podiatry and ID as OP. He is chronically on Lasix 40 mg p.o. twice daily. At last office visit 12/19/2024 it was recommended that he increase his
spironolactone dose from 25 mg daily to 50 mg daily, however patient did not do this. He now presents with worsening shortness of breath. He reports his weights have been stable. He denies lower extremity edema. He reports chronic discoloration
as a result of his PVD. proBNP highest that is ever been at 2480. Cardiology consulted for evaluation.
PMH:
Heart failure with mildly reduced ejection fraction
Ischemic cardiomyopathy, EF 45%
CAD with prior LAD stents 1993, 2015, 2016, prior RCA PCI with subsequent RODEO RIDER
Severe status post 29 mm VANDANA TAVR
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
Diabetes
Morbid obesity
PVD requiring prior peripheral stents
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
Carotid artery disease
Hypercholesterolemia
Hypertension
Past Medical History
Past Medical History: Arrhythmias (Complete heart block with TAVR, Medtronic dual-chamber pacemaker 2020), CAD ( PCI with multiple stents to LAD, 1993, 2015, 2016, and known RODEO RIDER RCA), CHF (History of heart failure with mildly reduced EF 45-50%
2023), HTN, Hypercholesterolemia, IDDM, Valvular Disease (#29 Guardado transcatheter aortic valve 2020) and Other (Morbid obesity, PAD, noncompliance, COVID with non-STEMI 2022)
Past Surgical History: Other (Toe amputation, rectal fistula, incision and drainage of scrotal abscess)
Social History
Tobacco: Non-Smoker
Alcohol: None
Drug: None
Personal:
Living: With Family
Employment: Retired
Family History
Family History: Reviewed & Not Pertinent
Allergies / Home Medications
Allergy/AdvReac Type Severity Reaction Status Date / Time
clindamycin (Clindamycin) Allergy Shortness Verified 01/17/25 01:25
of Breath
Penicillins Allergy Rash; Verified 01/17/25 01:25
TOLERATES
CEPHALOSPORINS
Umasvuf-TUP-RjK Reductase Allergy Patient Verified 01/17/25 01:25
Inhibitor (Tqkvgth-Hte-Wve reports
Reductase Inhibitor) pains in
shoulder
with
statin use.
�Medication �Instructions �Recorded �Confirmed �Type
coenzyme Q10 200 mg capsule (Co 200 mg PO HS Supplement 02/19/13 01/17/25 History
Q-10)
clopidogrel 75 mg tablet 75 mg PO DAILY Blood clot 10/22/16 01/17/25 History
prevention/tx
amlodipine 10 mg tablet 10 mg PO DAILY Blood pressure 11/26/20 01/17/25 History
cholecalciferol (vitamin D3) 50 2,000 units PO DAILY Supplement 03/15/21 01/17/25 History
mcg (2,000 unit) tablet
aspirin 81 mg tablet,delayed 81 mg PO DAILY Blood Clot 04/01/24 01/17/25 History
release Prevention/Tx
carvedilol 12.5 mg tablet 12.5 mg PO BID Blood Pressure 04/01/24 01/17/25 History
dorzolamide 2 % eye drops 1 drp LEFT EYE BID 01/01/25 01/17/25 History
insulin lispro 100 unit/mL 10 unit SC AC 01/01/25 01/17/25 History
subcutaneous pen (Humalog KwikPen
(U-100) Insulin)
latanoprost 0.005 % eye drops 1 drp LEFT EYE HS 01/01/25 01/17/25 History
pitavastatin calcium 4 mg tablet 4 mg PO HS 01/01/25 01/17/25 History
(Livalo)
hydralazine 50 mg tablet 50 mg PO BID #60 tabs 01/12/25 01/17/25 Rx
insulin glargine U-300 conc 300 30 unit (0.1 mL) SC BID #0 mL 01/12/25 01/17/25 Rx
unit/mL (3 mL) subcutaneous pen
(Toujeo Max U-300 SoloStar)
acetaminophen 325 mg tablet 650 mg PO Q4HPRN PRN mild pain 01/17/25 01/17/25 History
(Tylenol)
furosemide 40 mg tablet 40 mg PO BID 01/17/25 01/17/25 History
melatonin 3 mg tablet 3 mg PO HSPRN PRN sleep 01/17/25 01/17/25 History
therapeutic multivitamin 1 tab PO DAILY 01/17/25 01/17/25 History
Review of Systems
-
History Source: Patient
All other systems: Negative unless noted
Physical Exam
Vital Signs
Temp Pulse Resp BP Pulse Ox
97.9 F 71 19 158/60 97
01/17/25 15:09 01/17/25 16:20 01/17/25 15:09 01/17/25 16:20 01/17/25 15:09
Lab Results
01/17/25 03:57
01/17/25 03:57
Troponin I 0.066 ng/ml H* 01/17/25 14:30
Qaf-W-Cxrytkjfjvt Pept 2480 pg/ml 01/17/25 03:57
Physical Exam
General: No Apparent Distress, Comfortable and Other (obese)
HEENT: Normocephalic, Anicteric and Moist Mucous Membranes
Respiratory: Clear and Non Labored Respirations
Cardiac: S1/S2, Regular Rhythm and Murmur
GI: Soft, Non Tender, Non Distended and Normal Bowel Sounds
Musculoskeletal: No Clubbing, No Cyanosis and No Edema
Skin: Warm, Dry and Other (B/L LE discoloration. R foot with dressing in place)
Neuro: AO x 3
Impression / Plan
-
Primary Arcade Technician: Dr. Sotelo
Assessment:
Presentation with SOB
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
R foot osteomyelitis, receiving IV abx as OP
trop elevation, suspected nonischemic myocardial injury in setting of above
Ischemic cardiomyopathy, EF 45-50%
CAD with prior LAD stents 1993, 2015, 2017, prior RCA PCI with subsequent RODEO RIDER
Severe status post 29 mm VANDANA TAVR
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
Diabetes
Morbid obesity
PVD requiring prior peripheral stents
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
Carotid artery disease
Hypercholesterolemia
Hypertension
DNR code status
ECHO 04/03/24: Technically difficult study, Definity used, EF 45 to 50% with mid anterior septal, distal septal, apical hypokinesis, mild to moderate LVH with septum measuring 1.4 cm, mild MAC, trace MR, status post TAVR with peak/mean gradient 17/10
mmHg, no AR
ECHO 01/17/25: EF 48%, TAVR with peak/mean gradients 14/7 mmHg, mid anteroseptal and apical akinesis, mild concentric LVH, no significant changes compared to prior
Plan:
- Patient presents with shortness of breath in setting of recent IV antibiotic administration for right foot osteomyelitis/Charcot foot followed by podiatry and ID. He denies significant weight gain or lower extremity edema, however proBNP is
highest it has ever been 2480. Chest x-ray without evidence of acute cardiac abnormality
- Echo today with no significant changes compared to prior, EF 48% with TAVR well-seated
- Agree with IV Lasix diuresis 40 mg twice daily. Prior to admission was on p.o. Lasix 40 mg twice daily. Creatinine stable at 1.2
- In AV paced rhythm on review of telemetry. Will check device interrogation in a.m.
- He was seen in the office 12/19/24 and spironolactone was recommended to be increased from 25 mg daily to 50 mg daily, however patient did not do this for unclear reasons
- His creatinine has been variable in the outpatient setting, so is on regimen of Coreg, hydralazine, Norvasc, spironolactone. was listed as being on lisinopril 40mg daily as of office note 12/19/24, will need to confirm with patient.
- follow BP trends and uptitrate as able
- Unclear if he is a candidate for SGLT2 inhibitor given his ongoing issues with osteomyelitis, but appears he was on farxiga in past?
- Troponin mildly elevated at 0.06. No complaints of chest pain. He has known CAD as noted above. Continue outpatient aspirin, Plavix, livalo
- d/w nursing
Data Reviewed
-
EKG: Tracing Personally Visualized and interpreted
Radiology: Report Reviewed by me
Medical Tests (Nuc Med, Echo etc): Report Reviewed by me
Labs: Labs Reviewed by me
Old Records: Reviewed
[2025-01-17 17:04] LABS: Glucose - Point of Care 266 mg/dl (70-99)
[2025-01-17] MEDS: NOVOLOG FLEXPEN-LOW RESISTANCE 3 UNITS SC (17:26)
[2025-01-17] MEDS: LOVENOX 40 MG SC (17:27)
[2025-01-17] MEDS: CUBICIN 20 MG IV (17:27)
[2025-01-17] MEDS: STERILE WATER FOR INJECTION 10 ML IV ×2 (17:27→23:42)
[2025-01-17] MEDS: MAXIPIME 1000 MG IV ×2 (17:27→23:43)
[2025-01-17] MEDS: COREG 12.5 MG PO (19:57)
[2025-01-17] MEDS: APRESOLINE 50 MG PO (19:57)
[2025-01-17] MEDS: TRUSOPT 2% OPHTHALMIC SOLUTION 1 DROP LEFT EYE (19:58)
[2025-01-17 20:26] LABS: Troponin I 0.062 ng/ml
[2025-01-17 20:51] LABS: Glucose - Point of Care 194 mg/dl (70-99)
[2025-01-17] MEDS: LANTUS 0.24 UNITS SC (20:52)
[2025-01-17] MEDS: XALATAN OPHTHALMIC SOLUTION 1 DROP LEFT EYE (20:53)
[2025-01-18] MEDS: MELATONIN 3 MG PO (00:11)
[2025-01-18 01:58] LABS: Hematocrit 36.9 % (39.0-52.0); Hemoglobin 12.4 g/dL (13.0-18.0); Mean Corp Hgb Conc. 33.6 g/dL (33.0-37.0); Mean Corpuscular Volume 88.9 fL (80.0-94.0); Nucleated Red Blood Cells % 0 % (-); Platelet Count 231 10^3/uL (130-400); Red Cell Dist. Width 13.3 % (11.5-14.5)
[2025-01-18 02:10] LABS: Blood Urea Nitrogen 25 mg/dl (9-20); Calcium 9.1 mg/dl (8.4-10.2); Carbon Dioxide 32 mmol/L (22-30); Chloride 101 mmol/L (98-107); Estimated Creatinine Clearance 65 ml/min; Glucose 148 mg/dl (70-99); Potassium 4.1 mmol/L (3.5-5.1); Sodium 136 mmol/L (135-145); eGFR > 60.00
[2025-01-18 02:14] LABS: C-Reactive Protein < 5.00 mg/L (0.0-10.00)
[2025-01-18 02:26] LABS: Troponin I 0.069 ng/ml
[2025-01-18 03:30] VITALS: BP 130/61
[2025-01-18 03:37] VITALS: BMI 39.5
[2025-01-18] MEDS: MAXIPIME 1000 MG IV ×4 (05:39→23:40)
[2025-01-18] MEDS: STERILE WATER FOR INJECTION 10 ML IV ×4 (05:39→23:40)
[2025-01-18 07:39] LABS: Glucose - Point of Care 160 mg/dl (70-99)
[2025-01-18 07:45] VITALS: BP 140/61
[2025-01-18] MEDS: COREG 12.5 MG PO ×2 (09:59→20:09)
[2025-01-18] MEDS: THERAGRAN 1 TABLET PO (10:00)
[2025-01-18] MEDS: ASPIR LOW (ENTERIC COATED) 81 MG PO (10:00)
[2025-01-18] MEDS: APRESOLINE 50 MG PO ×2 (10:00→20:09)
[2025-01-18] MEDS: NORVASC 10 MG PO (10:01)
[2025-01-18] MEDS: PLAVIX 75 MG PO (10:01)
[2025-01-18] MEDS: LASIX 40 MG IV ×2 (10:03→17:02)
[2025-01-18] MEDS: LANTUS 0.24 UNITS SC ×2 (10:04→20:58)
[2025-01-18] MEDS: NOVOLOG FLEXPEN-LOW RESISTANCE 1 UNITS SC (10:05)
[2025-01-18] MEDS: NOVOLOG FLEXPEN 10 UNITS SC ×3 (10:05→17:19)
[2025-01-18] MEDS: VITAMIN D3 (cholecalciferol) 50 MCG PO (10:07)
[2025-01-18] MEDS: TRUSOPT 2% OPHTHALMIC SOLUTION 1 DROP LEFT EYE ×2 (10:08→20:09)
--- NOTE | 2025-01-18 10:33 | WOUNDNOTE ---
R PLANTAR MEDIAL FOOT
--- NOTE | 2025-01-18 10:34 | WOUNDNOTE ---
R PLANTAR MEDIAL FOOT
--- NOTE | 2025-01-18 10:34 | WOUNDNOTE ---
R PLANTAR MEDIAL FOOT
--- NOTE | 2025-01-18 10:34 | WOUNDNOTE ---
R GREAT TOE TIP
--- NOTE | 2025-01-18 10:35 | WOUNDNOTE ---
COCCYX/NIECY ANAL
--- NOTE | 2025-01-18 10:40 | WOUNDNOTE ---
[facility] RN note: Patient admitted with SOB, patient admitted from SNF.
See H&P for complete history.
PMH: DM, Charcot foot, R foot ulcer with osteomyelitis, ASCVD, CAD, PAD, RLE arteriogram and angioplasty 01/03/25, 01/04/25 R foot bone biopsy, aortic stenosis, TAVR, obesity, R elbow surgery, PCI with stenting, anal fistula surgery, partial toe
amp.
Wound Location and type/assessment: Patient admitted with: R great toe tip dried blood blister suspect r/t friction/diabetes/edema. R plantar medial foot diabetic ulcer originally to subcutaneous layer or deeper, pink with some dried blood, R
medial plantar dry scabbed incision with several sutures. No surrounding erythema. Pedal pulses heard via portable Doppler (L>R). Trace R pedal edema. Buttocks/rhonda anal skin discolored dull red r/t moisture/pressure, appears chronic. Sacral skin
intact with mild red skin in sacral crease. Skin on heels intact. ID following.
Appetite: good.
Pressure redistribution devices in place: [employer] Accumax. Patient assisted with turning but cannot turn completely on his side by himself. He has trouble lifting his legs off the bed.
Plan: R foot dressing changed. Protective foam applied to heels. Protective sacral shaped silicone border foam applied to sacrum. Static air overlay applied and patient turned to L semi side lying position with help from KIRK Coe. Heels off bed
with air chair cushion. t/c SPD and ordered a bariatric air chair cushion and foam turning wedge.
Discussed patient with Dr. Albert Gillis and radha texted Dr. Stokes and Dr. Price to confirm local wound care order, NWB R foot and asking about suture removal. Await response from Dr. Stokes.
Discussed with KIRK Coe.
Care plan to be updated and will follow as needed.
Note to case management of equipment requested for discharge: Air mattress at SNF if not already in place. Patient has been bedbound.
Recommend follow up with Dr. Stokes.
[2025-01-18 11:52] VITALS: BP 131/64
[2025-01-18 12:00] LABS: Glucose - Point of Care 286 mg/dl (70-99)
--- NOTE | 2025-01-18 12:19 | W.PN.ID1 ---
Date of Service
Date of Service: January 18, 2025
Today's Communication
Continue antibiotics.
Assessment / Plan
Right foot osteomyelitis
Charcot arthropathy of right foot
Non-Healing, chronic (R) Foot Wound
Reported SOB, slurred words, 'thick tougue'
- Not clear if secondary to antibiotics or not.
ASCVD (CAD, PAD, Carotid Disease)
Chronic HFmrEF
Aortic Stenosis s/p TAVR
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
Morbid Obesity due to excess calories
Allergy to penicillin - rash
Recommendations:
Pt s/p deep bx and culture 01/05
01/04 wound culture: Pseudomonas
01/04 bone culture (cunieform): Pseudomonas, Enterococcus
01/04 pathology without osteomyelitis
01/02 superficial culture Pseudomonas, Enterococcus,
Continue cefepime and daptomycin through 02/15/2025
Monitor white count and temperature curve.
Check ESR and CRP in AM
Chief Complaint
-: Other (Right foot osteomyelitis)
Subjective / Review of Systems
Patient seen and examined. Antibiotics restarted yesterday, with no return of symptomatology. Patient denies any rash. Patient denies any current shortness of breath.
Vital Signs / Physical Exam
Vital Signs
Vital Signs
Temp Pulse Resp BP Pulse Ox
97.6 F 71 12 131/64 100
01/18/25 11:52 01/18/25 11:52 01/18/25 11:52 01/18/25 11:52 01/18/25 11:52
Physical Exam
Constitutional: No Acute Distress and Comfortable
Eyes: Sclera Anicteric
Cardiovascular: S1/S2; Negative S3/S4
Pulmonary: Clear and Non Labored
Gastrointestinal: Non Distended
Extremities: Edema
Skin: Warm and Dry; Negative Rash or Jaundice
Wound: Other (Right foot wound with dressing in place. Dressing clean dry intact.)
Neurological: Awake and Alert
Psychological: Calm
Objective Data
Lab Data
Lab Results
01/18/25 01:39
01/18/25 01:40
ESR 44 mm/hour (0-20) H 01/18/25 01:39
PT 14.3 Sec (11.4-14.6) 01/17/25 03:57
INR 1.10 01/17/25 03:57
APTT 28.6 Sec (23.4-35.0) 01/17/25 03:57
Estimated Creat Clear 65 ml/min 01/18/25 01:40
Total Bilirubin 0.7 mg/dl (0.2-1.3) 01/17/25 03:57
AST 38 U/L (17-59) 01/17/25 03:57
ALT 46 U/L (0-50) 01/17/25 03:57
Alkaline Phosphatase 81 U/L (38-126) 01/17/25 03:57
C-Reactive Protein < 5.00 mg/L (0.0-10.00) 01/18/25 01:39
Most recent labs reviewed.
Micro Results:
01/17/25 14:50 MRSA Screen - Pending
Nose
Imaging:
12/29/2024 Labeled WBC scan : Accumulation of radiolabeled white blood cells within the right medial midfoot, similar distribution compared to prior 3 phase bone scan. Findings may be seen in the setting of osteomyelitis, consider MRI right foot
for more precise anatomic localization.
01/02/2025 Right foot x-ray: No evidence of acute osseous injury. No evidence of bone destruction. Soft tissue swelling of the forefoot. Soft tissue ulceration of the plantar midfoot versus overlying dressing as described above. Moderate dorsal
midfoot osteoarthritis.
[2025-01-18] MEDS: NOVOLOG FLEXPEN-LOW RESISTANCE 3 UNITS SC (12:23)
--- NOTE | 2025-01-18 13:40 | W.PN.HOSP.TC ---
Today's Communication/Plan
-
Assessment / Plan
Assessment / Plan
NAD, off supplemental oxygen
Scleral Anicteric
MMM
No JVD
Crackles
RRR, S1/S2
1+ pitting lower extremity edema
Soft, NT, ND, BS+
Warm, Dry
AAOx3
Calm
Acute on chronic heart failure with moderately reduced EF
Start IV Lasix twice daily
Daily weights
I's and O's
Continue beta-zac
Cardiology consult
phototypesetting equipment monitor
Repeat 2D echocardiogram
Elevated troponin likely type II demand ischemia in the setting of heart failure
Trend troponins to peak
Repeat EKG with uptrending troponin
Consider heparin drip if significantly increases
Acute hypoxemic respiratory failure secondary to heart failure exacerbation with a respiratory rate of 25 and the lowest SpO2 documented at 91%
Wean oxygen as tolerated
Expect to improve
IV diuretic
Right foot osteomyelitis
Pseudomonas and Enterococcus bacteremia
Previously on cefepime daptomycin however this was causing him to have some itchiness therefore was held at facility
ID recommend continue cefepime daptomycin monitor for reaction
Outpatient podiatry follow-up
History of PAD/CAD
Aspirin Plavix statin
Type 2 diabetes
Continue long and short acting insulin sliding scale
Accu-Cheks
Goal blood glucose 140-180
Carb controlled diet
Chronic venous stasis
Zoiel wrap
Anticipated Discharge: 24 - 48 hours
Subjective/Interval History
-
Date of Service: January 18, 2025
Seen and examined. No new complaints. No acute overnight events.
Objective Data
-
Labs:
Laboratory Results
01/18/25 01/18/25
01:39 01:40
WBC 11.0 H
Hgb 12.4 L
Hct 36.9 L
Plt Count 231
Sodium 136
Potassium 4.1
Chloride 101
Carbon Dioxide 32 H
BUN 25 H
Creatinine 1.2
Glucose 148 H
Calcium 9.1
Vital Signs:
Vital Signs
Temp Pulse Resp BP Pulse Ox
97.6 F 71 12 131/64 100
01/18/25 11:52 01/18/25 11:52 01/18/25 11:52 01/18/25 11:52 01/18/25 11:52
I&O
01/17/25 01/18/25 01/19/25
06:59 06:59 06:59
Intake Total 1200 / 1200
Output Total 1775 / 1775
Balance -575 / -575
--- NOTE | 2025-01-18 14:09 | W.PN.CARDCBS ---
Addendum entered and electronically signed by Nghia Fairchild MD 01/18/25 18:08:
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
obesity, known PAD with stenting, Charcot right foot, cerebrovascular disease, hypertension, hyperlipidemia
Current meds: Amlodipine 10 mg a day, aspirin 81 mg a day, carvedilol 12.5 mg twice daily, vitamin D3, clopidogrel 75 mg a day, hydralazine 50 mg twice daily, insulin, Xalatan, furosemide 40 IV twice daily, cefepime, daptomycin,
Rest of history as below, reviewed in detail and agree
131/64, pulse 71 regular, afebrile, saturations at 100% weight is 124.8 kg, on admission was 134.6 kg pleasant, eating dinner, no distress, head neck exam unremarkable, lungs are clear, soft systolic murmur, ecchymoses over abdomen, Charcot foot on
right with external rotation chronic stasis changes and dressing intact, 3+ edema, chronic stasis changes on the left, 2+ edema
CT of chest yesterday without pulmonary embolism stents visualized,
Chest x-ray mild vascular congestion
Echo 01/17/2025: EF 48%, peak/mean aortic valve gradients 14/7, mid anteroseptal and apical akinesis, mild LVH, trace MR, could not determine pulmonary artery pressure, similar to prior study
Electrocardiogram 01/03/2025 AV pacing with PVCs
Device interrogation: No atrial fibrillation
Telemetry: Reviewed
White count 11, hemoglobin 12.4, BUN/creatinine 25 and 1.2, troponin is 0.06, proBNP 2480
Impression:
Acute on chronic heart failure with mildly reduced EF
CAD with multiple prior PCI's, known occlusion of RCA
Status post 29 mm Guardado VANDANA transcatheter aortic valve
Medtronic pacemaker
PAD with prior stenting
Diabetes
Morbid obesity
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
Hypercholesterolemia
Hypertension
Other diagnoses as below. Reviewed in detail and agree unless otherwise specified
Plan:
From a heart failure standpoint he is doing reasonably well and is considerably improved, but still volume overloaded. Lungs are clear, major issues peripheral edema, probable intra-abdominal volume overload as well. Continue IV Lasix.
Will need to review regarding SGLT2 antagonist and spironolactone. I would be in favor of adding if no contraindication
Echocardiogram from yesterday is overall satisfactory.
Interrogation of pacemaker satisfactory.
We will continue to follow.
Original Note:
Today's Communication / Plan
-
Continue IV Lasix
Interrogate device if not already completed
We will solidify outpatient medication regimen
Continue antibiotics per ID
Impression / Plan
-
Primary See Supervisor: Dr. Sotelo
Assessment:
Presentation with SOB
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
R foot osteomyelitis, receiving IV abx as OP
trop elevation, suspected nonischemic myocardial injury in setting of above
Ischemic cardiomyopathy, EF 45-50%
CAD with prior LAD stents 1993, 2015, 2016, prior RCA PCI with subsequent [employer]ING [employer]ANT
Severe status post 29 mm VANDANA TAVR
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
Diabetes
Morbid obesity
PVD requiring prior peripheral stents
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
Carotid artery disease
Hypercholesterolemia
Hypertension
DNR code status
ECHO 04/03/24: Technically difficult study, Definity used, EF 45 to 50% with mid anterior septal, distal septal, apical hypokinesis, mild to moderate LVH with septum measuring 1.4 cm, mild MAC, trace MR, status post TAVR with peak/mean gradient 01/12
mmHg, no AR
ECHO 01/17/25: EF 48%, TAVR with peak/mean gradients 14/7 mmHg, mid anteroseptal and apical akinesis, mild concentric LVH, no significant changes compared to prior
Plan:
- Patient presents with shortness of breath in setting of recent IV antibiotic administration for right foot osteomyelitis/Charcot foot followed by podiatry and ID. He denies significant weight gain or lower extremity edema, however proBNP is
highest it has ever been 2480. Chest x-ray without evidence of acute cardiac abnormality
- Echo with no significant changes compared to prior, EF 48% with TAVR well-seated as above
- Suspect weights inaccurate as up 1 pound overnight by bed scale, despite patient reporting significant urination with Lasix, continue. Prior to admission was on p.o. Lasix 40 mg twice daily. Creatinine stable at 1.2. would advise checking
weights by standing scale if able
- In AV paced rhythm on review of telemetry overnight, occasional PVCs.
- He was seen in the office 12/19/24 and spironolactone was recommended to be increased from 25 mg daily to 50 mg daily, however patient did not do this for unclear reasons
- His creatinine has been variable in the outpatient setting, so is on regimen of Coreg, hydralazine, Norvasc, spironolactone. was listed as being on lisinopril 40mg daily as of office note 12/19/24, will need to confirm with patient.
- follow BP trends and uptitrate as able
- Unclear if he is a candidate for SGLT2 inhibitor given his ongoing issues with osteomyelitis, but appears he was on farxiga in past?
- Troponin mildly elevated at 0.06. No complaints of chest pain. He has known CAD as noted above. Continue outpatient aspirin, Plavix, livalo
- abx per ID. if plan for long term acute care registered nurse IV abx, would consider increasing dose of standing lasix upon DC correlating with duration of IV abx course.
- discussed importance of PT/OT as able
- d/w patient and at bedside
Progress Note - See Supervisor
Subjective
Date of Service: January 18, 2025
Reports he is about 50% recovered. States he still has shortness of breath at times. Does report he responded well to Lasix
Objective
Labs:
01/18/25 01:39
01/18/25 01:40
Labs
Hgb 12.4 g/dL (13.0-18.0) L 01/18/25 01:39
Hct 36.9 % (39.0-52.0) L 01/18/25 01:39
Plt Count 231 10^3/uL (130-400) 01/18/25 01:39
PT 14.3 Sec (11.4-14.6) 01/17/25 03:57
INR 1.10 01/17/25 03:57
APTT 28.6 Sec (23.4-35.0) 01/17/25 03:57
Sodium 136 mmol/L (135-145) 01/18/25 01:40
Potassium 4.1 mmol/L (3.5-5.1) 01/18/25 01:40
BUN 25 mg/dl (9-20) H 01/18/25 01:40
Creatinine 1.2 mg/dL (0.7-1.3) 01/18/25 01:40
Glucose 148 mg/dl (70-99) H 01/18/25 01:40
Troponins
01/17/25 01/17/25 01/17/25
03:57 14:30 19:52
Troponin I 0.076 H* 0.066 H* 0.062 H*
01/18/25
01:39
Troponin I 0.069 H*
Vital Signs and I&O:
Vital Signs
Temp Pulse Resp BP Pulse Ox
97.6 F 71 12 131/64 100
01/18/25 11:52 01/18/25 11:52 01/18/25 11:52 01/18/25 11:52 01/18/25 11:52
Vital Signs
Temp Pulse Resp BP Pulse Ox
97.6 F 71 12 131/64 100
01/18/25 11:52 01/18/25 11:52 01/18/25 11:52 01/18/25 11:52 01/18/25 11:52
Intake & Output
01/16/25 01/17/25 01/18/25 01/19/25
07:59 07:59 07:59 07:59
Intake Total 1200 / 1200
Output Total 1775 / 1775
Balance -575 / -575
Physical Exam
Physical Exam
GEN: No distress, awake, alert, oriented x3. Obese
HEENT: supple, anicteric, mmm, EOMI
LUNGS: CTA bilaterally anterolaterally, no wheezes
CV: Reg, S1/S2, no murmur
ABD: soft, BS+, NT/ND
EXT: No cyanosis, clubbing. Trace edema with chronic discoloration bilaterally and dressing to right foot/ankle
NEURO: Gross non-focal
SKIN: Warm, pink, dry.
--- NOTE | 2025-01-18 15:55 | CM ---
CM following for discharge planning. Pt admitted from [facility] where he has been staying for short term rehab since 01/09/2025.
CM requested orders for PT and OT to evaluate; anticipate patient may need to return to SNF at discharge.
CM will continue to coordinate all discharge planning needs.
--- NOTE | 2025-01-18 16:02 | W.CARD.DEVCH ---
Cardiac Device Check
-
Device: Pacemaker
Separator Tender: Medtronic
The patient's device was interrogated with assistance of the device public health representative. The device had normal function. Patient noted to be A-paced 74.5% of time and V paced 98.3% of time. This appears to have significantly increased as of April 2024.
No A-fib noted, or any recent NSVT. Remaining battery 8.6 years.
[2025-01-18 16:18] VITALS: BP 168/59; PULSE 71
[2025-01-18 16:51] LABS: Glucose - Point of Care 238 mg/dl (70-99)
[2025-01-18] MEDS: CUBICIN 20 MG IV (17:03)
[2025-01-18] MEDS: LOVENOX 40 MG SC (17:07)
[2025-01-18] MEDS: MIRALAX 17 GRAMS PO (17:07)
[2025-01-18] MEDS: SENOKOT-S 1 TABLET PO (17:08)
[2025-01-18] MEDS: NOVOLOG FLEXPEN-LOW RESISTANCE 2 UNITS SC (17:19)
[2025-01-18 19:00] VITALS: BP 166/64
[2025-01-18] MEDS: DESENEX/MITRAZOL/ZEASORB 1 APPLIC TOPICAL (20:09)
[2025-01-18 20:57] LABS: Glucose - Point of Care 266 mg/dl (70-99)
[2025-01-18] MEDS: XALATAN OPHTHALMIC SOLUTION 1 DROP LEFT EYE (20:59)
[2025-01-18 23:00] VITALS: BP 162/59
[2025-01-19 03:00] VITALS: BP 148/60
[2025-01-19 03:54] VITALS: BMI 40.2
[2025-01-19] MEDS: MAXIPIME 1000 MG IV ×4 (05:49→23:40)
[2025-01-19] MEDS: STERILE WATER FOR INJECTION 10 ML IV ×4 (05:49→23:40)
[2025-01-19 07:37] VITALS: BP 177/71
[2025-01-19 07:50] LABS: Glucose - Point of Care 202 mg/dl (70-99)
[2025-01-19] MEDS: LANTUS 0.24 UNITS SC ×2 (09:05→22:00)
[2025-01-19] MEDS: NOVOLOG FLEXPEN-LOW RESISTANCE 2 UNITS SC (09:05)
[2025-01-19] MEDS: NOVOLOG FLEXPEN 10 UNITS SC ×3 (09:05→16:44)
[2025-01-19] MEDS: PLAVIX 75 MG PO (09:06)
[2025-01-19] MEDS: LASIX 40 MG IV ×2 (09:06→16:06)
[2025-01-19] MEDS: COREG 12.5 MG PO ×2 (09:06→21:59)
[2025-01-19] MEDS: NORVASC 10 MG PO (09:06)
[2025-01-19] MEDS: VITAMIN D3 (cholecalciferol) 50 MCG PO (09:06)
[2025-01-19] MEDS: THERAGRAN 1 TABLET PO (09:06)
[2025-01-19] MEDS: ASPIR LOW (ENTERIC COATED) 81 MG PO (09:06)
[2025-01-19] MEDS: APRESOLINE 50 MG PO ×2 (09:06→21:59)
[2025-01-19] MEDS: DESENEX/MITRAZOL/ZEASORB 1 APPLIC TOPICAL ×2 (09:07→21:59)
[2025-01-19] MEDS: TRUSOPT 2% OPHTHALMIC SOLUTION 1 DROP LEFT EYE ×2 (09:08→22:01)
[2025-01-19] MEDS: BACTROBAN 2% OINTMENT 1 APPLIC TOPICAL (09:08)
[2025-01-19 09:44] VITALS: BP 171/70; PULSE 70; O2SAT 96
--- NOTE | 2025-01-19 09:58 | PN.CDI ---
CDI
- -
CDI:
Physician Documentation Request
Admit Date: 01/17/25 10:25
Dear Doctor,
Please review the following and provide your response in the progress notes.
Clinical Indicators:
Pt admitted for Acute on chronic heart failure with moderately reduced EF.
Troponin 0.076, 0.066, 0.069
01/17 Cardiology: ' trop elevation, suspected nonischemic myocardial injury in setting of above'
01/18 PN: ' Elevated troponin likely type II demand ischemia in the setting of heart failure'
Due to potential conflicting documentation, could you clarify in the progress notes, the appropriate diagnosis, if significant, that supports the above abnormalities.
Type 2 demand ischemia
Nonischemic myocardial injury
Other
Use of terms such as suspected, likely, concern for, or probable (associated with a specific diagnosis that is being evaluated, monitored, or treated as if it exists) are acceptable and can be coded in the inpatient setting, when documented at the
time of discharge.
Thank you,
Yamilet Rutherford RN, BSN
CDI Specialist
[place] text
Please use your independent medical judgment in providing your response.
[2025-01-19 10:41] VITALS: BP 143/62
--- NOTE | 2025-01-19 11:02 | W.PN.ID1 ---
Date of Service
Date of Service: January 19, 2025
Today's Communication
Continue cefepime and daptomycin.
Assessment / Plan
Right foot osteomyelitis
Charcot arthropathy of right foot
Non-Healing, chronic (R) Foot Wound
Reported SOB, slurred words, 'thick tougue'
- Not clear if secondary to antibiotics or not.
- Abx's resumed, pt tolerating.
ASCVD (CAD, PAD, Carotid Disease)
Chronic HFmrEF
Aortic Stenosis s/p TAVR
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
Morbid Obesity due to excess calories
Allergy to penicillin - rash
Recommendations:
Pt s/p deep bx and culture 01/05
01/04 wound culture: Pseudomonas
01/04 bone culture (cunieform): Pseudomonas, Enterococcus
01/04 pathology without osteomyelitis
01/02 superficial culture Pseudomonas, Enterococcus,
Continue cefepime and daptomycin through 02/15/2025
CK normal
ESR stable
CK improved from 24.7 to <5.0
Monitor white count and temperature curve.
Chief Complaint
-: Other (Right foot osteomyelitis)
Subjective / Review of Systems
Tolerating abx's. Feeling better.
Vital Signs / Physical Exam
Vital Signs
Vital Signs
Temp Pulse Resp BP Pulse Ox
98 F 69 16 143/62 95
01/19/25 10:41 01/19/25 10:41 01/19/25 10:41 01/19/25 10:41 01/19/25 10:41
Physical Exam
Constitutional: No Acute Distress and Comfortable
Eyes: Sclera Anicteric
Cardiovascular: S1/S2
Pulmonary: Clear and Non Labored
Gastrointestinal: Non Distended
Extremities: Edema
Wound: Other (Right foot wound with dressing in place. Dressing clean dry intact.)
Neurological: AO x 3
Lines: PICC (RUE no erythema)
Objective Data
Lab Data
Lab Results
01/18/25 01:39
01/18/25 01:40
ESR 44 mm/hour (0-20) H 01/18/25 01:39
PT 14.3 Sec (11.4-14.6) 01/17/25 03:57
INR 1.10 01/17/25 03:57
APTT 28.6 Sec (23.4-35.0) 01/17/25 03:57
Estimated Creat Clear 65 ml/min 01/18/25 01:40
Total Bilirubin 0.7 mg/dl (0.2-1.3) 01/17/25 03:57
AST 38 U/L (17-59) 01/17/25 03:57
ALT 46 U/L (0-50) 01/17/25 03:57
Alkaline Phosphatase 81 U/L (38-126) 01/17/25 03:57
C-Reactive Protein < 5.00 mg/L (0.0-10.00) 01/18/25 01:39
Most recent labs reviewed.
Micro Results:
01/17/25 14:50 MRSA Screen - Final
Nose No Methicillin Resistant Staphylococcus aureus isolated.
Imaging:
12/29/2024 Labeled WBC scan : Accumulation of radiolabeled white blood cells within the right medial midfoot, similar distribution compared to prior 3 phase bone scan. Findings may be seen in the setting of osteomyelitis, consider MRI right foot
for more precise anatomic localization.
01/02/2025 Right foot x-ray: No evidence of acute osseous injury. No evidence of bone destruction. Soft tissue swelling of the forefoot. Soft tissue ulceration of the plantar midfoot versus overlying dressing as described above. Moderate dorsal
midfoot osteoarthritis.
[2025-01-19 11:41] LABS: Glucose - Point of Care 250 mg/dl (70-99)
[2025-01-19] MEDS: NOVOLOG FLEXPEN-LOW RESISTANCE 3 UNITS SC ×2 (12:59→16:45)
--- NOTE | 2025-01-19 14:59 | W.PN.CARDCBS ---
Addendum entered and electronically signed by Nghia Fairchild MD 01/19/25 21:25:
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
obesity, known PAD with stenting, Charcot right foot, cerebrovascular disease, hypertension, hyperlipidemia
Current meds: Amlodipine 10 mg a day, aspirin 81 mg a day, carvedilol 12.5 mg twice daily, vitamin D3, clopidogrel 75 mg a day, hydralazine 50 mg twice daily, insulin, Xalatan, furosemide 40 IV twice daily, cefepime, daptomycin
143/62, pulse 69, respiratory rate 16, afebrile, weight is 127.0 kg, if accurate up to 0.2 kg, intake and output -1.2 kg if accurate, lungs are clear, edema on the left and right good, irregular rate and rhythm soft systolic murmur
Impression:
Acute on chronic heart failure with mildly reduced EF
CAD with multiple prior PCI's, known occlusion of RCA
Status post 29 mm Guardado VANDANA transcatheter aortic valve
Medtronic pacemaker
PAD with prior stenting
Diabetes
Morbid obesity
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
Hypercholesterolemia
Hypertension
Other diagnoses as below. Reviewed in detail and agree unless otherwise specified
Plan:
His weight went up, but on exam it seems like his volume status is improving. Continue IV Lasix, check BMP in a.m., probably transition to oral diuretics within the next day or 2.
He had been on SGLT2 antagonist and spironolactone, so favor restarting therapy.
From cardiac standpoint, okay to begin discharge planning.
Original Note:
Today's Communication / Plan
-
Resume outpatient spironolactone, lisinopril, Farxiga.
Follow creatinine
Continue IV Lasix for now
Please check weights via standing scale if able for improved accuracy
Impression / Plan
-
Primary Dry Can Tender: Dr. Sotelo
Assessment:
Presentation with SOB
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
R foot osteomyelitis, receiving IV abx as OP
trop elevation, suspected nonischemic myocardial injury in setting of above
Ischemic cardiomyopathy, EF 45-50%
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
Severe status post 29 mm VANDANA TAVR
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
Diabetes
Morbid obesity
PVD requiring prior peripheral stents
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
Carotid artery disease
Hypercholesterolemia
Hypertension
DNR code status
ECHO 04/03/24: Technically difficult study, Definity used, EF 45 to 50% with mid anterior septal, distal septal, apical hypokinesis, mild to moderate LVH with septum measuring 1.4 cm, mild MAC, trace MR, status post TAVR with peak/mean gradient 17/10
mmHg, no AR
ECHO 01/17/25: EF 48%, TAVR with peak/mean gradients 14/7 mmHg, mid anteroseptal and apical akinesis, mild concentric LVH, no significant changes compared to prior
Plan:
- Patient presents with shortness of breath in setting of recent IV antibiotic administration for right foot osteomyelitis/Charcot foot followed by podiatry and ID. He denies significant weight gain or lower extremity edema, however proBNP is
highest it has ever been 2480. Chest x-ray without evidence of acute cardiac abnormality
- Echo with no significant changes compared to prior, EF 48% with TAVR well-seated as above
- Weight up 5 pounds overnight, suspected inaccurate as completed via bed scale. Would check via standing scale if able. Continue IV Lasix. Check BMP in a.m. Prior to admission was on p.o. Lasix 40 mg twice daily
- His med rec completed in ER is inaccurate in terms of his OP cardiac medications. He is presently taking his outpatient Coreg 12.5mg BID, hydralazine 75mg BID, Norvasc 10mg daily, but is not taking his outpatient spironolactone 25mg daily,
lisinopril 40 mg daily, Farxiga 10 mg daily. Will restart outpatient regimen and follow creatinine. If stable, would consider increasing his spironolactone from 25 daily to 50 daily, as was recommended at outpatient office visit 12/19, however
patient has not yet done at home
- He is now off telemetry
- Troponin mildly elevated at 0.06. No complaints of chest pain. He has known CAD as noted above. Continue outpatient aspirin, Plavix, livalo
- abx per ID.
- discussed importance of PT/OT as able
- d/w patient and at bedside
Progress Note - Dry Can Tender
Subjective
Date of Service: January 19, 2025
Reports breathing is still on and off at times, however reports good urination with lasix
Objective
Labs:
01/18/25 01:39
01/18/25 01:40
Labs
Hgb 12.4 g/dL (13.0-18.0) L 01/18/25 01:39
Hct 36.9 % (39.0-52.0) L 01/18/25 01:39
Plt Count 231 10^3/uL (130-400) 01/18/25 01:39
PT 14.3 Sec (11.4-14.6) 01/17/25 03:57
INR 1.10 01/17/25 03:57
APTT 28.6 Sec (23.4-35.0) 01/17/25 03:57
Sodium 136 mmol/L (135-145) 01/18/25 01:40
Potassium 4.1 mmol/L (3.5-5.1) 01/18/25 01:40
BUN 25 mg/dl (9-20) H 01/18/25 01:40
Creatinine 1.2 mg/dL (0.7-1.3) 01/18/25 01:40
Glucose 148 mg/dl (70-99) H 01/18/25 01:40
Troponins
01/17/25 01/17/25 01/17/25
03:57 14:30 19:52
Troponin I 0.076 H* 0.066 H* 0.062 H*
01/18/25
01:39
Troponin I 0.069 H*
Vital Signs and I&O:
Vital Signs
Temp Pulse Resp BP Pulse Ox
98 F 69 16 143/62 95
01/19/25 10:41 01/19/25 10:41 01/19/25 10:41 01/19/25 10:41 01/19/25 10:41
Vital Signs
Temp Pulse Resp BP Pulse Ox
98 F 69 16 143/62 95
01/19/25 10:41 01/19/25 10:41 01/19/25 10:41 01/19/25 10:41 01/19/25 10:41
Intake & Output
01/17/25 01/18/25 01/19/25 01/20/25
07:59 07:59 07:59 07:59
Intake Total 1200 / 1200 660 / 660
Output Total 1775 / 1775 1840 / 1840
Balance -575 / -575 -1180 / -1180
Physical Exam
Physical Exam
GEN: No distress, awake, alert, oriented x3. Obese
HEENT: supple, anicteric, mmm, EOMI
LUNGS: CTA bilaterally anterolaterally, no wheezes
CV: Reg, S1/S2, no murmur
ABD: soft, BS+, NT/ND
EXT: No cyanosis, clubbing. Trace edema with chronic discoloration bilaterally and dressing to right foot/ankle
NEURO: Gross non-focal
SKIN: Warm, pink, dry.
[2025-01-19 15:11] VITALS: BP 158/60
[2025-01-19] MEDS: ALDACTONE 25 MG PO (16:06)
[2025-01-19 16:33] LABS: Glucose - Point of Care 261 mg/dl (70-99)
[2025-01-19] MEDS: CUBICIN 20 MG IV (16:45)
--- NOTE | 2025-01-19 17:00 | W.PN.HOSP.TC ---
Today's Communication/Plan
-
Assessment / Plan
Assessment / Plan
NAD, off supplemental oxygen
Scleral Anicteric
MMM
No JVD
Crackles
RRR, S1/S2
1+ pitting lower extremity edema
Soft, NT, ND, BS+
Warm, Dry
AAOx3
Calm
Acute on chronic heart failure with moderately reduced EF
Start IV Lasix twice daily
Daily weights
I's and O's
Continue beta-zac
Cardiology consult
front desk monitor
Repeat 2D echocardiogram
Elevated troponin likely type II demand ischemia in the setting of heart failure
Trend troponins to peak
Repeat EKG with uptrending troponin
Consider heparin drip if significantly increases
Acute hypoxemic respiratory failure secondary to heart failure exacerbation with a respiratory rate of 25 and the lowest SpO2 documented at 91%
Wean oxygen as tolerated
Expect to improve
IV diuretic
Continue Aldactone lisinopril Farxiga
Right foot osteomyelitis
Pseudomonas and Enterococcus bacteremia
Previously on cefepime daptomycin however this was causing him to have some itchiness therefore was held at facility
ID recommend continue cefepime daptomycin monitor for reaction
Outpatient podiatry follow-up
History of PAD/CAD
Aspirin Plavix statin
Type 2 diabetes
Continue long and short acting insulin sliding scale
Accu-Cheks
Goal blood glucose 140-180
Carb controlled diet
Chronic venous stasis
Oziel wrap
Anticipated Discharge: 24 - 48 hours
Subjective/Interval History
-
Date of Service: January 19, 2025
Seen and examined. No new complaints. No acute overnight events.
Objective Data
-
Vital Signs:
Vital Signs
Temp Pulse Resp BP Pulse Ox
98.2 F 71 16 158/60 95
01/19/25 15:11 01/19/25 16:06 01/19/25 15:11 01/19/25 16:06 01/19/25 15:11
I&O
01/18/25 01/19/25 01/20/25
06:59 06:59 06:59
Intake Total 1200 / 1200 660 / 660
Output Total 1775 / 1775 1840 / 1840
Balance -575 / -575 -1180 / -1180
[2025-01-19] MEDS: LOVENOX 40 MG SC (17:44)
[2025-01-19 20:32] LABS: Glucose - Point of Care 217 mg/dl (70-99)
[2025-01-19] MEDS: XALATAN OPHTHALMIC SOLUTION 1 DROP LEFT EYE (22:01)
[2025-01-19 23:11] VITALS: BP 150/53
[2025-01-20] MEDS: STERILE WATER FOR INJECTION 10 ML IV ×3 (06:05→16:45)
[2025-01-20] MEDS: MAXIPIME 1000 MG IV ×3 (06:05→16:46)
[2025-01-20 06:30] LABS: Blood Urea Nitrogen 34 mg/dl (9-20); Calcium 9.1 mg/dl (8.4-10.2); Carbon Dioxide 34 mmol/L (22-30); Chloride 99 mmol/L (98-107); Estimated Creatinine Clearance 72 ml/min; Glucose 178 mg/dl (70-99); Potassium 4.6 mmol/L (3.5-5.1); Sodium 136 mmol/L (135-145); eGFR > 60.00
[2025-01-20 08:17] VITALS: BP 157/62
[2025-01-20 08:24] LABS: Glucose - Point of Care 261 mg/dl (70-99)
[2025-01-20] MEDS: COREG 12.5 MG PO ×2 (08:55→21:09)
[2025-01-20] MEDS: NORVASC 10 MG PO (08:55)
[2025-01-20] MEDS: ZESTRIL 40 MG PO (08:56)
[2025-01-20] MEDS: VITAMIN D3 (cholecalciferol) 50 MCG PO (08:56)
[2025-01-20] MEDS: NOVOLOG FLEXPEN 10 UNITS SC ×3 (08:56→16:43)
[2025-01-20] MEDS: PLAVIX 75 MG PO (08:56)
[2025-01-20] MEDS: ALDACTONE 25 MG PO (08:56)
[2025-01-20] MEDS: THERAGRAN 1 TABLET PO (08:56)
[2025-01-20] MEDS: ASPIR LOW (ENTERIC COATED) 81 MG PO (08:56)
[2025-01-20] MEDS: LASIX 40 MG IV ×2 (08:56→16:44)
[2025-01-20] MEDS: FARXIGA 10 MG PO (08:56)
[2025-01-20] MEDS: APRESOLINE 50 MG PO ×2 (08:56→21:09)
[2025-01-20] MEDS: NOVOLOG FLEXPEN-LOW RESISTANCE 3 UNITS SC ×2 (08:57→16:44)
[2025-01-20] MEDS: BACTROBAN 2% OINTMENT 1 APPLIC TOPICAL (08:57)
[2025-01-20] MEDS: DESENEX/MITRAZOL/ZEASORB 1 APPLIC TOPICAL ×2 (08:57→20:59)
[2025-01-20] MEDS: TRUSOPT 2% OPHTHALMIC SOLUTION 1 DROP LEFT EYE ×2 (09:00→21:10)
[2025-01-20] MEDS: LANTUS 0.24 UNITS SC ×2 (09:00→20:58)
--- NOTE | 2025-01-20 12:19 | W.PN.CARDCBS ---
Today's Communication / Plan
-
Continue IV furosemide, may need to titrate, await today's weight
Continue Farxiga and spironolactone
Recheck proBNP in a.m.
Impression / Plan
-
Primary Loom Checker: Dr. Sotelo
Assessment:
Presentation with SOB
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
R foot osteomyelitis, receiving IV abx as OP
trop elevation, suspected nonischemic myocardial injury in setting of above
Ischemic cardiomyopathy, EF 45-50%
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
Severe status post 29 mm VANDANA TAVR
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
Diabetes
Morbid obesity
PVD requiring prior peripheral stents
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
Carotid artery disease
Hypercholesterolemia
Hypertension
DNR code status
ECHO 04/03/24: Technically difficult study, Definity used, EF 45 to 50% with mid anterior septal, distal septal, apical hypokinesis, mild to moderate LVH with septum measuring 1.4 cm, mild MAC, trace MR, status post TAVR with peak/mean gradient 17/10
mmHg, no AR
ECHO 01/17/25: EF 48%, TAVR with peak/mean gradients 14/7 mmHg, mid anteroseptal and apical akinesis, mild concentric LVH, no significant changes compared to prior
Plan:
On exam his volume status continues to improve. However he had an episode of dyspnea last night, and his weight from yesterday was up. We will await today's weight.
Farxiga and spironolactone were restarted yesterday. He remains on IV furosemide 40 mg IV twice daily.
Will recheck proBNP in AM.
Continue IV furosemide. Serum bicarb is up, may not be able to uptitrate further.
Renal function continues to improve. We may change to oral furosemide in 24 to 48 hours based on labs, weight, etc. Would be nice to make sure he is not having recurrent dyspnea prior to transition.
Treatment of osteomyelitis per ID/hospitalist.
Otherwise no medication changes.
Progress Note - Loom Checker
Subjective
Date of Service: January 20, 2025:
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
obesity, known PAD with stenting, Charcot right foot, cerebrovascular disease, hypertension, hyperlipidemia
Current meds: Amlodipine 10 mg a day, aspirin 81 mg a day, carvedilol 12.5 mg twice daily, vitamin D3, clopidogrel 75 mg a day, Trusopt, hydralazine 50 mg twice daily, insulin, Xalatan, furosemide 40 IV twice daily, cefepime, daptomycin,
spironolactone 25 mg a day, dapagliflozin 10 mg a day just restarted
He was dyspneic and had chills yesterday, feels better now, spironolactone and dapagliflozin were both started yesterday
157/62, pulse 72, respiratory rate 16, no fever weight not obtained today, was 127 on January 19, 124.8 on January 18, Lungs are clear soft systolic murmur with occasional extrasystoles, JVD okay, edema lower extremities continues to improve
BUN and creatinine are 34 and 1.1, creatinine had been 1.2 peaked at 1.6, bicarb is 34, glucose is 261, intake and output was 0.5 L negative
Objective
Labs:
01/18/25 01:39
01/20/25 05:50
Labs
Hgb 12.4 g/dL (13.0-18.0) L 01/18/25 01:39
Hct 36.9 % (39.0-52.0) L 01/18/25 01:39
Plt Count 231 10^3/uL (130-400) 01/18/25 01:39
PT 14.3 Sec (11.4-14.6) 01/17/25 03:57
INR 1.10 01/17/25 03:57
APTT 28.6 Sec (23.4-35.0) 01/17/25 03:57
Sodium 136 mmol/L (135-145) 01/20/25 05:50
Potassium 4.6 mmol/L (3.5-5.1) 01/20/25 05:50
BUN 34 mg/dl (9-20) H 01/20/25 05:50
Creatinine 1.1 mg/dL (0.7-1.3) 01/20/25 05:50
Glucose 178 mg/dl (70-99) H 01/20/25 05:50
Troponins
01/17/25 01/17/25 01/18/25
14:30 19:52 01:39
Troponin I 0.066 H* 0.062 H* 0.069 H*
Vital Signs and I&O:
Vital Signs
Temp Pulse Resp BP Pulse Ox
36.3 C 72 16 157/62 98
01/20/25 08:17 01/20/25 08:17 01/20/25 08:17 01/20/25 08:17 01/20/25 08:17
Vital Signs
Temp Pulse Resp BP Pulse Ox
36.3 C 72 16 157/62 98
01/20/25 08:17 01/20/25 08:17 01/20/25 08:17 01/20/25 08:17 01/20/25 08:17
Intake & Output
01/18/25 01/19/25 01/20/25 01/21/25
07:59 07:59 07:59 07:59
Intake Total 1200 / 1200 660 / 660 720 / 720
Output Total 1775 / 1775 1840 / 1840 1200 / 1200
Balance -575 / -575 -1180 / -1180 -480 / -480
Physical Exam
Physical Exam
See above
[2025-01-20 12:30] LABS: Glucose - Point of Care 281 mg/dl (70-99)
[2025-01-20 12:41] VITALS: BMI 40.6
[2025-01-20] MEDS: NOVOLOG FLEXPEN-LOW RESISTANCE 2 UNITS SC (12:44)
--- NOTE | 2025-01-20 13:09 | W.PN.HOSP.TC ---
Today's Communication/Plan
-
Assessment / Plan
Assessment / Plan
NAD, off supplemental oxygen
Scleral Anicteric
MMM
No JVD
Crackles
RRR, S1/S2
1+ pitting lower extremity edema
Soft, NT, ND, BS+
Warm, Dry
AAOx3
Calm
Acute on chronic heart failure with moderately reduced EF
Started IV Lasix twice daily, per cards may need to titrate
Daily weights
I's and O's
Continue beta-zac
Cardiology consult
monitor car operator
Repeat 2D echocardiogram
Elevated troponin likely type II demand ischemia in the setting of heart failure
Trend troponins to peak
Repeat EKG with uptrending troponin
Consider heparin drip if significantly increases
Acute hypoxemic respiratory failure secondary to heart failure exacerbation with a respiratory rate of 25 and the lowest SpO2 documented at 91%
Wean oxygen as tolerated
Expect to improve
IV diuretic
Continue Aldactone lisinopril Farxiga
Right foot osteomyelitis
Pseudomonas and Enterococcus bacteremia
Previously on cefepime daptomycin however this was causing him to have some itchiness therefore was held at facility
ID recommend continue cefepime daptomycin monitor for reaction
Outpatient podiatry follow-up
History of PAD/CAD
Aspirin Plavix statin
Type 2 diabetes
Continue long and short acting insulin sliding scale
Accu-Cheks
Goal blood glucose 140-180
Carb controlled diet
Chronic venous stasis
Oziel wrap
Anticipated Discharge: > 48 hours
Subjective/Interval History
-
Date of Service: January 20, 2025
Seen and examined. No new complaints. No acute overnight events.
Did feel somewhat short of breath overnight requiring supplemental oxygen with improvement
Objective Data
-
Labs:
Laboratory Results
01/20/25
05:50
Sodium 136
Potassium 4.6
Chloride 99
Carbon Dioxide 34 H
BUN 34 H
Creatinine 1.1
Glucose 178 H
Calcium 9.1
Vital Signs:
Vital Signs
Temp Pulse Resp BP Pulse Ox
97.3 F 72 16 157/62 98
01/20/25 08:17 01/20/25 08:17 01/20/25 08:17 01/20/25 08:17 01/20/25 08:17
I&O
01/19/25 01/20/25 01/21/25
06:59 06:59 06:59
Intake Total 660 / 660 720 / 720
Output Total 1840 / 1840 1200 / 1200
Balance -1180 / -1180 -480 / -480
--- NOTE | 2025-01-20 14:25 | W.PN.ID1 ---
Date of Service
Date of Service: January 20, 2025
Today's Communication
Continue cefepime and daptomycin through 02/15/2025
Assessment / Plan
Right foot osteomyelitis
Charcot arthropathy of right foot
Non-Healing, chronic (R) Foot Wound
Reported SOB, slurred words, 'thick tougue'
- Not clear if secondary to antibiotics or not.
- Abx's resumed, pt tolerating.
ASCVD (CAD, PAD, Carotid Disease)
Chronic HFmrEF
Aortic Stenosis s/p TAVR
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
Morbid Obesity due to excess calories
Allergy to penicillin - rash
Recommendations:
Pt s/p deep bx and culture 01/05
01/04 wound culture: Pseudomonas
01/04 bone culture (cunieform): Pseudomonas, Enterococcus
01/04 pathology without osteomyelitis
01/02 superficial culture Pseudomonas, Enterococcus,
Continue cefepime and daptomycin through 02/15/2025
CK normal
ESR stable
CK improved from 24.7 to <5.0
Monitor white count and temperature curve.
Chief Complaint
-: Other (Right foot osteomyelitis)
Subjective / Review of Systems
afebrile
bp stable
no events overnight
no rashes or itching
Vital Signs / Physical Exam
Vital Signs
Vital Signs
Temp Pulse Resp BP Pulse Ox
97.3 F 72 16 157/62 98
01/20/25 08:17 01/20/25 08:17 01/20/25 08:17 01/20/25 08:17 01/20/25 08:17
Physical Exam
Constitutional: No Acute Distress
Cardiovascular: Regular Rate and S1/S2; Negative Murmur or Rub
Pulmonary: Clear and Symmetric; Negative Wheezes or Rales
Gastrointestinal: Soft, Non Tender, Non Distended and Normal Bowel Sounds
Skin: Warm and Dry; Negative Rash or Jaundice
Wound: Other (r foot dressing clean, dry, intact)
Objective Data
Lab Data
Lab Results
01/18/25 01:39
01/20/25 05:50
ESR 44 mm/hour (0-20) H 01/18/25 01:39
PT 14.3 Sec (11.4-14.6) 01/17/25 03:57
INR 1.10 01/17/25 03:57
APTT 28.6 Sec (23.4-35.0) 01/17/25 03:57
Estimated Creat Clear 72 ml/min 01/20/25 05:50
Total Bilirubin 0.7 mg/dl (0.2-1.3) 01/17/25 03:57
AST 38 U/L (17-59) 01/17/25 03:57
ALT 46 U/L (0-50) 01/17/25 03:57
Alkaline Phosphatase 81 U/L (38-126) 01/17/25 03:57
C-Reactive Protein < 5.00 mg/L (0.0-10.00) 01/18/25 01:39
Most recent labs reviewed.
Micro Results:
01/17/25 14:50 MRSA Screen - Final
Nose No Methicillin Resistant Staphylococcus aureus isolated.
Imaging:
12/29/2024 Labeled WBC scan : Accumulation of radiolabeled white blood cells within the right medial midfoot, similar distribution compared to prior 3 phase bone scan. Findings may be seen in the setting of osteomyelitis, consider MRI right foot
for more precise anatomic localization.
01/02/2025 Right foot x-ray: No evidence of acute osseous injury. No evidence of bone destruction. Soft tissue swelling of the forefoot. Soft tissue ulceration of the plantar midfoot versus overlying dressing as described above. Moderate dorsal
midfoot osteoarthritis.
[2025-01-20 15:44] VITALS: BP 126/58
[2025-01-20] MEDS: LOVENOX 40 MG SC (16:42)
[2025-01-20 16:43] LABS: Glucose - Point of Care 253 mg/dl (70-99)
[2025-01-20] MEDS: CUBICIN 20 MG IV (16:45)
[2025-01-20 20:53] LABS: Glucose - Point of Care 200 mg/dl (70-99)
[2025-01-20] MEDS: XALATAN OPHTHALMIC SOLUTION 1 DROP LEFT EYE (21:12)
[2025-01-20 23:45] VITALS: BP 138/60
[2025-01-21] MEDS: STERILE WATER FOR INJECTION 10 ML IV ×5 (00:22→23:54)
[2025-01-21] MEDS: MAXIPIME 1000 MG IV ×5 (00:22→23:54)
[2025-01-21 05:51] LABS: Blood Urea Nitrogen 48 mg/dl (9-20); Calcium 8.8 mg/dl (8.4-10.2); Carbon Dioxide 29 mmol/L (22-30); Chloride 97 mmol/L (98-107); Estimated Creatinine Clearance 50 ml/min; Glucose 170 mg/dl (70-99); Potassium 4.4 mmol/L (3.5-5.1); Sodium 132 mmol/L (135-145); eGFR 43.29
[2025-01-21 06:59] VITALS: BMI 40.1
[2025-01-21 07:54] VITALS: BP 143/54
[2025-01-21 08:57] LABS: Glucose - Point of Care 330 mg/dl (70-99)
[2025-01-21] MEDS: FARXIGA 10 MG PO (08:59)
[2025-01-21] MEDS: NORVASC 10 MG PO (08:59)
[2025-01-21] MEDS: PLAVIX 75 MG PO (08:59)
[2025-01-21] MEDS: ALDACTONE PO ×2 (08:59→09:47)
[2025-01-21] MEDS: THERAGRAN 1 TABLET PO (09:00)
[2025-01-21] MEDS: ASPIR LOW (ENTERIC COATED) 81 MG PO (09:00)
[2025-01-21] MEDS: VITAMIN D3 (cholecalciferol) 50 MCG PO (09:00)
[2025-01-21] MEDS: TYLENOL 650 MG PO (09:00)
[2025-01-21] MEDS: COREG 12.5 MG PO ×2 (09:00→20:21)
[2025-01-21] MEDS: APRESOLINE 50 MG PO ×2 (09:00→20:15)
[2025-01-21] MEDS: TRUSOPT 2% OPHTHALMIC SOLUTION 1 DROP LEFT EYE ×2 (09:01→20:41)
[2025-01-21] MEDS: NOVOLOG FLEXPEN 10 UNITS SC ×3 (09:01→17:32)
[2025-01-21] MEDS: DESENEX/MITRAZOL/ZEASORB 1 APPLIC TOPICAL ×2 (09:02→20:26)
[2025-01-21] MEDS: NOVOLOG FLEXPEN-LOW RESISTANCE 5 UNITS SC (09:02)
[2025-01-21] MEDS: BACTROBAN 2% OINTMENT 1 APPLIC TOPICAL (09:02)
[2025-01-21] MEDS: LASIX IV ×2 (09:03→15:38)
[2025-01-21] MEDS: LANTUS 0.24 UNITS SC ×2 (09:04→20:22)
[2025-01-21] MEDS: ZESTRIL PO (09:11)
[2025-01-21] MEDS: NSS 1000 IV ×2 (10:40→21:08)
[2025-01-21 12:23] LABS: Glucose - Point of Care 275 mg/dl (70-99)
[2025-01-21] MEDS: NOVOLOG FLEXPEN-LOW RESISTANCE 3 UNITS SC (13:13)
--- NOTE | 2025-01-21 13:46 | W.PN.HOSP.TC ---
Addendum entered and electronically signed by Albert Gillis MD 01/21/25 15:20:
Type 2 demand ischemia
Original Note:
Today's Communication/Plan
-
Assessment / Plan
Assessment / Plan
NAD, off supplemental oxygen
Scleral Anicteric
MMM
No JVD
Crackles
RRR, S1/S2
1+ pitting lower extremity edema
Soft, NT, ND, BS+
Warm, Dry
AAOx3
Calm
Acute on chronic heart failure with moderately reduced EF
Hold IV Lasix, ARB SGLT2 inhibitor and MRA due to VANESSA
Daily weights
I's and O's
Continue beta-zac
Cardiology consult
patient monitor
2D echocardiogram reported
VANESSA likely secondary to overdiuresis
Hold Lasix
Hold ARB/MRA/SGLT2 inhibitor
Repeat BMP in the a.m.
Follow renal function
IV fluid
Electrolyte abnormalities with hyponatremia hypochloremia
Likely related to diuresis
Start IV fluids NS
Elevated troponin likely type II demand ischemia in the setting of heart failure
Troponin peak of 0.07
Acute hypoxemic respiratory failure secondary to heart failure exacerbation with a respiratory rate of 25 and the lowest SpO2 documented at 91%
Wean oxygen as tolerated
Expect to improve
Hold IV Lasix
Hold Aldactone lisinopril Farxiga
? Nocturnal hypoxia likely related to sleep apnea
Will need outpatient polysomnography
Right foot osteomyelitis
Pseudomonas and Enterococcus bacteremia
Previously on cefepime daptomycin however this was causing him to have some itchiness therefore was held at facility
ID recommend continue cefepime daptomycin monitor for reaction
Outpatient podiatry follow-up
History of PAD/CAD
Aspirin Plavix statin
Type 2 diabetes
Continue long and short acting insulin sliding scale
Accu-Cheks
Goal blood glucose 140-180
Carb controlled diet
Chronic venous stasis
Oziel wrap
Anticipated Discharge: 24 - 48 hours
Subjective/Interval History
-
Date of Service: January 21, 2025
Seen and examined
Again needed O2 overnight. Was supposed to have a sleep study many years ago however did not follow-up.
Objective Data
-
Labs:
Laboratory Results
01/21/25
05:09
Sodium 132 L
Potassium 4.4
Chloride 97 L
Carbon Dioxide 29
BUN 48 H
Creatinine 1.6 H
Glucose 170 H
Calcium 8.8
Vital Signs:
Vital Signs
Temp Pulse Resp BP Pulse Ox
97.3 F 72 20 143/54 100
01/21/25 07:54 01/21/25 07:54 01/21/25 07:54 01/21/25 07:54 01/21/25 07:54
I&O
01/20/25 01/21/25 01/22/25
06:59 06:59 06:59
Intake Total 720 / 720 720 / 720
Output Total 1200 / 1200 400 / 400
Balance -480 / -480 320 / 320
--- NOTE | 2025-01-21 14:35 | W.PN.ID1 ---
Date of Service
Date of Service: January 21, 2025
Today's Communication
Continue cefepime and daptomycin through 02/15/2025
Assessment / Plan
Right foot osteomyelitis
Charcot arthropathy of right foot
Non-Healing, chronic (R) Foot Wound
Reported SOB, slurred words, 'thick tougue'
- Not clear if secondary to antibiotics or not.
- Abx's resumed, pt tolerating.
ASCVD (CAD, PAD, Carotid Disease)
Chronic HFmrEF
Aortic Stenosis s/p TAVR
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
Morbid Obesity due to excess calories
Allergy to penicillin - rash
Recommendations:
Pt s/p deep bx and culture 01/05
01/04 wound culture: Pseudomonas
01/04 bone culture (cunieform): Pseudomonas, Enterococcus
01/04 pathology without osteomyelitis
01/02 superficial culture Pseudomonas, Enterococcus,
Continue cefepime and daptomycin through 02/15/2025
recheck CK wednesday
ESR stable
CRP improved from 24.7 to <5.0
stable for dc from ID perspective
Chief Complaint
-: Other (Right foot osteomyelitis)
Subjective / Review of Systems
afebrile
bp stable
tolerating current antibiotics
Vital Signs / Physical Exam
Vital Signs
Vital Signs
Temp Pulse Resp BP Pulse Ox
97.3 F 72 20 143/54 100
01/21/25 07:54 01/21/25 07:54 01/21/25 07:54 01/21/25 07:54 01/21/25 07:54
Physical Exam
Constitutional: No Acute Distress
Cardiovascular: Regular Rate and S1/S2; Negative Murmur or Rub
Pulmonary: Clear and Symmetric; Negative Wheezes or Rales
Gastrointestinal: Soft, Non Tender, Non Distended and Normal Bowel Sounds
Skin: Warm and Dry; Negative Rash or Jaundice
Wound: Other (dressing clean, dry )
Lines: PICC
Objective Data
Lab Data
Lab Results
01/18/25 01:39
01/21/25 05:09
ESR 44 mm/hour (0-20) H 01/18/25 01:39
PT 14.3 Sec (11.4-14.6) 01/17/25 03:57
INR 1.10 01/17/25 03:57
APTT 28.6 Sec (23.4-35.0) 01/17/25 03:57
Estimated Creat Clear 50 ml/min 01/21/25 05:09
Total Bilirubin 0.7 mg/dl (0.2-1.3) 01/17/25 03:57
AST 38 U/L (17-59) 01/17/25 03:57
ALT 46 U/L (0-50) 01/17/25 03:57
Alkaline Phosphatase 81 U/L (38-126) 01/17/25 03:57
C-Reactive Protein < 5.00 mg/L (0.0-10.00) 01/18/25 01:39
Most recent labs reviewed.
Micro Results:
01/17/25 14:50 MRSA Screen - Final
Nose No Methicillin Resistant Staphylococcus aureus isolated.
Imaging:
12/29/2024 Labeled WBC scan : Accumulation of radiolabeled white blood cells within the right medial midfoot, similar distribution compared to prior 3 phase bone scan. Findings may be seen in the setting of osteomyelitis, consider MRI right foot
for more precise anatomic localization.
01/02/2025 Right foot x-ray: No evidence of acute osseous injury. No evidence of bone destruction. Soft tissue swelling of the forefoot. Soft tissue ulceration of the plantar midfoot versus overlying dressing as described above. Moderate dorsal
midfoot osteoarthritis.
--- NOTE | 2025-01-21 14:48 | PTCARENOTE ---
Creatinine bumped up, I held lasix aldactone and FLORES. was made aware and agreed, no orders were placed. wrote '
Hold Lasix Hold ARB/MRA/SGLT2 inhibitor Repeat BMP in the a.m.' I sent the MD a tiger text to validate as patient was placed on IVF at 80 ml
--- NOTE | 2025-01-21 16:02 | W.PN.CARDCBS ---
Today's Communication / Plan
-
VANESSA
Holding furosemide, lisinopril, spironolactone, dapagliflozin
Impression / Plan
-
Primary Multiple Spindle Router Operator: Dr. Sotelo
Assessment:
Presentation with SOB
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
R foot osteomyelitis, receiving IV abx as OP
trop elevation, suspected nonischemic myocardial injury in setting of above
Ischemic cardiomyopathy, EF 45-50%
CAD with prior LAD stents 1993, 2015, 2017, prior RCA PCI with subsequent AIRPLANE PILOT PHOTOGRAMMETRY
Severe status post 29 mm VANDANA TAVR
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
Diabetes
Morbid obesity
PVD requiring prior peripheral stents
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
Carotid artery disease
Hypercholesterolemia
Hypertension
DNR code status
ECHO 04/03/24: Technically difficult study, Definity used, EF 45 to 50% with mid anterior septal, distal septal, apical hypokinesis, mild to moderate LVH with septum measuring 1.4 cm, mild MAC, trace MR, status post TAVR with peak/mean gradient 17/10
mmHg, no AR
ECHO 01/17/25: EF 48%, TAVR with peak/mean gradients 14/7 mmHg, mid anteroseptal and apical akinesis, mild concentric LVH, no significant changes compared to prior
Plan:
Unfortunately, he has VANESSA likely related to his heart failure regimen.
Previously he had been on dapagliflozin and spironolactone, which we restarted yesterday, this may be the main precipitating events. Prior to this he had been diuresing successfully with IV furosemide and relatively stable renal function.
Farxiga, spironolactone, lisinopril, furosemide are on hold at this time. Will restart furosemide and possibly lisinopril at lower dose as VANESSA resolves.
He has mild hyponatremia
No evidence of rales and his lower extremities are without much edema.
Some of his dyspnea may now relate to bronchospasm, defer to hospitalist as to whether this requires further investigation
Progress Note - Multiple Spindle Router Operator
Subjective
Date of Service: January 21, 2025:
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
PMH: Ischemic cardiomyopathy, EF 45%, CAD with LAD stents 1993, 2015, 2016 with prior RCA PCI and AIRPLANE PILOT PHOTOGRAMMETRY of RCA, severe aortic stenosis, 29 mm Guardado VANDANA transcatheter aortic valve, heart block with Medtronic pacemaker implantation, diabetes,
obesity, known PAD with stenting, Charcot right foot, cerebrovascular disease, hypertension, hyperlipidemia
Current meds: Amlodipine 10 mg a day, aspirin 81 mg a day, carvedilol 12.5 mg twice daily, clopidogrel 75 mg a day, Trusopt left eye, hydralazine 50 p.o. twice daily, Xalatan, subcu Lovenox, furosemide 40 mg IV twice daily, Lantus, cefepime,
daptomycin, lisinopril 40 mg a day, spironolactone 25 a day, dapagliflozin 10 mg a day
He feels off, has had some loose bowel movements but no true diarrhea, is wheezing somewhat
143/54, pulse 72, respiratory rate 20, sats are 100%, weight is 126.7 kg, if accurate down 1.7 kg, appears uncomfortable and less well than yesterday, and neck exam unremarkable, mild scattered wheezing, no rales, Edema markedly improved, JVD okay,
no obvious murmurs
Sodium 132, had been 136, potassium 4.4, BUN and creatinine are 48 and 1.6, creatinine had been 1.1, proBNP this morning 1220, had been 2480
Objective
Labs:
01/18/25 01:39
01/21/25 05:09
Labs
Hgb 12.4 g/dL (13.0-18.0) L 01/18/25 01:39
Hct 36.9 % (39.0-52.0) L 01/18/25 01:39
Plt Count 231 10^3/uL (130-400) 01/18/25 01:39
PT 14.3 Sec (11.4-14.6) 01/17/25 03:57
INR 1.10 01/17/25 03:57
APTT 28.6 Sec (23.4-35.0) 01/17/25 03:57
Sodium 132 mmol/L (135-145) L 01/21/25 05:09
Potassium 4.4 mmol/L (3.5-5.1) 01/21/25 05:09
BUN 48 mg/dl (9-20) H 01/21/25 05:09
Creatinine 1.6 mg/dL (0.7-1.3) H 01/21/25 05:09
Glucose 170 mg/dl (70-99) H 01/21/25 05:09
Vital Signs and I&O:
Vital Signs
Temp Pulse Resp BP Pulse Ox
36.5 C 72 20 143/54 100
01/21/25 15:06 01/21/25 15:06 01/21/25 15:06 01/21/25 07:54 01/21/25 15:06
Vital Signs
Temp Pulse Resp BP Pulse Ox
36.5 C 72 20 143/54 100
01/21/25 15:06 01/21/25 15:06 01/21/25 15:06 01/21/25 07:54 01/21/25 15:06
Intake & Output
01/19/25 01/20/25 01/21/25 01/22/25
07:59 07:59 07:59 07:59
Intake Total 660 / 660 720 / 720 720 / 720
Output Total 1840 / 1840 1200 / 1200 400 / 400
Balance -1180 / -1180 -480 / -480 320 / 320
Physical Exam
Physical Exam
See above
[2025-01-21 16:54] LABS: Glucose - Point of Care 235 mg/dl (70-99)
[2025-01-21] MEDS: NOVOLOG FLEXPEN-LOW RESISTANCE 2 UNITS SC (17:32)
[2025-01-21] MEDS: LOVENOX 40 MG SC (17:33)
[2025-01-21] MEDS: CUBICIN 20 MG IV (17:33)
[2025-01-21 17:54] VITALS: BP 141/67
[2025-01-21 20:26] LABS: Glucose - Point of Care 226 mg/dl (70-99)
[2025-01-21] MEDS: XALATAN OPHTHALMIC SOLUTION 1 DROP LEFT EYE (21:07)
[2025-01-21 23:00] VITALS: BP 139/55
[2025-01-22 04:47] VITALS: BMI 40.6
[2025-01-22] MEDS: STERILE WATER FOR INJECTION 10 ML IV ×3 (05:28→17:20)
[2025-01-22] MEDS: MAXIPIME 1000 MG IV ×3 (05:28→17:20)
[2025-01-22 05:31] LABS: Hematocrit 35.2 % (39.0-52.0); Hemoglobin 11.6 g/dL (13.0-18.0); Mean Corp Hgb Conc. 33.0 g/dL (33.0-37.0); Mean Corpuscular Volume 91.7 fL (80.0-94.0); Platelet Count 184 10^3/uL (130-400); Red Cell Dist. Width 13.2 % (11.5-14.5)
[2025-01-22 05:43] LABS: Blood Urea Nitrogen 43 mg/dl (9-20); Calcium 9.1 mg/dl (8.4-10.2); Carbon Dioxide 28 mmol/L (22-30); Chloride 103 mmol/L (98-107); Estimated Creatinine Clearance 72 ml/min; Glucose 122 mg/dl (70-99); Potassium 4.1 mmol/L (3.5-5.1); Sodium 135 mmol/L (135-145); eGFR > 60.00
[2025-01-22 07:28] VITALS: BP 159/65
[2025-01-22] MEDS: APRESOLINE 50 MG PO ×2 (07:36→21:19)
[2025-01-22] MEDS: COREG 12.5 MG PO ×2 (07:36→21:19)
[2025-01-22] MEDS: LANTUS 0.24 UNITS SC ×2 (07:36→21:23)
[2025-01-22] MEDS: VITAMIN D3 (cholecalciferol) 50 MCG PO (07:36)
[2025-01-22] MEDS: PLAVIX 75 MG PO (07:36)
[2025-01-22] MEDS: ASPIR LOW (ENTERIC COATED) 81 MG PO (07:36)
[2025-01-22] MEDS: THERAGRAN 1 TABLET PO (07:36)
[2025-01-22] MEDS: NORVASC 10 MG PO (07:36)
[2025-01-22] MEDS: TRUSOPT 2% OPHTHALMIC SOLUTION 1 DROP LEFT EYE ×2 (07:37→21:18)
[2025-01-22] MEDS: BACTROBAN 2% OINTMENT 1 APPLIC TOPICAL (07:38)
[2025-01-22] MEDS: DESENEX/MITRAZOL/ZEASORB 1 APPLIC TOPICAL ×2 (07:38→21:20)
[2025-01-22 07:49] LABS: Glucose - Point of Care 129 mg/dl (70-99)
[2025-01-22] MEDS: NOVOLOG FLEXPEN 10 UNITS SC ×3 (07:59→17:19)
[2025-01-22] MEDS: NOVOLOG FLEXPEN-LOW RESISTANCE SC (07:59)
--- NOTE | 2025-01-22 08:38 | W.PN.HOSP.TC ---
Today's Communication/Plan
-
IVF completed
cont monitoring renal function
abx as per ID
Assessment / Plan
Assessment / Plan
Physical Exam
General: no acute distress, appears comfortable
HEENT: Scleral Anicteric, MMM, No JVD
Pulm: clear to auscultation b/l, on low dose nasal cannula supplementation
Cardio: RRR, S1/S2
GI: Soft, NT, ND, BS+
Ext: 1+ pitting lower extremity edema
Skin: Warm, Dry
Neuro: AOx3 conversant coherent
Psych: Calm
79M HFmrEF PAD/CAD DM Chronic Venous Stasis here for heart failure complicated with acute kidney injury. Patient also being treated for right foot osteomyelitis.
Acute on chronic heart failure with moderately reduced EF
Hold IV Lasix, ARB SGLT2 inhibitor and MRA due to VANESSA
Daily weights
I's and O's
Continue beta-zac
Cardiology consult appreciated Lasix to restart tomorrow
panel monitor
2D echocardiogram reported
VANESSA likely secondary to overdiuresis
Hold Lasix
Hold ARB/MRA/SGLT2 inhibitor
Follow renal function
IV fluid completed with resolution VANESSA
Electrolyte abnormalities with hyponatremia hypochloremia
Likely related to diuresis
resolved, IVF completed
Elevated troponin likely type II demand ischemia in the setting of heart failure
Troponin peak of 0.07
Acute hypoxemic respiratory failure secondary to heart failure exacerbation with a respiratory rate of 25 and the lowest SpO2 documented at 91%
Wean oxygen as tolerated
Expect to improve
Hold IV Lasix
Hold Aldactone lisinopril Farxiga
Nocturnal hypoxia likely related to sleep apnea
Will need outpatient polysomnography
Right foot osteomyelitis
Pseudomonas and Enterococcus bacteremia
Previously on cefepime daptomycin however this was causing him to have some itchiness therefore was held at facility
ID recommend continue cefepime daptomycin monitor for reaction
Outpatient podiatry follow-up
History of PAD/CAD
Aspirin Plavix statin
Type 2 diabetes
Continue long and short acting insulin sliding scale
Accu-Cheks
Goal blood glucose 140-180
Carb controlled diet
Chronic venous stasis
Oziel wrap
DVT ppx Lovenox
DNR
Discussed with patient and patient's Siri
I spent a total of 40 minutes with the patient or on the floor. More than 50% of this time involved counseling and coordination of care.
Anticipated Discharge: 24 - 48 hours
Subjective/Interval History
-
Date of Service: January 22, 2025
no acute distress, resting comfortably in bed. Overall reports feeling well. Stable respiratory status on low dose nasal cannula supplementation.
Objective Data
-
Labs:
Laboratory Results
01/22/25
04:53
WBC 9.3
Hgb 11.6 L
Hct 35.2 L
Plt Count 184 D
Sodium 135
Potassium 4.1
Chloride 103
Carbon Dioxide 28
BUN 43 H
Creatinine 1.1
Glucose 122 H
Calcium 9.1
Vital Signs:
Vital Signs
Temp Pulse Resp BP Pulse Ox
98.2 F 70 18 159/65 99
01/22/25 07:28 01/22/25 07:28 01/22/25 07:28 01/22/25 07:28 01/22/25 07:28
I&O
01/21/25 01/22/25 01/23/25
06:59 06:59 06:59
Intake Total 720 / 720 240 / 240
Output Total 400 / 400 150 / 150
Balance 320 / 320 90 / 90
[2025-01-22] MEDS: NSS 1000 IV (09:58)
[2025-01-22 11:59] LABS: Glucose - Point of Care 206 mg/dl (70-99)
[2025-01-22] MEDS: NOVOLOG FLEXPEN-LOW RESISTANCE 2 UNITS SC (12:15)
[2025-01-22 14:59] VITALS: BP 159/66
--- NOTE | 2025-01-22 15:36 | W.PN.ID1 ---
Date of Service
Date of Service: January 22, 2025
Today's Communication
Continue antibiotics.
Assessment / Plan
Right foot osteomyelitis
Charcot arthropathy of right foot
Non-Healing, chronic (R) Foot Wound
Reported SOB, slurred words, 'thick tougue'
- Not clear if secondary to antibiotics or not.
- Abx's resumed, pt tolerating.
ASCVD (CAD, PAD, Carotid Disease)
Chronic HFmrEF
Aortic Stenosis s/p TAVR
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
Morbid Obesity due to excess calories
Allergy to penicillin - rash
Recommendations:
Pt s/p deep bx and culture 01/05
01/04 wound culture: Pseudomonas
01/04 bone culture (cunieform): Pseudomonas, Enterococcus
01/04 pathology without osteomyelitis
01/02 superficial culture Pseudomonas, Enterococcus,
Continue cefepime and daptomycin through 02/15/2025
CPK normal.
ESR stable
CRP improved from 24.7 to <5.0
����������������������������������������������������������
Chief Complaint
-: Other (Right foot osteomyelitis)
Subjective / Review of Systems
Review of Systems: No Fever, No Chills and No Chest Pain
Vital Signs / Physical Exam
Vital Signs
Vital Signs
Temp Pulse Resp BP Pulse Ox
97.7 F 71 18 159/66 99
01/22/25 14:59 01/22/25 14:59 01/22/25 14:59 01/22/25 14:59 01/22/25 14:59
Physical Exam
Constitutional: No Acute Distress
Cardiovascular: Regular Rate and S1/S2; Negative Murmur or Rub
Pulmonary: Clear and Symmetric; Negative Wheezes or Rales
Gastrointestinal: Soft, Non Tender, Non Distended and Normal Bowel Sounds
Skin: Warm and Dry; Negative Rash or Jaundice
Wound: Other (right foot dressing clean, dry )
Neurological: Awake and Alert
Lines: PICC
Objective Data
Lab Data
Lab Results
01/22/25 04:53
01/22/25 04:53
ESR 44 mm/hour (0-20) H 01/18/25 01:39
PT 14.3 Sec (11.4-14.6) 01/17/25 03:57
INR 1.10 01/17/25 03:57
APTT 28.6 Sec (23.4-35.0) 01/17/25 03:57
Estimated Creat Clear 72 ml/min 01/22/25 04:53
Total Bilirubin 0.7 mg/dl (0.2-1.3) 01/17/25 03:57
AST 38 U/L (17-59) 01/17/25 03:57
ALT 46 U/L (0-50) 01/17/25 03:57
Alkaline Phosphatase 81 U/L (38-126) 01/17/25 03:57
C-Reactive Protein < 5.00 mg/L (0.0-10.00) 01/18/25 01:39
Most recent labs reviewed.
Micro Results:
01/17/25 14:50 MRSA Screen - Final
Nose No Methicillin Resistant Staphylococcus aureus isolated.
Imaging:
12/29/2024 Labeled WBC scan : Accumulation of radiolabeled white blood cells within the right medial midfoot, similar distribution compared to prior 3 phase bone scan. Findings may be seen in the setting of osteomyelitis, consider MRI right foot
for more precise anatomic localization.
01/02/2025 Right foot x-ray: No evidence of acute osseous injury. No evidence of bone destruction. Soft tissue swelling of the forefoot. Soft tissue ulceration of the plantar midfoot versus overlying dressing as described above. Moderate dorsal
midfoot osteoarthritis.
[2025-01-22 15:59] VITALS: BP 165/62; PULSE 70; O2SAT 99
[2025-01-22 16:00] VITALS: BP 165/62; PULSE 70; O2SAT 99
[2025-01-22 16:29] LABS: Glucose - Point of Care 188 mg/dl (70-99)
[2025-01-22] MEDS: CUBICIN 20 MG IV (17:18)
[2025-01-22] MEDS: LOVENOX 40 MG SC (17:19)
[2025-01-22] MEDS: NOVOLOG FLEXPEN-LOW RESISTANCE 1 UNITS SC (17:19)
--- NOTE | 2025-01-22 17:39 | W.PN.CARDCBS ---
Today's Communication / Plan
-
Plan:
-Restart furosemide tomorrow
-If renal function stable then consider lisinopril in next 48 hours
-Follow labs closely as an outpatient
-spironolactone remains on hold
Impression / Plan
-
Primary Ramp Service Man: Dr. Sotelo
Assessment:
Presentation with SOB
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
R foot osteomyelitis, receiving IV abx as OP
trop elevation, suspected nonischemic myocardial injury in setting of above
Ischemic cardiomyopathy, EF 45-50%
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
Severe status post 29 mm VANDANA TAVR
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
Diabetes
Morbid obesity
PVD requiring prior peripheral stents
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
Carotid artery disease
Hypercholesterolemia
Hypertension
DNR code status
ECHO 04/03/24: Technically difficult study, Definity used, EF 45 to 50% with mid anterior septal, distal septal, apical hypokinesis, mild to moderate LVH with septum measuring 1.4 cm, mild MAC, trace MR, status post TAVR with peak/mean gradient 17/10
mmHg, no AR
ECHO 01/17/25: EF 48%, TAVR with peak/mean gradients 14/7 mmHg, mid anteroseptal and apical akinesis, mild concentric LVH, no significant changes compared to prior
Plan:
-Renal function is back to baseline. His blood pressures have been running high.
He furosemide is on hold, lisinopril on hold, spironolactone on hold
Will restart furosemide 40mg once daily tomorrow and maybe lower dose of lisinopril like 10mg or 20mg to start (baseline dose 40mg daily) the day after
Eventually would like to restart spironolactone but need to be sure renal function is stable before restarting
-Will need close follow of labs
Progress Note - Ramp Service Man
Subjective
Date of Service: January 22, 2025
Feeling reasonably well.
Objective
Labs:
01/22/25 04:53
01/22/25 04:53
Labs
Hgb 11.6 g/dL (13.0-18.0) L 01/22/25 04:53
Hct 35.2 % (39.0-52.0) L 01/22/25 04:53
Plt Count 184 10^3/uL (130-400) D 01/22/25 04:53
PT 14.3 Sec (11.4-14.6) 01/17/25 03:57
INR 1.10 01/17/25 03:57
APTT 28.6 Sec (23.4-35.0) 01/17/25 03:57
Sodium 135 mmol/L (135-145) 01/22/25 04:53
Potassium 4.1 mmol/L (3.5-5.1) 01/22/25 04:53
BUN 43 mg/dl (9-20) H 01/22/25 04:53
Creatinine 1.1 mg/dL (0.7-1.3) 01/22/25 04:53
Glucose 122 mg/dl (70-99) H 01/22/25 04:53
Vital Signs and I&O:
Vital Signs
Temp Pulse Resp BP Pulse Ox
97.7 F 71 18 159/66 99
01/22/25 14:59 01/22/25 14:59 01/22/25 14:59 01/22/25 14:59 01/22/25 14:59
Vital Signs
Temp Pulse Resp BP Pulse Ox
97.7 F 71 18 159/66 99
01/22/25 14:59 01/22/25 14:59 01/22/25 14:59 01/22/25 14:59 01/22/25 14:59
Intake & Output
01/19/25 01/20/25 01/21/25 01/22/25
23:59 23:59 23:59 23:59
Intake Total 720 / 720 720 / 720 1120 / 1120
Output Total 1700 / 1700 1100 / 1100 800 / 800
Balance -980 / -980 -380 / -380 320 / 320
Physical Exam:
Gen: Awake and interactive
HEENT: NC/AT, sclera anicteric
Lungs: Clear anteriorly
CV: RRR
[2025-01-22] MEDS: XALATAN OPHTHALMIC SOLUTION 1 DROP LEFT EYE (21:18)
[2025-01-22] MEDS: TYLENOL 650 MG PO (21:18)
[2025-01-22] MEDS: MELATONIN 3 MG PO (21:19)
[2025-01-22 21:23] LABS: Glucose - Point of Care 203 mg/dl (70-99)
[2025-01-22 23:00] VITALS: BP 149/58
[2025-01-23] MEDS: MAXIPIME 1000 MG IV ×4 (00:53→17:27)
[2025-01-23] MEDS: STERILE WATER FOR INJECTION 10 ML IV ×4 (00:54→17:27)
[2025-01-23 04:07] VITALS: BMI 40.8
[2025-01-23 04:45] LABS: Hematocrit 36.2 % (39.0-52.0); Hemoglobin 11.7 g/dL (13.0-18.0); Mean Corp Hgb Conc. 32.3 g/dL (33.0-37.0); Mean Corpuscular Volume 91.4 fL (80.0-94.0); Platelet Count 180 10^3/uL (130-400); Red Cell Dist. Width 13.2 % (11.5-14.5)
[2025-01-23 05:09] LABS: Blood Urea Nitrogen 36 mg/dl (9-20); Calcium 9.4 mg/dl (8.4-10.2); Carbon Dioxide 30 mmol/L (22-30); Chloride 107 mmol/L (98-107); Estimated Creatinine Clearance 88 ml/min; Glucose 148 mg/dl (70-99); Potassium 4.4 mmol/L (3.5-5.1); Sodium 137 mmol/L (135-145); eGFR > 60.00
[2025-01-23 07:39] VITALS: BP 145/64
[2025-01-23 07:53] LABS: Glucose - Point of Care 217 mg/dl (70-99)
[2025-01-23] MEDS: LANTUS 0.24 UNITS SC ×2 (07:59→21:37)
[2025-01-23] MEDS: NOVOLOG FLEXPEN 10 UNITS SC ×3 (08:00→17:30)
[2025-01-23] MEDS: NOVOLOG FLEXPEN-LOW RESISTANCE 2 UNITS SC ×2 (08:01→17:31)
[2025-01-23] MEDS: NORVASC 10 MG PO (08:03)
[2025-01-23] MEDS: PLAVIX 75 MG PO (08:03)
[2025-01-23] MEDS: LASIX 40 MG PO (08:03)
[2025-01-23] MEDS: ASPIR LOW (ENTERIC COATED) 81 MG PO (08:03)
[2025-01-23] MEDS: THERAGRAN 1 TABLET PO (08:03)
[2025-01-23] MEDS: APRESOLINE 50 MG PO (08:04)
[2025-01-23] MEDS: COREG 12.5 MG PO ×2 (08:04→21:23)
[2025-01-23] MEDS: TRUSOPT 2% OPHTHALMIC SOLUTION 1 DROP LEFT EYE ×2 (08:04→21:21)
[2025-01-23] MEDS: VITAMIN D3 (cholecalciferol) 50 MCG PO (08:04)
[2025-01-23] MEDS: DESENEX/MITRAZOL/ZEASORB 1 APPLIC TOPICAL ×2 (08:05→21:22)
[2025-01-23] MEDS: BACTROBAN 2% OINTMENT 1 APPLIC TOPICAL (08:05)
--- NOTE | 2025-01-23 08:24 | W.PN.HOSP.TC ---
Today's Communication/Plan
-
see a/p
Assessment / Plan
Assessment / Plan
Physical Exam
General: no acute distress, appears comfortable
HEENT: Scleral Anicteric, MMM, No JVD
Pulm: clear to auscultation b/l, on low dose nasal cannula supplementation
Cardio: RRR, S1/S2
GI: Soft, NT, ND, BS+
Ext: 1+ pitting lower extremity edema
Skin: Warm, Dry
Neuro: AOx3 conversant coherent
Psych: Calm
79M HFmrEF PAD/CAD DM Chronic Venous Stasis here for heart failure complicated with acute kidney injury. Patient also being treated for right foot osteomyelitis.
Acute on chronic heart failure with moderately reduced EF
Hold IV Lasix, ARB SGLT2 inhibitor and MRA due to VANESSA
Daily weights
I's and O's
Continue beta-zac
Cardiology consult appreciated Lasix resumed
cont diuresis as per cardio
threat monitoring analyst
2D echocardiogram reported
Acute hypoxemic respiratory failure secondary to heart failure exacerbation with a respiratory rate of 25 and the lowest SpO2 documented at 91%
weaned off oxygen suppelementation
Expect to improve
Lasix resumed as per Cardio
Hold Aldactone lisinopril Farxiga
Nocturnal hypoxia likely related to sleep apnea
Will need outpatient polysomnography
VANESSA likely secondary to overdiuresis
Hold Lasix
Hold ARB/MRA/SGLT2 inhibitor
Follow renal function
IV fluid completed with resolution VANESSA
HTN
home Hydralazine increased to 100 mg BID
rest of antihypertensives as above
Electrolyte abnormalities with hyponatremia hypochloremia
Likely related to diuresis
resolved, IVF completed
Elevated troponin likely type II demand ischemia in the setting of heart failure
Troponin peak of 0.07
Right foot osteomyelitis
Pseudomonas and Enterococcus bacteremia
Previously on cefepime daptomycin however this was causing him to have some itchiness therefore was held at facility
ID recommend continue cefepime daptomycin monitor for reaction
Outpatient podiatry follow-up
History of PAD/CAD
Aspirin Plavix statin
Type 2 diabetes
Continue long and short acting insulin sliding scale
Accu-Cheks
Goal blood glucose 140-180
Carb controlled diet
Chronic venous stasis
Oziel wrap
DVT ppx Lovenox
DNR
Discussed with patient and patient's Siri
I spent a total of 40 minutes with the patient or on the floor. More than 50% of this time involved counseling and coordination of care.
Anticipated Discharge: Within 24 hours
Subjective/Interval History
-
Date of Service: January 23, 2025
Stable respiratory status on room air, off oxygen supplementation. Overall reports feeling well. Denies new acute issues at this time.
Objective Data
-
Labs:
Laboratory Results
01/23/25
04:19
WBC 8.4
Hgb 11.7 L
Hct 36.2 L
Plt Count 180
Sodium 137
Potassium 4.4
Chloride 107
Carbon Dioxide 30
BUN 36 H
Creatinine 0.9
Glucose 148 H
Calcium 9.4
Vital Signs:
Vital Signs
Temp Pulse Resp BP Pulse Ox
98.1 F 71 18 145/64 99
01/23/25 07:39 01/23/25 07:39 01/23/25 07:39 01/23/25 07:39 01/23/25 07:39
I&O
01/22/25 01/23/25 01/24/25
06:59 06:59 06:59
Intake Total 240 / 240 1360 / 1360
Output Total 150 / 150 850 / 850
Balance 90 / 90 510 / 510
--- NOTE | 2025-01-23 11:22 | W.PN.CARDCBS ---
Addendum entered and electronically signed by Casey Wilkerson MD 01/23/25 15:15:
I saw and examined the patient.
The School Guidance Counselor's note was reviewed and I agree with the note.
Comment: I saw and examined the patient.
The School Guidance Counselor's note was reviewed and I agree with the note.
Comment: Briefly, 79-year-old man with past medical history of ischemic cardiomyopathy, multivessel CAD with prior PCI, AAS status post TAVR, permanent pacemaker for complete heart block who presents with shortness of breath and was admitted for
acute heart failure. With IV diuresis patient developed acute kidney injury and diuretics were placed on hold. Of note he is also being treated for right lower extremity osteomyelitis as well.
Remains shortness of breath. Weights are trending higher although may be inaccurate as these are bed scales.
Now that creatinine has normalized (0.9) would give a one-time dose of IV Lasix this afternoon and then reassess symptoms and renal function in the morning
FLORES, MRA are on hold for VANESSA
Blood pressure is not well-controlled. Will increase hydralazine dose to 100 mg twice daily and monitor.
Tentatively add back lisinopril and spironolactone stepwise pending renal function
Rest per Rosalinezachery Ortiz
Original Note:
Today's Communication / Plan
-
Considering extra dose of Lasix 40 mg PO this afternoon, Lasix IV stopped earlier this admission due to VANESSA
Impression / Plan
-
Primary Fiber Worker: Dr. Sotelo
Impression:
Presentation with SOB 01/17/2025
Right foot osteomyelitis, receiving IV antibiotics as OP
Acute on chronic HFmrEF
Ischemic cardiomyopathy, EF 48% by echo 01/17/2025
Elevated troponin
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
DM 2
Morbid obesity
PVD requiring prior peripheral stents
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
Carotid artery disease
Hypercholesterolemia
Hypertension
DNR code status
ECHO 04/03/24: Technically difficult study, Definity used, EF 45 to 50% with mid anterior septal, distal septal, apical hypokinesis, mild to moderate LVH with septum measuring 1.4 cm, mild MAC, trace MR, status post TAVR with peak/mean gradient 17/10
mmHg, no AR
ECHO 01/17/25: EF 48%, TAVR with peak/mean gradients 14/7 mmHg, mid anteroseptal and apical akinesis, mild concentric LVH, no significant changes compared to prior
Plan:
-Patient admitted with symptoms of SOB and cardiology was consulted for presumed acute HF with moderately reduced EF.
-Patient weighed 274 lbs on admission and weight then increased despite attempts at IV diuresis and patient currently weighs 284 lbs on 01/23/2025.
-Patient was diuresed with Lasix 40 mg IV BID from 01/17/2025 until 01/20/2025 when it was stopped due to VANESAS. Cre as high as 1.6 on 01/21/2025. Cre improved to 0.9 on my review of labs 01/23/25. Patient reports minimal improvement in SOB. CXR and CT
chest did not demonstrate obvious CHF on imaging. proBNP was 2480 on admission and then down to 1220 on 01/21/2025, labs and imaging results reviewed by me on 01/23/2025.
-Suspect that patient remains volume overloaded and Lasix 40 mg PO daily started on 01/23/2025. Patient was taking Lasix 40 mg PO BID prior to admission.
-Due to concerns for ongoing volume overload would consider giving another dose of Lasix 40 mg PO x1 01/23/2025 PM
-Outpatient dose of lisinopril 40 mg daily remains on hold
-Outpatient dose of spironolactone 25 mg daily remains on hold
-Outpatient dose of Coreg 12.5 mg BID has been continued
-EF previously 45 to 50% by echo 04/03/2024 and suspected this is ischemic CM related to history of CAD. And recheck echo 01/17/2025 shows stable EF at 40% with normal function of his previously placed TAVR.
-Initial troponin 0.076 and then flat/trending down thereafter. Patient denies any chest pain. Will manage this is a nonischemic myocardial injury troponin elevation
-Patient did not have an ECG this admission, ECG ordered now by me 01/23/2025. Telemetry reviewed by me AV paced. Patient has a Medtronic DC PPM in place following intermittent CHB at the time of his TAVR in 2020. Device check earlier this
admission showed normal device function, battery life of over 8 years and no evidence of atrial or ventricular arrhythmia.
Progress Note - Fiber Worker
Subjective
Date of Service: January 23, 2025
He has ongoing SOB that is overall better compared to admission
Objective
Labs:
01/23/25 04:19
01/23/25 04:19
Labs
Hgb 11.7 g/dL (13.0-18.0) L 01/23/25 04:19
Hct 36.2 % (39.0-52.0) L 01/23/25 04:19
Plt Count 180 10^3/uL (130-400) 01/23/25 04:19
PT 14.3 Sec (11.4-14.6) 01/17/25 03:57
INR 1.10 01/17/25 03:57
APTT 28.6 Sec (23.4-35.0) 01/17/25 03:57
Sodium 137 mmol/L (135-145) 01/23/25 04:19
Potassium 4.4 mmol/L (3.5-5.1) 01/23/25 04:19
BUN 36 mg/dl (9-20) H 01/23/25 04:19
Creatinine 0.9 mg/dL (0.7-1.3) 01/23/25 04:19
Glucose 148 mg/dl (70-99) H 01/23/25 04:19
Vital Signs and I&O:
Vital Signs
Temp Pulse Resp BP Pulse Ox
98.1 F 71 18 145/64 99
01/23/25 07:39 01/23/25 07:39 01/23/25 07:39 01/23/25 07:39 01/23/25 08:00
Vital Signs
Temp Pulse Resp BP Pulse Ox
98.1 F 71 18 145/64 99
01/23/25 07:39 01/23/25 07:39 01/23/25 07:39 01/23/25 07:39 01/23/25 08:00
Intake & Output
01/21/25 01/22/25 01/23/25 01/24/25
06:59 06:59 06:59 06:59
Intake Total 720 / 720 240 / 240 1360 / 1360
Output Total 400 / 400 150 / 150 850 / 850
Balance 320 / 320 90 / 90 510 / 510
Physical Exam
Physical Exam
GEN: NAD, AAO x 3
LUNGS: RA. No audible wheeze or rales CTA bilaterally anterolaterally, no wheezes
CV: SR on telemetry. Reg
ABD: ND
EXT: Trace edema B/L LE, right worse than left
NEURO: Gross non-focal
SKIN: Warm, pink, dry.
[2025-01-23 12:09] LABS: Glucose - Point of Care 187 mg/dl (70-99)
[2025-01-23] MEDS: NOVOLOG FLEXPEN-LOW RESISTANCE 1 UNITS SC (12:28)
--- NOTE | 2025-01-23 13:09 | PN.CDI ---
CDI
- -
CDI:
Physician Documentation Request
Admit Date: 01/17/25 10:25
Dear Doctor,
Please review the following and provide your response in the progress notes.
Clinical Indicators:
Pt admitted with Acute on chronic heart failure with moderately reduced EF
01/22 PN: ' Elevated troponin likely type II demand ischemia in the setting of heart failure.'
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
Due to potential conflicting documentation, could you clarify in the progress notes, the appropriate diagnosis, if significant, that supports the above abnormalities and additional evaluation, monitoring and/or treatment rendered:
Type II demand Ischemia
Nonischemic myocardial injury
Other
Use of terms such as suspected, likely, concern for, or probable (associated with a specific diagnosis that is being evaluated, monitored, or treated as if it exists) are acceptable and can be coded in the inpatient setting, when documented at the
time of discharge.
Thank you,
Yamilet Rutherford RN, BSN
CDI Specialist
[facility]
Please use your independent medical judgment in providing your response.
[2025-01-23 15:11] VITALS: BP 152/61
--- NOTE | 2025-01-23 15:21 | W.PN.ID1 ---
Date of Service
Date of Service: January 23, 2025
Today's Communication
Continue antibiotics.
Assessment / Plan
Right foot osteomyelitis
Charcot arthropathy of right foot
Non-Healing, chronic (R) Foot Wound
Reported SOB, slurred words, 'thick tougue'
- Not clear if secondary to antibiotics or not.
- Abx's resumed, pt tolerating.
ASCVD (CAD, PAD, Carotid Disease)
Chronic HFmrEF
Aortic Stenosis s/p TAVR
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
Morbid Obesity due to excess calories
Allergy to penicillin - rash
Recommendations:
01/04 wound culture: Pseudomonas
01/04 bone culture (cunieform): Pseudomonas, Enterococcus
01/04 pathology without osteomyelitis
01/02 superficial culture Pseudomonas, Enterococcus,
Continue cefepime and daptomycin through 02/15/2025
CPK normal.
ESR stable
CRP improved from 24.7 to <5.0
Potential transfer to Rehab tomorrow.
����������������������������������������������������������
Chief Complaint
-: Other (Right foot osteomyelitis)
Subjective / Review of Systems
Patient seen and examined. Reports no issues with antibiotics. Breathing comfortable.
Review of Systems: No Fever and No Chills
Vital Signs / Physical Exam
Vital Signs
Vital Signs
Temp Pulse Resp BP Pulse Ox
97.7 F 72 18 152/61 97
01/23/25 15:11 01/23/25 15:11 01/23/25 15:11 01/23/25 15:11 01/23/25 15:11
Physical Exam
Constitutional: No Acute Distress
Cardiovascular: Regular Rate and S1/S2; Negative Murmur or Rub
Pulmonary: Clear and Symmetric; Negative Wheezes or Rales
Gastrointestinal: Soft, Non Tender, Non Distended and Normal Bowel Sounds
Skin: Warm and Dry; Negative Rash or Jaundice
Wound: Other (right foot dressing clean, dry )
Neurological: Awake and Alert
Lines: PICC (No erythema or tenderness)
Objective Data
Lab Data
Lab Results
01/23/25 04:19
01/23/25 04:19
ESR 44 mm/hour (0-20) H 01/18/25 01:39
PT 14.3 Sec (11.4-14.6) 01/17/25 03:57
INR 1.10 01/17/25 03:57
APTT 28.6 Sec (23.4-35.0) 01/17/25 03:57
Estimated Creat Clear 88 ml/min 01/23/25 04:19
Total Bilirubin 0.7 mg/dl (0.2-1.3) 01/17/25 03:57
AST 38 U/L (17-59) 01/17/25 03:57
ALT 46 U/L (0-50) 01/17/25 03:57
Alkaline Phosphatase 81 U/L (38-126) 01/17/25 03:57
C-Reactive Protein < 5.00 mg/L (0.0-10.00) 01/18/25 01:39
Most recent labs reviewed.
Micro Results:
01/17/25 14:50 MRSA Screen - Final
Nose No Methicillin Resistant Staphylococcus aureus isolated.
Imaging:
12/29/2024 Labeled WBC scan : Accumulation of radiolabeled white blood cells within the right medial midfoot, similar distribution compared to prior 3 phase bone scan. Findings may be seen in the setting of osteomyelitis, consider MRI right foot
for more precise anatomic localization.
01/02/2025 Right foot x-ray: No evidence of acute osseous injury. No evidence of bone destruction. Soft tissue swelling of the forefoot. Soft tissue ulceration of the plantar midfoot versus overlying dressing as described above. Moderate dorsal
midfoot osteoarthritis.
[2025-01-23] MEDS: LASIX 40 MG IV (16:22)
[2025-01-23] MEDS: CUBICIN 20 MG IV (16:23)
[2025-01-23 16:28] LABS: Glucose - Point of Care 218 mg/dl (70-99)
--- NOTE | 2025-01-23 16:52 | CM ---
Addendum entered by Marti Llanes 01/24/25 12:33:
Discharge is being held today. Mary Ford, audience coordinator at [facility] notified that Bhaskar would like to return to the facility and confirms a bed will be available for him. CM asked Mary to send me the NPIs for the
facility, accepting physician, and the phone number to call report.
Original Note:
CM notified by MD that patient is medically cleared to return to SNF tomorrow. Updated referral in [facility] for [facility]. CM will follow up tomorrow regarding bed availability.
[2025-01-23] MEDS: LOVENOX 40 MG SC (17:26)
[2025-01-23] MEDS: XALATAN OPHTHALMIC SOLUTION 1 DROP LEFT EYE (21:22)
[2025-01-23] MEDS: APRESOLINE 100 MG PO (21:32)
[2025-01-23 21:37] LABS: Glucose - Point of Care 202 mg/dl (70-99)
[2025-01-23] MEDS: MELATONIN 3 MG PO (22:59)
[2025-01-23 23:35] VITALS: BP 160/61
[2025-01-24] MEDS: STERILE WATER FOR INJECTION 10 ML IV ×5 (00:13→23:42)
[2025-01-24] MEDS: MAXIPIME 1000 MG IV ×5 (00:14→23:42)
[2025-01-24 05:24] VITALS: BMI 40.7
[2025-01-24 05:26] LABS: Hematocrit 37.2 % (39.0-52.0); Hemoglobin 12.5 g/dL (13.0-18.0); Mean Corp Hgb Conc. 33.6 g/dL (33.0-37.0); Mean Corpuscular Volume 89.0 fL (80.0-94.0); Platelet Count 185 10^3/uL (130-400); Red Cell Dist. Width 13.2 % (11.5-14.5)
[2025-01-24 05:37] LABS: Blood Urea Nitrogen 34 mg/dl (9-20); Calcium 9.5 mg/dl (8.4-10.2); Carbon Dioxide 31 mmol/L (22-30); Chloride 104 mmol/L (98-107); Estimated Creatinine Clearance 88 ml/min; Glucose 108 mg/dl (70-99); Potassium 4.2 mmol/L (3.5-5.1); Sodium 137 mmol/L (135-145); eGFR > 60.00
[2025-01-24 07:28] LABS: Glucose - Point of Care 125 mg/dl (70-99)
[2025-01-24 07:33] VITALS: BP 158/59
--- NOTE | 2025-01-24 07:44 | W.PN.HOSP.TC ---
Today's Communication/Plan
-
cont diuresis as per Cardio
PT/OT
discharge planning SNF rehab
Assessment / Plan
Assessment / Plan
Physical Exam
General: no acute distress, appears comfortable
HEENT: Scleral Anicteric, MMM, No JVD
Pulm: clear to auscultation b/l, on low dose nasal cannula supplementation
Cardio: RRR, S1/S2
GI: Soft, NT, ND, BS+
Ext: 1+ pitting lower extremity edema
Skin: Warm, Dry
Neuro: AOx3 conversant coherent
Psych: Calm
79M HFmrEF PAD/CAD DM Chronic Venous Stasis here for heart failure complicated with acute kidney injury. Patient also being treated for right foot osteomyelitis.
Acute on chronic heart failure with moderately reduced EF
Hold IV Lasix, ARB SGLT2 inhibitor and MRA due to VANESSA
Daily weights
I's and O's
Continue beta-zac
Cardiology consult appreciated Lasix resumed
cont diuresis as per cardio
stacker and sorter operator
2D echocardiogram reported
Acute hypoxemic respiratory failure secondary to heart failure exacerbation with a respiratory rate of 25 and the lowest SpO2 documented at 91%
weaned off oxygen suppelementation
Expect to improve
Lasix as per Cardio
Hold Aldactone lisinopril Farxiga
Nocturnal hypoxia likely related to sleep apnea
Will need outpatient polysomnography
VANESSA likely secondary to overdiuresis
Hold ARB/MRA/SGLT2 inhibitor
Follow renal function
IV fluid completed with resolution VANESSA, lasix since resumed
HTN
home Hydralazine increased to 100 mg BID, cont
rest of antihypertensives as above
Electrolyte abnormalities with hyponatremia hypochloremia
Likely related to diuresis
resolved, IVF completed
Elevated troponin likely type II demand ischemia in the setting of heart failure
Troponin peak of 0.07
Right foot osteomyelitis
Pseudomonas and Enterococcus bacteremia
Previously on cefepime daptomycin facility held d/t concerns causing itchiness
ID recommend continue cefepime daptomycin monitor for reaction, tolerating so far
Outpatient podiatry follow-up
History of PAD/CAD
Aspirin Plavix statin
Type 2 diabetes
Continue long and short acting insulin sliding scale
Accu-Cheks
Goal blood glucose 140-180
Carb controlled diet
Chronic venous stasis
Oziel wrap
DVT ppx Lovenox
DNR
Discussed with patient and patient's Siri
I spent a total of 40 minutes with the patient or on the floor. More than 50% of this time involved counseling and coordination of care.
Anticipated Discharge: 24 - 48 hours
Subjective/Interval History
-
Date of Service: January 24, 2025
No acute distress, sitting up comfortably in bed. Overall reports feeling well. Stable respiratory status on room air.
Objective Data
-
Labs:
Laboratory Results
01/24/25
04:58
WBC 8.8
Hgb 12.5 L
Hct 37.2 L
Plt Count 185
Sodium 137
Potassium 4.2
Chloride 104
Carbon Dioxide 31 H
BUN 34 H
Creatinine 0.9
Glucose 108 H
Calcium 9.5
Vital Signs:
Vital Signs
Temp Pulse Resp BP Pulse Ox
97.6 F 72 17 158/59 99
01/24/25 07:33 01/24/25 07:33 01/24/25 07:33 01/24/25 07:33 01/24/25 07:33
I&O
01/23/25 01/24/25 01/25/25
06:59 06:59 06:59
Intake Total 1360 / 1360 1440 / 1440
Output Total 850 / 850 825 / 825
Balance 510 / 510 615 / 615
[2025-01-24] MEDS: APRESOLINE 100 MG PO ×2 (08:26→21:41)
[2025-01-24] MEDS: COREG 12.5 MG PO ×2 (08:26→21:35)
[2025-01-24] MEDS: ASPIR LOW (ENTERIC COATED) 81 MG PO (08:26)
[2025-01-24] MEDS: PLAVIX 75 MG PO (08:27)
[2025-01-24] MEDS: NORVASC 10 MG PO (08:27)
[2025-01-24] MEDS: THERAGRAN 1 TABLET PO (08:27)
[2025-01-24] MEDS: VITAMIN D3 (cholecalciferol) 50 MCG PO (08:27)
[2025-01-24] MEDS: TRUSOPT 2% OPHTHALMIC SOLUTION 1 DROP LEFT EYE ×2 (08:27→21:21)
[2025-01-24] MEDS: NOVOLOG FLEXPEN 10 UNITS SC ×3 (08:27→17:28)
[2025-01-24] MEDS: NOVOLOG FLEXPEN-LOW RESISTANCE SC (08:28)
[2025-01-24] MEDS: BACTROBAN 2% OINTMENT 1 APPLIC TOPICAL (08:28)
[2025-01-24] MEDS: DESENEX/MITRAZOL/ZEASORB 1 APPLIC TOPICAL ×2 (08:28→21:22)
[2025-01-24] MEDS: LANTUS 0.24 UNITS SC ×2 (08:30→21:34)
--- NOTE | 2025-01-24 10:10 | W.PN.CARDCBS ---
Addendum entered and electronically signed by Vincent Brunner MD 01/24/25 12:28:
I saw and examined the patient.
The TRADE MARKER or PA's note was reviewed and I agree with the note.
Comment: General: Well developed, well nourished in NAD.
Neck: Supple, no JVD, HJR, carotids +2 B/L, no bruits bilaterally.
Heart: Non displaced PMI, RRR, no murmurs, No S3, S4, no rubs.
Lungs: Scattered rhonchi
Extremities: No clubbing, cyanosis or edema bilaterally.
Neuro: Grossly nonfocal, awake, alert and oriented x3.
Volume status is difficult to ascertain but likely remains volume overloaded. Most response to Lasix on 01/23. Will continue with IV Lasix 40 mg twice daily. He will be going to rehab.
Original Note:
Today's Communication / Plan
-
Lasix 40 mg IV BID
Communicated with nursing and hospitalist attending the cardiology would like to continue admission until tomorrow for ongoing attempts at IV diuresis
Impression / Plan
-
Primary Continuity Director: Dr. Sotelo
Impression:
Presentation with SOB 01/17/2025
Right foot osteomyelitis, receiving IV antibiotics as OP
Acute on chronic HFmrEF
Ischemic cardiomyopathy, EF 48% by echo 01/17/2025
Elevated troponin
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
DM 2
Morbid obesity
PVD requiring prior peripheral stents
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
Carotid artery disease
Hypercholesterolemia
Hypertension
DNR code status
ECHO 04/03/24: Technically difficult study, Definity used, EF 45 to 50% with mid anterior septal, distal septal, apical hypokinesis, mild to moderate LVH with septum measuring 1.4 cm, mild MAC, trace MR, status post TAVR with peak/mean gradient 17/10
mmHg, no AR
ECHO 01/17/25: EF 48%, TAVR with peak/mean gradients 14/7 mmHg, mid anteroseptal and apical akinesis, mild concentric LVH, no significant changes compared to prior
Plan:
-Patient admitted with symptoms of SOB and cardiology was consulted for presumed acute HF with moderately reduced EF.
-Patient is being weighed with the bed scale due to right foot osteomyelitis. Patient weighed 274 lbs on admission and weight then increased despite attempts at IV diuresis.
-Weight had increased up to 284 lbs on 01/23/2025 and patient was restarted on Lasix 40 mg IV BID by cardiology. Weight is down to 283 lbs on my review of VS 01/24/2025.
-Patient reports breathing is overall improved compared to admission, but continues with resting SOB and orthopnea. Will continue with attempts at IV diuresis and follow Cre on a daily basis.
-Cre stable at 0.9 on my review of the labs from 01/24/2025
-EF previously 45 to 50% by echo 04/03/2024 and suspected this is ischemic CM related to history of CAD. Recheck echo 01/17/2025 shows stable EF at 48% with normal function of his previously placed TAVR.
-proBNP was 2480 on admission and then down to 1220 on 01/21/2025. Recheck proBNP on 01/25/2025, orders placed by me.
-Patient was taking Lasix 40 mg PO BID prior to admission.
-Outpatient dose of lisinopril 40 mg daily remains on hold
-Outpatient dose of spironolactone 25 mg daily remains on hold
-Outpatient dose of Coreg 12.5 mg BID has been continued
-Outpatient dose of amlodipine 10 mg daily has been
-Outpatient dose of hydralazine was increased to 100 mg BID on 01/23/2025
-Patient remains largely HTN on my review of VS 01/24/2025, will add Imdur ER 30 mg daily. If lisinopril can eventually be restarted and BP is otherwise normotensive we could consider stopping Imdur ER at that time
-Initial troponin 0.076 and then flat/trending down thereafter. Patient denies any chest pain. Will manage this is a nonischemic myocardial injury troponin elevation
-Patient did not have an ECG this admission, ECG ordered now by me 01/24/2025. Telemetry reviewed by me AV paced.
-Patient has a Medtronic DC PPM in place following intermittent CHB at the time of his TAVR in 2020. Device check earlier this admission showed normal device function, battery life of over 8 years and no evidence of atrial or ventricular arrhythmia.
Progress Note - Continuity Director
Subjective
Date of Service: January 24, 2025
He says breathing is better compared to admission, but still not at baseline and he complains of orthopnea at night
Objective
Labs:
01/24/25 04:58
01/24/25 04:58
Labs
Hgb 12.5 g/dL (13.0-18.0) L 01/24/25 04:58
Hct 37.2 % (39.0-52.0) L 01/24/25 04:58
Plt Count 185 10^3/uL (130-400) 01/24/25 04:58
PT 14.3 Sec (11.4-14.6) 01/17/25 03:57
INR 1.10 01/17/25 03:57
APTT 28.6 Sec (23.4-35.0) 01/17/25 03:57
Sodium 137 mmol/L (135-145) 01/24/25 04:58
Potassium 4.2 mmol/L (3.5-5.1) 01/24/25 04:58
BUN 34 mg/dl (9-20) H 01/24/25 04:58
Creatinine 0.9 mg/dL (0.7-1.3) 01/24/25 04:58
Glucose 108 mg/dl (70-99) H 01/24/25 04:58
Vital Signs and I&O:
Vital Signs
Temp Pulse Resp BP Pulse Ox
97.6 F 72 17 158/59 99
01/24/25 07:33 01/24/25 08:27 01/24/25 07:33 01/24/25 08:27 01/24/25 07:33
Vital Signs
Temp Pulse Resp BP Pulse Ox
97.6 F 72 17 158/59 99
01/24/25 07:33 01/24/25 08:27 01/24/25 07:33 01/24/25 08:27 01/24/25 07:33
Intake & Output
01/22/25 01/23/25 01/24/25 01/25/25
06:59 06:59 06:59 06:59
Intake Total 240 / 240 1360 / 1360 1440 / 1440
Output Total 150 / 150 850 / 850 825 / 825
Balance 90 / 90 510 / 510 615 / 615
Physical Exam
Physical Exam
GEN: NAD, AAO x 3
LUNGS: RA. No audible wheeze or rales CTA bilaterally anterolaterally, no wheezes
CV: SR on telemetry. Reg
ABD: ND
EXT: Trace edema B/L LE, right worse than left. Right ankle and foot wrapped in clean dry dressing without drainage and minimal malodor
NEURO: Gross non-focal
SKIN: No rash
--- NOTE | 2025-01-24 11:53 | W.PN.ID1 ---
Date of Service
Date of Service: January 24, 2025
Today's Communication
Continue antibiotics.
Assessment / Plan
Right foot osteomyelitis
Charcot arthropathy of right foot
Non-Healing, chronic (R) Foot Wound
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
- Not clear if secondary to antibiotics or not.
- Abx's resumed, pt tolerating without return of symptomatology
ASCVD (CAD, PAD, Carotid Disease)
Chronic HFmrEF
Aortic Stenosis s/p TAVR
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
Morbid Obesity due to excess calories
Allergy to penicillin - rash
Recommendations:
01/04 wound culture: Pseudomonas
01/04 bone culture (cunieform): Pseudomonas, Enterococcus
01/04 pathology without osteomyelitis
01/02 superficial culture Pseudomonas, Enterococcus,
Continue cefepime and daptomycin through 02/15/2025
CPK normal.
ESR stable
CRP improved from 24.7 to <5.0
Potential transfer to Rehab tomorrow.
����������������������������������������������������������
Chief Complaint
-: Other (Right foot osteomyelitis)
Subjective / Review of Systems
Review of Systems: No Fever and No Chills
Vital Signs / Physical Exam
Vital Signs
Vital Signs
Temp Pulse Resp BP Pulse Ox
97.6 F 72 17 158/59 99
01/24/25 07:33 01/24/25 08:27 01/24/25 07:33 01/24/25 08:27 01/24/25 07:33
Physical Exam
Constitutional: No Acute Distress
Cardiovascular: Regular Rate and S1/S2; Negative Murmur or Rub
Pulmonary: Clear and Symmetric; Negative Wheezes or Rales
Gastrointestinal: Soft, Non Tender, Non Distended and Normal Bowel Sounds
Skin: Warm and Dry; Negative Rash or Jaundice
Wound: Other (right foot dressing clean, dry )
Neurological: Awake and Alert
Lines: PICC (No erythema or tenderness)
Objective Data
Lab Data
Lab Results
01/24/25 04:58
01/24/25 04:58
ESR 44 mm/hour (0-20) H 01/18/25 01:39
PT 14.3 Sec (11.4-14.6) 01/17/25 03:57
INR 1.10 01/17/25 03:57
APTT 28.6 Sec (23.4-35.0) 01/17/25 03:57
Estimated Creat Clear 88 ml/min 01/24/25 04:58
Total Bilirubin 0.7 mg/dl (0.2-1.3) 01/17/25 03:57
AST 38 U/L (17-59) 01/17/25 03:57
ALT 46 U/L (0-50) 01/17/25 03:57
Alkaline Phosphatase 81 U/L (38-126) 01/17/25 03:57
C-Reactive Protein < 5.00 mg/L (0.0-10.00) 01/18/25 01:39
Most recent labs reviewed.
Micro Results:
01/17/25 14:50 MRSA Screen - Final
Nose No Methicillin Resistant Staphylococcus aureus isolated.
Imaging:
12/29/2024 Labeled WBC scan : Accumulation of radiolabeled white blood cells within the right medial midfoot, similar distribution compared to prior 3 phase bone scan. Findings may be seen in the setting of osteomyelitis, consider MRI right foot
for more precise anatomic localization.
01/02/2025 Right foot x-ray: No evidence of acute osseous injury. No evidence of bone destruction. Soft tissue swelling of the forefoot. Soft tissue ulceration of the plantar midfoot versus overlying dressing as described above. Moderate dorsal
midfoot osteoarthritis.
Right foot (01/24/2025)
[2025-01-24 12:06] LABS: Glucose - Point of Care 208 mg/dl (70-99)
[2025-01-24] MEDS: LASIX 40 MG IV ×2 (12:25→17:27)
[2025-01-24] MEDS: NOVOLOG FLEXPEN-LOW RESISTANCE 2 UNITS SC ×2 (12:55→17:29)
--- NOTE | 2025-01-24 14:51 | WOUNDNOTE ---
[facility] RN NOTE: Patient visited for follow up of right chronic foot wound. Spoke to KIRK Coe who said patient was seen by Dr. Corea, who assessed wound and provided wound care. Picture of wound from today found in Dr. Corea's note. Will sign off.
Patient for discharge today.
[2025-01-24 15:18] VITALS: BP 108/64
[2025-01-24 16:27] LABS: Glucose - Point of Care 222 mg/dl (70-99)
[2025-01-24] MEDS: LOVENOX 40 MG SC (17:25)
[2025-01-24] MEDS: CUBICIN 20 MG IV (17:25)
[2025-01-24] MEDS: XALATAN OPHTHALMIC SOLUTION 1 DROP LEFT EYE (21:21)
[2025-01-24 21:31] LABS: Glucose - Point of Care 254 mg/dl (70-99)
[2025-01-24 23:40] VITALS: BP 145/58
[2025-01-24] MEDS: MELATONIN 3 MG PO (23:42)
[2025-01-25 04:40] VITALS: BMI 40.4
[2025-01-25 05:31] LABS: Hematocrit 37.1 % (39.0-52.0); Hemoglobin 12.5 g/dL (13.0-18.0); Mean Corp Hgb Conc. 33.7 g/dL (33.0-37.0); Mean Corpuscular Volume 89.8 fL (80.0-94.0); Platelet Count 179 10^3/uL (130-400); Red Cell Dist. Width 13.2 % (11.5-14.5)
[2025-01-25 05:52] LABS: Blood Urea Nitrogen 32 mg/dl (9-20); Calcium 9.6 mg/dl (8.4-10.2); Carbon Dioxide 30 mmol/L (22-30); Chloride 100 mmol/L (98-107); Estimated Creatinine Clearance 88 ml/min; Glucose 155 mg/dl (70-99); Potassium 4.1 mmol/L (3.5-5.1); Sodium 136 mmol/L (135-145); eGFR > 60.00
[2025-01-25] MEDS: MAXIPIME 1000 MG IV ×4 (05:59→23:52)
[2025-01-25] MEDS: STERILE WATER FOR INJECTION 10 ML IV ×4 (06:01→23:52)
[2025-01-25 07:43] LABS: Glucose - Point of Care 160 mg/dl (70-99)
[2025-01-25 07:58] VITALS: BP 157/60
[2025-01-25] MEDS: LANTUS 0.24 UNITS SC ×2 (08:49→21:13)
[2025-01-25] MEDS: LASIX 40 MG IV ×2 (08:50→16:20)
[2025-01-25] MEDS: ASPIR LOW (ENTERIC COATED) 81 MG PO (08:50)
[2025-01-25] MEDS: COREG 12.5 MG PO ×2 (08:50→20:13)
[2025-01-25] MEDS: NORVASC 10 MG PO (08:50)
[2025-01-25] MEDS: APRESOLINE 100 MG PO ×2 (08:50→20:13)
[2025-01-25] MEDS: THERAGRAN 1 TABLET PO (08:51)
[2025-01-25] MEDS: VITAMIN D3 (cholecalciferol) 50 MCG PO (08:51)
[2025-01-25] MEDS: PLAVIX 75 MG PO (08:51)
[2025-01-25] MEDS: TRUSOPT 2% OPHTHALMIC SOLUTION 1 DROP LEFT EYE ×2 (08:51→20:14)
[2025-01-25] MEDS: BACTROBAN 2% OINTMENT 1 APPLIC TOPICAL (08:51)
[2025-01-25] MEDS: DESENEX/MITRAZOL/ZEASORB 1 APPLIC TOPICAL ×2 (08:52→20:14)
[2025-01-25] MEDS: NOVOLOG FLEXPEN 10 UNITS SC ×3 (08:53→17:23)
[2025-01-25] MEDS: NOVOLOG FLEXPEN-LOW RESISTANCE 1 UNITS SC ×2 (08:53→12:33)
--- NOTE | 2025-01-25 11:03 | W.PN.HOSP.TC ---
Today's Communication/Plan
-
cont diuresis as per Cardio
Assessment / Plan
Assessment / Plan
Physical Exam
General: no acute distress, appears comfortable
HEENT: Scleral Anicteric, MMM, No JVD
Pulm: clear to auscultation b/l, stable respiratory status on room air
Cardio: RRR, S1/S2
GI: Soft, NT, ND, BS+
Ext: 1+ pitting lower extremity edema
Skin: Warm, Dry
Neuro: AOx3 conversant coherent
Psych: Calm
79M HFmrEF PAD/CAD DM Chronic Venous Stasis here for heart failure complicated with acute kidney injury. Patient also being treated for right foot osteomyelitis.
Acute on chronic heart failure with moderately reduced EF
Hold IV Lasix, ARB SGLT2 inhibitor and MRA due to VANESSA
Daily weights
I's and O's
Continue beta-zac
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
cont diuresis as per cardio
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
2D echocardiogram reported
Acute hypoxemic respiratory failure secondary to heart failure exacerbation with a respiratory rate of 25 and the lowest SpO2 documented at 91%
weaned off oxygen supplementation
Expect to improve
Lasix as per Cardio
Hold Aldactone lisinopril Farxiga
Nocturnal hypoxia likely related to sleep apnea
Will need outpatient polysomnography
VANESSA likely secondary to overdiuresis
Hold ARB/MRA/SGLT2 inhibitor
Follow renal function
IV fluid completed with resolution VANESSA, lasix since resumed
HTN
home Hydralazine increased to 100 mg BID, cont
rest of antihypertensives as above
Electrolyte abnormalities with hyponatremia hypochloremia
Likely related to diuresis
resolved, IVF completed
Elevated troponin likely type II demand ischemia in the setting of heart failure
Troponin peak of 0.07
Right foot osteomyelitis
Pseudomonas and Enterococcus bacteremia
Previously on cefepime daptomycin facility held d/t concerns causing itchiness
ID recommend continue cefepime daptomycin monitor for reaction, tolerating so far
Outpatient podiatry follow-up
History of PAD/CAD
Aspirin Plavix statin
Type 2 diabetes
Continue long and short acting insulin sliding scale
Accu-Cheks
Goal blood glucose 140-180
Carb controlled diet
Chronic venous stasis
Oziel wrap
DVT ppx Lovenox
DNR
Discussed with patient and patient's Siri
I spent a total of 40 minutes with the patient or on the floor. More than 50% of this time involved counseling and coordination of care.
Anticipated Discharge: 24 - 48 hours
Subjective/Interval History
-
Date of Service: January 25, 2025
No acute distress, resting comfortably in bed. Stable respiratory status on room air at rest.
Objective Data
-
Labs:
Laboratory Results
01/25/25
05:11
WBC 8.7
Hgb 12.5 L
Hct 37.1 L
Plt Count 179
Sodium 136
Potassium 4.1
Chloride 100
Carbon Dioxide 30
BUN 32 H
Creatinine 0.9
Glucose 155 H
Calcium 9.6
Vital Signs:
Vital Signs
Temp Pulse Resp BP Pulse Ox
98.0 F 71 16 157/60 98
01/25/25 07:58 01/25/25 08:50 01/25/25 07:58 01/25/25 08:50 01/25/25 07:58
I&O
01/24/25 01/25/25 01/26/25
06:59 06:59 06:59
Intake Total 1440 / 1440 1200 / 1200
Output Total 825 / 825 650 / 650
Balance 615 / 615 550 / 550
[2025-01-25 12:23] LABS: Glucose - Point of Care 178 mg/dl (70-99)
[2025-01-25 15:22] VITALS: BP 140/57; PULSE 71; O2SAT 96
--- NOTE | 2025-01-25 15:30 | W.PN.ID1 ---
Date of Service
Date of Service: January 25, 2025
Today's Communication
Continue antibiotics.
Assessment / Plan
Right foot osteomyelitis
Charcot arthropathy of right foot
Non-Healing, chronic (R) Foot Wound
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
- Not clear if secondary to antibiotics or not.
- Abx's resumed, pt tolerating without return of symptomatology
ASCVD (CAD, PAD, Carotid Disease)
Chronic HFmrEF
Aortic Stenosis s/p TAVR
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
Morbid Obesity due to excess calories
Allergy to penicillin - rash
Recommendations:
01/04 wound culture: Pseudomonas
01/04 bone culture (cunieform): Pseudomonas, Enterococcus
01/04 pathology without osteomyelitis
01/02 superficial culture Pseudomonas, Enterococcus,
Continue cefepime and daptomycin through 02/15/2025
CPK normal.
ESR stable
CRP improved from 24.7 to <5.0
����������������������������������������������������������
Chief Complaint
-: Other (Right foot osteomyelitis)
Subjective / Review of Systems
Patient seen and examined. Reports no difficulty with his antibiotics.
Review of Systems: No Fever and No Chills
Vital Signs / Physical Exam
Vital Signs
Vital Signs
Temp Pulse Resp BP Pulse Ox
98.0 F 71 16 157/60 98
01/25/25 07:58 01/25/25 08:50 01/25/25 07:58 01/25/25 08:50 01/25/25 07:58
Physical Exam
Constitutional: No Acute Distress
Eyes: Sclera Anicteric
Cardiovascular: Regular Rate and S1/S2
Pulmonary: Clear, Symmetric and Non Labored
Gastrointestinal: Soft, Non Tender, Non Distended and Normal Bowel Sounds
Skin: Warm and Dry
Wound: Other (right foot dressing clean, dry )
Neurological: Awake and Alert
Lines: PICC (No erythema or tenderness)
Objective Data
Lab Data
Lab Results
01/25/25 05:11
01/25/25 05:11
ESR 44 mm/hour (0-20) H 01/18/25 01:39
PT 14.3 Sec (11.4-14.6) 01/17/25 03:57
INR 1.10 01/17/25 03:57
APTT 28.6 Sec (23.4-35.0) 01/17/25 03:57
Estimated Creat Clear 88 ml/min 01/25/25 05:11
Total Bilirubin 0.7 mg/dl (0.2-1.3) 01/17/25 03:57
AST 38 U/L (17-59) 01/17/25 03:57
ALT 46 U/L (0-50) 01/17/25 03:57
Alkaline Phosphatase 81 U/L (38-126) 01/17/25 03:57
C-Reactive Protein < 5.00 mg/L (0.0-10.00) 01/18/25 01:39
Most recent labs reviewed.
Micro Results:
01/17/25 14:50 MRSA Screen - Final
Nose No Methicillin Resistant Staphylococcus aureus isolated.
Imaging:
12/29/2024 Labeled WBC scan : Accumulation of radiolabeled white blood cells within the right medial midfoot, similar distribution compared to prior 3 phase bone scan. Findings may be seen in the setting of osteomyelitis, consider MRI right foot
for more precise anatomic localization.
01/02/2025 Right foot x-ray: No evidence of acute osseous injury. No evidence of bone destruction. Soft tissue swelling of the forefoot. Soft tissue ulceration of the plantar midfoot versus overlying dressing as described above. Moderate dorsal
midfoot osteoarthritis.
Right foot (01/24/2025)
[2025-01-25 15:36] VITALS: BP 137/63
--- NOTE | 2025-01-25 15:54 | W.PN.CARDCBS ---
Addendum entered and electronically signed by Hari Stack MD 01/25/25 16:24:
I saw and examined the patient.
The Propellant Charge Loader's note was reviewed and I agree with the note.
Comment:
GEN: No distress, awake, Ox3
HEENT: supple, anicteric, mmm
LUNGS: CTA, no wheezes/rales
CV: Reg, S1/S2, 1/6 syst LSB, no gallop
ABD: soft, BS+, NT/ND
EXT: +1 edema
NEURO: Gross non-focal
SKIN: No rash
Plan:
He continues to be short of breath. His weight is improving. We will continue with IV Lasix 40 mg IV twice daily. I will give him an extra 2.5 mg of Zaroxolyn today to help augment diuresis
Creatinine is improved and down to 0.9. Will recheck proBNP in AM.
Continue Coreg, lisinopril, Aldactone, hydralazine and Farxiga.
Original Note:
Today's Communication / Plan
-
Recheck proBNP in the morning
Impression / Plan
-
Primary Brush Polisher: Dr. Sotelo
Impression:
Presentation with SOB 01/17/2025
Right foot osteomyelitis, receiving IV antibiotics as OP
Acute on chronic HFmrEF
Ischemic cardiomyopathy, EF 48% by echo 01/17/2025
Elevated troponin
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
DM 2
Morbid obesity
PVD requiring prior peripheral stents
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
Carotid artery disease
Hypercholesterolemia
Hypertension
DNR code status
ECHO 2/17/25: Technically difficult study, Definity used, EF 45 to 50% with mid anterior septal, distal septal, apical hypokinesis, mild to moderate LVH with septum measuring 1.4 cm, mild MAC, trace MR, status post TAVR with peak/mean gradient 17/10
mmHg, no AR
ECHO 01/17/25: EF 48%, TAVR with peak/mean gradients 14/7 mmHg, mid anteroseptal and apical akinesis, mild concentric LVH, no significant changes compared to prior
Plan:
-Patient admitted with symptoms of SOB and cardiology was consulted for presumed acute HF with moderately reduced EF.
-Patient is being weighed with the bed scale due to right foot osteomyelitis. Patient weighed 274 lbs on admission and weight then increased despite attempts at IV diuresis and weight then increased up to 284 lbs on 01/23/2025 and so patient was
restarted on Lasix 40 mg IV BID by cardiology. Weight is down to 281 lbs on my review of VS 01/25/2025.
-Patient was taking Lasix 40 mg PO BID prior to admission.
-Cre stable at 0.9 on my review of the labs from 01/25/2025
-EF stable EF at 48% with normal function of his previously placed TAVR by echo 01/17/2025.
-proBNP was 2480 on admission and then down to 1220 on 01/21/2025. Recheck proBNP on 01/25/2025, orders placed by me.
-Outpatient dose of lisinopril 40 mg daily remains on hold due to VANESSA
-Outpatient dose of spironolactone 25 mg daily remains on hold due to VANESSA
-Outpatient dose of Coreg 12.5 mg BID has been continued
-Outpatient dose of Farxiga 10 mg daily remains on hold due to VANESSA
-Outpatient dose of amlodipine 10 mg daily has been
-Outpatient dose of hydralazine was increased to 100 mg BID on 01/23/2025
-BP improving with diuresis.
-Initial troponin 0.076 and then flat/trending down thereafter. Patient denies any chest pain. Will manage this is a nonischemic myocardial injury troponin elevation
-ECG from 01/24/25 reviewed by me on 01/25/2025 and it is AV paced
-Patient has a Medtronic DC PPM in place following intermittent CHB at the time of his TAVR in 2020. Device check earlier this admission showed normal device function, battery life of over 8 years and no evidence of atrial or ventricular arrhythmia.
Progress Note - Brush Polisher
Subjective
Date of Service: January 25, 2025
Ongoing attempts at IV diuresis
Objective
Labs:
01/25/25 05:11
01/25/25 05:11
Labs
Hgb 12.5 g/dL (13.0-18.0) L 01/25/25 05:11
Hct 37.1 % (39.0-52.0) L 01/25/25 05:11
Plt Count 179 10^3/uL (130-400) 01/25/25 05:11
PT 14.3 Sec (11.4-14.6) 01/17/25 03:57
INR 1.10 01/17/25 03:57
APTT 28.6 Sec (23.4-35.0) 01/17/25 03:57
Sodium 136 mmol/L (135-145) 01/25/25 05:11
Potassium 4.1 mmol/L (3.5-5.1) 01/25/25 05:11
BUN 32 mg/dl (9-20) H 01/25/25 05:11
Creatinine 0.9 mg/dL (0.7-1.3) 01/25/25 05:11
Glucose 155 mg/dl (70-99) H 01/25/25 05:11
Vital Signs and I&O:
Vital Signs
Temp Pulse Resp BP Pulse Ox
97.8 F 71 16 137/63 95
01/25/25 15:36 01/25/25 15:36 01/25/25 15:36 01/25/25 15:36 01/25/25 15:36
Vital Signs
Temp Pulse Resp BP Pulse Ox
97.8 F 71 16 137/63 95
01/25/25 15:36 01/25/25 15:36 01/25/25 15:36 01/25/25 15:36 01/25/25 15:36
Intake & Output
01/23/25 01/24/25 01/25/25 01/26/25
06:59 06:59 06:59 06:59
Intake Total 1360 / 1360 1440 / 1440 1200 / 1200
Output Total 850 / 850 825 / 825 650 / 650
Balance 510 / 510 615 / 615 550 / 550
Physical Exam
Physical Exam
GEN: NAD, AAO x 3
LUNGS: RA. No audible wheeze or rales CTA bilaterally anterolaterally, no wheezes
CV: SR on telemetry. Reg
ABD: ND
EXT: Trace edema B/L LE, right worse than left. Right ankle and foot wrapped in clean dry dressing without drainage and minimal malodor
NEURO: Gross non-focal
SKIN: No rash
[2025-01-25] MEDS: ZAROXOLYN 2.5 MG PO (16:20)
[2025-01-25 17:17] LABS: Glucose - Point of Care 127 mg/dl (70-99)
[2025-01-25] MEDS: LOVENOX 40 MG SC (17:21)
[2025-01-25] MEDS: NOVOLOG FLEXPEN-LOW RESISTANCE SC (17:23)
[2025-01-25] MEDS: CUBICIN 20 MG IV (17:27)
[2025-01-25 21:10] LABS: Glucose - Point of Care 206 mg/dl (70-99)
[2025-01-25] MEDS: MELATONIN 3 MG PO (21:13)
[2025-01-25] MEDS: XALATAN OPHTHALMIC SOLUTION 1 DROP LEFT EYE (21:14)
[2025-01-25 21:41] LABS: Glucose - Point of Care 226 mg/dl (70-99)
[2025-01-25 23:15] VITALS: BP 147/55
[2025-01-26] MEDS: MAXIPIME 1000 MG IV ×4 (05:47→23:36)
[2025-01-26] MEDS: STERILE WATER FOR INJECTION 10 ML IV ×4 (05:47→23:36)
[2025-01-26 05:59] LABS: Hematocrit 38.9 % (39.0-52.0); Hemoglobin 12.9 g/dL (13.0-18.0); Mean Corp Hgb Conc. 33.2 g/dL (33.0-37.0); Mean Corpuscular Volume 90.9 fL (80.0-94.0); Platelet Count 177 10^3/uL (130-400); Red Cell Dist. Width 13.3 % (11.5-14.5)
[2025-01-26 06:00] VITALS: BMI 40.2
[2025-01-26 06:21] LABS: Blood Urea Nitrogen 37 mg/dl (9-20); Calcium 9.6 mg/dl (8.4-10.2); Carbon Dioxide 30 mmol/L (22-30); Chloride 100 mmol/L (98-107); Estimated Creatinine Clearance 72 ml/min; Glucose 175 mg/dl (70-99); Potassium 4.4 mmol/L (3.5-5.1); Sodium 136 mmol/L (135-145); eGFR > 60.00
[2025-01-26 07:05] VITALS: BP 141/60
[2025-01-26 07:17] LABS: Glucose - Point of Care 184 mg/dl (70-99)
--- NOTE | 2025-01-26 07:27 | W.PN.HOSP.TC ---
Today's Communication/Plan
-
O2 for comfort
Diuresis as per Cardio
PT/OT
abx
Assessment / Plan
Assessment / Plan
Physical Exam
General: no acute distress, appears comfortable
HEENT: Scleral Anicteric, MMM, No JVD
Pulm: clear to auscultation b/l, stable respiratory status on room air
Cardio: RRR, S1/S2
GI: Soft, NT, ND, BS+
Ext: 1+ pitting lower extremity edema
Skin: Warm, Dry
Neuro: AOx3 conversant coherent
Psych: Calm
79M HFmrEF PAD/CAD DM Chronic Venous Stasis here for heart failure complicated with acute kidney injury. Patient also being treated for right foot osteomyelitis.
Acute on chronic heart failure with moderately reduced EF
Hold IV Lasix, ARB SGLT2 inhibitor and MRA due to VANESSA
Daily weights
I's and O's
Continue beta-zac
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
cont diuresis as per cardio
alarm security or surveillance monitor
2D echocardiogram appreciated EF 48% no significant changes from ECHO Sep 2023
Acute hypoxemic respiratory failure secondary to heart failure exacerbation with a respiratory rate of 25 and the lowest SpO2 documented at 91%
weaned off oxygen supplementation
Lasix as per Cardio
Hold Aldactone
resumed lisinopril Farxiga
Nocturnal hypoxia likely related to sleep apnea
Will need outpatient polysomnography
01/26 CXR appreciated no acute abn's
VANESSA likely secondary to overdiuresis (since resolved)
Follow renal function
IV fluid completed with resolution VANESSA, lasix since resumed
Aldactone remains on hold as above
HTN
home Hydralazine increased to 100 mg BID, cont
rest of antihypertensives as above
Electrolyte abnormalities with hyponatremia hypochloremia
Likely related to diuresis
resolved, IVF completed
Elevated troponin likely type II demand ischemia in the setting of heart failure
Troponin peak of 0.07
Right foot osteomyelitis
Pseudomonas and Enterococcus bacteremia
Previously on cefepime daptomycin facility held d/t concerns causing itchiness
ID recommend continue cefepime daptomycin monitor for reaction, tolerating so far
Outpatient podiatry follow-up
History of PAD/CAD
Aspirin Plavix statin
Type 2 diabetes
Continue long and short acting insulin sliding scale
Accu-Cheks
Goal blood glucose 140-180
Carb controlled diet
Chronic venous stasis
Oziel wrap
DVT ppx Lovenox
DNR
Called Siri to provide update, no answer received, voicemail message with brief update and call back number left.
I spent a total of 40 minutes with the patient or on the floor. More than 50% of this time involved counseling and coordination of care.
Anticipated Discharge: 24 - 48 hours
Subjective/Interval History
-
Date of Service: January 26, 2025
no acute distress, resting comfortably in bed, reporting subjective feelings of sob. Otherwise stable saturations on room air.
Objective Data
-
Labs:
Laboratory Results
01/26/25
05:30
WBC 8.7
Hgb 12.9 L
Hct 38.9 L
Plt Count 177
Sodium 136
Potassium 4.4
Chloride 100
Carbon Dioxide 30
BUN 37 H
Creatinine 1.1
Glucose 175 H
Calcium 9.6
Vital Signs:
Vital Signs
Temp Pulse Resp BP Pulse Ox
97.5 F 69 16 147/55 95
01/25/25 23:15 01/25/25 23:15 01/25/25 23:15 01/25/25 23:15 01/25/25 23:15
I&O
01/25/25 01/26/25 01/27/25
06:59 06:59 06:59
Intake Total 1200 / 1200 780 / 780
Output Total 650 / 650 1150 / 1150
Balance 550 / 550 -370 / -370
[2025-01-26] MEDS: NOVOLOG FLEXPEN-LOW RESISTANCE 1 UNITS SC (07:46)
[2025-01-26] MEDS: NOVOLOG FLEXPEN 10 UNITS SC ×3 (07:46→17:17)
[2025-01-26] MEDS: LANTUS 0.24 UNITS SC ×2 (07:47→21:10)
[2025-01-26] MEDS: LASIX 40 MG IV ×2 (07:47→15:29)
[2025-01-26] MEDS: PLAVIX 75 MG PO (07:48)
[2025-01-26] MEDS: VITAMIN D3 (cholecalciferol) 50 MCG PO (07:49)
[2025-01-26] MEDS: THERAGRAN 1 TABLET PO (07:49)
[2025-01-26] MEDS: COREG 12.5 MG PO ×2 (07:49→19:45)
[2025-01-26] MEDS: TRUSOPT 2% OPHTHALMIC SOLUTION 1 DROP LEFT EYE ×2 (07:49→19:45)
[2025-01-26] MEDS: APRESOLINE 100 MG PO ×2 (07:49→19:45)
[2025-01-26] MEDS: ASPIR LOW (ENTERIC COATED) 81 MG PO (07:49)
[2025-01-26] MEDS: NORVASC 10 MG PO (07:49)
[2025-01-26] MEDS: BACTROBAN 2% OINTMENT 1 APPLIC TOPICAL (07:50)
[2025-01-26] MEDS: DESENEX/MITRAZOL/ZEASORB 1 APPLIC TOPICAL ×2 (07:50→19:45)
--- NOTE | 2025-01-26 11:36 | PTCARENOTE ---
Pt reports increased labored breathing. Dyspnea at rest not observed, respirations= 20. Pulse ox= 97% RA. Tire Repairman at bedside made aware.
[2025-01-26 12:21] LABS: Glucose - Point of Care 218 mg/dl (70-99)
[2025-01-26] MEDS: NOVOLOG FLEXPEN-LOW RESISTANCE 2 UNITS SC (12:42)
--- NOTE | 2025-01-26 13:43 | W.PN.CARDCBS ---
Today's Communication / Plan
-
Likely remains volume overloaded
Continue IV Lasix
Resume Farxiga
Impression / Plan
-
Primary Clerical Aide: Dr. Sotelo
Impression:
Presentation with SOB 01/17/2025
Right foot osteomyelitis, receiving IV antibiotics as OP
Acute on chronic HFmrEF
Ischemic cardiomyopathy, EF 48% by echo 01/17/2025
Elevated troponin, nonischemic myocardial injury
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
DM 2
Morbid obesity
PVD requiring prior peripheral stents
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
Carotid artery disease
Hypercholesterolemia
Hypertension
DNR code status
ECHO 04/03/24: Technically difficult study, Definity used, EF 45 to 50% with mid anterior septal, distal septal, apical hypokinesis, mild to moderate LVH with septum measuring 1.4 cm, mild MAC, trace MR, status post TAVR with peak/mean gradient 17/10
mmHg, no AR
ECHO 01/17/25: EF 48%, TAVR with peak/mean gradients 14/7 mmHg, mid anteroseptal and apical akinesis, mild concentric LVH, no significant changes compared to prior
Plan:
He has a very difficult examination but likely remains volume overloaded
proBNP did not change much he was 1221 January 21 and is 1130 on 01/26
Outpatient dose of spironolactone 25 mg daily remains on hold due to VANESSA which has resolved
Resume Farxiga
He will need eventual rehab
-Patient has a Medtronic DC PPM in place following intermittent CHB at the time of his TAVR in 2020. Device check earlier this admission showed normal device function, battery life of over 8 years and no evidence of atrial or ventricular arrhythmia.
Progress Note - Clerical Aide
Subjective
Date of Service: January 26, 2025
Complains of shortness of breath. Pulse ox 96%
Objective
Labs:
01/26/25 05:30
01/26/25 05:30
Labs
Hgb 12.9 g/dL (13.0-18.0) L 01/26/25 05:30
Hct 38.9 % (39.0-52.0) L 01/26/25 05:30
Plt Count 177 10^3/uL (130-400) 01/26/25 05:30
PT 14.3 Sec (11.4-14.6) 01/17/25 03:57
INR 1.10 01/17/25 03:57
APTT 28.6 Sec (23.4-35.0) 01/17/25 03:57
Sodium 136 mmol/L (135-145) 01/26/25 05:30
Potassium 4.4 mmol/L (3.5-5.1) 01/26/25 05:30
BUN 37 mg/dl (9-20) H 01/26/25 05:30
Creatinine 1.1 mg/dL (0.7-1.3) 01/26/25 05:30
Glucose 175 mg/dl (70-99) H 01/26/25 05:30
Vital Signs and I&O:
Vital Signs
Temp Pulse Resp BP Pulse Ox
97.5 F 71 19 141/60 98
01/26/25 07:05 01/26/25 07:47 01/26/25 07:05 01/26/25 07:47 01/26/25 07:05
Vital Signs
Temp Pulse Resp BP Pulse Ox
97.5 F 71 19 141/60 98
01/26/25 07:05 01/26/25 07:47 01/26/25 07:05 01/26/25 07:47 01/26/25 07:05
Intake & Output
01/24/25 01/25/25 01/26/25 01/27/25
06:59 06:59 06:59 06:59
Intake Total 1440 / 1440 1200 / 1200 780 / 780
Output Total 825 / 825 650 / 650 1150 / 1150
Balance 615 / 615 550 / 550 -370 / -370
Physical Exam
Physical Exam
General: Well developed, well nourished in NAD.
Neck: Supple, no JVD, HJR, carotids +2 B/L, no bruits bilaterally.
Heart: Non displaced PMI, RRR, no murmurs, No S3, S4, no rubs.
Lungs: Scattered rhonchi
Extremities: No clubbing, cyanosis or edema bilaterally.
Neuro: Grossly nonfocal, awake, alert and oriented x3.
--- NOTE | 2025-01-26 15:01 | W.PN.ID1 ---
Date of Service
Date of Service: January 26, 2025
Today's Communication
Continue antibiotics.
Assessment / Plan
Right foot osteomyelitis
Charcot arthropathy of right foot
Non-Healing, chronic (R) Foot Wound
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
- Not clear if secondary to antibiotics or not.
- Abx's resumed, pt tolerating without return of symptomatology
ASCVD (CAD, PAD, Carotid Disease)
Chronic HFmrEF
Aortic Stenosis s/p TAVR
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
Morbid Obesity due to excess calories
Allergy to penicillin - rash
Recommendations:
01/04 wound culture: Pseudomonas
01/04 bone culture (cunieform): Pseudomonas, Enterococcus
01/04 pathology without osteomyelitis
01/02 superficial culture Pseudomonas, Enterococcus,
Continue cefepime and daptomycin through 02/15/2025
CPK normal.
ESR stable
CRP improved from 24.7 to <5.0
Will continue to follow weekly ESR and CRP.
����������������������������������������������������������
Chief Complaint
-: Other (Right foot osteomyelitis)
Subjective / Review of Systems
Patient seen and examined. Reports some ongoing shortness of breath. No pain in the right foot.
Review of Systems: No Fever and No Chills
Vital Signs / Physical Exam
Vital Signs
Vital Signs
Temp Pulse Resp BP Pulse Ox
97.5 F 71 19 141/60 98
01/26/25 07:05 01/26/25 07:47 01/26/25 07:05 01/26/25 07:47 01/26/25 07:05
Physical Exam
Constitutional: No Acute Distress, Comfortable, Chronically Ill and Non-toxic
Cardiovascular: Regular Rate and S1/S2; Negative S3/S4
Pulmonary: Clear, Symmetric and Non Labored
Gastrointestinal: Soft, Non Tender, Non Distended and Normal Bowel Sounds
Skin: Warm and Dry
Wound: Other (right foot dressing clean, dry )
Neurological: Awake and Alert
Lines: PICC (No erythema or tenderness)
Objective Data
Lab Data
Lab Results
01/26/25 05:30
01/26/25 05:30
ESR 44 mm/hour (0-20) H 01/18/25 01:39
PT 14.3 Sec (11.4-14.6) 01/17/25 03:57
INR 1.10 01/17/25 03:57
APTT 28.6 Sec (23.4-35.0) 01/17/25 03:57
Estimated Creat Clear 72 ml/min 01/26/25 05:30
Total Bilirubin 0.7 mg/dl (0.2-1.3) 01/17/25 03:57
AST 38 U/L (17-59) 01/17/25 03:57
ALT 46 U/L (0-50) 01/17/25 03:57
Alkaline Phosphatase 81 U/L (38-126) 01/17/25 03:57
C-Reactive Protein < 5.00 mg/L (0.0-10.00) 01/18/25 01:39
Most recent labs reviewed.
Micro Results:
01/17/25 14:50 MRSA Screen - Final
Nose No Methicillin Resistant Staphylococcus aureus isolated.
Imaging:
12/29/2024 Labeled WBC scan : Accumulation of radiolabeled white blood cells within the right medial midfoot, similar distribution compared to prior 3 phase bone scan. Findings may be seen in the setting of osteomyelitis, consider MRI right foot
for more precise anatomic localization.
01/02/2025 Right foot x-ray: No evidence of acute osseous injury. No evidence of bone destruction. Soft tissue swelling of the forefoot. Soft tissue ulceration of the plantar midfoot versus overlying dressing as described above. Moderate dorsal
midfoot osteoarthritis.
Right foot (01/24/2025)
[2025-01-26 15:14] VITALS: BP 143/72
[2025-01-26 16:38] LABS: Glucose - Point of Care 130 mg/dl (70-99)
[2025-01-26] MEDS: NOVOLOG FLEXPEN-LOW RESISTANCE SC (17:17)
[2025-01-26] MEDS: CUBICIN 20 MG IV (17:18)
[2025-01-26] MEDS: LOVENOX 40 MG SC (17:18)
--- NOTE | 2025-01-26 17:24 | CM ---
CM continues to follow for return to [facility]. Pt reported labored breathing and slurred words.
Patient refused therapy today; not medically cleared today.
[2025-01-26 21:06] LABS: Glucose - Point of Care 177 mg/dl (70-99)
[2025-01-26] MEDS: XALATAN OPHTHALMIC SOLUTION 1 DROP LEFT EYE (21:11)
[2025-01-26] MEDS: CLARITIN 10 MG PO (21:11)
[2025-01-26] MEDS: MELATONIN 3 MG PO (21:11)
[2025-01-26 23:25] VITALS: BP 134/55
[2025-01-27] MEDS: MAXIPIME 1000 MG IV ×4 (04:54→23:28)
[2025-01-27] MEDS: STERILE WATER FOR INJECTION 10 ML IV ×4 (04:54→23:28)
[2025-01-27 05:13] LABS: Hematocrit 38.1 % (39.0-52.0); Hemoglobin 12.9 g/dL (13.0-18.0); Mean Corp Hgb Conc. 33.9 g/dL (33.0-37.0); Mean Corpuscular Volume 89.9 fL (80.0-94.0); Platelet Count 175 10^3/uL (130-400); Red Cell Dist. Width 13.4 % (11.5-14.5)
[2025-01-27 05:34] LABS: Blood Urea Nitrogen 46 mg/dl (9-20); Calcium 9.7 mg/dl (8.4-10.2); Carbon Dioxide 29 mmol/L (22-30); Chloride 98 mmol/L (98-107); Estimated Creatinine Clearance 72 ml/min; Glucose 202 mg/dl (70-99); Potassium 4.4 mmol/L (3.5-5.1); Sodium 133 mmol/L (135-145); eGFR > 60.00
[2025-01-27 06:00] VITALS: BMI 39.5
[2025-01-27 07:00] VITALS: BP 147/67
--- NOTE | 2025-01-27 07:46 | W.PN.HOSP.TC ---
Addendum entered and electronically signed by Zandra Mazariegos MD 01/27/25 20:36:
hydralazine discontinued monitor off
Original Note:
Today's Communication/Plan
-
diuresis as per cardio
hydralazine reduced back to 50 mg BID
discontinue melatonin and Claritin, low dose ativan prn Anxiety if absolutely necessary
Repeat lab work, troponin CBC CMP Mg Phos VBG
glycemic control
blood pressure control
Assessment / Plan
Assessment / Plan
Physical Exam
General: mild distress/anxious
HEENT: Scleral Anicteric, MMM, No JVD
Pulm: clear to auscultation b/l, on NC supplementation for comfort
Cardio: RRR, S1/S2
GI: Soft, NT, ND, BS+
Ext: 1+ pitting lower extremity edema
Skin: Warm, Dry
Neuro: oriented x3 conversant coherent, drowsiness noted, arousable, no focal deficits noted
Psych: Calm
79M HFmrEF PAD/CAD DM Chronic Venous Stasis here for heart failure complicated with acute kidney injury. Patient also being treated for right foot osteomyelitis.
Possible Toxic metabolic Encephalopathy due to Polypharmacy
Possible Panic attack/anxiety
01/27 Anxious called concern that he was about to , calmed down with 's presence, VSS
Noted patient had spent most of day sleeping, and patient also note that he has been progressively confused past few days, slurring speech, especially worse today 01/27
Suspect possibly d/t polypharmacy, patient on melatonin past few days for sleep, on higher dose hydralazine with hold other antihypertensives d/t vanessa since resolved, recently started on Claritin bedtime night prior for post-nasal drip
-Melatonin and Claritin discontinued
-Hydralazine reduced back to 50 mg BID w/ holding parameters
-ativan 0.25 mg Q6HPRN anxiety
-Checking repeat labwork
Acute on chronic heart failure with moderately reduced EF
briefly Held IV Lasix due to VANESSA since resumed
Daily weights
I's and O's
Continue beta-zac
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
cont diuresis as per cardio
court monitor
2D echocardiogram appreciated EF 48% no significant changes from ECHO Sep 2023
Acute hypoxemic respiratory failure secondary to heart failure exacerbation with a respiratory rate of 25 and the lowest SpO2 documented at 91%
weaned off oxygen supplementation, saturating well on room air but requiring NC supplementation for comfort, subjective feelings sob
Lasix as per Cardio
resumed lisinopril Farxiga Aldactone briefly held d/t VANESSA
Nocturnal hypoxia likely related to sleep apnea
Will need outpatient polysomnography
01/26 CXR appreciated no acute abn's
VANESSA likely secondary to overdiuresis (since resolved)
Follow renal function
IV fluid completed with resolution VANESSA, lasix since resumed
HTN
home Hydralazine increased to 100 mg BID while other antihypertensives held d/t VANESSA as above
Hydralazine decreased back to 50 mg BID with restart antihypertensives as above
cont Amlodipine Lisinopril Aldactone
Electrolyte abnormalities with hyponatremia hypochloremia
Likely related to diuresis
resolved, IVF completed
Elevated troponin likely type II demand ischemia in the setting of heart failure
Troponin peak of 0.07
Right foot osteomyelitis
Pseudomonas and Enterococcus bacteremia
Previously on cefepime daptomycin facility held d/t concerns causing itchiness
ID recommend continue cefepime daptomycin monitor for reaction, tolerating so far
Outpatient podiatry follow-up
History of PAD/CAD
Aspirin Plavix statin
Type 2 diabetes
Continue long and short acting insulin sliding scale
Accu-Cheks
Goal blood glucose 140-180
Carb controlled diet
Chronic venous stasis
Oziel wrap
DVT ppx Lovenox
DNR
Discussed with patient and patient's Siri
I spent a total of 55 minutes with the patient or on the floor. More than 50% of this time involved counseling and coordination of care.
Anticipated Discharge: > 48 hours
Subjective/Interval History
-
Date of Service: January 27, 2025
Subjective feelings sob throughout day despite noted saturating well on room air. Later in day patient called anxious reporting that he feels like he's going to . Calmed down with 's presence. Noted patient sleeping most of the day.
also notes patient's being slurring his speech for past few days, worse today.
Objective Data
-
Labs:
Laboratory Results
01/27/25
04:51
WBC 9.8
Hgb 12.9 L
Hct 38.1 L
Plt Count 175
Sodium 133 L
Potassium 4.4
Chloride 98
Carbon Dioxide 29
BUN 46 H
Creatinine 1.1
Glucose 202 H
Calcium 9.7
Vital Signs:
Vital Signs
Temp Pulse Resp BP Pulse Ox
97.6 F 72 20 134/55 98
01/26/25 23:25 01/26/25 23:25 01/26/25 23:25 01/26/25 23:25 01/26/25 23:25
I&O
01/26/25 01/27/25 01/28/25
06:59 06:59 06:59
Intake Total 780 / 780 1440 / 1440
Output Total 1150 / 1150 1100 / 1100
Balance -370 / -370 340 / 340
[2025-01-27 08:21] LABS: Glucose - Point of Care 296 mg/dl (70-99)
[2025-01-27 08:35] VITALS: BP 147/67
[2025-01-27] MEDS: LANTUS 0.24 UNITS SC ×2 (08:35→23:12)
[2025-01-27] MEDS: NOVOLOG FLEXPEN 10 UNITS SC ×3 (08:36→17:23)
[2025-01-27] MEDS: NOVOLOG FLEXPEN-LOW RESISTANCE 3 UNITS SC ×2 (08:36→12:48)
[2025-01-27] MEDS: ASPIR LOW (ENTERIC COATED) 81 MG PO (08:37)
[2025-01-27] MEDS: PLAVIX 75 MG PO (08:38)
[2025-01-27] MEDS: APRESOLINE 100 MG PO (08:38)
[2025-01-27] MEDS: LASIX 40 MG IV ×2 (08:38→17:22)
[2025-01-27] MEDS: THERAGRAN 1 TABLET PO (08:38)
[2025-01-27] MEDS: ZESTRIL 40 MG PO (08:38)
[2025-01-27] MEDS: FARXIGA 10 MG PO (08:38)
[2025-01-27] MEDS: VITAMIN D3 (cholecalciferol) 50 MCG PO (08:38)
[2025-01-27] MEDS: NORVASC 10 MG PO (08:38)
[2025-01-27] MEDS: COREG 12.5 MG PO ×2 (08:38→19:56)
[2025-01-27] MEDS: TRUSOPT 2% OPHTHALMIC SOLUTION 1 DROP LEFT EYE ×2 (08:39→20:00)
[2025-01-27] MEDS: DESENEX/MITRAZOL/ZEASORB 1 APPLIC TOPICAL ×2 (08:44→19:59)
[2025-01-27] MEDS: BACTROBAN 2% OINTMENT 1 APPLIC TOPICAL (08:44)
[2025-01-27 12:08] LABS: Glucose - Point of Care 252 mg/dl (70-99)
--- NOTE | 2025-01-27 12:13 | W.PN.CARDCBS ---
Today's Communication / Plan
-
Continue IV Lasix
Impression / Plan
-
Primary Endoscopy Support Specialist: Dr. Sotelo
Impression:
Presentation with SOB 01/17/2025
Right foot osteomyelitis, receiving IV antibiotics as OP
Acute on chronic HFmrEF
Ischemic cardiomyopathy, EF 48% by echo 01/17/2025
Elevated troponin, nonischemic myocardial injury
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
DM 2
Morbid obesity
PVD requiring prior peripheral stents
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
Carotid artery disease
Hypercholesterolemia
Hypertension
DNR code status
ECHO 04/03/24: Technically difficult study, Definity used, EF 45 to 50% with mid anterior septal, distal septal, apical hypokinesis, mild to moderate LVH with septum measuring 1.4 cm, mild MAC, trace MR, status post TAVR with peak/mean gradient 17/10
mmHg, no AR
ECHO 01/17/25: EF 48%, TAVR with peak/mean gradients 14/7 mmHg, mid anteroseptal and apical akinesis, mild concentric LVH, no significant changes compared to prior
Plan:
He continues to diurese with weight decreasing 5 pounds in the past 24 hours and is 275 pounds on 01/27
proBNP did not change much he was 1221 January 21 and 1130 on 01/26
Outpatient dose of spironolactone 25 mg daily remains on hold due to VANESSA which has resolved
Resume Farxiga
He will need eventual rehab
-Patient has a Medtronic DC PPM in place following intermittent CHB at the time of his TAVR in 2020. Device check earlier this admission showed normal device function, battery life of over 8 years and no evidence of atrial or ventricular arrhythmia.
Progress Note - Endoscopy Support Specialist
Subjective
Date of Service: January 27, 2025
No complaints
Objective
Labs:
01/27/25 04:51
01/27/25 04:51
Labs
Hgb 12.9 g/dL (13.0-18.0) L 01/27/25 04:51
Hct 38.1 % (39.0-52.0) L 01/27/25 04:51
Plt Count 175 10^3/uL (130-400) 01/27/25 04:51
PT 14.3 Sec (11.4-14.6) 01/17/25 03:57
INR 1.10 01/17/25 03:57
APTT 28.6 Sec (23.4-35.0) 01/17/25 03:57
Sodium 133 mmol/L (135-145) L 01/27/25 04:51
Potassium 4.4 mmol/L (3.5-5.1) 01/27/25 04:51
BUN 46 mg/dl (9-20) H 01/27/25 04:51
Creatinine 1.1 mg/dL (0.7-1.3) 01/27/25 04:51
Glucose 202 mg/dl (70-99) H 01/27/25 04:51
Vital Signs and I&O:
Vital Signs
Temp Pulse Resp BP Pulse Ox
97.5 F 79 18 147/67 100
01/27/25 07:00 01/27/25 07:00 01/27/25 07:00 01/27/25 07:00 01/27/25 07:00
Vital Signs
Temp Pulse Resp BP Pulse Ox
97.5 F 79 18 147/67 100
01/27/25 07:00 01/27/25 07:00 01/27/25 07:00 01/27/25 07:00 01/27/25 07:00
Intake & Output
01/25/25 01/26/25 01/27/25 01/28/25
06:59 06:59 06:59 06:59
Intake Total 1200 / 1200 780 / 780 1440 / 1440
Output Total 650 / 650 1150 / 1150 1100 / 1100
Balance 550 / 550 -370 / -370 340 / 340
Physical Exam
Physical Exam
General: Well developed, well nourished in NAD.
Neck: Supple, no JVD, HJR, carotids +2 B/L, no bruits bilaterally.
Heart: Non displaced PMI, RRR, no murmurs, No S3, S4, no rubs.
Lungs: Scattered rhonchi
Extremities: No clubbing, cyanosis or edema bilaterally.
Neuro: Grossly nonfocal, awake, alert and oriented x3.
[2025-01-27 15:00] VITALS: BP 117/66
--- NOTE | 2025-01-27 15:24 | PTCARENOTE ---
Pt OOB to chair for approx 30 min. Transferred with RW and assist x 2. Pt with great difficulty maintaining NWB status to R foot. Large loose bowel movement while sitting in chair - transferred back to bed.
[2025-01-27 16:42] LABS: Glucose - Point of Care 217 mg/dl (70-99)
[2025-01-27] MEDS: NOVOLOG FLEXPEN-LOW RESISTANCE 2 UNITS SC (17:23)
[2025-01-27] MEDS: CUBICIN 20 MG IV (17:24)
[2025-01-27] MEDS: LOVENOX 40 MG SC (17:25)
[2025-01-27 18:29] LABS: Glucose - Point of Care 152 mg/dl (70-99)
--- NOTE | 2025-01-27 19:31 | PTCARENOTE ---
Pt called from home to come in and be with because 'he was dying'. very upset at bedside. Pt without any specific complaints. Denies SOB, chest pain, nausea/vomiting, pain. Appears comfortable in bed - assessment unchanged from earlier
today. VS 128/61, 73, 97.3, 18, 98% on 2L. BS at the time 152. TT to hospitalist, thinking maybe patient experiencing anxiety. Hospitalist to room to see patient - ordered trops, EKG, tele monitoring.
[2025-01-27 19:35] LABS: Glucose - Point of Care 211 mg/dl (70-99)
[2025-01-27 19:35] LABS: Glucose - Point of Care 61 mg/dl (70-99)
[2025-01-27] MEDS: TYLENOL 650 MG PO (19:57)
[2025-01-27 20:05] VITALS: BP 115/75
[2025-01-27 20:06] LABS: Troponin I 0.033 ng/ml
[2025-01-27 21:05] LABS: Hematocrit 36.6 % (39.0-52.0); Hemoglobin 12.4 g/dL (13.0-18.0); Mean Corp Hgb Conc. 33.9 g/dL (33.0-37.0); Mean Corpuscular Volume 88.8 fL (80.0-94.0); Platelet Count 182 10^3/uL (130-400); Red Cell Dist. Width 13.4 % (11.5-14.5)
[2025-01-27 21:23] LABS: ALT (SGPT) 36 U/L (0-50); AST (SGOT) 26 U/L (17-59); Albumin 3.6 g/dl (3.5-5.0); Alkaline Phosphatase 73 U/L (38-126); Blood Urea Nitrogen 56 mg/dl (9-20); Calcium 9.7 mg/dl (8.4-10.2); Carbon Dioxide 31 mmol/L (22-30); Chloride 97 mmol/L (98-107); Estimated Creatinine Clearance 52 ml/min; Glucose 179 mg/dl (70-99); Magnesium 2.2 mg/dl (1.6-2.3); Potassium 4.9 mmol/L (3.5-5.1); Sodium 132 mmol/L (135-145); Total Protein 6.3 g/dl (6.3-8.2); eGFR 46.77
[2025-01-27 21:41] LABS: Glucose - Point of Care 178 mg/dl (70-99)
[2025-01-27 22:39] LABS: Glucose - Point of Care 143 mg/dl (70-99)
--- NOTE | 2025-01-27 22:54 | W.PN.UPDATE ---
Update Note
Progress Note Update
Rapid response/stroke alert called at 10:40 for stroke symptoms. RN noted new right sided facial weakness, right pupil constricted and non reactive, right upper extremity weakness, right upper extremity ataxia. NIH 6. Vital signs stable: BP 107-57,
HR 71, 97% on room air. Accucheck 143. Last seen normal approx 10:30.
Telestroke called, spoke to Dr. Tarango, Neurology at [place]. Reviewed events. Patient's symptoms resolving when in CT scan. No TNK since symptoms are resolving. Initial CT head read by Dr. Zuniga, [place]: No acute events. Chronic mild ischemia. Old inferior
left cerebellar infarct. Initial Head/Neck CTA done, read: 80-90% stenosis right carotid, heavily calcified.
Patient returned to room, patient and patient's updated.
23:10 Patient back to baseline, all symptoms resolved.
[2025-01-27] MEDS: XALATAN OPHTHALMIC SOLUTION 1 DROP LEFT EYE (23:12)
[2025-01-27 23:37] VITALS: BP 94/48
[2025-01-28] VITALS (10 sets, daily range): BP systolic 89–134; BP diastolic 43–89; BMI 39.2
--- NOTE | 2025-01-28 00:31 | RR ---
Addendum entered by Belkis Nam RN 01/28/25 04:51:
VSS during rapid, BP 107/57, HR 69, 97% on 2L, temp 97.2, RR 18, BS 143.
Original Note:
A Rapid Response was called on this patient, please see Rapid Response form. Pt and requested ativan stating pt felt 'antsy'. Pt observed resting calmly in bed, slightly drowsy but answering questions appropriately. Pt and informed that
per MD note and what was stated to this RN to give the ativan only if necessary and to avoid sedation. RN informed pt and spouse that d/t drowsiness he cannot get the ativan at this time.
Approximately 15 minutes later, RN returned to room to administer scheduled lantus, Pt in bed, not responding to verbal stimuli. RN sternal rubbed pt, pt arousable and answering questions appropriately but very drowsy. Mild slurring, mild R facial
droop, and unreactive R pupil noted on assessment. Rapid response and stroke alert called at 2230. NIH 6 for arousable, R arm drift, ataxia in upper extremities, mild slurring, and minor facial paralysis.
Pt back from Head CT. Symptoms resolved, NIH 0. R pupil still unreactive to light. NON DESTRUCTIVE TESTER notified.
--- NOTE | 2025-01-28 03:09 | PTCARENOTE ---
Pt w/ decreased urine output. Bladder scanned for 653mls. pt able to urine 150mls of clear yellow urine. Pt stated 'no more tests' and stated 'let me sleep a little and try again later'. BS/SC orders obtained from [facility]. Pt bladder scanned again for
515mls and straight cathed for 550mls of clear yellow urine.
Pt had x3 large liquid BMs. Pt on abx, [facility] notified. C.diff ordered, sent to lab. Plan of care ongoing.
[2025-01-28] MEDS: TYLENOL 650 MG PO (03:19)
[2025-01-28 04:33] LABS: Venous Blood Gas B.E. 2.7 mmol/L (-4 to +4); Venous Blood Gas O2 Sat % 96.5 %
[2025-01-28 05:13] LABS: Blood Urea Nitrogen 60 mg/dl (9-20); Calcium 9.5 mg/dl (8.4-10.2); Carbon Dioxide 27 mmol/L (22-30); Chloride 98 mmol/L (98-107); Estimated Creatinine Clearance 46 ml/min; Glucose 161 mg/dl (70-99); Magnesium 2.2 mg/dl (1.6-2.3); Potassium 4.6 mmol/L (3.5-5.1); Sodium 132 mmol/L (135-145); eGFR 40.25
[2025-01-28] MEDS: MAXIPIME 1000 MG IV ×3 (05:48→21:08)
[2025-01-28 05:49] LABS: Hematocrit 37.2 % (39.0-52.0); Hemoglobin 12.2 g/dL (13.0-18.0); Mean Corp Hgb Conc. 32.8 g/dL (33.0-37.0); Mean Corpuscular Volume 89.9 fL (80.0-94.0); Platelet Count 176 10^3/uL (130-400); Red Cell Dist. Width 13.6 % (11.5-14.5)
[2025-01-28] MEDS: STERILE WATER FOR INJECTION 10 ML IV ×3 (05:51→21:08)
[2025-01-28] MEDS: PERCOCET 5/325 1 TABLET PO (06:15)
--- NOTE | 2025-01-28 07:18 | W.PN.HOSP.TC ---
Today's Communication/Plan
-
cont abx renally dosed
monitor renal function, gentle IVF hydration
bladder scan prn, Wilson if patient willing to accept
coreg reduced and amlodipine placed on hold d/t hypotension
Monitor BP
glycemic control
transfer to IMU for closer monitoring
Brain MRI
Carotid Duplex follow up arterial study as per Vascular
Assessment / Plan
Assessment / Plan
Physical Exam
General: mild distress/anxious
HEENT: Scleral Anicteric, MMM, No JVD
Pulm: clear to auscultation b/l, on NC supplementation for comfort
Cardio: RRR, S1/S2
GI: Soft, NT, ND, BS+
Ext: 1+ pitting lower extremity edema
Skin: Warm, Dry
Neuro: oriented x3 conversant coherent, Lethargic but arousable, falling asleep during conversation. aterixis+
Psych: Calm
79M HFmrEF PAD/CAD DM Chronic Venous Stasis here for heart failure complicated with acute kidney injury. Patient also being treated for right foot osteomyelitis.
Toxic metabolic Encephalopathy possibly due to Polypharmacy
Stroke alert overnight. TIA/CVA
Asterixis (ammonia level neg)
01/27 pt Anxious called concern that he was about to , calmed down with 's presence, VSS
Noted patient had spent most of day sleeping, and patient also note that he had been progressively confused past few days, slurring speech, especially worse 01/27
Suspected possibly d/t polypharmacy, patient on melatonin past few days for sleep, recently started on Claritin bedtime night prior for post-nasal drip, was on increased dose Hydralazine w hold Lisinopril Aldactone d/t prior VANESSA 01/21
-Melatonin and Claritin discontinued
-Hydralazine discontinued
Later in night stroke alert was called d/t Right sided deficits (RUE weakness, right facial weakness)
symptoms spontaneously resolved, CT Head noted no acute abn's, CTA concerning for right carotid stenosis 80-90% (per LAST CLEANER update note, offical CT report pending)
neurochecks, NIH
Brain MRI pending
Neuro eval appreciated
Vascular Surgeon eval appreciated check carotid duplex, right carotid stenosis does not match right sided symptoms so likely asymptomatic
01/28 given fluctuating mental status, soft pressures, patient transferred to IMU for closer monitoring
Diarrhea overnight 01/27
Cdiff neg
Acute on chronic heart failure with moderately reduced EF
briefly Held IV Lasix due to VANESSA resumed with resolution, on hold again d/t new episode VANESSA exacerbated by contrast from stroke alert
Daily weights
I's and O's
Continue beta-zac Coreg reduced to 6.25 mg BID from 12.5 mg d/t soft/low pressures
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
nurse monitoring
2D echocardiogram appreciated EF 48% no significant changes from ECHO Sep 2023
Lisinopril Aldactone Farxiga on hold d/t VANESSA
Acute hypoxemic respiratory failure secondary to heart failure exacerbation
weaned off oxygen supplementation, saturating well on room air but requiring NC supplementation for comfort, subjective feelings sob
Nocturnal hypoxia likely related to sleep apnea
Will need outpatient polysomnography
01/26 CXR appreciated no acute abn's
VANESSA likely secondary to overdiuresis (previously resolved, re-occurred 01/27 further exacerbated by contrast as above)
Mild Hyponatremia
-IVF gentle hydration 60 cc/h
-Nephro eval appreciated fluid restriction
01/28 Acute Urinary retention
-bladder scan prn
-patient currently refuses Wilson
HTN
01/28 Low Pressures/Hypotensive 89/60
home Hydralazine increased from 50 mg to 100 mg BID while other antihypertensives held d/t initial VANESSA
Hydralazine since discontinued 01/27
Lisinopril Aldactone held d/t VANESSA
Amlodipine placed on hold 01/28, Coreg reduced from 12.5 to 6.25 mg BID with holding parameters
01/28 once 1VF bolus 250 cc w/ subsequent improvement in BP noted, cont gentle IVF hydration
Elevated troponin likely type II demand ischemia in the setting of heart failure
Troponin peak of 0.07
Right foot osteomyelitis
Pseudomonas and Enterococcus bacteremia
Previously on cefepime daptomycin facility held d/t concerns causing itchiness
ID recommend continue cefepime daptomycin monitor for reaction, tolerating so far
Outpatient podiatry follow-up
History of PAD/CAD
PVD requiring stents
Aspirin Plavix statin
vascular eval appreciated follow up arterial study for intervention performed in Dec
Type 2 diabetes
Continue long and short acting insulin sliding scale
Accu-Cheks
Goal blood glucose 140-180
Carb controlled diet
Farxiga on hold d/t VANESSA as above
Chronic venous stasis
Oziel wrap
DVT ppx Lovenox
DNR
Discussed with patient and patient's Siri
I spent a total of 60 minutes with the patient or on the floor. More than 50% of this time involved counseling and coordination of care.
Anticipated Discharge: > 48 hours
Subjective/Interval History
-
Date of Service: January 28, 2025
Lethargic but arousable. falls asleep during conversation, reports some improvement in feelings SOB. Siri present during evaluation
Objective Data
-
Labs:
Laboratory Results
01/27/25 01/28/25
20:56 04:27
WBC 10.5 10.5
Hgb 12.4 L 12.2 L
Hct 36.6 L 37.2 L
Plt Count 182 176
Sodium 132 L 132 L
Potassium 4.9 4.6
Chloride 97 L 98
Carbon Dioxide 31 H 27
BUN 56 H 60 H
Creatinine 1.5 H 1.7 H
Glucose 179 H 161 H
Calcium 9.7 9.5
Total Bilirubin 0.6
AST 26
ALT 36
Alkaline Phosphatase 73
Vital Signs:
Vital Signs
Temp Pulse Resp BP Pulse Ox
97.2 F 72 16 108/47 98
01/28/25 03:43 01/28/25 03:43 01/28/25 03:43 01/28/25 03:43 01/28/25 03:43
I&O
01/27/25 01/28/25 01/29/25
06:59 06:59 06:59
Intake Total 1440 / 1440
Output Total 1100 / 1100 1575 / 1575
Balance 340 / 340 -1575 / -1575
--- NOTE | 2025-01-28 08:11 | CON.VAS ---
Consultation
Consultation Request
Date/Time Consultation Requested: 01/28/2025
Date/Time Consultation Performed: 01/28/2025
Requesting Provider: Delilah
Performing Provider: Steve
Reason for Consultation: Carotid stenosis
Medical History
-
Chief Complaint: Right carotid stenosis
History of Present Illness:
79 yo male. Known to Garcia
Admitted 01/17 with CHF exacerbation
Right foot osteo s/p endo intervention in 12/2024 (Garcia)
Last night had an event with symptoms as described below. Patient has no recollection of the event and cannot give me any details about what he experienced. at bedside and was not helpful with history.
Event 01/27 PM:
Rapid response/stroke alert called at 10:40 for stroke symptoms. RN noted new right sided facial weakness, right pupil constricted and non reactive, right upper extremity weakness, right upper extremity ataxia. NIH 6. Vital signs stable: BP 107-57,
HR 71, 97% on room air. Accucheck 143. Last seen normal approx 10:30.
Telestroke called, spoke to Dr. Tarango, Neurology at [place]. Reviewed events. Patient's symptoms resolving when in CT scan. No TNK since symptoms are resolving. Initial CT head read by Dr. Zuniga, [place]: No acute events. Chronic mild ischemia. Old inferior
left cerebellar infarct. Initial Head/Neck CTA done, read: 80-90% stenosis right carotid, heavily calcified.
Patient returned to room, patient and patient's updated.
23:10 Patient back to baseline, all symptoms resolved.
CT revealed right carotid stenosis, high grade and calcified. Less significant stenosis on the left.
PMHx:
Right foot osteomyelitis, receiving IV antibiotics as OP
Acute on chronic HFmrEF
Ischemic cardiomyopathy, EF 48% by echo 01/17/2025
Elevated troponin, nonischemic myocardial injury
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
DM 2
Morbid obesity
PVD requiring prior peripheral stents
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
Carotid artery disease
Hypercholesterolemia
Hypertension
DNR code status
Allergies / Home Medications
Allergy/AdvReac Type Severity Reaction Status Date / Time
clindamycin (Clindamycin) Allergy Shortness Verified 01/17/25 01:25
of Breath
Penicillins Allergy Rash; Verified 01/17/25 01:25
TOLERATES
CEPHALOSPORINS
Mczsjrv-[id number]-OtL Reductase Allergy Patient Verified 01/17/25 01:25
Inhibitor (Jefexvu-[id number]-Mpg reports
Reductase Inhibitor) pains in
shoulder
with
statin use.
�Medication �Instructions �Recorded �Confirmed �Type
coenzyme Q10 200 mg capsule (Co 200 mg PO HS Supplement 02/19/13 01/17/25 History
Q-10)
clopidogrel 75 mg tablet 75 mg PO DAILY Blood clot 10/22/16 01/17/25 History
prevention/tx
amlodipine 10 mg tablet 10 mg PO DAILY Blood pressure 11/26/20 01/17/25 History
cholecalciferol (vitamin D3) 50 2,000 units PO DAILY Supplement 03/15/21 01/17/25 History
mcg (2,000 unit) tablet
aspirin 81 mg tablet,delayed 81 mg PO DAILY Blood Clot 04/01/24 01/17/25 History
release Prevention/Tx
carvedilol 12.5 mg tablet 12.5 mg PO BID Blood Pressure 04/01/24 01/17/25 History
dorzolamide 2 % eye drops 1 drp LEFT EYE BID Eye Condition 01/01/25 01/17/25 History
insulin lispro 100 unit/mL 10 unit SC AC Diabetes 01/01/25 01/17/25 History
subcutaneous pen (Humalog KwikPen
(U-100) Insulin)
latanoprost 0.005 % eye drops 1 drp LEFT EYE HS Eye Condition 01/01/25 01/17/25 History
pitavastatin calcium 4 mg tablet 4 mg PO HS cholesterol 01/01/25 01/17/25 History
(Livalo)
hydralazine 50 mg tablet 50 mg PO BID #60 tabs 01/12/25 01/17/25 Rx
insulin glargine U-300 conc 300 30 unit (0.1 mL) SC BID #0 mL 01/12/25 01/17/25 Rx
unit/mL (3 mL) subcutaneous pen
(Toujeo Max U-300 SoloStar)
acetaminophen 325 mg tablet 650 mg PO Q4HPRN PRN mild pain 01/17/25 01/17/25 History
(Tylenol)
furosemide 40 mg tablet 40 mg PO BID Fluid 01/17/25 01/17/25 History
Retention/Swelling
melatonin 3 mg tablet 3 mg PO HSPRN PRN sleep 01/17/25 01/17/25 History
therapeutic multivitamin 1 tab PO DAILY Supplement 01/17/25 01/17/25 History
dapagliflozin propanediol 10 mg 10 mg PO DAILY Heart Failure 01/19/25 01/19/25 History
tablet (Farxiga)
lisinopril 40 mg tablet 40 mg PO DAILY Blood Pressure 01/19/25 01/19/25 History
spironolactone 25 mg tablet 25 mg PO DAILY Heart Failure 01/19/25 01/19/25 History
Physical Exam
Vital Signs
Temp Pulse Resp BP Pulse Ox
97.2 F 72 16 108/47 98
01/28/25 03:43 01/28/25 03:43 01/28/25 03:43 01/28/25 03:43 01/28/25 03:43
Lab Results
01/28/25 04:27
01/28/25 04:27
Troponin I 0.033 ng/ml 01/27/25 19:29
Ixs-L-Zpgsisdlmzi Pept 1130 pg/ml 01/26/25 05:30
Physical Exam
General: No Apparent Distress and Other (Resting in bed, no distress. Alert. Somewhat sleepy but non focal. at bedside. Right foot dressing clean/dry)
Assessment / Plan
-
Multiple medical problems, admitted with CHF exacerbation. I personally reviewed the CTA images. No formal radiology read yet. There is a high grade calcified ICA stenosis on the right. Calcified plaque identified on the left but less significant
stenosis. Symptoms reported to be RIGHT peripheral and therefore the right carotid stenosis, although high grade, is asymptomatic.
-Carotid duplex 01/29
-Neuro consult
-Pt has not had f/u arterial studies after the recent intervention in December. Will update while in-house (ordered)
-Will need f/u with Garcia in the office.
-Call with questions/concerns
Data Reviewed
-
CT Scan: Image Personally Visualized and interpreted and Discussed with Patient
Labs: Labs Reviewed by me
--- NOTE | 2025-01-28 08:29 | W.PN.CARDCBS ---
Today's Communication / Plan
-
Creatinine up to 1.7 and will hold IV Lasix
Impression / Plan
-
Primary Supervisor [employer]: Dr. Sotelo
Impression:
Presentation with SOB 01/17/2025
Right foot osteomyelitis, receiving IV antibiotics as OP
Acute on chronic HFmrEF
Stroke alert 01/27/2025/carotid stenosis
Ischemic cardiomyopathy, EF 48% by echo 01/17/2025
Elevated troponin, nonischemic myocardial injury
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
DM 2
Morbid obesity
PVD requiring prior peripheral stents
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
Carotid artery disease
Hypercholesterolemia
Hypertension
DNR code status
ECHO 04/03/24: Technically difficult study, Definity used, EF 45 to 50% with mid anterior septal, distal septal, apical hypokinesis, mild to moderate LVH with septum measuring 1.4 cm, mild MAC, trace MR, status post TAVR with peak/mean gradient 17/10
mmHg, no AR
ECHO 01/17/25: EF 48%, TAVR with peak/mean gradients 14/7 mmHg, mid anteroseptal and apical akinesis, mild concentric LVH, no significant changes compared to prior
Plan:
Weight decreased 2 pounds but creatinine is increased to 1.7
Will hold IV Lasix
proBNP did not change much he was 1221 January 21 and 1130 on 01/26
Outpatient dose of spironolactone 25 mg daily remains on hold due to VANESSA
Vascular surgery seeing patient after possible stroke alert on 01/27/2025 and evaluating carotid stenosis
Updated at bedside
He will need eventual rehab
-Patient has a Medtronic DC PPM in place following intermittent CHB at the time of his TAVR in 2020. Device check earlier this admission showed normal device function, battery life of over 8 years and no evidence of atrial or ventricular arrhythmia.
Progress Note - Supervisor [employer]
Subjective
Date of Service: January 28, 2025
No complaints
Objective
Labs:
01/28/25 04:27
01/28/25 04:27
Labs
Hgb 12.2 g/dL (13.0-18.0) L 01/28/25 04:27
Hct 37.2 % (39.0-52.0) L 01/28/25 04:27
Plt Count 176 10^3/uL (130-400) 01/28/25 04:27
PT 14.3 Sec (11.4-14.6) 01/17/25 03:57
INR 1.10 01/17/25 03:57
APTT 28.6 Sec (23.4-35.0) 01/17/25 03:57
Sodium 132 mmol/L (135-145) L 01/28/25 04:27
Potassium 4.6 mmol/L (3.5-5.1) 01/28/25 04:27
BUN 60 mg/dl (9-20) H 01/28/25 04:27
Creatinine 1.7 mg/dL (0.7-1.3) H 01/28/25 04:27
Glucose 161 mg/dl (70-99) H 01/28/25 04:27
Troponins
01/27/25
19:29
Troponin I 0.033
Vital Signs and I&O:
Vital Signs
Temp Pulse Resp BP Pulse Ox
97.2 F 72 16 108/47 98
01/28/25 03:43 01/28/25 03:43 01/28/25 03:43 01/28/25 03:43 01/28/25 03:43
Vital Signs
Temp Pulse Resp BP Pulse Ox
97.2 F 72 16 108/47 98
01/28/25 03:43 01/28/25 03:43 01/28/25 03:43 01/28/25 03:43 01/28/25 03:43
Intake & Output
01/26/25 01/27/25 01/28/25 01/29/25
06:59 06:59 06:59 06:59
Intake Total 780 / 780 1440 / 1440
Output Total 1150 / 1150 1100 / 1100 1575 / 1575
Balance -370 / -370 340 / 340 -1575 / -1575
Physical Exam
Physical Exam
General: Well developed, well nourished in NAD.
Neck: Supple, no JVD, HJR, carotids +2 B/L, no bruits bilaterally.
Heart: Non displaced PMI, RRR, no murmurs, No S3, S4, no rubs.
Lungs: Clear to auscultation bilaterally, no wheeze, rhonchi, rubs bilaterally,
normal expiratory phase.
Extremities: No clubbing, cyanosis or edema bilaterally.
Neuro: Grossly nonfocal, awake, alert and oriented x3.
[2025-01-28 08:35] LABS: Glucose - Point of Care 213 mg/dl (70-99)
[2025-01-28] MEDS: NSS 1000 IV ×2 (09:10→23:55)
[2025-01-28] MEDS: ASPIR LOW (ENTERIC COATED) 81 MG PO (09:11)
[2025-01-28] MEDS: THERAGRAN 1 TABLET PO (09:11)
[2025-01-28] MEDS: VITAMIN D3 (cholecalciferol) 50 MCG PO (09:11)
[2025-01-28] MEDS: NOVOLOG FLEXPEN SC ×2 (09:11→12:33)
[2025-01-28] MEDS: PLAVIX 75 MG PO (09:11)
[2025-01-28] MEDS: NOVOLOG FLEXPEN-LOW RESISTANCE 2 UNITS SC ×2 (09:12→13:04)
[2025-01-28] MEDS: DESENEX/MITRAZOL/ZEASORB 1 APPLIC TOPICAL ×2 (09:15→20:36)
[2025-01-28] MEDS: BACTROBAN 2% OINTMENT 1 APPLIC TOPICAL (09:16)
[2025-01-28] MEDS: TRUSOPT 2% OPHTHALMIC SOLUTION 1 DROP LEFT EYE ×2 (09:16→20:37)
[2025-01-28] MEDS: LANTUS 0.24 UNITS SC ×2 (09:19→20:49)
[2025-01-28] MEDS: COREG 12.5 MG PO (09:19)
--- NOTE | 2025-01-28 09:23 | CON.NEURO ---
Neuro Assessment/Plan
Assessment
# right sides weakness- resolved
# Asterexis
He was a stroke alert overnight for right sided weakness that quickly resolved. No evidence now of right sided weakness. He is on DAPT. I recommend an MRI head w/o contrast to assess if he did have a stroke. If he did have a residual stroke then he
may need further stroke evaluation and may benefit from AC at a later time. Post-ictal paralysis is unlikely given no seizure activity noted. He currently has abnormal movements that are most consistent with Asterexis. This can be confused for
ataxia. This is typically due to toxic metabolic abnormalities. His BUN is elevated, which is a cause of asterexis. I recommend an ammonia level to assess for other causes of asterexis.
Plan
- MRI head w/o contrast when able
- Ammonia level
Consultation
Order
Date of Consultation: 01/28/25
Requesting Provider: Dr. Mazariegos
Reason for Consult: right sided weakness
Subjective/Objective
Subjective Data
Date of Service: January 28, 2025
Mr. Lomas is a poor historian. His wfie is at bedside and provides the history.
Mr. Lomas is an 79 y.o. M with a PMH of HFrEF, PAD/CAD, T2DM, Chronic Venous stasis currently admitted for heart failure c/b by VANESSA and also being treated for right foot osteomyeltitis. A stroke alert was called overnight for right sided facial
weakness. His law saw him at 4pm and he was relatively normal at that time. He has been a little bit confused and sleepy during his admission. Stroke alert called at 22:40pm last night for right sided facial weakness noticed by RN. NIHSS was 6
for R facial weakness, right pupil constricted unreactive, right upper extremity weakness and right upper extremity ataxia. Telestroke consulted. patient's symptoms resolved while at CT scan. TNK not given for rapidly resolving symptoms. CT showed
no acute hemorrhage and CTA showed no LVO. by 23:10 back at baseline. He's at relative baseline now according to his but sleepier. He has no specific complaints and only remember diarrhea and not the events of the stroke alert. He is on
aspirin/plavix for PAD.
PMH: right foot osteomyelitis secondary to critical limb ischemia, insulin-dependent diabetes mellitus, CAD, CHF, hypertension, hyperlipidemia
PSH: right elbow surgery, cardiac stent, anal fistulasurgical repair, partial amputation of left toe, TAVR, angioplasty artery of LE
FH: Not pertinent
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
Allergies: per chart
Meds: per chart
Objective Data
Vital Signs
Temp Pulse Resp BP Pulse Ox
36.5 C 71 20 122/53 97
01/28/25 07:30 01/28/25 07:30 01/28/25 07:30 01/28/25 07:30 01/28/25 07:30
Lab Results
01/28/25 04:27
01/28/25 04:27
PT 14.3 Sec (11.4-14.6) 01/17/25 03:57
INR 1.10 01/17/25 03:57
APTT 28.6 Sec (23.4-35.0) 01/17/25 03:57
Sodium 132 mmol/L (135-145) L 01/28/25 04:27
Potassium 4.6 mmol/L (3.5-5.1) 01/28/25 04:27
BUN 60 mg/dl (9-20) H 01/28/25 04:27
Glucose 161 mg/dl (70-99) H 01/28/25 04:27
Calcium 9.5 mg/dl (8.4-10.2) 01/28/25 04:27
Phosphorus 6.0 mg/dl (2.5-4.5) H 01/28/25 04:27
Bww-O-Wbccdnikxmr Pept 1130 pg/ml 01/26/25 05:30
Patient Allergies
clindamycin (Clindamycin) Allergy (Verified 01/17/25 01:25)
Shortness of Breath
Penicillins Allergy (Verified 01/17/25 01:25)
Rash; TOLERATES CEPHALOSPORINS
Klqcupj-JHR-AwR Reductase Inhibitor (Afljspf-Pfz-Dpx Reductase Inhibitor) Allergy (Verified 01/17/25 01:25)
Patient reports pains in shoulder with statin use.
Review of Systems
-
Unable to obtain full review of systems at this time due to: Other (confusion)
Physical Exam
-
General: Well Developed, Well Nourished, No Apparent Distress and Comfortable
HEENT: Normocephalic and Atraumatic
Respiratory: Clear to Auscultation
Cardiac: Regular Rhythm
GI: Normal Bowel Sounds
Extended Neurological Exam
Mood & Affect: Mood Unremarkable and Affect Unremarkable
Attention Span & Concentration: Interactive (AOx3 but sleepy and would fall asleep during the exam. ) and Mild Difficulty with 2 Step Request
Memory: Able to Recall (1/3 words on delayed recall sponteneously, 3/3 with prompting) and Reduced
Tremor: Hand Tremor Absent
Involuntary Movement: Asterixis (patient has bialteral asterixis )
Speech: Quality Unremarkable, Quantity Unremarkable and Rate of Production Unremarkable
Cranial Nerve II: Left Eye: Pupillary Reactivity Unremarkable and Visual Vasquez Reduced (able to see better medially, baseline according to . )
Cranial Nerve II: Right Eye: Pupillary Reactivity Unremarkable and Visual Vasquez Intact
Cranial Nerves III, IV, : Extraocular Movement: Extraocular Movement Full in all Directions and No Ptosis
Cranial Nerve V: Facial Sensation: Intact to Light Touch
Cranial Nerve VII: Facial Symmetry: Normal Facial Symmetry
Cranial Nerve VIII: Hearing: Unremarkable Hearing to Normal Conversational Volume
Cranial Nerves IX, X: Palate Movement: Palate Elevation Symmetric
Cranial Nerve XI: Shoulder Shrug: Unremarkable
Cranial Nerve XII: Tongue Protusion: Midline
Muscle Strength, Overall: Full Throughout
Muscle Bulk & Tone: Bulk Unremarkable and Tone Unremarkable
Pronator Drift: No Drift in Upper Extremities
Deep Tendon Reflexes: Other (normal in upper extremities and absent in lower extremities)
Touch Sensation: Unremarkable
Coordination: Ejdckv-nkec-jxkhlw Testing Unremarkable (has underlying asterexis confounding this exam)
Gait & Station: Unable to Assess (due to right foot osteomyelities)
Data Reviewed
-
CT-A: Image Reviewed (No LVO, moderate aortic arch athero, carotid bulb athero, Intracranial ICA athero bilaterally)
CT Head: Image Reviewed (no acute hemorrhage)
Medications
-
Active Medications
Generic Name Dose Route Start Last Admin
Trade Name Freq PRN Reason Stop Dose Admin
Acetaminophen 650 mg 01/17/25 11:24 01/28/25 03:19
Acetaminophen 325 Mg Tablet PO 02/14/25 11:23 650 mg
Q4HPRN PRN Administration
mild pain
Amlodipine Besylate 10 mg 01/18/25 08:00 01/27/25 08:38
Amlodipine 10 Mg Tablet PO 02/15/25 07:59 10 mg
On Hold: 01/28/25 07:46 DAILY AILIN Administration
Aspirin 81 mg 01/18/25 08:00 01/27/25 08:37
Aspirin 81 Mg (Enteric Coated) Tablet PO 02/15/25 07:59 81 mg
DAILY AILIN Administration
Bisacodyl 10 mg 01/17/25 11:24
Bisacodyl 10 Mg Rectal Suppository RECTAL 02/14/25 11:23
[id number] PRN
constipation
Carvedilol 12.5 mg 01/17/25 20:00 01/27/25 19:56
Carvedilol 12.5 Mg Tablet PO 02/14/25 19:59 12.5 mg
BID AILIN Administration
Cefepime HCl 1,000 mg 01/28/25 14:00
Cefepime Hcl 1,000 Mg/11.3 Ml Vial IV
Q8H AILIN
Cholecalciferol 50 mcg 01/18/25 08:00 01/27/25 08:38
Cholecalciferol (Vitamin D3) 50 Mcg Tablet (2,000 Units) PO 02/15/25 07:59 50 mcg
DAILY AILIN Administration
Clopidogrel Bisulfate 75 mg 01/18/25 08:00 01/27/25 08:38
Clopidogrel 75 Mg Tablet PO 02/15/25 07:59 75 mg
DAILY AILIN Administration
Dapagliflozin 10 mg 01/20/25 08:00 01/27/25 08:38
Dapagliflozin (Farxiga) 10 Mg Tablet PO 02/17/25 07:59 10 mg
On Hold: 01/28/25 03:58 DAILY AILIN Administration
Dextrose 12.5 grams 01/17/25 11:24
Dextrose 50% (0.5 Grams/Ml) 50 Ml Syringe IV 02/14/25 11:23
[id number] PRN
hypoglycemia
Protocol
Dorzolamide HCl 1 drop 01/17/25 20:00 01/27/25 20:00
Dorzolamide 2% (Ophthalmic Solution) 10 Ml Bottle LEFT EYE 02/14/25 19:59 1 drop
BID AILIN Administration
Enoxaparin Sodium 40 mg 01/17/25 18:00 01/27/25 17:25
Enoxaparin Sodium 40 Mg/0.4 Ml Syringe SC 02/14/25 17:59 40 mg
QPM AILIN Administration
Furosemide 40 mg 01/24/25 11:00 01/27/25 17:22
Furosemide 40 Mg (10 Mg/Ml) 4 Ml Vial IV 02/21/25 10:59 40 mg
On Hold: 01/28/25 03:58 BID AT 0800,1600 AILIN Administration
Glucagon 1 mg 01/17/25 11:24
Glucagon 1 Mg Vial IM 02/14/25 11:23
PRN PRN
hypoglycemia
Protocol
Insulin Glargine 24 units/ 0.24 mls @ 0 mls/hr 01/17/25 20:00 01/27/25 23:12
Device SC 02/14/25 19:59 0.24 mls
BID AILIN Administration
As Directed
Daptomycin 1,000 mg/ Device 20 mls @ 0 mls/hr 01/17/25 17:00 01/27/25 17:24
IV 20 mls
Q24H AILIN Administration
As Directed
Sodium Chloride 1,000 mls @ 60 mls/hr 01/28/25 06:30
Nss IV
[id number] AILIN
Insulin Aspart 10 units 01/17/25 11:30 01/27/25 17:23
Insulin Aspart (Novolog) 100 Units/Ml 3 Ml Flexpen SC 02/14/25 11:29 10 units
AC AILIN Administration
Insulin Aspart 0 units 01/17/25 11:30 01/27/25 17:23
Insulin Aspart Low Resistance 300 Units/3 Ml Pen.Injctr SC 02/14/25 11:29 2 units
AC AILIN Administration
Protocol
Latanoprost 1 drop 01/17/25 22:00 01/27/25 23:12
Latanoprost 0.005% (Ophthalmic Solution) 2.5 Ml Bottle LEFT EYE 02/14/25 21:59 1 drop
HS AILIN Administration
Lisinopril 40 mg 01/20/25 08:00 01/27/25 08:38
Lisinopril 20 Mg Tablet PO 02/17/25 07:59 40 mg
On Hold: 01/28/25 03:58 DAILY AILIN Administration
Lorazepam 0.25 mg 01/27/25 19:09
Lorazepam 0.5 Mg Tablet PO 02/24/25 19:08
Q6HPRN PRN
anxiety
Miconazole Nitrate 0 applic 01/18/25 20:00 01/27/25 19:59
Miconazole Powder Bottle TOPICAL 02/15/25 19:59 1 applic
BID AILIN Administration
Multivitamins Therapeutic 1 tablet 01/18/25 08:00 01/27/25 08:38
Multivitamin Tablet PO 02/15/25 07:59 1 tablet
DAILY AILIN Administration
Mupirocin 0 applic 01/19/25 08:00 01/27/25 08:44
Mupirocin 2% (Ointment) 22 Gram Tube TOPICAL 1 applic
DAILY AILIN Administration
Oxycodone/Acetaminophen 1 tablet 01/19/25 11:54 01/28/25 06:15
Oxycodone 5 Mg/Apap 325 Mg (Percocet) PO 02/02/25 11:53 1 tablet
Q4HPRN PRN Administration
pain
Polyethylene Glycol 17 grams 01/17/25 11:24 01/18/25 17:07
Polyethylene Glycol Powder 17 Grams Packet PO 02/14/25 11:23 17 grams
DAILYPRN PRN Administration
constipation
Senna/Docusate Sodium 1 tablet 01/17/25 11:24 01/18/25 17:08
Docusate W/Senna (Johana-Colace) Tablet PO 02/14/25 11:23 1 tablet
BIDPRN PRN Administration
constipation
Sodium Chloride 0 flush 01/17/25 12:00
Sodium Chloride 0.9% (Flush) Syringe IV 02/14/25 11:59
PER PROTOCOL AILIN
Spironolactone 25 mg 01/19/25 16:00 01/21/25 09:47
Spironolactone 25 Mg Tablet PO 02/16/25 15:59 Not Given
On Hold: 01/28/25 03:58 DAILY AILIN
Sterile Water 10 ml 01/28/25 14:00
Sterile Water For Injection 10 Ml Vial IV 02/25/25 13:59
Q8H AILIN
Home Medications
�Medication �Instructions �Recorded
coenzyme Q10 200 mg capsule (Co 200 mg PO HS Supplement 02/19/13
Q-10)
clopidogrel 75 mg tablet 75 mg PO DAILY Blood clot 10/22/16
prevention/tx
amlodipine 10 mg tablet 10 mg PO DAILY Blood pressure 11/26/20
cholecalciferol (vitamin D3) 50 2,000 units PO DAILY Supplement 03/15/21
mcg (2,000 unit) tablet
aspirin 81 mg tablet,delayed 81 mg PO DAILY Blood Clot 04/01/24
release Prevention/Tx
carvedilol 12.5 mg tablet 12.5 mg PO BID Blood Pressure 04/01/24
dorzolamide 2 % eye drops 1 drp LEFT EYE BID Eye Condition 01/01/25
insulin lispro 100 unit/mL 10 unit SC AC Diabetes 01/01/25
subcutaneous pen (Humalog KwikPen
(U-100) Insulin)
latanoprost 0.005 % eye drops 1 drp LEFT EYE HS Eye Condition 01/01/25
pitavastatin calcium 4 mg tablet 4 mg PO HS cholesterol 01/01/25
(Livalo)
hydralazine 50 mg tablet 50 mg PO BID #60 tabs 01/12/25
insulin glargine U-300 conc 300 30 unit (0.1 mL) SC BID #0 mL 01/12/25
unit/mL (3 mL) subcutaneous pen
(Toujeo Max U-300 SoloStar)
acetaminophen 325 mg tablet 650 mg PO Q4HPRN PRN mild pain 01/17/25
(Tylenol)
furosemide 40 mg tablet 40 mg PO BID Fluid 01/17/25
Retention/Swelling
melatonin 3 mg tablet 3 mg PO HSPRN PRN sleep 01/17/25
therapeutic multivitamin 1 tab PO DAILY Supplement 01/17/25
dapagliflozin propanediol 10 mg 10 mg PO DAILY Heart Failure 01/19/25
tablet (Farxiga)
lisinopril 40 mg tablet 40 mg PO DAILY Blood Pressure 01/19/25
spironolactone 25 mg tablet 25 mg PO DAILY Heart Failure 01/19/25
[2025-01-28 10:27] LABS: Ammonia < 9 umol/L (9-30)
--- NOTE | 2025-01-28 11:17 | W.CON.NEPH ---
Consultation
-
Date/Time Consultation Requested: 01/28/25 830 AM
Date/Time Consultation Performed: 01/28/25 1115 AM
Requesting Provider: Dr Mazariegos
Performing Provider: Dr. Jaramillo
Reason for Consultation: LAKE
Medical History
-
Chief Complaint: Lake
History of Present Illness:
79 year old with PMH fot atrial fib, CAD, CHF maintains on lasix, farxiga, aldactone, HTN on coreg, amlodipine, hydralazine and ACEI, HLD, IDDM, neuropathy, cholelithiasis presented with shortness of breath on 01/17/2025. He has had ongoing issues
with right foot osteomyelitis due to his underlying peripheral vascular disease we were consulted for creatinine rise from 1.1-1.78 over the past 2 days. The patient also has evolving hyponatremia with a serum sodium of 132. patient has been going
under IV diuresis since admission. We had previously seen the patient during his last hospitalization a month prior for acute on chronic kidney disease. Last evening the patient had a stroke alert due to right-sided weakness and underwent CTA this
morning.
Past Medical History
carotid disease, aortic stenosis, typel 2 DM, HLD, CHF, NSTEMI
Right foot osteomyelitis, receiving IV antibiotics as OP
Acute on chronic HFmrEF
Ischemic cardiomyopathy, EF 48% by echo 01/17/2025
Elevated troponin, nonischemic myocardial injury
CAD with prior LAD stents 1993, 2015, 2017, prior RCA PCI with subsequent ON LINE CSR
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
DM 2
Morbid obesity
PVD requiring prior peripheral stents
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
Carotid artery disease
Hypercholesterolemia
Hypertension
Past Surgical History: Other (right elbow surgery, cardiac stent, anal fistulasurgical repair, partial amputation of left toe, TAVR, angioplasty artery of LE, )
Social History
Tobacco: Non-Smoker
Alcohol: None
Drug: None
Personal:
Living: With Family
Family History
Family History: Not Pertinent
Allergies / Home Medications
Allergy/AdvReac Type Severity Reaction Status Date / Time
clindamycin (Clindamycin) Allergy Shortness Verified 01/17/25 01:25
of Breath
Penicillins Allergy Rash; Verified 01/17/25 01:25
TOLERATES
CEPHALOSPORINS
Wiymzob-CPE-BlU Reductase Allergy Patient Verified 01/17/25 01:25
Inhibitor (Drupamd-Wjt-Stc reports
Reductase Inhibitor) pains in
shoulder
with
statin use.
�Medication �Instructions �Recorded �Confirmed �Type
coenzyme Q10 200 mg capsule (Co 200 mg PO HS Supplement 02/19/13 01/17/25 History
Q-10)
clopidogrel 75 mg tablet 75 mg PO DAILY Blood clot 10/22/16 01/17/25 History
prevention/tx
amlodipine 10 mg tablet 10 mg PO DAILY Blood pressure 11/26/20 01/17/25 History
cholecalciferol (vitamin D3) 50 2,000 units PO DAILY Supplement 03/15/21 01/17/25 History
mcg (2,000 unit) tablet
aspirin 81 mg tablet,delayed 81 mg PO DAILY Blood Clot 04/01/24 01/17/25 History
release Prevention/Tx
carvedilol 12.5 mg tablet 12.5 mg PO BID Blood Pressure 04/01/24 01/17/25 History
dorzolamide 2 % eye drops 1 drp LEFT EYE BID Eye Condition 01/01/25 01/17/25 History
insulin lispro 100 unit/mL 10 unit SC AC Diabetes 01/01/25 01/17/25 History
subcutaneous pen (Humalog KwikPen
(U-100) Insulin)
latanoprost 0.005 % eye drops 1 drp LEFT EYE HS Eye Condition 01/01/25 01/17/25 History
pitavastatin calcium 4 mg tablet 4 mg PO HS cholesterol 01/01/25 01/17/25 History
(Livalo)
hydralazine 50 mg tablet 50 mg PO BID #60 tabs 01/12/25 01/17/25 Rx
insulin glargine U-300 conc 300 30 unit (0.1 mL) SC BID #0 mL 01/12/25 01/17/25 Rx
unit/mL (3 mL) subcutaneous pen
(Toujeo Max U-300 SoloStar)
acetaminophen 325 mg tablet 650 mg PO Q4HPRN PRN mild pain 01/17/25 01/17/25 History
(Tylenol)
furosemide 40 mg tablet 40 mg PO BID Fluid 01/17/25 01/17/25 History
Retention/Swelling
melatonin 3 mg tablet 3 mg PO HSPRN PRN sleep 01/17/25 01/17/25 History
therapeutic multivitamin 1 tab PO DAILY Supplement 01/17/25 01/17/25 History
dapagliflozin propanediol 10 mg 10 mg PO DAILY Heart Failure 01/19/25 01/19/25 History
tablet (Farxiga)
lisinopril 40 mg tablet 40 mg PO DAILY Blood Pressure 01/19/25 01/19/25 History
spironolactone 25 mg tablet 25 mg PO DAILY Heart Failure 01/19/25 01/19/25 History
Review of Systems
-
History Source: Patient
All other systems: Negative unless noted
Constitutional: Fatigue
Respiratory: No Symptoms
Cardiac: No Symptoms
Abdomen/GI: No Symptoms
Musculoskeletal: Edema and Other (Severe deconditioning and weakness)
Skin: Other (Chronic venous stasis changes along lower extremities)
Neurological: Other (Some residual right-sided weakness)
Physical Exam
Vital Signs
Vital Signs
Temp Pulse Resp BP Pulse Ox
97.7 F 71 20 122/53 97
01/28/25 07:30 01/28/25 09:19 01/28/25 07:30 01/28/25 09:19 01/28/25 07:30
Lab Results
01/28/25 04:27
01/28/25 04:27
WBC 10.5 10^3/uL (4.8-10.8) 01/28/25 04:27
RBC 4.14 10^6/uL (4.70-6.10) L 01/28/25 04:27
Hgb 12.2 g/dL (13.0-18.0) L 01/28/25 04:27
Hct 37.2 % (39.0-52.0) L 01/28/25 04:27
Plt Count 176 10^3/uL (130-400) 01/28/25 04:27
Sodium 132 mmol/L (135-145) L 01/28/25 04:27
Potassium 4.6 mmol/L (3.5-5.1) 01/28/25 04:27
Chloride 98 mmol/L (98-107) 01/28/25 04:27
Carbon Dioxide 27 mmol/L (22-30) 01/28/25 04:27
BUN 60 mg/dl (9-20) H 01/28/25 04:27
Creatinine 1.7 mg/dL (0.7-1.3) H 01/28/25 04:27
eGFR 40.25 01/28/25 04:27
Glucose 161 mg/dl (70-99) H 01/28/25 04:27
Calcium 9.5 mg/dl (8.4-10.2) 01/28/25 04:27
Phosphorus 6.0 mg/dl (2.5-4.5) H 01/28/25 04:27
Mpf-H-Agowvsyiklr Pept 1130 pg/ml 01/26/25 05:30
Albumin 3.6 g/dl (3.5-5.0) 01/27/25 20:56
Physical Exam
General: Awake, Alert, Oriented, AOx3, No Distress and Other (Obese ill-appearing)
HEENT: EOMI, Anicteric, Conjunctivae Clear, Oropharynx Clear/Moist, Facial Symmetry, Trachea Midline, No JVD and No Thyromegaly
Respiratory: Normal Excursion, Nonlabored Respirations and Other (Coarse bilaterally with decreased breath sounds towards the base)
Cardiac: S1/S2 and Regular Rate/Rhythm
Breast: Deferred by me
Abdomen: Soft, Nontender, Nondistended and No Hepatosplenomegaly
Rectal: Deferred by Provider
Genito-urinary: Costovertebral Angle Tend
Musculoskeletal: Edema (2+)
Skin: No Rash and Other (chronic skin changes bilat legs. Right foot dressing intact)
Neuro: Other (Some residual right-sided weakness noted)
Psych: Mood/afflect pleasant (Flat) and Appropriate
Data Reviewed
-
Radiology: Image Personally Visualized and interpreted (Chest x-ray from date 01/26/2025 personally reviewed noted bilateral interstitial edematous process with cardiac device in left anterior chest wall )
CT Scan: Report Reviewed by me (CTA of head and neck report to be reviewed, CT scan from last evening report reviewed)
Labs: Labs Reviewed by me (BMP CBC)
Old Records: Reviewed (Reviewed old records with creatinine noted to be per old record 1.4 01/12/25)
Assessment/Plan
-
Impression:
LAKE
Right foot osteomyelitis + right foot ulcer due to critical limb ischemia Status post vascular procedure 01/03
Hyponatremia
Diabetes mellitus type 2
Chronic HFmrEF: EF ~48%
CAD/PVD
TAVR
Hypertension
Hyperlipidemia
Morbid obesity
Plan
LAKE:
-LAKE likely due to diuresis
-Patient will be at increased risk for worsening renal failure as patient received CTA this morning
-Check postvoid bladder scan status for postobstructive component
-Holding diuretics and SGLT2 inhibitor
-Hemodynamically stable
-Initiate fluid restriction for hyponatremia in setting of kidney failure and congestive heart failure decompensation
[2025-01-28 12:33] LABS: Glucose - Point of Care 224 mg/dl (70-99)
[2025-01-28] MEDS: NSS 250 IV (12:34)
[2025-01-28] MEDS: NOVOLOG FLEXPEN 10 UNITS SC ×2 (14:14→17:33)
--- NOTE | 2025-01-28 14:47 | PTCARENOTE ---
Assumed care of pt in IMU. Pt drowsy but easily arousable and oriented. Pt offers no complaints. Pt placed on monitor and oriented to new room. BP stable 121/65, HR 70s, SPO2 97 on 2L NC. at bedside. Plan of care discussed.
[2025-01-28] MEDS: CUBICIN 20 MG IV (16:31)
[2025-01-28] MEDS: NOVOLOG FLEXPEN-LOW RESISTANCE SC (17:32)
[2025-01-28] MEDS: LOVENOX 40 MG SC (17:36)
[2025-01-28 17:45] LABS: Glucose - Point of Care 141 mg/dl (70-99)
--- NOTE | 2025-01-28 18:40 | PTOTSP ---
ST Acute Care Evaluation
Pt currently presents with clinical signs of possible scant pharyngeal dysphagia characterized by brief, seldom throat clears s/p ingestion of thin liquids via straw 1x and hard solids 1x - possible penetration/aspiration events, likely attributable
to generalized lethargy due to acute illness and deconditioning. Pt also with slight/mild dysarthria also likely due to lethargy, acute illness, and deconditioning.
Recommendations:
- Continue with regular solids, thin liquids, meds as tolerated.
- Aspiration precautions: Pt must be fully awake, alert, and upright for ALL PO intake; small bites/sips; slow intake rate; alternate bites/sips; discontinue PO intake if pt's IAN decreases.
- [employer] to f/u re: diet tolerance, use of compensatory strategies, and to determine if pt would benefit from an instrumental swallow study.
- [employer]DER to f/u re: completing a formal speech, language, and/or congitive linguistic evaluation if warranted, pending results of MRI brain.
--- NOTE | 2025-01-28 20:00 | PTCARENOTE ---
Received pt from previous shift. Systems reviewed, see flowsheets. NIHSS performed with nicolás RN, score= 2 for getting age wrong and LUE ataxia. Pt is AAOx3, on 2L NC, AV paced with prolonged QTc and BBB on monitor. RUE PICC with NSS infusing at
60mL/hr. L forearm PIV capped. R foot wound wrapped with kerlix, c/d/i. Pt with no complaints at this time. Vitals saved from 16:00, cannot verify their accuracy before my shift.
[2025-01-28] MEDS: COREG 6.25 MG PO (20:36)
[2025-01-28] MEDS: XALATAN OPHTHALMIC SOLUTION 1 DROP LEFT EYE (20:37)
[2025-01-28 20:57] LABS: Glucose - Point of Care 151 mg/dl (70-99)
[2025-01-29] VITALS (13 sets, daily range): BP systolic 99–155; BP diastolic 29–102; BMI 39.0
--- NOTE | 2025-01-29 01:00 | PTCARENOTE ---
At 23:00, pt adamant that he needed to get OOB and sit in the chair as he was uncomfortable. When asking him if we could try chair position, pt became increasingly agitated. I advised that it might not be a good idea due to soft blood pressures,
weakness, and his R foot being NWB. Pt said that if I didn't help him out of bed, 'I'll do it myself and I might fall.' After checking blood pressure, assisted pt x2 to recliner with rolling walker. Despite multiple prompts to not weight bear on the
R foot, pt did use foot to stand and pivot.
About 1 hr later, pt asked to get back to bed. Tried to stand pt up, but pt felt too weak. Tried Ax3. Ended up using luis lift to get pt safely back to bed.
[2025-01-29 04:23] LABS: Hematocrit 35.9 % (39.0-52.0); Hemoglobin 11.8 g/dL (13.0-18.0); Mean Corp Hgb Conc. 32.9 g/dL (33.0-37.0); Mean Corpuscular Volume 89.5 fL (80.0-94.0); Platelet Count 167 10^3/uL (130-400); Red Cell Dist. Width 13.3 % (11.5-14.5)
--- NOTE | 2025-01-29 04:25 | PTCARENOTE ---
Pt agitated and restless, asked me 'what's the rationale for not giving me something to knock me out?' I explained his current condition and his recent change in mental status as reasons for providers holding sedatives/mind-altering medications. Pt
did not like my answers and began talking over me. I explained to him that I had asked the House Provider for something for anxiety and that I was waiting to here back. Repositioned pt with PCT. Call morton within reach. Bed alarm on.
[2025-01-29 04:48] LABS: Blood Urea Nitrogen 68 mg/dl (9-20); Calcium 8.7 mg/dl (8.4-10.2); Carbon Dioxide 28 mmol/L (22-30); Chloride 100 mmol/L (98-107); Estimated Creatinine Clearance 49 ml/min; Glucose 89 mg/dl (70-99); Magnesium 2.2 mg/dl (1.6-2.3); Potassium 4.5 mmol/L (3.5-5.1); Sodium 134 mmol/L (135-145); eGFR 43.29
[2025-01-29] MEDS: MAXIPIME 1000 MG IV ×3 (06:03→21:16)
[2025-01-29] MEDS: STERILE WATER FOR INJECTION 10 ML IV ×3 (06:03→21:16)
[2025-01-29 07:46] LABS: Glucose - Point of Care 93 mg/dl (70-99)
--- NOTE | 2025-01-29 08:14 | PTCARENOTE ---
NIHSS completed with nightshift RN. Pt had increase in score. Notified Dr. Gillis and Dr. Ga, neuro. Pt awaiting MRI. RN contacted MRI who said they were working on getting his pacemaker info. Updated medical team, pt and at bedside.
[2025-01-29] MEDS: NOVOLOG FLEXPEN-LOW RESISTANCE SC (08:24)
[2025-01-29] MEDS: NOVOLOG FLEXPEN 10 UNITS SC ×2 (08:57→13:49)
[2025-01-29] MEDS: COREG 6.25 MG PO ×2 (08:59→21:14)
[2025-01-29] MEDS: PLAVIX 75 MG PO (08:59)
[2025-01-29] MEDS: THERAGRAN 1 TABLET PO (08:59)
[2025-01-29] MEDS: VITAMIN D3 (cholecalciferol) 50 MCG PO (08:59)
[2025-01-29] MEDS: LANTUS 0.24 UNITS SC (08:59)
[2025-01-29] MEDS: ASPIR LOW (ENTERIC COATED) 81 MG PO (08:59)
[2025-01-29] MEDS: BACTROBAN 2% OINTMENT 1 APPLIC TOPICAL (09:07)
[2025-01-29] MEDS: TRUSOPT 2% OPHTHALMIC SOLUTION 1 DROP LEFT EYE ×2 (09:08→22:02)
--- NOTE | 2025-01-29 11:40 | W.PN.ID1 ---
Date of Service
Date of Service: January 29, 2025
Today's Communication
Continue antibiotics.
Assessment / Plan
Right foot osteomyelitis
Charcot arthropathy of right foot
Non-Healing, chronic (R) Foot Wound
Reported SOB, slurred words, 'thick tougue' [employer]
- Not clear if secondary to antibiotics or not.
- Abx's resumed, pt tolerating without return of symptomatology
ASCVD (CAD, PAD, Carotid Disease)
Chronic HFmrEF
Aortic Stenosis s/p TAVR
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
Morbid Obesity due to excess calories
Allergy to penicillin - rash
Recommendations:
01/04 wound culture: Pseudomonas
01/04 bone culture (cunieform): Pseudomonas, Enterococcus
01/04 pathology without osteomyelitis
01/02 superficial culture Pseudomonas, Enterococcus,
--> Continue cefepime and daptomycin through 02/15/2025
CPK normal.
ESR stable
CRP improved from 24.7 to <5.0
Will continue to follow weekly ESR and CRP.
Rising creatinine noted. Will continue to monitor to guide antibiotic dosing.
����������������������������������������������������������
Chief Complaint
-: Other (Right foot osteomyelitis)
Subjective / Review of Systems
Patient seen and examined. Chart reviewed, events noted. Patient with stroke alert late on 01/27. Patient has since been moved to IMU.
Vital Signs / Physical Exam
Vital Signs
Vital Signs
Temp Pulse Resp BP Pulse Ox
97.8 F 70 17 114/63 98
01/29/25 08:13 01/29/25 10:00 01/29/25 09:04 01/29/25 10:00 01/29/25 10:00
Physical Exam
Constitutional: No Acute Distress, Comfortable, Chronically Ill and Non-toxic
Cardiovascular: Regular Rate and S1/S2; Negative S3/S4
Pulmonary: Clear, Symmetric and Non Labored
Gastrointestinal: Soft, Non Tender, Non Distended and Normal Bowel Sounds
Skin: Warm and Dry
Wound: Other (right foot dressing clean, dry )
Neurological: Awake and Alert
Lines: PICC (No erythema or tenderness)
Objective Data
Lab Data
Lab Results
01/29/25 04:14
01/29/25 04:14
ESR 44 mm/hour (0-20) H 01/18/25 01:39
PT 14.3 Sec (11.4-14.6) 01/17/25 03:57
INR 1.10 01/17/25 03:57
APTT 28.6 Sec (23.4-35.0) 01/17/25 03:57
Estimated Creat Clear 49 ml/min 01/29/25 04:14
Total Bilirubin 0.6 mg/dl (0.2-1.3) 01/27/25 20:56
AST 26 U/L (17-59) 01/27/25 20:56
ALT 36 U/L (0-50) 01/27/25 20:56
Alkaline Phosphatase 73 U/L (38-126) 01/27/25 20:56
C-Reactive Protein < 5.00 mg/L (0.0-10.00) 01/18/25 01:39
Most recent labs reviewed.
Micro Results:
01/28/25 02:46 C. difficile GDH Antigen & Toxins - Final
Feces/Stool Negative for toxigenic C.difficile
01/17/25 14:50 MRSA Screen - Final
Nose No Methicillin Resistant Staphylococcus aureus isolated.
Imaging:
12/29/2024 Labeled WBC scan : Accumulation of radiolabeled white blood cells within the right medial midfoot, similar distribution compared to prior 3 phase bone scan. Findings may be seen in the setting of osteomyelitis, consider MRI right foot
for more precise anatomic localization.
01/02/2025 Right foot x-ray: No evidence of acute osseous injury. No evidence of bone destruction. Soft tissue swelling of the forefoot. Soft tissue ulceration of the plantar midfoot versus overlying dressing as described above. Moderate dorsal
midfoot osteoarthritis.
[2025-01-29] MEDS: DESENEX/MITRAZOL/ZEASORB 1 APPLIC TOPICAL ×2 (11:54→22:02)
[2025-01-29 12:03] LABS: Glucose - Point of Care 199 mg/dl (70-99)
--- NOTE | 2025-01-29 12:04 | W.PN.CARDCBS ---
Addendum entered and electronically signed by Nghia Fairchild MD 01/29/25 14:48:
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
PMH: Ischemic cardiomyopathy, EF 45%, CAD with LAD stents 1993, 2015, 2017 with prior RCA PCI and DECKHAND FISHING VESSEL of RCA, severe aortic stenosis, 29 mm Guardado VANDANA transcatheter aortic valve, heart block with Medtronic pacemaker implantation, diabetes,
obesity, known PAD with stenting, Charcot right foot, cerebrovascular disease, hypertension, hyperlipidemia
Current meds: Daptomycin, Bactroban, amlodipine 10 mg a day, aspirin 81 mg a day, vitamin D3,, Lantus, Xalatan, Trusopt carvedilol 6.25 twice daily, cefepime spironolactone, furosemide, dapagliflozin, lisinopril on hold
114/63, pulse 70, respiratory rate 98, weight is 123.3 kg, down 0.6 kg, peak weight on admission was 134.6 kg, patient with asterixis, lungs are relatively clear, systolic murmur, abdomen obese, not much edema, right heel dressed
Hemoglobin is 11.8's, platelets are 167, BUN/creatinine 68 and 1.6, creatinine had been 1.1 on the , BUN is 68, which is elevated
MRI is pending
Plan:
No overt heart failure on exam, with VANESSA, and spironolactone, lisinopril, Farxiga and furosemide all on hold.
He has asterixis, doubt renal, ammonia level is normal
Eventual restart of furosemide when creatinine improves. May be best to continue to hold spironolactone, Farxiga and possibly lisinopril long-term.
Otherwise no new recommendations at this time
Original Note:
Today's Communication / Plan
-
PPM is MRI safe and the MRI department has protocol in place to fax paperwork to the cardiology office and arrange for device retail service representative to be present for MRI study
Lasix IV now on hold due to VANESSA nephrology following, despite more aggressive diuresis and development of VANESSA patient never had improvement in his chronic, resting SOB
Impression / Plan
-
Primary Process Consultant: Dr. Sotelo
Impression:
Presentation with SOB 01/17/2025
Right foot osteomyelitis, receiving IV antibiotics as OP
Acute on chronic HFmrEF
Possible CVA, rapid response called for symptoms of dysarthria and ataxia 01/27/2025
Ischemic cardiomyopathy, EF 48% by echo 01/17/2025
Elevated troponin, nonischemic myocardial injury
CAD with prior LAD stents 1993, 2015, 2016, prior RCA PCI with subsequent DECKHAND FISHING VESSEL
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
DM 2
Morbid obesity
PVD requiring prior peripheral stents
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
Carotid artery disease
Hypercholesterolemia
Hypertension
DNR code status
ECHO 04/03/24: Technically difficult study, Definity used, EF 45 to 50% with mid anterior septal, distal septal, apical hypokinesis, mild to moderate LVH with septum measuring 1.4 cm, mild MAC, trace MR, status post TAVR with peak/mean gradient 17/10
mmHg, no AR
ECHO 01/17/25: EF 48%, TAVR with peak/mean gradients 14/7 mmHg, mid anteroseptal and apical akinesis, mild concentric LVH, no significant changes compared to prior
Plan:
-Patient admitted with symptoms of SOB and cardiology was consulted for presumed acute HF with moderately reduced EF. Patient then moved to IMU after rapid response for possible stroke on 01/27/2025 and remains in the IMU.
-Patient is being weighed with the bed scale due to right foot osteomyelitis. Patient weighed 274 lbs on admission and weight then increased up to 284 lbs despite attempts at IV diuresis. Patient was diuresed with Lasix 40 mg IV BID and was
briefly transition to Lasix PO 01/23/2025, but Lasix IV then restarted on 01/24/2025. Patient was taking Lasix 40 mg PO BID prior to admission.
-Cre increased to 1.7 on 01/28/2025 and nephrology consulted. Lasix IV placed on hold. Despite more aggressive diuresis the patient has never experienced a symptomatic improvement in his symptoms of SOB at rest.
-Cre improved to 1.6 on 01/29/2025, labs reviewed by me.
-EF stable EF at 48% with normal function of his previously placed TAVR by echo 01/17/2025.
-proBNP was 2480 on admission, then down to 1220 on 01/21/2025 and down again a bit more to 1130 on 01/26/2025. Labs reviewed by me.
-CXR 01/26/2025 showed no acute disease of the chest
-Outpatient dose of lisinopril 40 mg daily remains on hold due to VANESSA
-Outpatient dose of spironolactone 25 mg daily remains on hold due to VANESSA
-Outpatient dose of Coreg decreased to 6.25 mg BID
-Outpatient dose of Farxiga 10 mg daily remains on hold due to VANESSA
-Outpatient dose of amlodipine 10 mg daily has been on hold due to hypotension noted at time of rapid response 01/27/2025
-Outpatient dose of hydralazine was increased to 100 mg BID on 01/23/2025 and then placed on hold due to hypotension noted at time of rapid response 01/27/2025
-Initial troponin 0.076 and then flat/trending down thereafter. Patient denies any chest pain. Will manage this is a nonischemic myocardial injury troponin elevation
-Patient has a Medtronic DC PPM in place following intermittent CHB at the time of his TAVR in 2020. Device check earlier this admission showed normal device function, battery life of over 8 years and no evidence of atrial or ventricular arrhythmia.
This device is MRI safe and the MRI department has protocol in place to fax paperwork to the cardiology office and arrange for device retail service representative to be present for MRI study.
Progress Note - Process Consultant
Subjective
Date of Service: January 29, 2025
He says SOB is unchanged from admission despite diuresis
Objective
Labs:
01/29/25 04:14
01/29/25 04:14
Labs
Hgb 11.8 g/dL (13.0-18.0) L 01/29/25 04:14
Hct 35.9 % (39.0-52.0) L 01/29/25 04:14
Plt Count 167 10^3/uL (130-400) 01/29/25 04:14
PT 14.3 Sec (11.4-14.6) 01/17/25 03:57
INR 1.10 01/17/25 03:57
APTT 28.6 Sec (23.4-35.0) 01/17/25 03:57
Sodium 134 mmol/L (135-145) L 01/29/25 04:14
Potassium 4.5 mmol/L (3.5-5.1) 01/29/25 04:14
BUN 68 mg/dl (9-20) H 01/29/25 04:14
Creatinine 1.6 mg/dL (0.7-1.3) H 01/29/25 04:14
Glucose 89 mg/dl (70-99) 01/29/25 04:14
Troponins
01/27/25
19:29
Troponin I 0.033
Vital Signs and I&O:
Vital Signs
Temp Pulse Resp BP Pulse Ox
97.8 F 70 17 114/63 98
01/29/25 08:13 01/29/25 10:00 01/29/25 09:04 01/29/25 10:00 01/29/25 10:00
Vital Signs
Temp Pulse Resp BP Pulse Ox
97.8 F 70 17 114/63 98
01/29/25 08:13 01/29/25 10:00 01/29/25 09:04 01/29/25 10:00 01/29/25 10:00
Intake & Output
01/27/25 01/28/25 01/29/25 01/30/25
06:59 06:59 06:59 06:59
Intake Total 1440 / 1440 720 / 720
Output Total 1100 / 1100 1575 / 1575 100 / 100
Balance 340 / 340 -1575 / -1575 620 / 620
Physical Exam
Physical Exam
GEN: NAD, AAO x 3
LUNGS: RA. No audible wheeze
CV: AV paced on telemetry. Reg
EXT: Trace edema B/L LE, right worse than left.
NEURO: Gross non-focal
SKIN: No rash
[2025-01-29] MEDS: TYLENOL 650 MG PO (12:40)
--- NOTE | 2025-01-29 13:11 | W.PN.NEPH.PH ---
Today's Communication / Plan
-
cap IVF
Assessment/Plan
-
Impression:
VANESSA
Right foot osteomyelitis + right foot ulcer due to critical limb ischemia Status post vascular procedure 01/03
Hyponatremia
Diabetes mellitus type 2
Chronic HFmrEF: EF ~48%
CAD/PVD
TAVR
Hypertension
Hyperlipidemia
Morbid obesity
Plan
follow BMP
no lasix today
cap IVF, adequate po intake
continue FR
-
-
Date of Service: January 29, 2025
CC / HPI / ROS
-
Chief Complaint:
VANESSA
History of Present Illness:
VANESSA/Cr stable 1.6
BP stable
weights down
hgb stable 11.8
Review of Systems:
no CP/SOB
malaise
Labs
-
Labs:
WBC 12.6 10^3/uL (4.8-10.8) H 01/29/25 04:14
RBC 4.01 10^6/uL (4.70-6.10) L 01/29/25 04:14
Hgb 11.8 g/dL (13.0-18.0) L 01/29/25 04:14
Hct 35.9 % (39.0-52.0) L 01/29/25 04:14
Plt Count 167 10^3/uL (130-400) 01/29/25 04:14
Sodium 134 mmol/L (135-145) L 01/29/25 04:14
Potassium 4.5 mmol/L (3.5-5.1) 01/29/25 04:14
Chloride 100 mmol/L (98-107) 01/29/25 04:14
Carbon Dioxide 28 mmol/L (22-30) 01/29/25 04:14
BUN 68 mg/dl (9-20) H 01/29/25 04:14
Creatinine 1.6 mg/dL (0.7-1.3) H 01/29/25 04:14
eGFR 43.29 01/29/25 04:14
Glucose 89 mg/dl (70-99) 01/29/25 04:14
Calcium 8.7 mg/dl (8.4-10.2) 01/29/25 04:14
Phosphorus 4.9 mg/dl (2.5-4.5) H 01/29/25 04:14
Zpu-F-Wwrrkfqendf Pept 1130 pg/ml 01/26/25 05:30
Albumin 3.6 g/dl (3.5-5.0) 01/27/25 20:56
Physical Exam
-
Vital Signs:
Vital Signs
Temp Pulse Resp BP Pulse Ox
97.8 F 70 17 114/63 98
01/29/25 08:13 01/29/25 10:00 01/29/25 09:04 01/29/25 10:00 01/29/25 10:00
Cardiovascular:: Regular rate and rhythm
Respiratory:: Bilateral: Coarse
Lung Excursion:: Normal
Abdomen:: Nontender and Soft
Bowel Sounds:: Normal
Extremity Edema:: +2: Bilateral:
[2025-01-29] MEDS: NOVOLOG FLEXPEN-LOW RESISTANCE 1 UNITS SC ×2 (13:50→17:14)
--- NOTE | 2025-01-29 14:03 | W.PN.HOSP.TC ---
Today's Communication/Plan
-
Continue cefepime daptomycin through 02/15/2025 per ID
Continue to hold IV Lasix for now due to VANESSA
Encourage p.o. intake
Follow renal function
Follow-up on MRI/ultrasound carotid and neurology recommendation
Assessment / Plan
Assessment / Plan
Physical Exam
General: mild distress/anxious
HEENT: Scleral Anicteric, MMM, No JVD
Pulm: clear to auscultation b/l, on NC supplementation for comfort
Cardio: RRR, S1/S2
GI: Soft, NT, ND, BS+
Ext: 1+ pitting lower extremity edema
Skin: Warm, Dry
Neuro: oriented x3 conversant coherent, Lethargic but arousable, falling asleep during conversation. aterixis+
Psych: Calm
79M HFmrEF PAD/CAD DM Chronic Venous Stasis here for heart failure complicated with acute kidney injury. Patient also being treated for right foot osteomyelitis.
Toxic metabolic Encephalopathy possibly due to Polypharmacy
Stroke alert overnight. TIA/CVA
Asterixis (ammonia level neg)
01/27 pt Anxious called concern that he was about to , calmed down with 's presence, VSS
Noted patient had spent most of day sleeping, and patient also note that he had been progressively confused past few days, slurring speech, especially worse 01/27
Suspected possibly d/t polypharmacy, patient on melatonin past few days for sleep, recently started on Claritin bedtime night prior for post-nasal drip, was on increased dose Hydralazine w hold Lisinopril Aldactone d/t prior VANESSA 01/21
-Melatonin and Claritin discontinued
-Hydralazine discontinued
Later in night stroke alert was called d/t Right sided deficits (RUE weakness, right facial weakness)
symptoms spontaneously resolved, CT Head noted no acute abn's, CTA concerning for right carotid stenosis 80-90% (per SPOT WASHER update note, offical CT report pending)
neurochecks, NIH
Brain MRI pending
Neuro eval appreciated
Vascular Surgeon eval appreciated check carotid duplex, right carotid stenosis does not match right sided symptoms so likely asymptomatic
01/28 given fluctuating mental status, soft pressures, patient transferred to IMU for closer monitoring
Diarrhea overnight 01/27
Cdiff neg
Acute on chronic heart failure with moderately reduced EF
briefly Held IV Lasix due to VANESSA resumed with resolution, on hold again d/t new episode VANESSA exacerbated by contrast from stroke alert
Daily weights
I's and O's
Continue beta-zac Coreg reduced to 6.25 mg BID from 12.5 mg d/t soft/low pressures
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
2D echocardiogram appreciated EF 48% no significant changes from ECHO Sep 2023
Lisinopril Aldactone Farxiga on hold d/t VANESSA
Acute hypoxemic respiratory failure secondary to heart failure exacerbation
weaned off oxygen supplementation, saturating well on room air but requiring NC supplementation for comfort, subjective feelings sob
Nocturnal hypoxia likely related to sleep apnea
Will need outpatient polysomnography
01/26 CXR appreciated no acute abn's
VANESSA likely secondary to overdiuresis (previously resolved, re-occurred 01/27 further exacerbated by contrast as above)
Mild Hyponatremia
-IVF gentle hydration 60 cc/h
-Nephro eval appreciated fluid restriction
01/28 Acute Urinary retention
-bladder scan prn
-patient currently refuses Wilson
HTN
01/28 Low Pressures/Hypotensive 89/60
home Hydralazine increased from 50 mg to 100 mg BID while other antihypertensives held d/t initial VANESSA
Hydralazine since discontinued 01/27
Lisinopril Aldactone held d/t VANESSA
Amlodipine placed on hold 01/28, Coreg reduced from 12.5 to 6.25 mg BID with holding parameters
01/28 once 1VF bolus 250 cc w/ subsequent improvement in BP noted, cont gentle IVF hydration
Elevated troponin likely type II demand ischemia in the setting of heart failure
Troponin peak of 0.07
Right foot osteomyelitis
Pseudomonas and Enterococcus bacteremia
Previously on cefepime daptomycin facility held d/t concerns causing itchiness
ID recommend continue cefepime daptomycin monitor for reaction, tolerating so far
Outpatient podiatry follow-up
History of PAD/CAD
PVD requiring stents
Aspirin Plavix statin
vascular eval appreciated follow up arterial study for intervention performed in Dec
Type 2 diabetes
Continue long and short acting insulin sliding scale
Accu-Cheks
Goal blood glucose 140-180
Carb controlled diet
Farxiga on hold d/t VANESSA as above
Chronic venous stasis
Oziel wrap
DVT ppx Lovenox
DNR
I previously spoke with Siri at bedside. Provided full update.
Anticipated Discharge: > 48 hours
Subjective/Interval History
-
Date of Service: January 29, 2025
No acute overnight events. No new complaints.
Objective Data
-
Labs:
Laboratory Results
01/29/25
04:14
WBC 12.6 H
Hgb 11.8 L
Hct 35.9 L
Plt Count 167
Sodium 134 L
Potassium 4.5
Chloride 100
Carbon Dioxide 28
BUN 68 H
Creatinine 1.6 H
Glucose 89
Calcium 8.7
Vital Signs:
Vital Signs
Temp Pulse Resp BP Pulse Ox
97.8 F 70 17 114/63 98
01/29/25 08:13 01/29/25 10:00 01/29/25 09:04 01/29/25 10:00 01/29/25 10:00
I&O
01/28/25 01/29/25 01/30/25
06:59 06:59 06:59
Intake Total 720 / 720
Output Total 1575 / 1575 100 / 100
Balance -1575 / -1575 620 / 620
[2025-01-29 15:20] LABS: Ammonia < 9 umol/L (9-30)
--- NOTE | 2025-01-29 15:32 | PTCARENOTE ---
Pt drowsy throughout much of the shift. Spouse at bedside assisting with feeding. vital signs stable.
[2025-01-29] MEDS: LOVENOX 40 MG SC (17:14)
[2025-01-29] MEDS: NOVOLOG FLEXPEN SC (17:14)
[2025-01-29] MEDS: CUBICIN 20 MG IV (17:20)
[2025-01-29 17:24] LABS: Glucose - Point of Care 194 mg/dl (70-99)
--- NOTE | 2025-01-29 17:56 | CM ---
F/U: Patient still being monitored for IV Abx cefepime daptomycin through 02/15/2025, continue to hold IV Lasix for now due to VANESSA, anf follow renal function. PLAN: Return to [facility].
--- NOTE | 2025-01-29 18:27 | PTCARENOTE ---
Pt awoke very upset, agitated. demanding to walk. saying he feels fine now. RN reminded pt that he is very weak and was unable to walk last night during nightshift. PT was unable to see him today due to lethargy. He was able to calm down with
emotional support.
[2025-01-29] MEDS: PERCOCET 5/325 1 TABLET PO (21:14)
[2025-01-29] MEDS: LANTUS SC (22:01)
[2025-01-29] MEDS: XALATAN OPHTHALMIC SOLUTION 1 DROP LEFT EYE (22:02)
--- NOTE | 2025-01-29 22:03 | PTCARENOTE ---
pt refused pm Lantus - blood glucose was 111- he said he didnt eat dinner and wont eat a snack- he said he would not give himself pm Lantus at home- offered to get dose reduced- he refused
[2025-01-29 22:11] LABS: Glucose - Point of Care 111 mg/dl (70-99)
[2025-01-29 22:35] LABS: Glucose - Point of Care 106 mg/dl (70-99)
[2025-01-30] VITALS (16 sets, daily range): BP systolic 114–143; BP diastolic 39–97; PULSE 70; O2SAT 99; BMI 39.1
[2025-01-30] MEDS: PERCOCET 5/325 1 TABLET PO ×2 (02:36→20:16)
[2025-01-30 04:53] LABS: Hematocrit 34.3 % (39.0-52.0); Hemoglobin 11.1 g/dL (13.0-18.0); Mean Corp Hgb Conc. 32.4 g/dL (33.0-37.0); Mean Corpuscular Volume 90.3 fL (80.0-94.0); Platelet Count 163 10^3/uL (130-400); Red Cell Dist. Width 13.4 % (11.5-14.5)
[2025-01-30] MEDS: MAXIPIME 1000 MG IV ×2 (05:03→12:12)
[2025-01-30] MEDS: STERILE WATER FOR INJECTION 10 ML IV ×3 (05:03→17:15)
[2025-01-30 05:13] LABS: Blood Urea Nitrogen 63 mg/dl (9-20); Calcium 8.5 mg/dl (8.4-10.2); Carbon Dioxide 27 mmol/L (22-30); Chloride 103 mmol/L (98-107); Estimated Creatinine Clearance 60 ml/min; Glucose 84 mg/dl (70-99); Magnesium 2.4 mg/dl (1.6-2.3); Potassium 4.1 mmol/L (3.5-5.1); Sodium 136 mmol/L (135-145); eGFR 55.53
[2025-01-30] MEDS: NOVOLOG FLEXPEN-LOW RESISTANCE SC ×3 (07:30→17:11)
[2025-01-30 07:41] LABS: Glucose - Point of Care 97 mg/dl (70-99)
[2025-01-30] MEDS: LANTUS 0.24 UNITS SC ×2 (08:57→20:20)
[2025-01-30] MEDS: VITAMIN D3 (cholecalciferol) 50 MCG PO (08:57)
[2025-01-30] MEDS: THERAGRAN 1 TABLET PO (08:57)
[2025-01-30] MEDS: ASPIR LOW (ENTERIC COATED) 81 MG PO (08:57)
[2025-01-30] MEDS: PLAVIX 75 MG PO (08:57)
[2025-01-30] MEDS: TRUSOPT 2% OPHTHALMIC SOLUTION 1 DROP LEFT EYE ×2 (08:58→20:17)
[2025-01-30] MEDS: DESENEX/MITRAZOL/ZEASORB 1 APPLIC TOPICAL ×2 (08:58→20:16)
[2025-01-30] MEDS: BACTROBAN 2% OINTMENT 1 APPLIC TOPICAL (08:58)
[2025-01-30] MEDS: COREG 6.25 MG PO ×2 (09:05→20:16)
--- NOTE | 2025-01-30 09:48 | PTCARENOTE ---
Assumed care of pt from night RN. Orientedx3, lethargic but arousable to verbal stimuli for short periods. NIHSS 6 on assessment (see worklist). Hospitalist and Neurology aware. Plan is for MRI of brain today. AV-paced on tele, HRs 70s. SpO2 97% on
2L nasal cannula. VSS. Pt repositioned in bed with PCT. Assessment documented. Pt remains in bed, call morton in reach. Bed alarm on.
--- NOTE | 2025-01-30 10:08 | W.PN.NEPH.PH ---
Today's Communication / Plan
-
follow BMP
Assessment/Plan
-
Impression:
VANESSA
Right foot osteomyelitis + right foot ulcer due to critical limb ischemia Status post vascular procedure 01/03
Hyponatremia
Diabetes mellitus type 2
Chronic HFmrEF: EF ~48%
CAD/PVD
TAVR
Hypertension
Hyperlipidemia
Morbid obesity
Plan
follow BMP
no lasix today
await MRI
-
-
Date of Service: January 30, 2025
CC / HPI / ROS
-
Chief Complaint:
VANESSA
History of Present Illness:
VANESSA/Cr down to 1.3
Na up to 136
BP stable
weights down
hgb stable 11.1
Review of Systems:
no CP/SOB
lethargic
Labs
-
Labs:
WBC 9.3 10^3/uL (4.8-10.8) 01/30/25 04:03
RBC 3.80 10^6/uL (4.70-6.10) L 01/30/25 04:03
Hgb 11.1 g/dL (13.0-18.0) L 01/30/25 04:03
Hct 34.3 % (39.0-52.0) L 01/30/25 04:03
Plt Count 163 10^3/uL (130-400) 01/30/25 04:03
Sodium 136 mmol/L (135-145) 01/30/25 04:03
Potassium 4.1 mmol/L (3.5-5.1) 01/30/25 04:03
Chloride 103 mmol/L (98-107) 01/30/25 04:03
Carbon Dioxide 27 mmol/L (22-30) 01/30/25 04:03
BUN 63 mg/dl (9-20) H 01/30/25 04:03
Creatinine 1.3 mg/dL (0.7-1.3) 01/30/25 04:03
eGFR 55.53 01/30/25 04:03
Glucose 84 mg/dl (70-99) 01/30/25 04:03
Calcium 8.5 mg/dl (8.4-10.2) 01/30/25 04:03
Phosphorus 4.2 mg/dl (2.5-4.5) 01/30/25 04:03
Kia-E-Bygaejksnht Pept 1130 pg/ml 01/26/25 05:30
Albumin 3.6 g/dl (3.5-5.0) 01/27/25 20:56
Physical Exam
-
Vital Signs:
Vital Signs
Temp Pulse Resp BP Pulse Ox
98.3 F 72 15 140/77 98
01/29/25 22:59 01/30/25 09:05 01/30/25 06:00 01/30/25 09:05 01/30/25 09:30
Cardiovascular:: Regular rate and rhythm
Respiratory:: Bilateral: Coarse
Lung Excursion:: Normal
Abdomen:: Nontender and Soft
Bowel Sounds:: Normal
Extremity Edema:: +1: Bilateral:
--- NOTE | 2025-01-30 10:31 | W.PN.CARDCBS ---
Today's Communication / Plan
-
Resume furosemide in a.m. if okay with nephrology as VANESSA improves
Avoid SGLT2 antagonist and spironolactone in the future
Impression / Plan
-
Primary Quality Lab Technician: Dr. Sotelo
Impression:
Presentation with SOB 01/17/2025
Right foot osteomyelitis, receiving IV antibiotics as OP
Acute on chronic HFmrEF
Possible CVA, rapid response called for symptoms of dysarthria and ataxia 01/27/2025
Ischemic cardiomyopathy, EF 48% by echo 01/17/2025
Elevated troponin, nonischemic myocardial injury
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
DM 2
Morbid obesity
PVD requiring prior peripheral stents
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
Carotid artery disease
Hypercholesterolemia
Hypertension
DNR code status
ECHO 04/03/24: Technically difficult study, Definity used, EF 45 to 50% with mid anterior septal, distal septal, apical hypokinesis, mild to moderate LVH with septum measuring 1.4 cm, mild MAC, trace MR, status post TAVR with peak/mean gradient 17/10
mmHg, no AR
ECHO 01/17/25: EF 48%, TAVR with peak/mean gradients 14/7 mmHg, mid anteroseptal and apical akinesis, mild concentric LVH, no significant changes compared to prior
Plan:
Volume status today seems satisfactory, and his creatinine is improving. Attempts to optimize GDMT during his hospital stay have on 2 occasions led to acute kidney injury. It may be best to simply treat him with furosemide to keep him at his
current weight, and avoid SGLT2 antagonist and spironolactone.
Resume furosemide in a.m. if okay with nephrology, await BMP tomorrow before deciding on dosing
Continue to avoid spironolactone and SGLT2 antagonist
Await MRI
Progress Note - Quality Lab Technician
Subjective
Date of Service: January 30, 2025:
Patient sleeping, at bedside, seems about the same
47, pulse 72, respiratory rate 15, afebrile, saturations 98%, weight is 123.5 kg which is stable, Resting comfortably, lungs are clear, regular rate and rhythm with systolic murmur JVD okay, edema well-controlled abdomen obese
MRI still pending
Lower extremity arterial ultrasound right MILAGRO is 1.31, improved left MILAGRO is 1.06 also grooved, mid to distal SFA disease is seen infrapopliteal disease on the right, infrapopliteal disease on the left
Hemoglobin is 11.1, platelets are 163, BUN and creatinine are 63 and 1.3, creatinine had been 1.7
Objective
Labs:
01/30/25 04:03
01/30/25 04:03
Labs
Hgb 11.1 g/dL (13.0-18.0) L 01/30/25 04:03
Hct 34.3 % (39.0-52.0) L 01/30/25 04:03
Plt Count 163 10^3/uL (130-400) 01/30/25 04:03
PT 14.3 Sec (11.4-14.6) 01/17/25 03:57
INR 1.10 01/17/25 03:57
APTT 28.6 Sec (23.4-35.0) 01/17/25 03:57
Sodium 136 mmol/L (135-145) 01/30/25 04:03
Potassium 4.1 mmol/L (3.5-5.1) 01/30/25 04:03
BUN 63 mg/dl (9-20) H 01/30/25 04:03
Creatinine 1.3 mg/dL (0.7-1.3) 01/30/25 04:03
Glucose 84 mg/dl (70-99) 01/30/25 04:03
Troponins
01/27/25
19:29
Troponin I 0.033
Vital Signs and I&O:
Vital Signs
Temp Pulse Resp BP Pulse Ox
36.8 C 72 15 140/77 98
01/29/25 22:59 01/30/25 09:05 01/30/25 06:00 01/30/25 09:05 01/30/25 09:30
Vital Signs
Temp Pulse Resp BP Pulse Ox
36.8 C 72 15 140/77 98
01/29/25 22:59 01/30/25 09:05 01/30/25 06:00 01/30/25 09:05 01/30/25 09:30
Intake & Output
01/28/25 01/29/25 01/30/25 01/31/25
07:59 07:59 07:59 07:59
Intake Total 720 / 720 360 / 360
Output Total 1575 / 1575 100 / 100 200 / 200
Balance -1575 / -1575 620 / 620 160 / 160
Physical Exam
Physical Exam
See above
[2025-01-30] MEDS: NOVOLOG FLEXPEN SC ×2 (10:36→11:30)
[2025-01-30 12:43] LABS: Glucose - Point of Care 119 mg/dl (70-99)
--- NOTE | 2025-01-30 12:56 | W.PN.ID1 ---
Date of Service
Date of Service: January 30, 2025
Today's Communication
Continue antibiotics. Transition cefepime to meropenem given reported change in mental status.
Assessment / Plan
Right foot osteomyelitis
Charcot arthropathy of right foot
Non-Healing, chronic (R) Foot Wound
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
- Not clear if secondary to antibiotics or not.
ASCVD (CAD, PAD, Carotid Disease)
Chronic HFmrEF
Aortic Stenosis s/p TAVR
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
Morbid Obesity due to excess calories
Allergy to penicillin - rash
Recommendations:
01/04 wound culture: Pseudomonas
01/04 bone culture (cunieform): Pseudomonas, Enterococcus
01/04 pathology without osteomyelitis
01/02 superficial culture Pseudomonas, Enterococcus,
Continue daptomycin.
Transition cefepime to meropenem. Antibiotic end date remains 02/15/2025.
CPK normal.
ESR stable
CRP improved from 24.7 to <5.0
Will continue to follow weekly ESR and CRP.
Creatinine overall improved. Continue to monitor.
����������������������������������������������������������
Chief Complaint
-: Other (Right foot osteomyelitis)
Subjective / Review of Systems
Patient seen and examined. reports patient more somnolent.
Review of Systems: No Fever and No Chills
Vital Signs / Physical Exam
Vital Signs
Vital Signs
Temp Pulse Resp BP Pulse Ox
97.5 F 70 15 124/52 98
01/30/25 12:23 01/30/25 12:00 01/30/25 12:00 01/30/25 12:00 01/30/25 12:00
Physical Exam
Constitutional: No Acute Distress, Comfortable, Chronically Ill and Non-toxic
Cardiovascular: Regular Rate and S1/S2; Negative S3/S4
Pulmonary: Clear, Symmetric and Non Labored
Gastrointestinal: Soft, Non Tender, Non Distended and Normal Bowel Sounds
Skin: Warm and Dry
Wound: Other (right foot dressing clean, dry )
Psychological: Calm
Lines: PICC (No erythema or tenderness)
Objective Data
Lab Data
Lab Results
01/30/25 04:03
01/30/25 04:03
ESR 44 mm/hour (0-20) H 01/18/25 01:39
PT 14.3 Sec (11.4-14.6) 01/17/25 03:57
INR 1.10 01/17/25 03:57
APTT 28.6 Sec (23.4-35.0) 01/17/25 03:57
Estimated Creat Clear 60 ml/min 01/30/25 04:03
Total Bilirubin 0.6 mg/dl (0.2-1.3) 01/27/25 20:56
AST 26 U/L (17-59) 01/27/25 20:56
ALT 36 U/L (0-50) 01/27/25 20:56
Alkaline Phosphatase 73 U/L (38-126) 01/27/25 20:56
C-Reactive Protein < 5.00 mg/L (0.0-10.00) 01/18/25 01:39
Most recent labs reviewed.
Micro Results:
01/28/25 02:46 C. difficile GDH Antigen & Toxins - Final
Feces/Stool Negative for toxigenic C.difficile
01/17/25 14:50 MRSA Screen - Final
Nose No Methicillin Resistant Staphylococcus aureus isolated.
Imaging:
12/29/2024 Labeled WBC scan : Accumulation of radiolabeled white blood cells within the right medial midfoot, similar distribution compared to prior 3 phase bone scan. Findings may be seen in the setting of osteomyelitis, consider MRI right foot
for more precise anatomic localization.
01/02/2025 Right foot x-ray: No evidence of acute osseous injury. No evidence of bone destruction. Soft tissue swelling of the forefoot. Soft tissue ulceration of the plantar midfoot versus overlying dressing as described above. Moderate dorsal
midfoot osteoarthritis.
--- NOTE | 2025-01-30 13:43 | W.PN.HOSP.TC ---
Today's Communication/Plan
-
MRI
Neurology
Assessment / Plan
Assessment / Plan
Physical Exam
General: mild distress/anxious
HEENT: Scleral Anicteric, MMM, No JVD
Pulm: clear to auscultation b/l, on NC supplementation for comfort
Cardio: RRR, S1/S2
GI: Soft, NT, ND, BS+
Ext: 1+ pitting lower extremity edema
Skin: Warm, Dry
Neuro: oriented x3 conversant coherent, Lethargic but arousable, falling asleep during conversation. aterixis+
Psych: Calm
79M HFmrEF PAD/CAD DM Chronic Venous Stasis here for heart failure complicated with acute kidney injury. Patient also being treated for right foot osteomyelitis.
Toxic metabolic Encephalopathy possibly due to Polypharmacy
Stroke alert overnight. TIA/CVA
Asterixis (ammonia level neg)
01/27 pt Anxious called concern that he was about to , calmed down with 's presence, VSS
Noted patient had spent most of day sleeping, and patient also note that he had been progressively confused past few days, slurring speech, especially worse 01/27
Suspected possibly d/t polypharmacy, patient on melatonin past few days for sleep, recently started on Claritin bedtime night prior for post-nasal drip, was on increased dose Hydralazine w hold Lisinopril Aldactone d/t prior VANESSA 01/21
-Melatonin and Claritin discontinued
-Hydralazine discontinued
Later in night stroke alert was called d/t Right sided deficits (RUE weakness, right facial weakness)
symptoms spontaneously resolved, CT Head noted no acute abn's, CTA concerning for right carotid stenosis 80-90% (per PHARMACEUTICAL SALES REPRESENTATIVE update note, offical CT report pending)
neurochecks, NIH
Brain MRI pending
Neuro eval appreciated
Vascular Surgeon eval appreciated check carotid duplex, right carotid stenosis does not match right sided symptoms so likely asymptomatic
01/28 given fluctuating mental status, soft pressures, patient transferred to IMU for closer monitoring
Diarrhea overnight 01/27
Cdiff neg
Acute on chronic heart failure with moderately reduced EF
briefly Held IV Lasix due to VANESSA resumed with resolution, on hold again d/t new episode VANESSA exacerbated by contrast from stroke alert
Daily weights
I's and O's
Continue beta-zac Coreg reduced to 6.25 mg BID from 12.5 mg d/t soft/low pressures
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
child monitor
2D echocardiogram appreciated EF 48% no significant changes from ECHO Sep 2023
Lisinopril Aldactone Farxiga on hold d/t VANESSA
Acute hypoxemic respiratory failure secondary to heart failure exacerbation
weaned off oxygen supplementation, saturating well on room air but requiring NC supplementation for comfort, subjective feelings sob
Nocturnal hypoxia likely related to sleep apnea
Will need outpatient polysomnography
01/26 CXR appreciated no acute abn's
VANESSA likely secondary to overdiuresis (previously resolved, re-occurred 01/27 further exacerbated by contrast as above)
Mild Hyponatremia
-IVF gentle hydration 60 cc/h
-Nephro eval appreciated fluid restriction
01/28 Acute Urinary retention
-bladder scan prn
-patient currently refuses Wilson
HTN
01/28 Low Pressures/Hypotensive 89/60
home Hydralazine increased from 50 mg to 100 mg BID while other antihypertensives held d/t initial VANESSA
Hydralazine since discontinued 01/27
Lisinopril Aldactone held d/t VANESSA
Amlodipine placed on hold 01/28, Coreg reduced from 12.5 to 6.25 mg BID with holding parameters
01/28 once 1VF bolus 250 cc w/ subsequent improvement in BP noted, cont gentle IVF hydration
Elevated troponin likely type II demand ischemia in the setting of heart failure
Troponin peak of 0.07
Right foot osteomyelitis
Pseudomonas and Enterococcus bacteremia
Previously on cefepime daptomycin facility held d/t concerns causing itchiness
ID recommend continue cefepime daptomycin monitor for reaction, tolerating so far
Outpatient podiatry follow-up
History of PAD/CAD
PVD requiring stents
Aspirin Plavix statin
vascular eval appreciated follow up arterial study for intervention performed in Nov
Type 2 diabetes
Continue long and short acting insulin sliding scale
Accu-Cheks
Goal blood glucose 140-180
Carb controlled diet
Farxiga on hold d/t VANESSA as above
Chronic venous stasis
Oziel wrap
DVT ppx Lovenox
DNR
I previously spoke with Siri at bedside. Provided full update.
Anticipated Discharge: > 48 hours
Subjective/Interval History
-
Date of Service: January 30, 2025
Seen and examined. No new complaints. No acute overnight events.
Continues to have a waxing and waning NIH
Objective Data
-
Labs:
Laboratory Results
01/30/25
04:03
WBC 9.3
Hgb 11.1 L
Hct 34.3 L
Plt Count 163
Sodium 136
Potassium 4.1
Chloride 103
Carbon Dioxide 27
BUN 63 H
Creatinine 1.3
Glucose 84
Calcium 8.5
Vital Signs:
Vital Signs
Temp Pulse Resp BP Pulse Ox
97.5 F 70 15 124/52 98
01/30/25 12:23 01/30/25 12:00 01/30/25 12:00 01/30/25 12:00 01/30/25 12:00
I&O
01/29/25 01/30/25 01/31/25
06:59 06:59 06:59
Intake Total 720 / 720 360 / 360
Output Total 100 / 100 200 / 200
Balance 620 / 620 160 / 160
[2025-01-30] MEDS: CUBICIN 20 MG IV (16:26)
[2025-01-30 17:09] LABS: Glucose - Point of Care 96 mg/dl (70-99)
[2025-01-30] MEDS: MERREM 500 MG IV (17:14)
[2025-01-30] MEDS: LOVENOX 40 MG SC (17:14)
[2025-01-30] MEDS: NOVOLOG FLEXPEN 10 UNITS SC (18:31)
[2025-01-30] MEDS: XALATAN OPHTHALMIC SOLUTION 1 DROP LEFT EYE (20:17)
[2025-01-30 20:30] LABS: Glucose - Point of Care 135 mg/dl (70-99)
[2025-01-31] VITALS (12 sets, daily range): BP systolic 127–163; BP diastolic 50–114; BMI 38.8
[2025-01-31] MEDS: STERILE WATER FOR INJECTION 10 ML IV ×5 (00:03→23:05)
[2025-01-31] MEDS: MERREM 500 MG IV ×5 (00:03→23:05)
--- NOTE | 2025-01-31 05:00 | PTCARENOTE ---
Cared for patient overnight. aaox3 but gets disoriented at times overnight. AV paced. Remained on 2LNC. Q2T. Changed dressing to R foot per orders. VSS. NIH 6, see documentation. No other issues, will monitor.
[2025-01-31] MEDS: BACTROBAN 2% OINTMENT 1 APPLIC TOPICAL (05:37)
[2025-01-31 05:44] LABS: Hematocrit 33.6 % (39.0-52.0); Hemoglobin 11.2 g/dL (13.0-18.0); Mean Corp Hgb Conc. 33.3 g/dL (33.0-37.0); Mean Corpuscular Volume 90.1 fL (80.0-94.0); Platelet Count 172 10^3/uL (130-400); Red Cell Dist. Width 13.3 % (11.5-14.5)
[2025-01-31 06:14] LABS: Blood Urea Nitrogen 61 mg/dl (9-20); Calcium 8.8 mg/dl (8.4-10.2); Carbon Dioxide 26 mmol/L (22-30); Chloride 105 mmol/L (98-107); Estimated Creatinine Clearance 60 ml/min; Glucose 58 mg/dl (70-99); Magnesium 2.5 mg/dl (1.6-2.3); Potassium 4.2 mmol/L (3.5-5.1); Sodium 137 mmol/L (135-145); eGFR 55.53
[2025-01-31 08:17] LABS: Glucose - Point of Care 98 mg/dl (70-99)
[2025-01-31] MEDS: NOVOLOG FLEXPEN SC ×2 (08:51→16:07)
[2025-01-31] MEDS: NOVOLOG FLEXPEN-LOW RESISTANCE SC (08:53)
[2025-01-31] MEDS: ASPIR LOW (ENTERIC COATED) 81 MG PO (08:55)
[2025-01-31] MEDS: THERAGRAN 1 TABLET PO (08:55)
[2025-01-31] MEDS: COREG 6.25 MG PO ×2 (08:55→20:37)
[2025-01-31] MEDS: PLAVIX 75 MG PO (08:55)
[2025-01-31] MEDS: DESENEX/MITRAZOL/ZEASORB 1 APPLIC TOPICAL ×2 (08:56→20:37)
[2025-01-31] MEDS: TRUSOPT 2% OPHTHALMIC SOLUTION 1 DROP LEFT EYE ×2 (08:57→20:38)
[2025-01-31] MEDS: VITAMIN D3 (cholecalciferol) 50 MCG PO (08:57)
[2025-01-31] MEDS: LANTUS SC ×2 (08:58→20:38)
--- NOTE | 2025-01-31 09:22 | W.PN.CARDCBS ---
Today's Communication / Plan
-
His cr is stable at 1.3. Reviewed with nephrology. Okay to resume Lasix 40 mg twice daily. Will start this afternoon.
Continue to monitor creatinine.
With renal insufficiency would currently avoid spironolactone and SGLT2 antagonist.
Recent echo reviewed with patient and family member at bedside.
Continue neurologic workup as per primary service. His MRI did not show acute findings.
Antibiotics as per infectious disease.
Will arrange outpatient cardiac follow-up.
Discussed with family at bedside and nephrology.
Please recall if needed.
Impression / Plan
-
.
Primary Loop Drier Operator: Dr. Sotelo
Impression:
Presentation with SOB 01/17/2025
Right foot osteomyelitis, receiving IV antibiotics as OP
Acute on chronic HFmrEF improv
Possible CVA, rapid response called for symptoms of dysarthria and ataxia 01/27/2025
Ischemic cardiomyopathy, EF 48% by echo 01/17/2025
Elevated troponin, nonischemic myocardial injury
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
DM 2
Morbid obesity
PVD requiring prior peripheral stents
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
Carotid artery disease
Hypercholesterolemia
Hypertension
DNR code status
ECHO 04/03/24: Technically difficult study, Definity used, EF 45 to 50% with mid anterior septal, distal septal, apical hypokinesis, mild to moderate LVH with septum measuring 1.4 cm, mild MAC, trace MR, status post TAVR with peak/mean gradient 17/10
mmHg, no AR
ECHO 01/17/25: EF 48%, TAVR with peak/mean gradients 14/7 mmHg, mid anteroseptal and apical akinesis, mild concentric LVH, no significant changes compared to prior
Plan:
His cr is stable at 1.3. Reviewed with nephrology. Okay to resume Lasix 40 mg twice daily. Will start this afternoon.
Continue to monitor creatinine.
With renal insufficiency would currently avoid spironolactone and SGLT2 antagonist.
Recent echo reviewed with patient and family member at bedside.
Continue neurologic workup as per primary service. His MRI did not show acute findings.
Antibiotics as per infectious disease.
Will arrange outpatient cardiac follow-up.
Discussed with family at bedside and nephrology.
Please recall if needed.
Progress Note - Loop Drier Operator
Subjective
Date of Service: January 31, 2025
Patient seen and examined. No chest pain. Complains of jitteriness.
Objective
Labs:
01/31/25 05:24
01/31/25 05:24
Labs
Hgb 11.2 g/dL (13.0-18.0) L 01/31/25 05:24
Hct 33.6 % (39.0-52.0) L 01/31/25 05:24
Plt Count 172 10^3/uL (130-400) 01/31/25 05:24
PT 14.3 Sec (11.4-14.6) 01/17/25 03:57
INR 1.10 01/17/25 03:57
APTT 28.6 Sec (23.4-35.0) 01/17/25 03:57
Sodium 137 mmol/L (135-145) 01/31/25 05:24
Potassium 4.2 mmol/L (3.5-5.1) 01/31/25 05:24
BUN 61 mg/dl (9-20) H 01/31/25 05:24
Creatinine 1.3 mg/dL (0.7-1.3) 01/31/25 05:24
Glucose 58 mg/dl (70-99) L 01/31/25 05:24
Vital Signs and I&O:
Vital Signs
Temp Pulse Resp BP Pulse Ox
97.3 F 74 17 147/55 96
01/31/25 03:30 01/31/25 08:55 01/31/25 04:00 01/31/25 08:55 01/31/25 04:00
Vital Signs
Temp Pulse Resp BP Pulse Ox
97.3 F 74 17 14755 96
01/31/25 03:30 01/31/25 08:55 01/31/25 04:00 01/31/25 08:55 01/31/25 04:00
Intake & Output
01/29/25 01/30/25 01/31/25 02/01/25
06:59 06:59 06:59 06:59
Intake Total 720 / 720 360 / 360 240 / 240
Output Total 100 / 100 200 / 200 675 / 675
Balance 620 / 620 160 / 160 -435 / -435
Physical Exam
Physical Exam
General: No acute distress, AAOX3
Neck: Negative JVD
Heart: Regular, Negative S3 positive S1/S2, Negative S4, No murmur
Lungs: CTA b/l, negative wheezes/rales/rhonchi
Abd: Morbid obesity positive BS, NT/ND, neg rebound/rigidity/guarding
Ext: Negative cyanosis/clubbing/edema
Neuro: nonfocal
--- NOTE | 2025-01-31 10:01 | W.PN.ID1 ---
Date of Service
Date of Service: January 31, 2025
Today's Communication
Continue antibiotics.
Assessment / Plan
Right foot osteomyelitis
Charcot arthropathy of right foot
Non-Healing, chronic (R) Foot Wound
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
- Not clear if secondary to antibiotics or not.
ASCVD (CAD, PAD, Carotid Disease)
Chronic HFmrEF
Aortic Stenosis s/p TAVR
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
Morbid Obesity due to excess calories
Allergy to penicillin - rash
Recommendations:
01/04 wound culture: Pseudomonas
01/04 bone culture (cunieform): Pseudomonas, Enterococcus
01/04 pathology without osteomyelitis
01/02 superficial culture Pseudomonas, Enterococcus,
Continue daptomycin and meropenem.
- Cefepime transitioned to meropenem over concern for possible BASKET FILLER effects.
- Antibiotic end date remains 02/15/2025.
CPK normal.
ESR stable
CRP improved from 24.7 to <5.0
Will continue to follow weekly ESR and CRP.
Creatinine overall improved. Continue to monitor.
����������������������������������������������������������
Chief Complaint
-: Other (Right foot osteomyelitis)
Subjective / Review of Systems
Patient seen and examined. Reports feeling like he has 'speech difficulty'.
Review of Systems: No Fever
Vital Signs / Physical Exam
Vital Signs
Vital Signs
Temp Pulse Resp BP Pulse Ox
97.3 F 74 17 147/55 96
01/31/25 03:30 01/31/25 08:55 01/31/25 04:00 01/31/25 08:55 01/31/25 04:00
Physical Exam
Constitutional: No Acute Distress, Comfortable, Chronically Ill and Non-toxic
Cardiovascular: Regular Rate and S1/S2; Negative S3/S4
Pulmonary: Clear, Symmetric and Non Labored
Gastrointestinal: Soft, Non Tender, Non Distended and Normal Bowel Sounds
Skin: Warm and Dry
Wound: Other (right foot dressing clean, dry )
Neurological: Awake, Alert and AO x 3
Psychological: Calm
Lines: PICC (No erythema or tenderness)
Objective Data
Lab Data
Lab Results
01/31/25 05:24
01/31/25 05:24
ESR 44 mm/hour (0-20) H 01/18/25 01:39
PT 14.3 Sec (11.4-14.6) 01/17/25 03:57
INR 1.10 01/17/25 03:57
APTT 28.6 Sec (23.4-35.0) 01/17/25 03:57
Estimated Creat Clear 60 ml/min 01/31/25 05:24
Total Bilirubin 0.6 mg/dl (0.2-1.3) 01/27/25 20:56
AST 26 U/L (17-59) 01/27/25 20:56
ALT 36 U/L (0-50) 01/27/25 20:56
Alkaline Phosphatase 73 U/L (38-126) 01/27/25 20:56
C-Reactive Protein < 5.00 mg/L (0.0-10.00) 01/18/25 01:39
Most recent labs reviewed.
Micro Results:
01/28/25 02:46 C. difficile GDH Antigen & Toxins - Final
Feces/Stool Negative for toxigenic C.difficile
01/17/25 14:50 MRSA Screen - Final
Nose No Methicillin Resistant Staphylococcus aureus isolated.
Imaging:
12/29/2024 Labeled WBC scan : Accumulation of radiolabeled white blood cells within the right medial midfoot, similar distribution compared to prior 3 phase bone scan. Findings may be seen in the setting of osteomyelitis, consider MRI right foot
for more precise anatomic localization.
01/02/2025 Right foot x-ray: No evidence of acute osseous injury. No evidence of bone destruction. Soft tissue swelling of the forefoot. Soft tissue ulceration of the plantar midfoot versus overlying dressing as described above. Moderate dorsal
midfoot osteoarthritis.
[2025-01-31] MEDS: NOVOLOG FLEXPEN-LOW RESISTANCE 1 UNITS SC ×2 (12:12→16:08)
[2025-01-31] MEDS: DULCOLAX 10 MG RECTAL (12:18)
[2025-01-31 12:22] LABS: Glucose - Point of Care 155 mg/dl (70-99)
--- NOTE | 2025-01-31 12:48 | W.PN.NEPH.PH ---
Today's Communication / Plan
-
Follow-up
Daily BMP
Still holding lisinopril and Lasix
Assessment/Plan
-
Impression:
VANESSA
Right foot osteomyelitis + right foot ulcer due to critical limb ischemia Status post vascular procedure 01/03
Hyponatremia
Diabetes mellitus type 2
Chronic HFmrEF: EF ~48%
CAD/PVD
TAVR
Hypertension
Hyperlipidemia
Morbid obesity
Plan
follow BMP
no lasix today
Creatinine stable at 1.3
Sodium stable at 137
-
-
Date of Service: January 31, 2025
CC / HPI / ROS
-
Chief Complaint:
VANESSA
History of Present Illness:
VANESSA/Cr down to 1.3
Na up to 137
BP stable
weights down
hgb stable 11.1
Review of Systems:
no CP/SOB
lethargic
Nonoliguric
Labs
-
Labs:
WBC 7.4 10^3/uL (4.8-10.8) 01/31/25 05:24
RBC 3.73 10^6/uL (4.70-6.10) L 01/31/25 05:24
Hgb 11.2 g/dL (13.0-18.0) L 01/31/25 05:24
Hct 33.6 % (39.0-52.0) L 01/31/25 05:24
Plt Count 172 10^3/uL (130-400) 01/31/25 05:24
Sodium 137 mmol/L (135-145) 01/31/25 05:24
Potassium 4.2 mmol/L (3.5-5.1) 01/31/25 05:24
Chloride 105 mmol/L (98-107) 01/31/25 05:24
Carbon Dioxide 26 mmol/L (22-30) 01/31/25 05:24
BUN 61 mg/dl (9-20) H 01/31/25 05:24
Creatinine 1.3 mg/dL (0.7-1.3) 01/31/25 05:24
eGFR 55.53 01/31/25 05:24
Glucose 58 mg/dl (70-99) L 01/31/25 05:24
Calcium 8.8 mg/dl (8.4-10.2) 01/31/25 05:24
Phosphorus 3.9 mg/dl (2.5-4.5) 01/31/25 05:24
Ofv-J-Wsmfmsecsom Pept 1130 pg/ml 01/26/25 05:30
Albumin 3.6 g/dl (3.5-5.0) 01/27/25 20:56
Physical Exam
-
Vital Signs:
Vital Signs
Temp Pulse Resp BP Pulse Ox
97.7 F 74 17 147/55 96
01/31/25 07:25 01/31/25 08:55 01/31/25 04:00 01/31/25 08:55 01/31/25 04:00
Cardiovascular:: Regular rate and rhythm
Respiratory:: Bilateral: Coarse
Lung Excursion:: Normal
Abdomen:: Nontender and Soft
Bowel Sounds:: Normal
Extremity Edema:: +1: Bilateral:
[2025-01-31] MEDS: NOVOLOG FLEXPEN 10 UNITS SC (13:56)
[2025-01-31] MEDS: MIRALAX 17 GRAMS PO (13:57)
--- NOTE | 2025-01-31 13:58 | W.PN.HOSP.TC ---
Today's Communication/Plan
-
Assessment / Plan
Assessment / Plan
Physical Exam
General: mild distress/anxious
HEENT: Scleral Anicteric, MMM, No JVD
Pulm: clear to auscultation b/l, on NC supplementation for comfort
Cardio: RRR, S1/S2
GI: Soft, NT, ND, BS+
Ext: 1+ pitting lower extremity edema
Skin: Warm, Dry
Neuro: oriented x3 conversant coherent, Lethargic but arousable, falling asleep during conversation. aterixis+
Psych: Calm
79M HFmrEF PAD/CAD DM Chronic Venous Stasis here for heart failure complicated with acute kidney injury. Patient also being treated for right foot osteomyelitis.
Toxic metabolic Encephalopathy possibly due to Polypharmacy suspect hypoactive delirium versus hospital-acquired
Stroke alert overnight. TIA/CVA
Asterixis (ammonia level neg)
Start Zyprexa
Psychiatry consult
01/27 pt Anxious called concern that he was about to , calmed down with 's presence, VSS
Noted patient had spent most of day sleeping, and patient also note that he had been progressively confused past few days, slurring speech, especially worse 01/27
Suspected possibly d/t polypharmacy, patient on melatonin past few days for sleep, recently started on Claritin bedtime night prior for post-nasal drip, was on increased dose Hydralazine w hold Lisinopril Aldactone d/t prior VANESSA 01/21
-Melatonin and Claritin discontinued
-Hydralazine discontinued
Later in night stroke alert was called d/t Right sided deficits (RUE weakness, right facial weakness)
symptoms spontaneously resolved, CT Head noted no acute abn's, CTA concerning for right carotid stenosis 80-90% (per RESEARCH ENVIRONMENTAL SCIENTIST update note, offical CT report pending)
neurochecks, NIH
Brain MRI without acute event
Neuro eval appreciated
Vascular Surgeon eval appreciated check carotid duplex, right carotid stenosis does not match right sided symptoms so likely asymptomatic
01/28 given fluctuating mental status, soft pressures, patient transferred to IMU for closer monitoring
Diarrhea overnight 01/27
Cdiff neg
Acute on chronic heart failure with moderately reduced EF
briefly Held IV Lasix due to VANESSA resumed with resolution, on hold again d/t new episode VANESSA exacerbated by contrast from stroke alert
Daily weights
I's and O's
Continue beta-zac Coreg reduced to 6.25 mg BID from 12.5 mg d/t soft/low pressures
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
library monitor
2D echocardiogram appreciated EF 48% no significant changes from ECHO Sep 2023
Lisinopril Aldactone Farxiga on hold d/t VANESSA
Acute hypoxemic respiratory failure secondary to heart failure exacerbation
weaned off oxygen supplementation, saturating well on room air but requiring NC supplementation for comfort, subjective feelings sob
Nocturnal hypoxia likely related to sleep apnea
Will need outpatient polysomnography
01/26 CXR appreciated no acute abn's
VANESSA likely secondary to overdiuresis (previously resolved, re-occurred 01/27 further exacerbated by contrast as above)
Mild Hyponatremia
-IVF gentle hydration 60 cc/h
-Nephro eval appreciated fluid restriction
01/28 Acute Urinary retention
-bladder scan prn
-patient currently refuses Wilson
HTN
01/28 Low Pressures/Hypotensive 89/60
home Hydralazine increased from 50 mg to 100 mg BID while other antihypertensives held d/t initial VANESSA
Hydralazine since discontinued 01/27
Lisinopril Aldactone held d/t VANESSA
Amlodipine placed on hold 01/28, Coreg reduced from 12.5 to 6.25 mg BID with holding parameters
01/28 once 1VF bolus 250 cc w/ subsequent improvement in BP noted, cont gentle IVF hydration
Elevated troponin likely type II demand ischemia in the setting of heart failure
Troponin peak of 0.07
Right foot osteomyelitis
Pseudomonas and Enterococcus bacteremia
Previously on cefepime daptomycin facility held d/t concerns causing itchiness
ID recommend continue cefepime daptomycin monitor for reaction, tolerating so far
Outpatient podiatry follow-up
History of PAD/CAD
PVD requiring stents
Aspirin Plavix statin
vascular eval appreciated follow up arterial study for intervention performed in Dec
Type 2 diabetes
Continue long and short acting insulin sliding scale
Accu-Cheks
Goal blood glucose 140-180
Carb controlled diet
Farxiga on hold d/t VANESSA as above
Chronic venous stasis
Oziel wrap
DVT ppx Lovenox
DNR
I previously spoke with Siri at bedside. Provided full update.
Anticipated Discharge: > 48 hours
Subjective/Interval History
-
Date of Service: January 31, 2025
Seen and examined. No new complaints. No acute overnight events.
Objective Data
-
Labs:
Laboratory Results
01/31/25
05:24
WBC 7.4
Hgb 11.2 L
Hct 33.6 L
Plt Count 172
Sodium 137
Potassium 4.2
Chloride 105
Carbon Dioxide 26
BUN 61 H
Creatinine 1.3
Glucose 58 L
Calcium 8.8
Vital Signs:
Vital Signs
Temp Pulse Resp BP Pulse Ox
97.7 F 74 17 147/55 96
01/31/25 07:25 01/31/25 08:55 01/31/25 04:00 01/31/25 08:55 01/31/25 04:00
I&O
01/30/25 01/31/25 02/01/25
06:59 06:59 06:59
Intake Total 360 / 360 240 / 240
Output Total 200 / 200 675 / 675
Balance 160 / 160 -435 / -435
--- NOTE | 2025-01-31 15:54 | CM ---
F/U: PT/OT was unable to see the patient until yesterday from 01/25 and family was in today. / son, his GF were present. Patient is not ready, patient indicated that to [facility]ARL[facility] Salgado, so explained that we proactively see what patients/ families want
for discharge- patient a little mad about the questions. Patient/ Family would like to return to [facility] when ready. CM asked for 2nd option, was told [facility]- referrals made for both. PLAN: SNF when ready.
[2025-01-31] MEDS: LASIX 40 MG PO (16:05)
[2025-01-31 16:18] LABS: Glucose - Point of Care 185 mg/dl (70-99)
--- NOTE | 2025-01-31 16:30 | CON.MD ---
Consultation - Medical
-
patient seen chart reviewed. family including son and d in law at bedside. this consult done today january 31 2025. patient is an 79 year old male here w complaint of sob/ chills who had just been dc'ed from the day after thanksgiving.
at this point he is being rx for chf ahrf htn osteomyelitis. see medical for other serious underlying maladies. he has had periods of agitation thought to be secondary to delirium although when i saw him his sensorium was clear. he was fully
oriented. he had good eye contact. he was a little irritated to be asked so many questions but given a few minutes was quite cooperative. said she has seen an improvement in his condition today. he denied any history of psychiatric illness
in the past. noted zyprexa had been ordered at . he is frustrated with continued medical illness and being in hospital but denied depression. sleep and appetite disturbed by illness. nothing to suggest psychosis or affective illness noted
past psych hx see above denied
medical hx see above patient w as well lower extremity edema type 2 dm venous stasis lower extremity edema s/p stent placement aortic stenosis w tavr repair morbid obeisty pvd carotid disease brain mri negative for acute urianry
retention qtc prolonged 533
substance abuse no etoh or drugs
family hx non contributory
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 has kids and grandkids
mse alert ox3 good eye contact initially a little irritated at questions but that changed in a few minutes and he was cooperative and fairly pleasant speech and thought process normal no psychosis mood is neutral affect appropriate no si or
psychosis intelligence average insight judgment fair
dx tme secondary to underlying serious medical illness
recommendations there is really no psychiatric drug that will ameliorate delirium in the short term except rx of the underlying med illness and time. he is at this point pleasant and fully oriented and appropriate. i would be worried to use
zyprexa given its anticholinergic potential and his prolonged qtc. would try ativan o.5 mg to start which can be given po or im. there are differences of opinion as to which antipsychotic would have the least impact on qtc and most of them cannot
be given other than po. patient is being transferred from [facility]. that in itself may have a beneficial effect on his sensorium will see him in the am.
--- NOTE | 2025-01-31 17:09 | PTCARENOTE ---
pt transferred from [facility]U. pt is AAO*3, on 2L o2. denies any pain at this time.pt is oriented to the room. call morton within the reach. family at the bedside updated.
[2025-01-31] MEDS: LOVENOX 40 MG SC (17:11)
[2025-01-31] MEDS: CUBICIN 20 MG IV (17:12)
[2025-01-31 20:20] LABS: Glucose - Point of Care 245 mg/dl (70-99)
[2025-01-31] MEDS: XALATAN OPHTHALMIC SOLUTION 1 DROP LEFT EYE (20:38)
[2025-01-31] MEDS: PERCOCET 5/325 1 TABLET PO (20:46)
[2025-02-01] VITALS (8 sets, daily range): BP systolic 130–155; BP diastolic 55–65; PULSE 71; O2SAT 99; BMI 38.7
[2025-02-01] MEDS: TYLENOL 650 MG PO ×3 (02:37→20:58)
[2025-02-01] MEDS: MERREM 500 MG IV ×3 (05:02→20:49)
[2025-02-01] MEDS: STERILE WATER FOR INJECTION 10 ML IV ×3 (05:02→20:49)
[2025-02-01 05:14] LABS: Blood Urea Nitrogen 55 mg/dl (9-20); Calcium 9.0 mg/dl (8.4-10.2); Carbon Dioxide 28 mmol/L (22-30); Chloride 103 mmol/L (98-107); Estimated Creatinine Clearance 60 ml/min; Glucose 150 mg/dl (70-99); Magnesium 2.5 mg/dl (1.6-2.3); Potassium 4.5 mmol/L (3.5-5.1); Sodium 136 mmol/L (135-145); eGFR 55.53
[2025-02-01 05:23] LABS: Hematocrit 35.2 % (39.0-52.0); Hemoglobin 11.5 g/dL (13.0-18.0); Mean Corp Hgb Conc. 32.7 g/dL (33.0-37.0); Mean Corpuscular Volume 90.7 fL (80.0-94.0); Platelet Count 174 10^3/uL (130-400); Red Cell Dist. Width 13.2 % (11.5-14.5)
[2025-02-01 07:57] LABS: Glucose - Point of Care 161 mg/dl (70-99)
[2025-02-01] MEDS: COREG 6.25 MG PO ×2 (08:52→20:49)
[2025-02-01] MEDS: LASIX 40 MG PO ×2 (08:53→17:11)
[2025-02-01] MEDS: VITAMIN D3 (cholecalciferol) 50 MCG PO (08:53)
[2025-02-01] MEDS: ASPIR LOW (ENTERIC COATED) 81 MG PO (08:53)
[2025-02-01] MEDS: PLAVIX 75 MG PO (08:53)
[2025-02-01] MEDS: THERAGRAN 1 TABLET PO (08:53)
[2025-02-01] MEDS: TRUSOPT 2% OPHTHALMIC SOLUTION 1 DROP LEFT EYE ×2 (08:56→20:50)
[2025-02-01] MEDS: DESENEX/MITRAZOL/ZEASORB 1 APPLIC TOPICAL ×2 (08:56→20:51)
[2025-02-01] MEDS: LANTUS 0.24 UNITS SC (09:10)
[2025-02-01] MEDS: NOVOLOG FLEXPEN 10 UNITS SC ×3 (09:12→17:24)
[2025-02-01] MEDS: NOVOLOG FLEXPEN-LOW RESISTANCE 1 UNITS SC ×2 (09:13→17:25)
--- NOTE | 2025-02-01 10:18 | W.PN.ID1 ---
Date of Service
Date of Service: February 01, 2025
Today's Communication
Continue antibiotics. Monitor cognition
Assessment / Plan
Right foot osteomyelitis
Charcot arthropathy of right foot
Non-Healing, chronic (R) Foot Wound
Reported SOB, slurred words, 'thick tougue' RN PATIENT SERVICES; now with some change in mental status as an inpatient
- Not clear if secondary to antibiotics (cefepime) or not.
- Seems improved at present.
ASCVD (CAD, PAD, Carotid Disease)
Chronic HFmrEF
Aortic Stenosis s/p TAVR
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
Morbid Obesity due to excess calories
Allergy to penicillin - rash
Recommendations:
01/04 wound culture: Pseudomonas
01/04 bone culture (cunieform): Pseudomonas, Enterococcus
01/04 pathology without osteomyelitis
01/02 superficial culture Pseudomonas, Enterococcus,
Continue daptomycin and meropenem.
- Cefepime transitioned to meropenem over concern for possible CERAMIC RESTORER effects.
- Antibiotic end date remains 02/15/2025.
CPK normal.
ESR stable
CRP improved from 24.7 to <5.0
Will continue to follow weekly ESR and CRP.
Creatinine overall improved. Continue to monitor.
����������������������������������������������������������
Chief Complaint
-: Other (Right foot osteomyelitis)
Subjective / Review of Systems
Patient seen and examined. at the bedside who reports that there has been some improvement in his underlying encephalopathy. At present, patient denies any fevers or chills.
Vital Signs / Physical Exam
Vital Signs
Vital Signs
Temp Pulse Resp BP Pulse Ox
97.3 F 71 18 155/100 100
02/01/25 07:46 02/01/25 08:52 02/01/25 08:42 02/01/25 08:52 02/01/25 07:42
Physical Exam
Constitutional: No Acute Distress, Comfortable, Chronically Ill and Non-toxic
Cardiovascular: Regular Rate and S1/S2; Negative S3/S4
Pulmonary: Clear, Symmetric and Non Labored
Gastrointestinal: Soft, Non Tender, Non Distended and Normal Bowel Sounds
Skin: Warm and Dry
Wound: Other (right foot dressing clean, dry )
Neurological: Awake, Alert, Oriented and AO x 3
Psychological: Calm
Lines: PICC (No erythema or tenderness)
Objective Data
Lab Data
Lab Results
02/01/25 04:34
02/01/25 04:34
ESR 44 mm/hour (0-20) H 01/18/25 01:39
PT 14.3 Sec (11.4-14.6) 01/17/25 03:57
INR 1.10 01/17/25 03:57
APTT 28.6 Sec (23.4-35.0) 01/17/25 03:57
Estimated Creat Clear 60 ml/min 02/01/25 04:34
Total Bilirubin 0.6 mg/dl (0.2-1.3) 01/27/25 20:56
AST 26 U/L (17-59) 01/27/25 20:56
ALT 36 U/L (0-50) 01/27/25 20:56
Alkaline Phosphatase 73 U/L (38-126) 01/27/25 20:56
C-Reactive Protein < 5.00 mg/L (0.0-10.00) 01/18/25 01:39
Most recent labs reviewed.
Micro Results:
01/28/25 02:46 C. difficile GDH Antigen & Toxins - Final
Feces/Stool Negative for toxigenic C.difficile
01/17/25 14:50 MRSA Screen - Final
Nose No Methicillin Resistant Staphylococcus aureus isolated.
Imaging:
01/30/2025 MRI brain without contrast: no acute intracranial abnormality noted. Chronic senescent changes and chronic infarcts, as detailed in body of report.
12/29/2024 Labeled WBC scan : Accumulation of radiolabeled white blood cells within the right medial midfoot, similar distribution compared to prior 3 phase bone scan. Findings may be seen in the setting of osteomyelitis, consider MRI right foot
for more precise anatomic localization.
01/02/2025 Right foot x-ray: No evidence of acute osseous injury. No evidence of bone destruction. Soft tissue swelling of the forefoot. Soft tissue ulceration of the plantar midfoot versus overlying dressing as described above. Moderate dorsal
midfoot osteoarthritis.
[2025-02-01 11:32] LABS: Glucose - Point of Care 287 mg/dl (70-99)
--- NOTE | 2025-02-01 13:55 | W.PN.HOSP.TC ---
Today's Communication/Plan
-
Assessment / Plan
Assessment / Plan
Physical Exam
General: mild distress/anxious
HEENT: Scleral Anicteric, MMM, No JVD
Pulm: clear to auscultation b/l, on NC supplementation for comfort
Cardio: RRR, S1/S2
GI: Soft, NT, ND, BS+
Ext: 1+ pitting lower extremity edema
Skin: Warm, Dry
Neuro: oriented x3 conversant coherent, Lethargic but arousable, falling asleep during conversation. aterixis+
Psych: Calm
79M HFmrEF PAD/CAD DM Chronic Venous Stasis here for heart failure complicated with acute kidney injury. Patient also being treated for right foot osteomyelitis.
Toxic metabolic Encephalopathy possibly due to Polypharmacy suspect hypoactive delirium versus hospital-acquired
Stroke alert overnight. TIA/CVA
Asterixis (ammonia level neg)
Start Zyprexa, this was discontinued by psychiatry for prolonged QTc. However prolonged QTc secondary to AV paced rhythm
Psychiatry consult
Acute on chronic heart failure with moderately reduced EF
briefly Held IV Lasix due to VANESSA resumed with resolution, on hold again d/t new episode VANESSA exacerbated by contrast from stroke alert
Daily weights
I's and O's
Continue beta-zac Coreg reduced to 6.25 mg BID from 12.5 mg d/t soft/low pressures
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
court recording monitor
2D echocardiogram appreciated EF 48% no significant changes from ECHO Sep 2023
Lisinopril Aldactone Farxiga on hold d/t VANESSA
Acute hypoxemic respiratory failure secondary to heart failure exacerbation
weaned off oxygen supplementation, saturating well on room air but requiring NC supplementation for comfort, subjective feelings sob
Nocturnal hypoxia likely related to sleep apnea
Will need outpatient polysomnography
01/26 CXR appreciated no acute abn's
VANESSA likely secondary to overdiuresis (previously resolved, re-occurred 01/27 further exacerbated by contrast as above)
Mild Hyponatremia
-IVF gentle hydration 60 cc/h
-Nephro eval appreciated fluid restriction
01/28 Acute Urinary retention
-bladder scan prn
-patient currently refuses Wilson
HTN
01/28 Low Pressures/Hypotensive 89/60
home Hydralazine increased from 50 mg to 100 mg BID while other antihypertensives held d/t initial VANESSA
Hydralazine since discontinued 01/27
Lisinopril Aldactone held d/t VANESSA
Amlodipine placed on hold 01/28, Coreg reduced from 12.5 to 6.25 mg BID with holding parameters
01/28 once 1VF bolus 250 cc w/ subsequent improvement in BP noted, cont gentle IVF hydration
Elevated troponin likely type II demand ischemia in the setting of heart failure
Troponin peak of 0.07
Right foot osteomyelitis
Pseudomonas and Enterococcus bacteremia
Previously on cefepime daptomycin facility held d/t concerns causing itchiness
ID recommend continue cefepime daptomycin monitor for reaction, tolerating so far
Outpatient podiatry follow-up
History of PAD/CAD
PVD requiring stents
Aspirin Plavix statin
vascular eval appreciated follow up arterial study for intervention performed in Dec
Type 2 diabetes
Continue long and short acting insulin sliding scale
Accu-Cheks
Goal blood glucose 140-180
Carb controlled diet
Farxiga on hold d/t VANESSA as above
Chronic venous stasis
Oziel wrap
DVT ppx Lovenox
DNR
I previously spoke with Siri at bedside. Provided full update.
Begin disposition planning as mental status is at baseline
Anticipated Discharge: Within 24 hours
Subjective/Interval History
-
Date of Service: February 01, 2025
Seen and examined. Mental status appears better today. No new complaints. No acute overnight events.
Objective Data
-
Labs:
Laboratory Results
02/01/25
04:34
WBC 7.3
Hgb 11.5 L
Hct 35.2 L
Plt Count 174
Sodium 136
Potassium 4.5
Chloride 103
Carbon Dioxide 28
BUN 55 H
Creatinine 1.3
Glucose 150 H
Calcium 9.0
Vital Signs:
Vital Signs
Temp Pulse Resp BP Pulse Ox
97.5 F 72 20 130/55 97
02/01/25 10:48 02/01/25 10:48 02/01/25 10:48 02/01/25 10:48 02/01/25 10:48
I&O
01/31/25 02/01/25 02/02/25
06:59 06:59 06:59
Intake Total 240 / 240 480 / 480
Output Total 675 / 675 1700 / 1700 200 / 200
Balance -435 / -435 -1220 / -1220 -200 / -200
[2025-02-01] MEDS: NOVOLOG FLEXPEN-LOW RESISTANCE 3 UNITS SC (14:47)
[2025-02-01] MEDS: SENOKOT-S 1 TABLET PO (14:52)
--- NOTE | 2025-02-01 15:06 | W.PN.UPDATE ---
Update Note
Progress Note Update
reviewed chart spoke with and nursing. the patient was sleeping and i did not wake up. and nursing report no issues with sensorium which has been clear. neither feel there is need at present for psych we will sign off. please call us if
you need us to return.
--- NOTE | 2025-02-01 15:45 | W.PN.NEPH.PH ---
Today's Communication / Plan
-
AM labs
Assessment/Plan
-
Impression:
VANESSA
Right foot osteomyelitis + right foot ulcer due to critical limb ischemia Status post vascular procedure 01/03
Hyponatremia
Diabetes mellitus type 2
Chronic HFmrEF: EF ~48%
CAD/PVD
TAVR
Hypertension
Hyperlipidemia
Morbid obesity
Plan
follow BMP
Creatinine stable at 1.3
Sodium stable at 137
Lasix resumed
-
-
Date of Service: February 01, 2025
CC / HPI / ROS
-
Chief Complaint:
VANESSA
History of Present Illness:
VANESSA/Cr down to 1.3
Na up to 137
BP stable
weights down
hgb stable 11.1
Review of Systems:
no CP/SOB
lethargic
Nonoliguric
Labs
-
Labs:
WBC 7.3 10^3/uL (4.8-10.8) 02/01/25 04:34
RBC 3.88 10^6/uL (4.70-6.10) L 02/01/25 04:34
Hgb 11.5 g/dL (13.0-18.0) L 02/01/25 04:34
Hct 35.2 % (39.0-52.0) L 02/01/25 04:34
Plt Count 174 10^3/uL (130-400) 02/01/25 04:34
Sodium 136 mmol/L (135-145) 02/01/25 04:34
Potassium 4.5 mmol/L (3.5-5.1) 02/01/25 04:34
Chloride 103 mmol/L (98-107) 02/01/25 04:34
Carbon Dioxide 28 mmol/L (22-30) 02/01/25 04:34
BUN 55 mg/dl (9-20) H 02/01/25 04:34
Creatinine 1.3 mg/dL (0.7-1.3) 02/01/25 04:34
eGFR 55.53 02/01/25 04:34
Glucose 150 mg/dl (70-99) H 02/01/25 04:34
Calcium 9.0 mg/dl (8.4-10.2) 02/01/25 04:34
Phosphorus 3.4 mg/dl (2.5-4.5) 02/01/25 04:34
Cjs-J-Lbdqwxxzbko Pept 1130 pg/ml 01/26/25 05:30
Albumin 3.6 g/dl (3.5-5.0) 01/27/25 20:56
Physical Exam
-
Vital Signs:
Vital Signs
Temp Pulse Resp BP Pulse Ox
97.5 F 72 20 130/55 97
02/01/25 10:48 02/01/25 10:48 02/01/25 10:48 02/01/25 10:48 02/01/25 10:48
Cardiovascular:: Regular rate and rhythm
Respiratory:: Bilateral: Coarse
Lung Excursion:: Normal
Abdomen:: Nontender and Soft
Bowel Sounds:: Normal
Extremity Edema:: +1: Bilateral:
[2025-02-01 16:53] LABS: Glucose - Point of Care 155 mg/dl (70-99)
[2025-02-01] MEDS: CUBICIN 20 MG IV (17:13)
[2025-02-01] MEDS: LOVENOX 40 MG SC (18:10)
[2025-02-01 20:40] LABS: Glucose - Point of Care 92 mg/dl (70-99)
[2025-02-01] MEDS: LANTUS SC (20:43)
[2025-02-01] MEDS: FLUSH (NSS) 2 FLUSH IV (20:54)
[2025-02-01] MEDS: XALATAN OPHTHALMIC SOLUTION 1 DROP LEFT EYE (21:01)
[2025-02-02] MEDS: MELATONIN 3 MG PO ×2 (00:55→22:26)
[2025-02-02] MEDS: MERREM 500 MG IV ×5 (02:50→23:03)
[2025-02-02] MEDS: STERILE WATER FOR INJECTION 10 ML IV ×5 (02:51→23:03)
[2025-02-02] MEDS: FLUSH (NSS) 1 FLUSH IV (02:52)
[2025-02-02 03:42] VITALS: BP 95/60
[2025-02-02 05:22] LABS: Hematocrit 34.4 % (39.0-52.0); Hemoglobin 11.4 g/dL (13.0-18.0); Mean Corp Hgb Conc. 33.1 g/dL (33.0-37.0); Mean Corpuscular Volume 88.7 fL (80.0-94.0); Platelet Count 182 10^3/uL (130-400); Red Cell Dist. Width 13.2 % (11.5-14.5)
[2025-02-02 05:41] LABS: Blood Urea Nitrogen 51 mg/dl (9-20); Calcium 9.2 mg/dl (8.4-10.2); Carbon Dioxide 28 mmol/L (22-30); Chloride 103 mmol/L (98-107); Estimated Creatinine Clearance 64 ml/min; Glucose 103 mg/dl (70-99); Magnesium 2.4 mg/dl (1.6-2.3); Potassium 4.4 mmol/L (3.5-5.1); Sodium 136 mmol/L (135-145); eGFR > 60.00
[2025-02-02 05:46] LABS: C-Reactive Protein 9.40 mg/L (0.0-10.00)
[2025-02-02 06:00] VITALS: BMI 38.9
[2025-02-02 07:20] VITALS: BP 161/66
[2025-02-02 07:40] LABS: Glucose - Point of Care 151 mg/dl (70-99)
[2025-02-02] MEDS: VITAMIN D3 (cholecalciferol) 50 MCG PO (08:31)
[2025-02-02] MEDS: COREG 6.25 MG PO ×2 (08:31→20:27)
[2025-02-02] MEDS: LASIX 40 MG PO ×2 (08:31→16:34)
[2025-02-02] MEDS: THERAGRAN 1 TABLET PO (08:31)
[2025-02-02] MEDS: ASPIR LOW (ENTERIC COATED) 81 MG PO (08:31)
[2025-02-02] MEDS: NOVOLOG FLEXPEN 10 UNITS SC ×3 (08:32→16:59)
[2025-02-02] MEDS: NOVOLOG FLEXPEN-LOW RESISTANCE 1 UNITS SC (08:33)
[2025-02-02] MEDS: TRUSOPT 2% OPHTHALMIC SOLUTION 1 DROP LEFT EYE ×2 (08:34→20:29)
[2025-02-02] MEDS: LANTUS 0.24 UNITS SC ×2 (08:48→21:34)
[2025-02-02] MEDS: PLAVIX 75 MG PO (10:05)
[2025-02-02] MEDS: DESENEX/MITRAZOL/ZEASORB 1 APPLIC TOPICAL ×2 (10:08→20:28)
--- NOTE | 2025-02-02 10:50 | W.PN.NEPH.PH ---
Today's Communication / Plan
-
follow BMP
Assessment/Plan
-
Impression:
VANESSA
Right foot osteomyelitis + right foot ulcer due to critical limb ischemia Status post vascular procedure 01/03
Hyponatremia
Diabetes mellitus type 2
Chronic HFmrEF: EF ~48%
CAD/PVD
TAVR
Hypertension
Hyperlipidemia
Morbid obesity
Plan
follow BMP
Lasix resumed
explained to patient that he needs to be on some FR
-
-
Date of Service: February 02, 2025
CC / HPI / ROS
-
Chief Complaint:
VANESSA
History of Present Illness:
VANESSA/Cr down to 1.2
Na stable 136
BP stable
hgb stable
Review of Systems:
no CP/SOB
Labs
-
Labs:
WBC 5.9 10^3/uL (4.8-10.8) 02/02/25 04:45
RBC 3.88 10^6/uL (4.70-6.10) L 02/02/25 04:45
Hgb 11.4 g/dL (13.0-18.0) L 02/02/25 04:45
Hct 34.4 % (39.0-52.0) L 02/02/25 04:45
Plt Count 182 10^3/uL (130-400) 02/02/25 04:45
Sodium 136 mmol/L (135-145) 02/02/25 04:45
Potassium 4.4 mmol/L (3.5-5.1) 02/02/25 04:45
Chloride 103 mmol/L (98-107) 02/02/25 04:45
Carbon Dioxide 28 mmol/L (22-30) 02/02/25 04:45
BUN 51 mg/dl (9-20) H 02/02/25 04:45
Creatinine 1.2 mg/dL (0.7-1.3) 02/02/25 04:45
eGFR > 60.00 02/02/25 04:45
Glucose 103 mg/dl (70-99) H 02/02/25 04:45
Calcium 9.2 mg/dl (8.4-10.2) 02/02/25 04:45
Phosphorus 3.3 mg/dl (2.5-4.5) 02/02/25 04:45
Zmi-I-Gnaivpvxjwj Pept 1130 pg/ml 01/26/25 05:30
Albumin 3.6 g/dl (3.5-5.0) 01/27/25 20:56
Physical Exam
-
Vital Signs:
Vital Signs
Temp Pulse Resp BP Pulse Ox
97.7 F 73 20 163/66 98
02/02/25 07:20 02/02/25 08:31 02/02/25 07:20 02/02/25 08:31 02/02/25 07:20
Cardiovascular:: Regular rate and rhythm
Respiratory:: Bilateral: Coarse
Lung Excursion:: Normal
Abdomen:: Nontender and Soft
Bowel Sounds:: Normal
Extremity Edema:: +2: Bilateral:
--- NOTE | 2025-02-02 10:56 | W.PN.ID1 ---
Date of Service
Date of Service: February 02, 2025
Today's Communication
Continue daptomycin and meropenem.
recheck CPK
Assessment / Plan
Right foot osteomyelitis
Charcot arthropathy of right foot
Non-Healing, chronic (R) Foot Wound
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
- Not clear if secondary to antibiotics (cefepime) or not.
- Seems improved at present.
ASCVD (CAD, PAD, Carotid Disease)
Chronic HFmrEF
Aortic Stenosis s/p TAVR
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
Morbid Obesity due to excess calories
Allergy to penicillin - rash
Recommendations:
01/04 wound culture: Pseudomonas
01/04 bone culture (cunieform): Pseudomonas, Enterococcus
01/04 pathology without osteomyelitis
01/02 superficial culture Pseudomonas, Enterococcus,
Continue daptomycin and meropenem.
- Cefepime transitioned to meropenem over concern for possible FERMENTATION ENGINEER effects.
- Antibiotic end date remains 02/15/2025.
CPK normal when last assessed, recheck
ESR stable
CRP improved from 24.7 to <5.0
Will continue to follow weekly ESR and CRP.
Creatinine overall improved. Continue to monitor.
����������������������������������������������������������
Chief Complaint
-: Other (Right foot osteomyelitis)
Subjective / Review of Systems
afebrile
bp stable
no events overnight
Vital Signs / Physical Exam
Vital Signs
Vital Signs
Temp Pulse Resp BP Pulse Ox
97.7 F 73 20 163/66 98
02/02/25 07:20 02/02/25 08:31 02/02/25 07:20 02/02/25 08:31 02/02/25 07:20
Physical Exam
Constitutional: No Acute Distress
Cardiovascular: Regular Rate and S1/S2; Negative Murmur or Rub
Pulmonary: Clear and Symmetric; Negative Wheezes or Rales
Gastrointestinal: Soft, Non Tender, Non Distended and Normal Bowel Sounds
Skin: Warm and Dry; Negative Rash or Jaundice
Wound: Other (dressing clean, dry, intact )
Lines: PICC
Objective Data
Lab Data
Lab Results
02/02/25 04:45
02/02/25 04:45
ESR 50 mm/hour (0-20) H 02/02/25 04:45
PT 14.3 Sec (11.4-14.6) 01/17/25 03:57
INR 1.10 01/17/25 03:57
APTT 28.6 Sec (23.4-35.0) 01/17/25 03:57
Estimated Creat Clear 64 ml/min 02/02/25 04:45
Total Bilirubin 0.6 mg/dl (0.2-1.3) 01/27/25 20:56
AST 26 U/L (17-59) 01/27/25 20:56
ALT 36 U/L (0-50) 01/27/25 20:56
Alkaline Phosphatase 73 U/L (38-126) 01/27/25 20:56
C-Reactive Protein 9.40 mg/L (0.0-10.00) 02/02/25 04:45
Most recent labs reviewed.
Micro Results:
01/28/25 02:46 C. difficile GDH Antigen & Toxins - Final
Feces/Stool Negative for toxigenic C.difficile
01/17/25 14:50 MRSA Screen - Final
Nose No Methicillin Resistant Staphylococcus aureus isolated.
Imaging:
01/30/2025 MRI brain without contrast: no acute intracranial abnormality noted. Chronic senescent changes and chronic infarcts, as detailed in body of report.
12/29/2024 Labeled WBC scan : Accumulation of radiolabeled white blood cells within the right medial midfoot, similar distribution compared to prior 3 phase bone scan. Findings may be seen in the setting of osteomyelitis, consider MRI right foot
for more precise anatomic localization.
01/02/2025 Right foot x-ray: No evidence of acute osseous injury. No evidence of bone destruction. Soft tissue swelling of the forefoot. Soft tissue ulceration of the plantar midfoot versus overlying dressing as described above. Moderate dorsal
midfoot osteoarthritis.
[2025-02-02 11:27] VITALS: BP 153/67
[2025-02-02 11:43] LABS: Glucose - Point of Care 290 mg/dl (70-99)
[2025-02-02] MEDS: TYLENOL 650 MG PO ×2 (11:54→20:39)
[2025-02-02] MEDS: NOVOLOG FLEXPEN-LOW RESISTANCE 3 UNITS SC ×2 (11:57→17:00)
--- NOTE | 2025-02-02 12:22 | W.DCSUMMARY ---
Discharge Summary
Discharge Data
Date of Admission: 01/17/25
Date of Discharge: 02/02/25
-
Pending Results: No
Hospital Course
79-year-old male with history of right foot osteomyelitis secondary to critical limb ischemia, insulin-dependent diabetes mellitus, CAD, CHF, hypertension, hyperlipidemia
Presented from [facility] with shortness of breath. Found to be in heart failure exacerbation requiring supplemental oxygen. Unfortunately, eventually developed VANESSA likely secondary to overdiuresis therefore Lasix was held. Was provided
some IV fluids and nephrology evaluated. Eventually VANESSA resolved and was able to resume Lasix. On January 27, 2025 stroke alert called for new right sided facial weakness, right pupil constricted and nonreactive right upper extremity weakness and
right extremity ataxia. NIH 6. [place] neurolog[facility] was called recommended against TNK. Symptoms resolving during CAT scan of brain. 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 CTA head and neck completed
demonstrated 80 to 90% stenosis of right carotid heavily calcified. Vascular surgery consulted recommended a carotid duplex neurology consult and outpatient follow-up. Neurology recommended to obtain MRI head without contrast which did not
demonstrate acute findings however there were some chronic findings. See report below. Mental status was waxing waning suspect delirium/hospital-acquired delirium with improvement. Psychiatry consulted no additional recommendations for delirium.
Was evaluated by physical therapy recommended SNF. Should be noted will need to continue IV antibiotics through PICC line until 02/15/2025.
CXR
IMPRESSION:
Right PICC tip in the distal third of superior vena cava. No pneumothorax. No acute cardiopulmonary process.
CTChest
IMPRESSION:
No evidence of central pulmonary embolism.
Stable tiny right upper lobe pulmonary nodule, considered benign.
Stable small right adrenal nodule with fatty density compatible with a benign myolipoma.
Coronary artery calcifications.
2d echo
SUMMARY
1. Left ventricular ejection fraction is mildly reduced with an ejection fraction of 48 % by Kang's biplane method of discs.
2. Compared to a prior transthoracic echocardiogram study from September 2023 no significant changes are seen.
3. TAVR with peak/mean gradients of 14/7 mmHg.
4. There is mid anteroseptal and apical akinesis.
5. Mild concentric left ventricular hypertrophy.
CXR
IMPRESSION:
No acute disease of the chest.
Lines and tubes as described above.
Mild cardiomegaly. Stable
HeadCT
IMPRESSION:
1. No CT evidence for acute intracranial hemorrhage or transcortical infarct.
2. Moderate white matter leukoaraiosis in the frontal and parietal lobes.
3. 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
4. Mild to moderate diffuse cerebral and cerebellar volume loss.
ASPECT score: 10
Head/Neck CTA
IMPRESSION:
NECK CTA:
1. SEVERE STENOSIS (greater than 70% diameter) in the PROXIMAL RIGHT ICA secondary to very severe calcific atherosclerotic plaque.
2. 50-70% diameter stenosis in the proximal left ICA.
3. Severe stenosis (greater than 70% diameter) at the origin of the right vertebral artery.
4. 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
5. Moderate discogenic degenerative disease at C5/C6 with a disc-osteophyte complex causing mild to moderate spinal cord compression and severe left neural foraminal narrowing.
HEAD CTA:
1. Severe calcific atherosclerotic plaque in both intracranial internal carotid arteries.
2. 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
3. Severe atherosclerotic plaque in the intradural segment of the right vertebral artery causing 50-70% diameter stenosis.
4. Hypoplastic left vertebral artery terminating in the left PICA (the right vertebral artery is the sole blood supply to the basilar artery).
5. 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
6. Moderate-sized chronic infarct in the left cerebellar hemisphere.
7. Moderate white matter leukoaraiosis.
Vascular ultrasound
IMPRESSION:
1. Calcified plaque within the left carotid bulb, measurements suggestive of greater than 70% stenosis as per modified Society of Radiologists in Ultrasound consensus criteria (IAC carotid criteria white paper, 2020).
2. Calcified plaque within the right carotid bulb, measurements suggestive of 50-69% stenosis.
RN PRACTITIONER: Maritza Nance RVBuddy
MILAGRO
IMPRESSION:
1. Right ankle-brachial index 1.31, compared to 0.7 on prior study. Right toe brachial index 0.4. Scattered arterial plaque without focal significant stenosis demonstrated. Spectral Doppler waveform analysis is suggestive of disease within the mid
to distal SFA, and infrapopliteal disease may also be present.
2. Left ankle brachial index 1.06, compared to 0.72 on prior. Left toe brachial index 0.29. Scattered arterial plaque without focal large vessel stenosis demonstrated. Spectral Doppler waveform analysis is suggestive of infrapopliteal disease.
Pressure differential between the posterior tibial and dorsalis pedis arteries is also suggestive of infrapopliteal disease.
3. Given depressed toe brachial indices on each side, small vessel disease may also be present.
Brain MRI
IMPRESSION:
No acute intracranial abnormality.
Chronic senescent changes and chronic infarcts, as detailed above.
Seen and examined the day of discharge which was 02/02/2025. No new complaints. No acute overnight events.
Physical Exam
General: mild distress/anxious
HEENT: Scleral Anicteric, MMM, No JVD
Pulm: clear to auscultation b/l, on NC supplementation for comfort
Cardio: RRR, S1/S2
GI: Soft, NT, ND, BS+
Ext: Trace edema
Skin: Warm, Dry
Neuro: oriented x3 conversant coherent
Psych: Calm
More than 30 minutes spent in discharge including
Final examination of the patient
Summarizing hospital stay
Instructions for continuing care to all relevant caregivers
Preparation of discharge records, prescriptions, and referral forms
Total time spent (in minutes): 33mins
Discharge Plan
-
Patient Disposition: Fdc/SNF
Discharge Diagnosis/Procedures: Acute on chronic heart failure with moderately reduced EF
Acute hypoxemic respiratory failure
VANESSA
Hypertension
Acute metabolic encephalopathy
Right foot osteomyelitis
History of CAD/PAD
Type 2 diabetes
Chronic venous stasis
Diet: As tolerated, Low Fat, Low Cholesterol, Low Sodium, 2 Gram Sodium, Diabetic, Carb Controlled, No added salt and Restrict fluids to 64 oz
Activity: As tolerated
Activity Restrictions/Additional Instructions:
Presented from [facility] with shortness of breath. Found to be in heart failure exacerbation requiring supplemental oxygen. Unfortunately, eventually developed VANESSA likely secondary to overdiuresis therefore Lasix was held. Was provided
some IV fluids and nephrology evaluated. Eventually VANESSA resolved and was able to resume Lasix. On January 27, 2025 stroke alert called for new right sided facial weakness, right pupil constricted and nonreactive right upper extremity weakness and
right extremity ataxia. NIH 6. [place] [facility] was called recommended against TNK. Symptoms resolving during CAT scan of brain. 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 CTA head and neck completed
demonstrated 80 to 90% stenosis of right carotid heavily calcified. Vascular surgery consulted recommended a carotid duplex neurology consult and outpatient follow-up. Neurology recommended to obtain MRI head without contrast which did not
demonstrate acute findings however there were some chronic findings. See report below. Mental status was waxing waning suspect delirium/hospital-acquired delirium with improvement. Psychiatry consulted no additional recommendations for delirium.
Was evaluated by physical therapy recommended SNF. Should be noted will need to continue IV antibiotics through PICC line until 02/15/2025.
CXR
IMPRESSION:
Right PICC tip in the distal third of superior vena cava. No pneumothorax. No acute cardiopulmonary process.
CTChest
IMPRESSION:
No evidence of central pulmonary embolism.
Stable tiny right upper lobe pulmonary nodule, considered benign.
Stable small right adrenal nodule with fatty density compatible with a benign myolipoma.
Coronary artery calcifications.
2d echo
SUMMARY
1. Left ventricular ejection fraction is mildly reduced with an ejection fraction of 48 % by Kang's biplane method of discs.
2. Compared to a prior transthoracic echocardiogram study from September 2023 no significant changes are seen.
3. TAVR with peak/mean gradients of 14/7 mmHg.
4. There is mid anteroseptal and apical akinesis.
5. Mild concentric left ventricular hypertrophy.
CXR
IMPRESSION:
No acute disease of the chest.
Lines and tubes as described above.
Mild cardiomegaly. Stable
HeadCT
IMPRESSION:
1. No CT evidence for acute intracranial hemorrhage or transcortical infarct.
2. Moderate white matter leukoaraiosis in the frontal and parietal lobes.
3. 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
4. Mild to moderate diffuse cerebral and cerebellar volume loss.
ASPECT score: 10
Head/Neck CTA
IMPRESSION:
NECK CTA:
1. SEVERE STENOSIS (greater than 70% diameter) in the PROXIMAL RIGHT ICA secondary to very severe calcific atherosclerotic plaque.
2. 50-70% diameter stenosis in the proximal left ICA.
3. Severe stenosis (greater than 70% diameter) at the origin of the right vertebral artery.
4. 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
5. Moderate discogenic degenerative disease at C5/C6 with a disc-osteophyte complex causing mild to moderate spinal cord compression and severe left neural foraminal narrowing.
HEAD CTA:
1. Severe calcific atherosclerotic plaque in both intracranial internal carotid arteries.
2. 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
3. Severe atherosclerotic plaque in the intradural segment of the right vertebral artery causing 50-70% diameter stenosis.
4. Hypoplastic left vertebral artery terminating in the left PICA (the right vertebral artery is the sole blood supply to the basilar artery).
5. 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
6. Moderate-sized chronic infarct in the left cerebellar hemisphere.
7. Moderate white matter leukoaraiosis.
Vascular ultrasound
IMPRESSION:
1. Calcified plaque within the left carotid bulb, measurements suggestive of greater than 70% stenosis as per modified Society of Radiologists in Ultrasound consensus criteria (IAC carotid criteria white paper, 2020).
2. Calcified plaque within the right carotid bulb, measurements suggestive of 50-69% stenosis.
RN PRACTITIONER: Maritza Nance RVT
MILAGRO
IMPRESSION:
1. Right ankle-brachial index 1.31, compared to 0.7 on prior study. Right toe brachial index 0.4. Scattered arterial plaque without focal significant stenosis demonstrated. Spectral Doppler waveform analysis is suggestive of disease within the mid
to distal SFA, and infrapopliteal disease may also be present.
2. Left ankle brachial index 1.06, compared to 0.72 on prior. Left toe brachial index 0.29. Scattered arterial plaque without focal large vessel stenosis demonstrated. Spectral Doppler waveform analysis is suggestive of infrapopliteal disease.
Pressure differential between the posterior tibial and dorsalis pedis arteries is also suggestive of infrapopliteal disease.
3. Given depressed toe brachial indices on each side, small vessel disease may also be present.
Brain MRI
IMPRESSION:
No acute intracranial abnormality.
Chronic senescent changes and chronic infarcts, as detailed above.
Wound Care Instructions
R plantar medial foot wound-clean with saline, Bactroban ointment to ulcer, adaptic to sutures, 4x4 gauze pads, secure with Kerlix, change daily and prn drainage.
NWB R foot.
Protective foam to heels, change q 3 days and prn loosened dressing.
Sacrum-protective silicone border foam, change q 3 days and prn loosened dressing.
zinc barrier ointment (i.e. Calazime to rhonda anal skin bid)
Miconazole powder to abdominal/groin, affected areas bid.
Air mattress
Turning schedule
Elevate heels off bed with pillows.
Pressure redistributing chair cushion (i.e. Bariatric air chair cushion, Roho)
Follow up with Dr. Velasquez Stokes motor runner for R foot wound, bone biopsy suture removal.
Follow up with ID.
Follow up with Dr. Owen Garcia.
Follow up at wound care center if needed, call for an appointment.
Instructions: *[facility] Heart Failure Instructions
Referrals:
Raven Fnotanez PA-C [Specified Professional Personl, Vascular Surgery] - 02/06/25 2:00 pm
Arun Jaramillo DO [Active, Nephrology] - in three to four weeks
Bri Cochran CRNP [Family Provider, General]
Vincent Brunner MD [Active, Cardiology] - in two to three weeks
Tera Saldana MD [Active, Neurology] - in six weeks
Prescriptions:
New
miconazole nitrate [Miconazorb AF] 2 % Powder
1 applic topical BID Qty: 85 0RF
DAPTOmycin [Cubicin] 1000 MG
Syringe [Syringe-Pump] 0 ML
As Directed mls/hr IV Q24H
Ordered By: Albert Gillis MD
Last Taken: 02/01/25 17:13 20 mls
meropenem 500 mg Recon Soln
500 mg IV Q6
Continued
coenzyme Q10 [Co Q-10] 200 MG capsule
200 mg PO HS
clopidogrel 75 MG tablet
75 mg PO DAILY
amlodipine 10 MG tablet
10 mg PO DAILY
cholecalciferol (vitamin D3) 2,000 UNITS tablet
2,000 units PO DAILY
carvedilol 12.5 mg Tablet
12.5 mg PO BID
aspirin 81 mg Tablet,Delayed Release (Dr/Ec)
81 mg PO DAILY
latanoprost 0.005 % Drops
1 drp LEFT EYE HS
dorzolamide 2 % Drops
1 drp LEFT EYE BID
insulin lispro [Humalog KwikPen Insulin] 100 unit/mL Insulin Pen
10 unit SC AC
Rx Instructions:
Patient endorses normally taking 10 units AC, but will take 15 units AC if he is eating a high-carb meal
hydralazine 50 mg Tablet
50 mg PO BID Qty: 60 0RF
insulin glargine U-300 conc [Toujeo Max U-300 SoloStar] 300 unit/mL (3 mL) Insulin Pen
30 unit SC BID Qty: 0 0RF
acetaminophen [Tylenol] 325 mg Tablet
650 mg PO Q4HPRN PRN (Reason: mild pain)
therapeutic multivitamin Tablet
1 tab PO DAILY
melatonin 3 mg Tablet
3 mg PO HSPRN PRN (Reason: sleep)
furosemide 40 mg tablet
40 mg PO BID
spironolactone 25 mg Tablet
25 mg PO DAILY
dapagliflozin propanediol [Farxiga] 10 mg Tablet
10 mg PO DAILY
Held
lisinopril 40 mg Tablet
40 mg PO DAILY
Hold Instructions: Resume on 02/23/25. repeat BMP in 1 week once cleared by medical provider to resume
Discontinued
pitavastatin calcium [Livalo] 4 mg Tablet
4 mg PO HS
Discharge Orders:
Discharge Patient (As Directed); Ordered 02/02/25
Ordered By: Albert Gillis
Discharge Date and Time
Print Language: GRENADIAN
--- NOTE | 2025-02-02 14:29 | CM ---
Addendum entered by Katrin Vance 02/02/25 14:32:
Pt and agreeable to [facility].
Original Note:
SNF bed is available today and tomorrow at [facility], per Alysha. Auth pending.
[2025-02-02 15:20] VITALS: BP 137/55
[2025-02-02 16:40] LABS: Glucose - Point of Care 256 mg/dl (70-99)
[2025-02-02] MEDS: CUBICIN 20 MG IV (16:58)
[2025-02-02] MEDS: LOVENOX 40 MG SC (17:43)
[2025-02-02 19:39] VITALS: BP 137/56
[2025-02-02 21:24] LABS: Glucose - Point of Care 163 mg/dl (70-99)
[2025-02-02] MEDS: XALATAN OPHTHALMIC SOLUTION 1 DROP LEFT EYE (21:34)
[2025-02-02 23:09] VITALS: BP 142/61
[2025-02-03] MEDS: MELATONIN 5 MG PO (01:20)
[2025-02-03 03:59] VITALS: BP 139/52
[2025-02-03] MEDS: MERREM 500 MG IV ×3 (05:33→17:48)
[2025-02-03] MEDS: STERILE WATER FOR INJECTION 10 ML IV ×3 (05:34→17:47)
[2025-02-03 06:00] VITALS: BMI 39.1
[2025-02-03 07:00] VITALS: BP 170/69
[2025-02-03 07:41] LABS: Glucose - Point of Care 135 mg/dl (70-99)
[2025-02-03] MEDS: NOVOLOG FLEXPEN-LOW RESISTANCE SC (08:11)
[2025-02-03] MEDS: COREG 6.25 MG PO (09:05)
[2025-02-03] MEDS: ASPIR LOW (ENTERIC COATED) 81 MG PO (09:05)
[2025-02-03] MEDS: VITAMIN D3 (cholecalciferol) 50 MCG PO (09:06)
[2025-02-03] MEDS: PLAVIX 75 MG PO (09:06)
[2025-02-03] MEDS: LASIX 40 MG PO ×2 (09:06→17:01)
[2025-02-03] MEDS: THERAGRAN 1 TABLET PO (09:06)
[2025-02-03] MEDS: TRUSOPT 2% OPHTHALMIC SOLUTION 1 DROP LEFT EYE (09:07)
[2025-02-03] MEDS: DESENEX/MITRAZOL/ZEASORB 1 APPLIC TOPICAL (09:07)
[2025-02-03 09:09] LABS: Hematocrit 35.2 % (39.0-52.0); Hemoglobin 11.7 g/dL (13.0-18.0); Mean Corp Hgb Conc. 33.2 g/dL (33.0-37.0); Mean Corpuscular Volume 91.2 fL (80.0-94.0); Platelet Count 189 10^3/uL (130-400); Red Cell Dist. Width 13.1 % (11.5-14.5)
[2025-02-03] MEDS: NOVOLOG FLEXPEN 10 UNITS SC ×3 (09:42→17:46)
[2025-02-03 09:45] LABS: Glucose - Point of Care 155 mg/dl (70-99)
[2025-02-03] MEDS: LANTUS 0.24 UNITS SC (09:47)
[2025-02-03 10:05] LABS: Blood Urea Nitrogen 51 mg/dl (9-20); Calcium 9.3 mg/dl (8.4-10.2); Carbon Dioxide 29 mmol/L (22-30); Chloride 102 mmol/L (98-107); Estimated Creatinine Clearance 71 ml/min; Glucose 121 mg/dl (70-99); Magnesium 2.2 mg/dl (1.6-2.3); Potassium 4.7 mmol/L (3.5-5.1); Sodium 135 mmol/L (135-145); eGFR > 60.00
--- NOTE | 2025-02-03 10:11 | W.PN.ID1 ---
Date of Service
Date of Service: February 03, 2025
Today's Communication
Continue daptomycin and meropenem.
Assessment / Plan
Right foot osteomyelitis
Charcot arthropathy of right foot
Non-Healing, chronic (R) Foot Wound
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
- Not clear if secondary to antibiotics (cefepime) or not.
- Seems improved at present.
ASCVD (CAD, PAD, Carotid Disease)
Chronic HFmrEF
Aortic Stenosis s/p TAVR
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
Morbid Obesity due to excess calories
Allergy to penicillin - rash
Recommendations:
01/04 wound culture: Pseudomonas
01/04 bone culture (cunieform): Pseudomonas, Enterococcus
01/04 pathology without osteomyelitis
01/02 superficial culture Pseudomonas, Enterococcus,
Continue daptomycin and meropenem.
- Cefepime transitioned to meropenem over concern for possible DECK ENGINEER effects.
- Antibiotic end date remains 02/15/2025.
CPK normal 02/03/25
ESR stable
CRP improved from 24.7 to <5.0
Will continue to follow weekly ESR and CRP.
Creatinine overall improved. Continue to monitor.
����������������������������������������������������������
Chief Complaint
-: Other (Right foot osteomyelitis)
Subjective / Review of Systems
No myalgia. No complaints.
Vital Signs / Physical Exam
Vital Signs
Vital Signs
Temp Pulse Resp BP Pulse Ox
97.7 F 71 16 138/60 95
02/03/25 07:00 02/03/25 09:05 02/03/25 07:00 02/03/25 09:05 02/03/25 09:17
Physical Exam
Constitutional: No Acute Distress and Obese
Cardiovascular: Regular Rate, S1/S2 and Rub
Pulmonary: Clear
Gastrointestinal: Soft, Non Tender, Non Distended and Normal Bowel Sounds
Wound: Other (dressing clean, dry, intact )
Neurological: Awake
Lines: PICC
Objective Data
Lab Data
Lab Results
02/03/25 08:15
02/03/25 08:21
ESR 50 mm/hour (0-20) H 02/02/25 04:45
PT 14.3 Sec (11.4-14.6) 01/17/25 03:57
INR 1.10 01/17/25 03:57
APTT 28.6 Sec (23.4-35.0) 01/17/25 03:57
Estimated Creat Clear 71 ml/min 02/03/25 08:21
Total Bilirubin 0.6 mg/dl (0.2-1.3) 01/27/25 20:56
AST 26 U/L (17-59) 01/27/25 20:56
ALT 36 U/L (0-50) 01/27/25 20:56
Alkaline Phosphatase 73 U/L (38-126) 01/27/25 20:56
C-Reactive Protein 9.40 mg/L (0.0-10.00) 02/02/25 04:45
Most recent labs reviewed.
Micro Results:
01/28/25 02:46 C. difficile GDH Antigen & Toxins - Final
Feces/Stool Negative for toxigenic C.difficile
01/17/25 14:50 MRSA Screen - Final
Nose No Methicillin Resistant Staphylococcus aureus isolated.
Imaging:
01/30/2025 MRI brain without contrast: no acute intracranial abnormality noted. Chronic senescent changes and chronic infarcts, as detailed in body of report.
12/29/2024 Labeled WBC scan : Accumulation of radiolabeled white blood cells within the right medial midfoot, similar distribution compared to prior 3 phase bone scan. Findings may be seen in the setting of osteomyelitis, consider MRI right foot
for more precise anatomic localization.
01/02/2025 Right foot x-ray: No evidence of acute osseous injury. No evidence of bone destruction. Soft tissue swelling of the forefoot. Soft tissue ulceration of the plantar midfoot versus overlying dressing as described above. Moderate dorsal
midfoot osteoarthritis.
--- NOTE | 2025-02-03 10:16 | CM ---
KARLOS called [facility] and spoke with Heather who provided authorization #[id number]; Reference #[id number] for dates of service 02/02-02/06/2025 for admission to [facility]. NRD 02/06/2025.
Patient is cleared for discharge today. Ambulance transport will be arranged.
[2025-02-03 11:00] VITALS: BP 165/66
--- NOTE | 2025-02-03 11:57 | W.PN.NEPH.PH ---
Today's Communication / Plan
-
follow BMP
Assessment/Plan
-
Impression:
VANESSA
Right foot osteomyelitis + right foot ulcer due to critical limb ischemia Status post vascular procedure 01/03
Hyponatremia
Diabetes mellitus type 2
Chronic HFmrEF: EF ~48%
CAD/PVD
TAVR
Hypertension
Hyperlipidemia
Morbid obesity
Plan
follow BMP
lasix + FR
will sign off
-
-
Date of Service: February 03, 2025
CC / HPI / ROS
-
Chief Complaint:
VANESSA
History of Present Illness:
VANESSA/Cr down to 1.1
Na stable 135
BP stable
hgb stable
Review of Systems:
no CP/SOB
Labs
-
Labs:
WBC 6.2 10^3/uL (4.8-10.8) 02/03/25 08:15
RBC 3.86 10^6/uL (4.70-6.10) L 02/03/25 08:15
Hgb 11.7 g/dL (13.0-18.0) L 02/03/25 08:15
Hct 35.2 % (39.0-52.0) L 02/03/25 08:15
Plt Count 189 10^3/uL (130-400) 02/03/25 08:15
Sodium 135 mmol/L (135-145) 02/03/25 08:21
Potassium 4.7 mmol/L (3.5-5.1) 02/03/25 08:21
Chloride 102 mmol/L (98-107) 02/03/25 08:21
Carbon Dioxide 29 mmol/L (22-30) 02/03/25 08:21
BUN 51 mg/dl (9-20) H 02/03/25 08:21
Creatinine 1.1 mg/dL (0.7-1.3) 02/03/25 08:21
eGFR > 60.00 02/03/25 08:21
Glucose 121 mg/dl (70-99) H 02/03/25 08:21
Calcium 9.3 mg/dl (8.4-10.2) 02/03/25 08:21
Phosphorus 3.4 mg/dl (2.5-4.5) 02/03/25 08:21
Akp-J-Beqxufaflbt Pept 1130 pg/ml 01/26/25 05:30
Albumin 3.6 g/dl (3.5-5.0) 01/27/25 20:56
Physical Exam
-
Vital Signs:
Vital Signs
Temp Pulse Resp BP Pulse Ox
97.9 F 71 16 165/66 96
02/03/25 11:00 02/03/25 11:00 02/03/25 11:00 02/03/25 11:00 02/03/25 11:00
Cardiovascular:: Regular rate and rhythm
Respiratory:: Bilateral: CTA
Lung Excursion:: Normal
Abdomen:: Nontender and Soft
Bowel Sounds:: Normal
Extremity Edema:: +1: Bilateral:
[2025-02-03 13:00] VITALS: BP 157/64
[2025-02-03 13:37] LABS: Glucose - Point of Care 363 mg/dl (70-99)
[2025-02-03] MEDS: NOVOLOG FLEXPEN-LOW RESISTANCE 5 UNITS SC (13:39)
--- NOTE | 2025-02-03 14:00 | PTCARENOTE ---
Pt ate lunch prior to checking blood sugar. Blood sugar was elevated at 363. Administered 15 units of Novolog as per orders, will monitor.
--- NOTE | 2025-02-03 15:00 | CM ---
KARLOS spoke with Katherine at [facility]; she is aware that transport is being arranged for pt's discharge today. IMM provided, signed by Bhaskar and placed in chart.
[facility] Report: [phone]
[facility]
[2025-02-03 15:31] VITALS: BP 155/65
--- NOTE | 2025-02-03 16:21 | W.DCSUMMARY ---
Discharge Summary
Discharge Data
Date of Admission: 01/17/25
Date of Discharge: 02/03/25
-
Pending Results: No
Hospital Course
79-year-old male with history of right foot osteomyelitis secondary to critical limb ischemia, insulin-dependent diabetes mellitus, CAD, CHF, hypertension, hyperlipidemia
Presented from [facility] with shortness of breath. Found to be in heart failure exacerbation requiring supplemental oxygen. Unfortunately, eventually developed VANESSA likely secondary to overdiuresis therefore Lasix was held. Was provided
some IV fluids and nephrology evaluated. Eventually VANESSA resolved and was able to resume Lasix. On January 27, 2025 stroke alert called for new right sided facial weakness, right pupil constricted and nonreactive right upper extremity weakness and
right extremity ataxia. NIH 6. [facility] was called recommended against TNK. Symptoms resolving during CAT scan of brain. 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 CTA head and neck completed
demonstrated 80 to 90% stenosis of right carotid heavily calcified. Vascular surgery consulted recommended a carotid duplex neurology consult and outpatient follow-up. Neurology recommended to obtain MRI head without contrast which did not
demonstrate acute findings however there were some chronic findings. See report below. Mental status was waxing waning suspect delirium/hospital-acquired delirium with improvement. Psychiatry consulted no additional recommendations for delirium.
Was evaluated by physical therapy recommended SNF. Should be noted will need to continue IV antibiotics through PICC line until 02/15/2025.
CXR
IMPRESSION:
Right PICC tip in the distal third of superior vena cava. No pneumothorax. No acute cardiopulmonary process.
CTChest
IMPRESSION:
No evidence of central pulmonary embolism.
Stable tiny right upper lobe pulmonary nodule, considered benign.
Stable small right adrenal nodule with fatty density compatible with a benign myolipoma.
Coronary artery calcifications.
2d echo
SUMMARY
1. Left ventricular ejection fraction is mildly reduced with an ejection fraction of 48 % by Kang's biplane method of discs.
2. Compared to a prior transthoracic echocardiogram study from September 2023 no significant changes are seen.
3. TAVR with peak/mean gradients of 14/7 mmHg.
4. There is mid anteroseptal and apical akinesis.
5. Mild concentric left ventricular hypertrophy.
CXR
IMPRESSION:
No acute disease of the chest.
Lines and tubes as described above.
Mild cardiomegaly. Stable
HeadCT
IMPRESSION:
1. No CT evidence for acute intracranial hemorrhage or transcortical infarct.
2. Moderate white matter leukoaraiosis in the frontal and parietal lobes.
3. 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
4. Mild to moderate diffuse cerebral and cerebellar volume loss.
ASPECT score: 10
Head/Neck CTA
IMPRESSION:
NECK CTA:
1. SEVERE STENOSIS (greater than 70% diameter) in the PROXIMAL RIGHT ICA secondary to very severe calcific atherosclerotic plaque.
2. 50-70% diameter stenosis in the proximal left ICA.
3. Severe stenosis (greater than 70% diameter) at the origin of the right vertebral artery.
4. 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
5. Moderate discogenic degenerative disease at C5/C6 with a disc-osteophyte complex causing mild to moderate spinal cord compression and severe left neural foraminal narrowing.
HEAD CTA:
1. Severe calcific atherosclerotic plaque in both intracranial internal carotid arteries.
2. 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
3. Severe atherosclerotic plaque in the intradural segment of the right vertebral artery causing 50-70% diameter stenosis.
4. Hypoplastic left vertebral artery terminating in the left PICA (the right vertebral artery is the sole blood supply to the basilar artery).
5. 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
6. Moderate-sized chronic infarct in the left cerebellar hemisphere.
7. Moderate white matter leukoaraiosis.
Vascular ultrasound
IMPRESSION:
1. Calcified plaque within the left carotid bulb, measurements suggestive of greater than 70% stenosis as per modified Society of Radiologists in Ultrasound consensus criteria (IAC carotid criteria white paper, 2020).
2. Calcified plaque within the right carotid bulb, measurements suggestive of 50-69% stenosis.
GARMENT MANUFACTURING SUPERVISOR: Maritza Nance RVT
MILAGRO
IMPRESSION:
1. Right ankle-brachial index 1.31, compared to 0.7 on prior study. Right toe brachial index 0.4. Scattered arterial plaque without focal significant stenosis demonstrated. Spectral Doppler waveform analysis is suggestive of disease within the mid
to distal SFA, and infrapopliteal disease may also be present.
2. Left ankle brachial index 1.06, compared to 0.72 on prior. Left toe brachial index 0.29. Scattered arterial plaque without focal large vessel stenosis demonstrated. Spectral Doppler waveform analysis is suggestive of infrapopliteal disease.
Pressure differential between the posterior tibial and dorsalis pedis arteries is also suggestive of infrapopliteal disease.
3. Given depressed toe brachial indices on each side, small vessel disease may also be present.
Brain MRI
IMPRESSION:
No acute intracranial abnormality.
Chronic senescent changes and chronic infarcts, as detailed above.
Seen and examined the day of discharge which was 02/03/2025. No new complaints. No acute overnight events.
Physical Exam
General: mild distress/anxious
HEENT: Scleral Anicteric, MMM, No JVD
Pulm: clear to auscultation b/l, on NC supplementation for comfort
Cardio: RRR, S1/S2
GI: Soft, NT, ND, BS+
Ext: Trace edema, chronic venostasis changes
Skin: Warm, Dry
Neuro: oriented x3 conversant coherent
Psych: Calm
More than 30 minutes spent in discharge including
Final examination of the patient
Summarizing hospital stay
Instructions for continuing care to all relevant caregivers
Preparation of discharge records, prescriptions, and referral forms
Total time spent (in minutes): 33mins
Discharge Plan
-
Patient Disposition: Custodial/SNF
Discharge Diagnosis/Procedures: Acute on chronic heart failure with moderately reduced EF
Acute hypoxemic respiratory failure
VANESSA
Hypertension
Acute metabolic encephalopathy
Right foot osteomyelitis
History of CAD/PAD
Type 2 diabetes
Chronic venous stasis
Diet: As tolerated, Low Fat, Low Cholesterol, Low Sodium, 2 Gram Sodium, Diabetic, Carb Controlled, No added salt and Restrict fluids to 64 oz
Activity: As tolerated
Activity Restrictions/Additional Instructions:
[facility]. Found to be in heart failure exacerbation requiring supplemental oxygen. Unfortunately, eventually developed VANESSA likely secondary to overdiuresis therefore Lasix was held. Was provided
some IV fluids and nephrology evaluated. Eventually VANESSA resolved and was able to resume Lasix. On January 27, 2025 stroke alert called for new right sided facial weakness, right pupil constricted and nonreactive right upper extremity weakness and
right extremity ataxia. NIH 6. [facility] was called recommended against TNK. Symptoms resolving during CAT scan of brain. 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 CTA head and neck completed
demonstrated 80 to 90% stenosis of right carotid heavily calcified. Vascular surgery consulted recommended a carotid duplex neurology consult and outpatient follow-up. Neurology recommended to obtain MRI head without contrast which did not
demonstrate acute findings however there were some chronic findings. See report below. Mental status was waxing waning suspect delirium/hospital-acquired delirium with improvement. Psychiatry consulted no additional recommendations for delirium.
Was evaluated by physical therapy recommended SNF. Should be noted will need to continue IV antibiotics through PICC line until 02/15/2025.
CXR
IMPRESSION:
Right PICC tip in the distal third of superior vena cava. No pneumothorax. No acute cardiopulmonary process.
CTChest
IMPRESSION:
No evidence of central pulmonary embolism.
Stable tiny right upper lobe pulmonary nodule, considered benign.
Stable small right adrenal nodule with fatty density compatible with a benign myolipoma.
Coronary artery calcifications.
2d echo
SUMMARY
1. Left ventricular ejection fraction is mildly reduced with an ejection fraction of 48 % by Kang's biplane method of discs.
2. Compared to a prior transthoracic echocardiogram study from September 2023 no significant changes are seen.
3. TAVR with peak/mean gradients of 14/7 mmHg.
4. There is mid anteroseptal and apical akinesis.
5. Mild concentric left ventricular hypertrophy.
CXR
IMPRESSION:
No acute disease of the chest.
Lines and tubes as described above.
Mild cardiomegaly. Stable
HeadCT
IMPRESSION:
1. No CT evidence for acute intracranial hemorrhage or transcortical infarct.
2. Moderate white matter leukoaraiosis in the frontal and parietal lobes.
3. 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
4. Mild to moderate diffuse cerebral and cerebellar volume loss.
ASPECT score: 10
Head/Neck CTA
IMPRESSION:
NECK CTA:
1. SEVERE STENOSIS (greater than 70% diameter) in the PROXIMAL RIGHT ICA secondary to very severe calcific atherosclerotic plaque.
2. 50-70% diameter stenosis in the proximal left ICA.
3. Severe stenosis (greater than 70% diameter) at the origin of the right vertebral artery.
4. 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
5. Moderate discogenic degenerative disease at C5/C6 with a disc-osteophyte complex causing mild to moderate spinal cord compression and severe left neural foraminal narrowing.
HEAD CTA:
1. Severe calcific atherosclerotic plaque in both intracranial internal carotid arteries.
2. 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
3. Severe atherosclerotic plaque in the intradural segment of the right vertebral artery causing 50-70% diameter stenosis.
4. Hypoplastic left vertebral artery terminating in the left PICA (the right vertebral artery is the sole blood supply to the basilar artery).
5. 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
6. Moderate-sized chronic infarct in the left cerebellar hemisphere.
7. Moderate white matter leukoaraiosis.
Vascular ultrasound
IMPRESSION:
1. Calcified plaque within the left carotid bulb, measurements suggestive of greater than 70% stenosis as per modified Society of Radiologists in Ultrasound consensus criteria (IAC carotid criteria white paper, 2020).
2. Calcified plaque within the right carotid bulb, measurements suggestive of 50-69% stenosis.
GARMENT MANUFACTURING SUPERVISOR: Maritza Nance RVT
MILAGRO
IMPRESSION:
1. Right ankle-brachial index 1.31, compared to 0.7 on prior study. Right toe brachial index 0.4. Scattered arterial plaque without focal significant stenosis demonstrated. Spectral Doppler waveform analysis is suggestive of disease within the mid
to distal SFA, and infrapopliteal disease may also be present.
2. Left ankle brachial index 1.06, compared to 0.72 on prior. Left toe brachial index 0.29. Scattered arterial plaque without focal large vessel stenosis demonstrated. Spectral Doppler waveform analysis is suggestive of infrapopliteal disease.
Pressure differential between the posterior tibial and dorsalis pedis arteries is also suggestive of infrapopliteal disease.
3. Given depressed toe brachial indices on each side, small vessel disease may also be present.
Brain MRI
IMPRESSION:
No acute intracranial abnormality.
Chronic senescent changes and chronic infarcts, as detailed above.
Wound Care Instructions
R plantar medial foot wound-clean with saline, Bactroban ointment to ulcer, adaptic to sutures, 4x4 gauze pads, secure with Kerlix, change daily and prn drainage.
NWB R foot.
Protective foam to heels, change q 3 days and prn loosened dressing.
Sacrum-protective silicone border foam, change q 3 days and prn loosened dressing.
zinc barrier ointment (i.e. Calazime to rhonda anal skin bid)
Miconazole powder to abdominal/groin, affected areas bid.
Air mattress
Turning schedule
Elevate heels off bed with pillows.
Pressure redistributing chair cushion (i.e. Bariatric air chair cushion, Roho)
Follow up with Dr. Velasquez Stokes stitch wheeler for R foot wound, bone biopsy suture removal.
Follow up with ID.
Follow up with Dr. Owen Garcia.
Follow up at wound care center if needed, call for an appointment.
Instructions: *[facility] Heart Failure Instructions
Referrals:
Raven Fontanez PA-C [Specified Professional Personl, Vascular Surgery] - 02/06/25 2:00 pm
Arun Jaramillo DO [Active, Nephrology] - in three to four weeks
Bri Cochran CRNP [Family Provider, General]
Vincent Brunner MD [Active, Cardiology] - in two to three weeks
Tera Saldana MD [Active, Neurology] - in six weeks
Prescriptions:
New
miconazole nitrate [Miconazorb AF] 2 % Powder
1 applic topical BID Qty: 85 0RF
DAPTOmycin [Cubicin] 1000 MG
Syringe [Syringe-Pump] 0 ML
As Directed mls/hr IV Q24H
Ordered By: Albert Gillis MD
Last Taken: 02/02/25 16:58 20 mls
meropenem 500 mg Recon Soln
500 mg IV Q6
Continued
coenzyme Q10 [Co Q-10] 200 MG capsule
200 mg PO HS
clopidogrel 75 MG tablet
75 mg PO DAILY
amlodipine 10 MG tablet
10 mg PO DAILY
cholecalciferol (vitamin D3) 2,000 UNITS tablet
2,000 units PO DAILY
carvedilol 12.5 mg Tablet
12.5 mg PO BID
aspirin 81 mg Tablet,Delayed Release (Dr/Ec)
81 mg PO DAILY
latanoprost 0.005 % Drops
1 drp LEFT EYE HS
dorzolamide 2 % Drops
1 drp LEFT EYE BID
insulin lispro [Humalog KwikPen Insulin] 100 unit/mL Insulin Pen
10 unit SC AC
Rx Instructions:
Patient endorses normally taking 10 units AC, but will take 15 units AC if he is eating a high-carb meal
hydralazine 50 mg Tablet
50 mg PO BID Qty: 60 0RF
insulin glargine U-300 conc [Toujeo Max U-300 SoloStar] 300 unit/mL (3 mL) Insulin Pen
30 unit SC BID Qty: 0 0RF
acetaminophen [Tylenol] 325 mg Tablet
650 mg PO Q4HPRN PRN (Reason: mild pain)
therapeutic multivitamin Tablet
1 tab PO DAILY
melatonin 3 mg Tablet
3 mg PO HSPRN PRN (Reason: sleep)
furosemide 40 mg tablet
40 mg PO BID
spironolactone 25 mg Tablet
25 mg PO DAILY
dapagliflozin propanediol [Farxiga] 10 mg Tablet
10 mg PO DAILY
Held
lisinopril 40 mg Tablet
40 mg PO DAILY
Hold Instructions: Resume on 02/23/25. repeat BMP in 1 week once cleared by medical provider to resume
Discontinued
pitavastatin calcium [Livalo] 4 mg Tablet
4 mg PO HS
Discharge Orders:
Discharge Patient (As Directed); Ordered 02/03/25
Ordered By: Albert Gillis
Discharge Date and Time
Print Language: ECUADOREAN
[2025-02-03 16:35] LABS: Glucose - Point of Care 226 mg/dl (70-99)
[2025-02-03] MEDS: CUBICIN 20 MG IV (17:07)
[2025-02-03] MEDS: LOVENOX 40 MG SC (17:47)
[2025-02-03] MEDS: NOVOLOG FLEXPEN-LOW RESISTANCE 2 UNITS SC (17:47)
== END 2025-02-03 18:29 | DRG 291 ==
LOC: 4 EAST ACU 10:25
PROVIDERS: Internal Medicine; Internal Medicine Cardiovascular Disease; Nurse Practitioner Family; Physician Assistant Medical; Student in an Organized Health Care Education/Training Program; ADMITTING PHYSICIAN Hospitalist; CONSULT PHYSICIAN Internal Medicine Cardiovascular Disease; CONSULT PHYSICIAN Psychiatry & Neurology Psychiatry; CONSULT PHYSICIAN Specialist; CONSULT PHYSICIAN Student in an Organized Health Care Education/Training Program; CONSULT PHYSICIAN Surgery Vascular Surgery; EMERGENCY PHYSICIAN Student in an Organized Health Care Education/Training Program; FAMILY PHYSICIAN Nurse Practitioner; OTHER PHYSICIAN Internal Medicine Infectious Disease; REFERRING PHYSICIAN Internal Medicine
PROC: 4B02XSZ Measurement of Cardiac Pacemaker, External Approach (ICD-10-PCS; 2025-01-18)
DX: I13.0 Hypertensive heart and chronic kidney disease with heart failure and stage 1 through stage 4 chronic kidney disease, or unspecified chronic kidney disease (principal); G92.8 Other toxic encephalopathy; I50.23 Acute on chronic systolic (congestive) heart failure; J96.01 Acute respiratory failure with hypoxia; N17.9 Acute kidney failure, unspecified; M86.8X7 Other osteomyelitis, ankle and foot; E87.1 Hypo-osmolality and hyponatremia; M50.022 Cervical disc disorder at C5-C6 level with myelopathy; I24.89 Other forms of acute ischemic heart disease; E66.01 Morbid (severe) obesity due to excess calories; E78.00 Pure hypercholesterolemia, unspecified; N18.9 Chronic kidney disease, unspecified; I25.10 Atherosclerotic heart disease of native coronary artery without angina pectoris; I87.8 Other specified disorders of veins; I25.5 Ischemic cardiomyopathy; E87.8 Other disorders of electrolyte and fluid balance, not elsewhere classified; I48.91 Unspecified atrial fibrillation; I65.23 Occlusion and stenosis of bilateral carotid arteries; R29.810 Facial weakness; R27.8 Other lack of coordination; F41.0 Panic disorder [episodic paroxysmal anxiety]; B96.5 Pseudomonas (aeruginosa) (mallei) (pseudomallei) as the cause of diseases classified elsewhere; B95.2 Enterococcus as the cause of diseases classified elsewhere; R19.7 Diarrhea, unspecified; R33.9 Retention of urine, unspecified; E11.621 Type 2 diabetes mellitus with foot ulcer; L97.519 Non-pressure chronic ulcer of other part of right foot with unspecified severity; I70.229 Atherosclerosis of native arteries of extremities with rest pain, unspecified extremity; E11.69 Type 2 diabetes mellitus with other specified complication; E11.40 Type 2 diabetes mellitus with diabetic neuropathy, unspecified; E11.22 Type 2 diabetes mellitus with diabetic chronic kidney disease; E11.51 Type 2 diabetes mellitus with diabetic peripheral angiopathy without gangrene; T50.2X5A Adverse effect of carbonic-anhydrase inhibitors, benzothiadiazides and other diuretics, initial encounter; E27.8 Other specified disorders of adrenal gland; Z66 Do not resuscitate; I25.2 Old myocardial infarction; Z68.39 Body mass index [BMI] 39.0-39.9, adult; Z95.0 Presence of cardiac pacemaker; Z95.5 Presence of coronary angioplasty implant and graft; Z88.1 Allergy status to other antibiotic agents; Z88.0 Allergy status to penicillin; Z88.8 Allergy status to other drugs, medicaments and biological substances; Z79.02 Long term (current) use of antithrombotics/antiplatelets; Z79.82 Long term (current) use of aspirin; Z79.4 Long term (current) use of insulin; Z95.2 Presence of prosthetic heart valve; Z86.73 Personal history of transient ischemic attack (TIA), and cerebral infarction without residual deficits; Z79.899 Other long term (current) drug therapy; Z91.199 Patient's noncompliance with other medical treatment and regimen due to unspecified reason; Z79.84 Long term (current) use of oral hypoglycemic drugs
CPT/HCPCS: 70450; 70496; 70498; 70551; 71045; 71046; 71275; 80048; 80053; 82140; 82550; 82805; 82962; 83735; 83880; 84100; 84443; 84484; 85025; 85027; 85610; 85652; 85730; 86140; 87070; 87324; 87449; 92610; 93005; 93306; 93880; 93922; 93925; 96375; 97110; 97163; 97167; 97530; 97535; 99285; J0878; Q9950; Q9967